=== PATIENT | male | born 1945 | race Caucasian/White ===

== ENCOUNTER → 2024-03-21 | Outpatient (CLI) | payer MEDICARE, MEDICAID, SELFPAY ==
[2024-03-21 12:08] LABS: Collection Type, Urine Clean Catch; Squamous Epithelial Cell,Urine 0 /hpf (0-5)
[2024-03-21 12:25] LABS: Basophils % (Auto) 0 % (0-2.5); Eosinophils % (Auto) 0 % (0-10); Hematocrit 34.8 % (41.0-53.0); Hemoglobin 11.5 g/dL (13.5-16.0); Immature Granulocytes % (Auto) 1 % (0-0); Lymphocytes # (Auto) 1.8 Thou/mm3 (1.0-4.8); Lymphocytes % (Auto) 19 % (10-50); Mean Corpuscular Volume 88 fL (80-100); Monocytes # (Auto) 0.6 Thou/mm3 (0.0-0.8); Monocytes % (Auto) 6 % (0-12); Neutrophils # (Auto) 6.9 Thou/mm3 (1.8-7.7); Neutrophils % (Auto) 73 % (37-80); Nucleated Red Blood Cell # 0.03 Thou/mm3 (0.00-0.00); Nucleated Red Blood Cell % 0 /100 WBC (0); Platelet Count 272 Thou/mm3 (140-440); RDW Standard Deviation 58.8 fL (35.1-43.9); Red Blood Count 3.97 Miln/mm3 (4.50-5.90); White Blood Count 9.5 Thou/mm3 (3.8-10.6)
[2024-03-21 12:29] LABS: Bilirubin,Urine Negative (Negative); Blood,Urine Negative (Negative); Clarity,Urine Clear (Clear/Hazy); Color,Urine Lt-Yellow (Lt Yel-Yel); Glucose, Urine Negative (Negative); Hyaline Casts,Urine < 1 /hpf (0-1); Ketones,Urine Negative (Negative); Leukocyte Esterase,Urine Negative (Negative); Nitrite,Urine Negative (Negative); Protein,Urine Trace (Neg - Trace); RBC,Urine 3 /hpf (0-3); Specific Gravity,Urine 1.012 (1.001-1.035); Urobilinogen,Urine Negative mg/dL (0.0-1.0); WBC,Urine < 1 /hpf (0-5)
[2024-03-21 12:40] LABS: Albumin, Serum 4.4 gm/dL (3.4-4.8); Anion Gap 8 (7-16); BUN/Creatinine Ratio 23 Ratio (12-20); Blood Urea Nitrogen 43 mg/dL (9-23); Calcium 10.3 mg/dL (8.3-10.6); Calcium (Corrected) 10.3 mg/dL (8.5-10.1); Chloride 104 mMol/L (98-107); Creatinine (Component) 1.9 mg/dL (0.6-1.3); Glucose 120 mg/dL (74-106); Osmolality,Calculated 287 (275-295); Phosphorous 3.1 mg/dL (2.4-5.1); Potassium 4.2 mMol/L (3.4-5.1); Sodium 138 mMol/L (136-145); eGFR 35 See Note
== END | disposition home or self-care (01) ==
LOC: COPL 11:07
PROVIDERS: PCP Family Medicine; Referring Provider Internal Medicine Nephrology; Visit Provider Internal Medicine Nephrology
DX: I12.9 Hypertensive chronic kidney disease with stage 1 through stage 4 chronic kidney disease, or unspecified chronic kidney disease (principal); N18.30 Chronic kidney disease, stage 3 unspecified
CPT/HCPCS: 36415; 80069; 81001; 85025

== ENCOUNTER → 2024-04-19 | Outpatient (CLI) | payer MEDICARE, MEDICAID, SELFPAY ==
[2024-04-19 12:19] LABS: Albumin, Serum 4.5 gm/dL (3.4-4.8); Anion Gap 9 (7-16); BUN/Creatinine Ratio 16 Ratio (12-20); Blood Urea Nitrogen 36 mg/dL (9-23); Calcium 10.1 mg/dL (8.3-10.6); Calcium (Corrected) 10.1 mg/dL (8.5-10.1); Chloride 101 mMol/L (98-107); Creatinine (Component) 2.2 mg/dL (0.6-1.3); Glucose 110 mg/dL (74-106); Osmolality,Calculated 283 (275-295); Phosphorous 3.1 mg/dL (2.4-5.1); Potassium 4.6 mMol/L (3.4-5.1); Sodium 137 mMol/L (136-145); eGFR 30 See Note
== END | disposition home or self-care (01) ==
LOC: COPL 10:48
PROVIDERS: PCP Family Medicine; Referring Provider Internal Medicine Cardiovascular Disease; Visit Provider Internal Medicine Cardiovascular Disease
DX: I25.118 Atherosclerotic heart disease of native coronary artery with other forms of angina pectoris (principal)
CPT/HCPCS: 36415; 80069

== ENCOUNTER 2024-05-29 14:43 | Inpatient (IN) | payer MEDICARE, MEDICAID, SELFPAY ==
--- NOTE | 2024-05-29 14:55 | EKG_ITS ---
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
--- NOTE | 2024-05-29 14:55 | PD.EDRME ---
Rapid Medical Screening Exam RME Arrival date/time: 05/29/24 14:43 78-year-old male presents emerged department complaints of dizziness Chief Complaint: Syncope / Near Syncope
[2024-05-29 15:10] VITALS: BP 122/65; PULSE 63; RESP 18; TEMP 36.9; O2SAT 96; BMI 29.9
[2024-05-29 15:20] LABS: Basophils # (Auto) 0.1 Thou/mm3 (0.0-0.2); Basophils % (Auto) 1 % (0-2.5); Eosinophils # (Auto) 0.2 Thou/mm3 (0.0-0.5); Eosinophils % (Auto) 3 % (0-10); Hematocrit 37.3 % (41.0-53.0); Immature Granulocytes % (Auto) 1 % (0-0); Immature Granulocytes Auto 0.08 Thou/mm3 (0.00-0.00); Lymphocytes # (Auto) 1.7 Thou/mm3 (1.0-4.8); Lymphocytes % (Auto) 19 % (10-50); Mean Corpuscular HGB Conc 32.2 g/dl (31.0-37.0); Mean Corpuscular Hemoglobin 27.9 pg (25.0-35.0); Mean Corpuscular Volume 87 fL (80-100); Monocytes # (Auto) 0.6 Thou/mm3 (0.0-0.8); Monocytes % (Auto) 7 % (0-12); Neutrophils # (Auto) 6.3 Thou/mm3 (1.8-7.7); Neutrophils % (Auto) 70 % (37-80); Nucleated Red Blood Cell % 0 /100 WBC (0); Platelet Count 264 Thou/mm3 (140-440); RDW Standard Deviation 57.9 fL (35.1-43.9); White Blood Count 9.1 Thou/mm3 (3.8-10.6)
[2024-05-29 15:39] LABS: INR 1.8 (0.9-1.3); Partial Thromboplastin Time 27.7 Seconds (22.0-36.0); Prothrombin Time 19.1 Seconds (9.0-12.2)
[2024-05-29 15:41] LABS: B-Type Natriuretic Peptide 194 pg/mL (0-100)
[2024-05-29 15:49] LABS: Alanine Aminotransferase 15 U/L (10-49); Albumin, Serum 4.7 gm/dL (3.4-4.8); Albumin/Globulin Ratio 1.6 (1.2-2.2); Alkaline Phosphatase 161 U/L (46-116); Anion Gap 11 (7-16); Aspartate Amino Transferase 19 U/L (0-34); BUN/Creatinine Ratio 13 Ratio (12-20); Bilirubin,Total 0.6 mg/dL (0.3-1.2); Blood Urea Nitrogen 31 mg/dL (9-23); Calcium 10.1 mg/dL (8.3-10.6); Calcium (Corrected) 10.1 mg/dL (8.5-10.1); Carbon Dioxide 26.4 mMol/L (20.0-31.0); Chloride 101 mMol/L (98-107); Creatinine (Component) 2.3 mg/dL (0.6-1.3); Estimated Creatinine Clearance 30.5 mL/min (>60); Globulin 2.9 gm/dL (2.3-3.5); Glucose 106 mg/dL (74-106); Magnesium 1.7 mg/dL (1.6-2.6); Osmolality,Calculated 282 (275-295); Potassium 4.2 mMol/L (3.4-5.1); Sodium 138 mMol/L (136-145); Total Protein 7.6 gm/dL (5.7-8.2); eGFR 28 See Note
[2024-05-29 15:51] LABS: Troponin I 0.117 ng/mL (0.0-0.045)
--- NOTE | 2024-05-29 16:48 | PC.NURSE ---
Patient drinking fluids with no difficulty at this time. POC updated.
--- NOTE | 2024-05-29 17:03 | EDNOTE_ITS ---
ED Weakness RME/HPI General Chief complaint: Syncope / Near Syncope Stated complaint: sent by clinic,dizzy, hypotensive, epigastric pain Time Seen by Provider: 05/29/24 16:38 Arrival date/time: 05/29/24 14:43 RME / HPI RME / HPI Narrative: 05/29/24 14:43 78-year-old male presents emerged department complaints of dizziness DR. ZIEGLER MAIN ED EVALUATION: 78 year old male with history of AFib, CAD s/p stent, pacemaker placement, hypertension, hyperarathyroid s/p left parathyroidectomy, CKD presents to the ED for evaluation of bilateral leg weakness, dizziness, and nausea beginning ~ 1 pm today. Accompanied by a pressure sensation to the center of his lower chest/epigastric area, rated as mild that lasted 2 hours. reports she took blood pressure during that time and was 70/40 with home machine. Patient reports he sat himself down on his walker and did not fall or lose consciousness. Although reports he felt very faint. states the patient was then taken to school curriculum developer Dr. Eileen Moran's office and was advised to come to the ED for further evaluation. Patient mentioned this morning he felt at his baseline and at around noon was working out at the wellness center; denied performing any strenuous exercise. Denies any recent illness. Denies cough, shortness of breath, abdominal pain, vomiting, or urinary symptoms. Related Data Home Medications ?Medication ?Instructions ?Recorded ?Confirmed allopurinol 300 mg tablet 300 mg PO QDAY ##0 10/16/13 01/04/22 gabapentin 800 mg tablet 900 mg PO TID #0 tabs 10/16/13 01/04/22 pravastatin 40 mg tablet 40 mg PO QAM #0 tabs 10/16/13 01/04/22 (Pravachol) amitriptyline 10 mg tablet 10 mg PO HS 10/04/18 01/04/22 amlodipine 5 mg-benazepril 40 mg 1 cap PO HS 10/04/18 01/04/22 capsule furosemide 20 mg tablet 20 mg PO QDAY 03/23/21 01/04/22 warfarin 5 mg tablet 5 mg PO QDAY 01/04/22 01/04/22 Previous Rx's ?Medication ?Instructions ?Recorded hydrocodone 7.5 mg-acetaminophen 1 tab PO QID PRN pain #12 tabs 10/04/18 325 mg tablet Allergies Allergy/AdvReac Type Severity Reaction Status Date / Time No Known Allergies Allergy Verified 05/29/24 14:45 Review of Systems Review of Systems Narrative Review of Systems: Constitutional: DENIES; Fevers Eyes: DENIES; Loss of vision Head/Ear/Nose: DENIES; Loss of hearing Throat: DENIES; Dysphagia Cardiovascular: SEE HP+ +chest pain, +dizziness. DENIES; dyspnea or syncope Respiratory: DENIES; Shortness of breath Gastrointestinal: SEE HPI +nausea. DENIES; Rectal bleeding or melena. Genitourinary: DENIES; Dysuria (painful or difficult urination) Musculoskeletal: DENIES; Arthralgia (pain in a joint),; Skin: DENIES; Rash Neurological: DENIES; Loss of function or movement Psychiatric: DENIES; recent major life stressor, emotional problem, illicit drug use or abuse Endocrinology: DENIES; Weight change Hematologic/Lymphatic: DENIES; Abnormal bruising Allergic/Immunologic: DENIES; Urticaria (hives) Past Medical History Past Medical History NEUROLOGIC: Positive Neurological Disorders, Peripheral Neuropathy and Head Trauma CARDIAC: Positive Cardiac Disorders, Myocardial Infarction, Cardiac Arrhythmia, Atrial Fibrillation, Angina, Hypercholesterolemia, Edema and Hypertension RESPIRATORY: Positive Sleep Apnea GASTROINTESTINAL: Positive Gastrointestinal Disorders, Gall Bladder Disease and Gastroesophageal Reflux Disease GENITOURINARY: Positive Benign Prostatic Hyperplasia MUSCULOSKELETAL: Positive Musculoskeletal Disorders, Gout and Degenerative Joint Disease ENT: Positive Cataracts and Head Trauma ENDOCRINE: Positive Parathyroid Disease HEMATOLOGIC: Positive Blood Disorders PSYCHO/SOCIAL: Positive Depression OTHER HISTORY: Positive Autoimmune Disease, Anesthesia Reactions, Chicken Pox and Measles Family History FAMILY HISTORY: Positive Family Gastrointestinal Problems Surgical History SURGICAL: Positive Cardiac Surgery, Coronary Stent, Pacemaker, Angiogram, Abdominal Surgery, Joint Replacement and Arthroscopy Social History SMOKING STATUS: Never smoker SUBSTANCE USE: does not use ED Exam Narrative Physical exam: Physical Exam: General: The vital signs were reviewed. The patient is non-toxic, in no apparent distress and appears healthy with a patent airway, no respiratory distress and has no apparent circulatory problems. Head & Scalp: Normocephalic, atraumatic. Face: Appears normal and is without lesions, deformity. Ears: Left external pinna appears normal. Right external pinna appears normal. Eyes: The sclera is anicteric. No obvious photophobia. The Left and Right Orbit/Lid/Conjunctiva appears normal without swelling, discoloration or injection. Nose: The nose is without deformity, discharge or tenderness; Throat: Appears normal. The mucous membranes are pink and moist without exudates, redness or mass seen. The tongue appears normal. Neck: The neck is supple and no apparent mass or adenopathy. Chest: The chest wall is normal in size and symmetry and has no chest wall tenderness or crepitus. The patient displays normal ventilator effort without retractions, accessory muscle use and has adequate air movement bilaterally with no wheezes and no rales. Cardiovascular: Regular rate and rhythm; No murmurs, rubs, or gallops; Gastrointestinal: The abdomen appears normal. No obvious hernias or mass. The abdomen is soft and benign, non-distended, with no pain, no guarding and no rebound tenderness. Bowel sounds are present and normal sounding. No CVA tenderness. Genitourinary: Back/Spine: Normal inspection nontender Extremities/Musculoskeletal/lymphatic: The bilateral upper and lower extremities are warm. There is no evidence of arterial insufficiency. There is no evidence of venous insufficiency/edema. The patient spontaneously moves bilateral upper and lower extremities with no pain and no limitation of movement. There is no apparent, injury or trauma. Skin: The skin is warm, dry and intact. No rashes. No petechia. No purpura. No abnormal bruising. The color is appropriate with no cyanosis. Mental status/Psychiatric: Mental status is appropriate for age. The patient has no apparent delusions, visual hallucinations, no apparent audible hallucinations. The patient has no apparent suicidal thoughts/ideation and no apparent homicidal thoughts/ideation. Neurological: The patient is awake, alert, interactive, cordial, cooperative and is oriented to name and situation. The patient follows commands and answers historical question with no impairment. There is no visual disturbance apparent. The pupils are equal and reactive bilaterally with normal eye movements and no diplopia The bilateral upper and lower extremities have normal strength, normal range of motion and normal functioning. The gait, station and balance not tested due to acuity Course Course Course Narrative: chest xray ordered to help determine etiology of weakness. Quality Measures none Orders Category Date Time Status EKG (ED ONLY) *Do not use* NOW Care 05/29/24 14:55 Completed EKG (ED Only) Stat Exams 05/29/24 14:55 Draft XR chest 1V portable Stat Exams 05/29/24 17:20 Ordered B-Type Natriuretic Peptide Stat Lab 05/29/24 15:01 Completed CBC Stat Lab 05/29/24 15:01 Completed Comprehensive Metabolic Panel Stat Lab 05/29/24 15:01 Completed Magnesium Stat Lab 05/29/24 15:01 Completed Partial Thromboplastin Time Stat Lab 05/29/24 15:01 Completed Prothrombin Time with INR Stat Lab 05/29/24 15:01 Completed Troponin I Stat Lab 05/29/24 15:01 Completed Troponin I Stat Lab 05/29/24 18:00 Ordered Urinalysis Stat Lab 05/29/24 14:55 Ordered Aspirin Med 05/29/24 17:20 Discontinued 325 mg PO X1 ONE Sodium Chloride 0.9% 1000 ml [Ns] 1,000 ml Med 05/29/24 17:20 Active IV 100 mls/hr Sodium Chloride 0.9% 500 ml [Ns] 500 ml Med 05/29/24 17:20 Active IV 999 mls/hr Vital Signs Vital signs: Vital Signs Temperature 98.5 F 05/29/24 15:10 Pulse Rate 63 05/29/24 15:10 Respiratory Rate 18 05/29/24 15:10 Blood Pressure 122/65 05/29/24 15:10 Pulse Oximetry (%) 96 05/29/24 15:10 Oxygen Delivery Method Room Air 05/29/24 15:10 Pulse ox is 96% on room air which is adequate. Weakness MDM Narrative MDM Narrative:: IMaribell am scribing for and in the presence of Dr. Ziegler. Patient is an 78-year-old with a pacemaker for sick sinus syndrome had an episode where he became acutely weak unable to walk had to sit on his walker his came out and did a blood pressure at home and it was low at 70/40 and she checked it twice. They also noted to have a very good home blood pressure machine. They then called her primary care doctor when saw Dr. Cunningham and he sent the patient here to the emergency department where his blood pressure is normalized his chest discomfort which started at the time of his weakness is improved greatly but still minimally present. He did not take any aspirin. Did not take any nitroglycerin. Patient says he was put in room 11 is feeling much more comfortable. EKG reveals a pacemaker rhythm and no further analysis can be made. CBC came back unremarkable. PT is 19.1 INR is 1.8 and the patient is on Eliquis. Sodium 138 potassium 4.2 CO2 is 26.4 BUN and creatinine are both elevated and chronically elevated today is 31 and 2.3 troponin is bumped at 0.117 and if you look at the old troponins it is almost always a little bit above the negative range but this is the highest its ever been. A repeat troponin is pending at 1800 hrs. A chest x-ray is pending at this time. I contacted the patient's school curriculum developer Dr. Moran and we discussed the case at great length and agrees with patient being admitted IV hydration since he has renal insufficiency and then hospitalist was contacted Dr. Benny Mckeon's and he will be admitting Patient data External records reviewed:: [facility] previous records (I reviewed ED visit on 08/15/2023) Clinical information provided by:: patient and spouse (- adds to hpi) Social determinants that could affect healthcare access:: none Patient has the following chronic illnesses:: AFib, CAD s/p stent, pacemaker placement, hypertension, hyperarathyroid s/p left parathyroidectomy, CKD How is presenting disease/condition affected by chronic disease/condition?: exacerbated by Evaluation data The following diagnostics were reviewed and interpreted by me:: lab results, radiology exam(s) and EKG tracing(s) (Paced rhythm, rate 60, no STEMI. ) Lab and/or radiology exams considered but not ordered:: None Interpretation Summary: As noted above Medications / Prescriptions Medications or Prescriptions considered but not ordered:: None Medication administrations:: Medication Administration History Sodium Chloride (Ns) 1,000 mls @ 100 mls/hr IV .Q10H ONE Stop: 05/30/24 03:19 Sodium Chloride (Ns) 500 mls @ 999 mls/hr IV .Q31M ONE Stop: 05/29/24 17:50 Discontinued Medications Aspirin (Aspirin 325 Mg Tablet) 325 mg PO X1 ONE Stop: 05/29/24 17:21 See above Consultations Consultation(s) initiated? (list below): Yes Consultation #1 (Physician, Specialty, Details): I spoke with patients school curriculum developer Dr. Moran. Discussed patients PMHx, HPI, ED course, exam findings, labs results. HE agree Time: 17:16 Diagnosis Weakness Differential Diagnosis: acute myocardial infarction, anemia, sepsis, dehydration and other (Angina) Most likely diagnosis given after review of the tests above:: Near syncope Elevated troponin Unstable angina Acute hypotension History of pacemaker Admission Indicated Admission indicated?: indicated Admission Request Was there a request for admission?: Yes Admission Attestation Admission request attestation: Discussed case with [] from Hospitalist service regarding admission. Discussed patients ED course, exam findings, labs, and radiology results. The Hospitalist [agrees,declines] to accept the patient for admission. Disposition Plan Disposition Plan: Admit Discharge Plan Plan Patient Disposition: Admit Acute Care w/in Hospital Disposition Comment: Hospitalist admit Dr. Moran to consult Prescriptions/Referrals Prescriptions/Med Rec: No Action pravastatin [Pravachol] 40 MG tablet 40 mg PO QAM Qty: 0 gabapentin 800 MG tablet 900 mg PO TID Qty: 0 Patient Comments: CONFIRMED THAT THE PATIENT TAKES BOTH 800 MG CAPSULE TID AND 100 MG CAPSULE TID, FOR TOTAL DOSE OF 900 MG TID. allopurinol 300 MG tablet 300 mg PO QDAY Qty: 0 amitriptyline 10 mg Tablet 10 mg PO HS amlodipine-benazepril 5-40 mg Capsule 1 cap PO HS hydrocodone-acetaminophen 7.5-325 mg tablet 1 tab PO QID MDD 4 tabs PRN (Reason: pain) Qty: 12 0RF furosemide 20 mg Tablet 20 mg PO QDAY warfarin 5 mg tablet 5 mg PO QDAY Problem List Clinical Impression: Near syncope, Elevated troponin, Unstable angina, Acute hypotension, History of pacemaker Patient/Caregiver Discharge Instructions Print Language: Welsh Stand Alone Forms: Irma Award Info., Patient Portal Info Letter
--- NOTE | 2024-05-29 17:20 | XR_ITS ---
Examination: AP chest single view Technique one AP portable upright chest single view Exam date and time: March 24, 2024 1525 hrs. Indications: Hypotension epigastric pain chest pain dizziness today. Findings: Mild to moderate enlargement left ventricle Ectatic thoracic aorta Transvenous dual-chamber bipolar cardiac leads satisfactory position No lobar pneumonia or pulmonary edema Impression: No lobar pneumonia or pulmonary edema
[2024-05-29 18:08] VITALS: PULSE 60; RESP 100; RESP 18
[2024-05-29 18:12] VITALS: BP 147/95; PULSE 61; RESP 15; TEMP 36.7; O2SAT 100
--- NOTE | 2024-05-29 18:17 | PD.RESHP ---
Documentation for date of: 05/29/24 [facility] 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 Patient denied nausea, vomiting, chest pain, change in bowel or bladder, change in weight. Dr. Moran is his customer solutions specialist and Dr. Davidson is his line leader. In the ED his initial blood pressure was 122/65, P?63, RR?18,temp-98.5, when I saw the patient his blood pressure was 147/95. Pertinent labs hemoglobin 12, PT?19.1, INR?1.8, BUN?31, creatinine?2.3 troponin?0.117. In the ED patient received aspirin 325 Mg x 1. EKG showed paced rhythm. PMH:atrial fibrillation currently on eliquis , coronary artery disease status post stent, sick sinus syndrome, HTN, GERD, hyperparathyroidism, chronic kidney disease PSH: Pacemaker s/p 2018, parathyroidectomy s/p 2019, left thyroidectomy s/p 2019, hip and knee replacement, renal cyst drainage and removal. 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 Review of Systems Review of Systems Systems Reviewed: All systems reviewed, normal except as documented Narrative Review of Systems: GENERAL: Comfortable adult seen resting comfortably in hospital bed, no acute distress VITALS: All vitals were reviewed and the pulse ox is 98% on room air HEENT: Normocephalic, atraumatic. Pupils are equal and reactive. Oral mucosa is moist. NECK: Supple, nontender, no JVD CHEST: Symmetrical, atraumatic and with equal expansion ,Nontender on palpation CARDIOVASCULAR: Heart regular rhythm & rate. S1/S2. no murmur or gallop rub or extra beats. LUNGS: Clear to auscultation bilaterally with symmetrical chest rise. No laboring tachypnea or wheezing. No intercostal subcostal retraction. No rales and no rhonchi. ABDOMEN: Soft, flat, nontender to palpation, no guarding or rebound tenderness. Active and normal bowel sounds. EXTREMITIES:Moves all 4 extremities,No B/L LE edema. SKIN: Warm and dry, no jaundice or rashes noted. NEURO: Patient is AO x 3, Cranial nerves II through XII grossly intact. There is no focal neurologic deficits noted. PSYCHIATRIC: Patient is in normal mood, cooperative, no SI or HI or hallucinations. Exam Vital Signs Temp Pulse Resp BP Pulse Ox O2 Del Method 98.1 F 61 15 147/95 H 100 Room Air 05/29/24 18:12 05/29/24 18:12 05/29/24 18:12 05/29/24 18:12 05/29/24 18:12 05/29/24 18:12 Results: Labs 05/30/24 02:48 05/30/24 02:48 Labs: Short CBC 05/29/24 Range/Units 15:01 WBC 9.1 (3.8-10.6) Thou/mm3 Hgb 12.0 L (13.5-16.0) g/dL Hct 37.3 L (41.0-53.0) % Plt Count 264 (140-440) Thou/mm3 BMP 05/29/24 15:01 Sodium 138 Potassium 4.2 Chloride 101 Carbon Dioxide 26.4 BUN 31 H Creatinine 2.3 H Glucose 106 Calcium 10.1 Cardiac Enzymes 05/29/24 Range/Units 15:01 Troponin I 0.117 H* (0.0-0.045) ng/mL Liver Function 05/29/24 Range/Units 15:01 Total Bilirubin 0.6 (0.3-1.2) mg/dL AST 19 (0-34) U/L ALT 15 (10-49) U/L Alkaline Phosphatase 161 H (46-116) U/L Albumin 4.7 (3.4-4.8) gm/dL Quality Measures Quality Measures none Advance care planning discussed with:: patient Medications Home Medications and Allergies Home Medications ?Medication ?Instructions ?Recorded ?Confirmed ?Type gabapentin 800 mg tablet 800 mg PO TID #0 tabs 10/16/13 05/29/24 History pravastatin 40 mg tablet 40 mg PO QAM #0 tabs 10/16/13 05/29/24 History (Pravachol) amitriptyline 10 mg tablet 10 mg PO HS 10/04/18 05/29/24 History apixaban 5 mg tablet (Eliquis) 2.5 mg BID 05/29/24 05/29/24 History benazepril 20 mg tablet 20 mg 1XD 05/29/24 05/29/24 History bumetanide 1 mg tablet 1 mg 1XD 05/29/24 05/29/24 History cinacalcet 30 mg tablet 30 mg PO 1XD 05/29/24 05/29/24 History gabapentin 100 mg capsule 100 mg BID 05/29/24 05/29/24 History omeprazole 20 mg capsule,delayed 20 mg 1XD 05/29/24 05/29/24 History release spironolactone 25 mg tablet 25 mg 1XD 05/29/24 05/29/24 History Allergies Allergy/AdvReac Type Severity Reaction Status Date / Time No Known Allergies Allergy Verified 05/29/24 14:45 Visit Medications Acetaminophen (Acetaminophen 325 Mg Tablet) 650 mg PO Q6H PRN PRN Reason: Fever >101.5 Stop: 06/28/24 18:07 Enoxaparin Sodium (Enoxaparin Sod Inj 100 Mg/Ml Syringe) 100 mg SC QDAY OLI Stop: 06/12/24 18:29 Sodium Chloride (Ns) 1,000 mls @ 100 mls/hr IV .Q10H ONE Stop: 05/30/24 03:19 Ondansetron HCl (Ondansetron Inj 2 Mg/Ml Inj 2 Ml) 4 mg IV Q6H PRN; Protocol PRN Reason: NAUSEA OR VOMITING Stop: 06/28/24 18:07 Pantoprazole Sodium (Pantoprazole 40 Mg Tablet) 40 mg PO QDAY OLI Stop: 06/28/24 18:14 Discontinued Medications Aspirin (Aspirin 325 Mg Tablet) 325 mg PO X1 ONE Stop: 05/29/24 17:21 Sodium Chloride (Ns) 500 mls @ 999 mls/hr IV .Q31M ONE Stop: 05/29/24 17:50 Assessment & Plan Plan Mr Yves Christensen is a 76-year-old male with PMH of atrial fibrillation previously on warfarin changed to Eliquis, CAD s/p stent, 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 Patient denied nausea, vomiting, chest pain, change in bowel or bladder, change in weight. Dr. Moran is his customer solutions specialist and Dr. Davidson is his line leader. In the ED his initial blood pressure was 122/65, P?63, RR?18,temp-98.5, when I saw the patient his blood pressure was 147/95. Pertinent labs hemoglobin 12, PT?19.1, INR?1.8, BUN?31, creatinine?2.3 troponin?0.117. In the ED patient received aspirin 325 Mg x 1. EKG showed paced rhythm. #ACS workup #Syncope #hypotension #elevated troponin type I vs Type II - patient felt weak and dizzy , his home blood pressure was 70/40 -JESSICA score 33 , intermediate/high risk index -Tiffanie score 138 points , 14% probability of -EKG neg for ST changes -Workup :telemetry , trend trop untill downtrending ,echo -Antiplatelet: patient received 325 mg aspirin, will continue 81 mg daily -Anticoagulation: therupatic Lovenox 100 mg SQ daily renally dosed, -Cardiac remodeling- holding metoprolol in setting of hypotension and TIMMY/ARBS in setting of ckd -Trop 0.117 , most likely type 2 in the setting of demand ischemia -Trend troponin, repeat EKG in AM -hypotension could be secondary to multiple anti hypertensive medication he takes -Cards consulted, appreciate reccs by Dr Moran -patient received aspirin 325 in ED -Orthostatic vitals -Started the patient on n.p.o. after midnight for possible cath if troponin increases. #Atrial fibrillation - Rate controlled -will hold home Eliquis for possible cath if trops increase, will give Lovenox 100q day , adjusted according to kidney function #HTN - hold home anti hypertensive in setting of hypotension , -Can start one HTN mediction if blood pressure increases #Normocytic anemia -Hb on admission is 12 -likely in setting of CKD -continue to monitor , transfuse if Hb <7 #H/o Hyperparathyroid #Hypercalcemia - S/p L parathyroidectomy - Ca at 10.1 - Cont to monitor #CKD stage IIIb -Stable, Cr at baseline 1.4 -Currently 2.3 -Will continue to monitor , his line leader is Dr Davidson #CAD s/p stent - Cont home pravastatin #Gout - Cont home allopurinol #Sick Sinus Syndrome - S/p AV pacemaker Disposition: admit to tele for ACS r/o, cards consulted Diet and fluids: cardiac DVT prophylaxis:lovenox GI prophylaxis: protonix CODE STATUS: FULL Discussed the patient with my attending Reema Garrett MD,PGY-3 Attending Provider Attestation/Addendum 78-year-old male patient with sick sinus syndrome status post pacemaker was admitted for near syncopal episode. Initial troponin is mildly elevated. Patient will be admitted for further workup. Will trend troponin levels. ER MD Dr. Toney french with his customer solutions specialist He will be admitted for possible ACS. Continuous cardiac monitoring. Physical therapy evaluation was stable. Check medication list. Discussed with housestaff.
[2024-05-29] MEDS: PANTOPRAZOLE 40 MG TABLET PO (18:42)
[2024-05-29] MEDS: ENOXAPARIN SOD INJ 100 MG/ML SYRINGE SC (18:42)
[2024-05-29] MEDS: Aspirin 325 MG TABLET PO (18:42)
[2024-05-29 18:45] VITALS: BP 118/75; BP 122/76; BP 124/64; PULSE 60; PULSE 62; PULSE 64
[2024-05-29 19:03] LABS: Troponin I 0.122 ng/mL (0.0-0.045)
--- NOTE | 2024-05-29 19:56 | ECHO_ITS ---
Transthoracic Echo Report Ht (in): 71 Wt (lb): 215 Exam Location: Portable Status: Inpatient Agent Licensing Clerk: Angelita Downs Indications: Procedure Performed: BP: 104 / 57 HR: 69 Technical Quality: Fair MEASUREMENTS (Male / Female) Normal Values 2D ECHO LV Diastolic Diameter PLAX 4.8 cm 4.2 - 5.9 / 3.9 - 5.3 cm LV Systolic Diameter PLAX 3.5 cm IVS Diastolic Thickness 1.2 cm 0.6 - 1.0 / 0.6 - 0.9 cm LVPW Diastolic Thickness 1.5 cm 0.6 - 1.0 / 0.6 - 0.9 cm LV Relative Wall Thickness 0.6 LVOT Diameter 2.1 cm LA Volume Index 46.2 cm?/m? 16 - 28 cm?/m? Ascending Aorta Diameter 3.5 cm M-MODE Aortic Root Diameter MM 3.3 cm LA Systolic Diameter MM 5.1 cm LA Ao Ratio MM 1.5 AV Cusp Separation MM 2.6 cm DOPPLER AV Peak Velocity 123.0 cm/s AV Peak Gradient 6.1 mmHg AV Mean Gradient 3.0 mmHg AV Velocity Time Integral 20.2 cm LVOT Peak Velocity 107.0 cm/s LVOT Peak Gradient 4.6 mmHg LVOT Velocity Time Integral 20.0 cm LVOT Cardiac Index 2139.8 cm?/min?m? AV Area Cont Eq vti 3.4 cm? AV Area Cont Eq pk 3.0 cm? MV Peak Velocity 122.0 cm/s MV Peak Gradient 6.0 mmHg MV Mean Velocity 50.4 cm/s MV Mean Gradient 1.0 mmHg MV Area PHT 2.8 cm? MR Peak Velocity 391.0 cm/s MR Peak Gradient 61.2 mmHg Mitral E Point Velocity 95.1 cm/s Mitral A Point Velocity 1.5 cm/s Mitral E to A Ratio 65.1 LV E' Lateral Velocity 3.4 cm/s Mitral E to LV E' Lateral Ratio 28.2 LV E' Septal Velocity 4.2 cm/s Mitral E to LV E' Septal Ratio 22.4 TR Peak Velocity 241.0 cm/s TR Peak Gradient 23.2 mmHg FINDINGS Left Ventricle Normal left ventricular size, systolic function with no obvious regional wall motion abnormalities. Moderate LVH. The ejection fraction is visually estimated at 65%. Right Ventricle The right ventricle is mildly dilated. Severe systolic dysfunction. The estimated right ventricular systolic pressure, 38 mmHg. RAP 15. Pacing wire present. Left Atrium The left atrium is severely dilated. Right Atrium The right atrium is severely dilated. Atrial Septum The interatrial septum appears normal with no evidence of a shunt. Aorta The ascending aorta is mildly dilated. Mitral Valve The mitral valve is moderate MAC. There is moderate mitral valve regurgitation. Aortic Valve The aortic valve is trileaflet and normal by two-dimensional, color flow and Doppler interrogation. There is no significant aortic valve regurgitation. Tricuspid Valve The tricuspid valve is normal. There is mild tricuspid valve regurgitation. Pulmonic Valve There is no significant pulmonic valve regurgitation. Vessels The pulmonary artery appears normal. The inferior vena cava pulmonary and hepatic veins milldy dilat ed. Pericardium The pericardium is normal by two-dimensional imaging. There is no significant pericardial effusion. CONCLUSIONS Normal LV size. Moderate LVH. Estimated EF 65% Mild RV dilatation. Severe RV dysfunction. Estimated RVSP 38mmHg. Pacing wire present Severe biatrial dilatation Moderate MAC wwith Moderate MR. Mild TR. Mild IVC dilatation. Ophelia Brown (Electronically Signed) Final Date: 30 May 2024 12:56
[2024-05-29] MEDS: SODIUM CHLORIDE 0.9% 500 ML 500 ML 999 ML IV (20:14)
[2024-05-29] MEDS: Magnesium Sulfate 2 GM Ivpb 2 GM/50 ML BAG IV (20:16)
[2024-05-29] MEDS: PRAVASTATIN SODIUM 10 MG TABLET 40 MG PO (21:10)
[2024-05-29] MEDS: AMITRIPTYLINE 10 MG PO (21:10)
[2024-05-29 21:19] VITALS: BP 129/78; PULSE 60; RESP 17; O2SAT 100
--- NOTE | 2024-05-29 21:57 | PC.NURSE ---
snacks provided to pt
[2024-05-29 23:20] LABS: Collection Type, Urine Clean Catch
[2024-05-29 23:49] LABS: Bilirubin,Urine Negative (Negative); Blood,Urine Negative (Negative); Clarity,Urine Clear (Clear/Hazy); Color,Urine Lt-Yellow (Lt Yel-Yel); Glucose, Urine Negative (Negative); Hyaline Casts,Urine < 1 /hpf (0-1); Ketones,Urine Negative (Negative); Leukocyte Esterase,Urine Positive (Negative); Nitrite,Urine Negative (Negative); PH,Urine 5.5 (5.0-7.0); Protein,Urine 1+ (Neg - Trace); RBC,Urine 3 /hpf (0-3); Specific Gravity,Urine 1.011 (1.001-1.035); Squamous Epithelial Cell,Urine < 1 /hpf (0-5); Urobilinogen,Urine Negative mg/dL (0.0-1.0); WBC,Urine 12 /hpf (0-5)
[2024-05-30] VITALS (12 sets, daily range): BP systolic 96–131; BP diastolic 53–76; PULSE 60–69; RESP 16–96; TEMP 36.1–36.8; O2SAT 94–99; BMI 30.1
--- NOTE | 2024-05-30 01:34 | ESCONSULT_ITS ---
RE: CHANCE YO : 1945 DATE OF CONSULTATION: 05/29/2024 CONSULTING PHYSICIANS: Emergency room physician and hospitalist. REASON FOR CONSULTATION: Near syncope. CHIEF COMPLAINT: Dizziness and nearly . HISTORY OF PRESENT ILLNESS: The patient is a 78-year-old male, very well known to me with long standing history of CAD status post stent placement more than 10 years ago, pacemaker implantation, has sick sinus syndrome, underlying atrial fibrillation, recently on Eliquis, hypertension, hypercholesterolemia, back problem, back surgery, hyperparathyroidism, status post parathyroidectomy, also chronic kidney disease stage III, baseline creatinine 2.2, and has chronic edema. He has been doing well and recently the patient's blood pressure was running low. I did reduce his combination of amlodipine and benazepril, stopped the Lotrel and gave only benazepril 20 mg daily. He also takes diuretics for edema. He came to the hospital because the patient apparently felt uneasy in the epigastric region, nausea, and suddenly felt very dizzy, nearly fainted. The took the blood pressure 70/40 and felt clammy and cold. Came to the hospital. The patient did have some epigastric discomfort. No chest pain. Admitted to the hospital because of known CAD and near syncopal episode for closed monitoring. His initial assessment showed hemoglobin stable at 12. PT was 19. BUN 31, creatinine 2.3. Troponin was slightly elevated at _.0111 The patient has 100% ventricular paced rhythm, underlying Afib, on Eliquis. He is feeling better now. No anginal symptoms. PAST MEDICAL HISTORY: Significant for history of pacemaker implantation, CAD, stent placement, and also history of parathyroidectomy status post in 2023, hypercalcemia, thyroidectomy in 2019, left hip and knee replacement surgery, and renal cyst drainage and removal. MEDICATIONS: He was on combination of amlodipine and benazepril, which was discontinued and now on benazepril only. He is also on Eliquis and Bumex and spironolactone. SOCIAL HISTORY: The patient is with a , is retired, does not smoke, no alcohol abuse. FAMILY HISTORY: Noncontributory. REVIEW OF SYSTEMS: Cardiovascular: No chest pain. No angina. Gastrointestinal: No history of nausea or vomiting. Genitourinary: No frequency or dysuria. PHYSICAL EXAMINATION: GENERAL: . VITAL SIGNS: Blood pressure 140/90, pulse rate 70__, respirations , temperature normal. HEENT: Head is atraumatic, normocephalic. Eyes normal. ENT normal. NECK: Supple. No JVD. Carotid pulses are felt but no bruits. CHEST: Symmetrical. LUNGS: Decreased breath sounds. No rales or rhonchi. HEART: S1 and S2 regular. ABDOMEN: Thin and soft. EXTREMITIES: No edema. GENITOURINARY AND RECTAL: Not performed. AIRCRAFT SALES REPRESENTATIVE: Normal. DIAGNOSTIC DATA: Electrocardiogram showed 100% ventricular paced rhythm, atrial fibrillation. IMPRESSION: 1. Near syncopal episode, possibly due to hypotension due to vagal syncope and orthostatic hypotension. 2. Hypertension. 3. Coronary artery disease status post stent placement. 4. Status post surgery, parathyroidectomy and thyroidectomy. 5. Underlying chronic atrial fibrillation, pacemaker rhythm. 6. Troponin elevation . RECOMMENDATION: I doubt very much the patient has acute myocardial infarction, though the patient's troponin is slightly elevated, clinical symptoms do not suggest myocardial infarction. His medications need to be adjusted, most likely discontinue benazepril and restart if necessary only at low dose 5 mg daily. Monitor blood pressure. Might even consider changing TIMMY inhibitor to some other agent at this time. Continue Eliquis, but change it to Lovenox temporarily. In case the patient's enzymes go significantly high, might do angiogram. Of note, second enzyme came 0.122. No significant spike in enzymes. Hence I do not see a need for any angiogram. Hence, we will do medical management. Blood pressure medication will be revised. Either stop the benazepril completely or continue low dose for now. Diuretics, also reduce the dosage since the patient's renal function is worse and might have had clinical dehydration. As for the coronary artery disease, the patient had stent placed many years ago. Recent cardiac workup was negative. I doubt very much the patient has significant obstructive CAD causing his symptoms at this time and no plan to do immediate angiogram or any cardiac workup. We will get a cardiac echo since he did not have one for the last year or so for assessment of the left ventricular function and wall motion. DT: 23:51:46 TT: 01:07:00 Ref: [id number] - TID: [id number] MTDD
--- NOTE | 2024-05-30 02:29 | EKG_ITS ---
[facility] Test Date: 2024-05-30 Pat Name: CHANCE YO [facility] Right Of Way Clearer: BREE : 1945 Requested By: Nikki Thomas Order Number: [id number] Reading MD: Nikki Thomas Measurements Intervals [place] Rate: 60 P: [place]: QRS: -80 QRSD: 196 T: 99 QT: 520 QTc: 520 Interpretive Statements ELECTRONIC VENTRICULAR PACEMAKER ABNORMAL RHYTHM ECG Compared to ECG 05/29/2024 17:15:43 No significant changes /[id number].pdf
--- NOTE | 2024-05-30 02:40 | PC.NURSE ---
Dr. Thomas notified of pt sudden mid sternal crushing chest pain 12/15 persisting for 10 minutes after he woke up worsening with deep inspiration. New orders for nitroglcerin 0.4mg x3 and stat ekg and troponin. @0311 Pain persisted after x3 doses Dr. Thomas at bedside assessing pt with new orders for morphine 2mg pain more tolerable at 6/10.
[2024-05-30] MEDS: NITROGLYCERIN 0.4 MG SUBL BTL #25 SL ×3 (02:42→02:54)
[2024-05-30] MEDS: MORPHINE SULF INJ 10 MG/ML VIAL 2 MG IVP (03:01)
[2024-05-30] MEDS: NITROGLYCERIN OINT 2% 1 INCH PACKET TOP (03:22)
[2024-05-30 03:45] LABS: Basophils # (Auto) 0.1 Thou/mm3 (0.0-0.2); Basophils % (Auto) 1 % (0-2.5); Eosinophils # (Auto) 0.4 Thou/mm3 (0.0-0.5); Eosinophils % (Auto) 5 % (0-10); Hematocrit 35.4 % (41.0-53.0); Hemoglobin 11.5 g/dL (13.5-16.0); Immature Granulocytes % (Auto) 1 % (0-0); Immature Granulocytes Auto 0.06 Thou/mm3 (0.00-0.00); Lymphocytes % (Auto) 27 % (10-50); Mean Corpuscular HGB Conc 32.5 g/dl (31.0-37.0); Mean Corpuscular Hemoglobin 29.2 pg (25.0-35.0); Mean Corpuscular Volume 90 fL (80-100); Monocytes # (Auto) 0.6 Thou/mm3 (0.0-0.8); Monocytes % (Auto) 8 % (0-12); Neutrophils # (Auto) 4.3 Thou/mm3 (1.8-7.7); Neutrophils % (Auto) 59 % (37-80); Nucleated Red Blood Cell % 0 /100 WBC (0); Platelet Count 239 Thou/mm3 (140-440); RDW Standard Deviation 59.4 fL (35.1-43.9); Red Blood Count 3.94 Miln/mm3 (4.50-5.90); White Blood Count 7.3 Thou/mm3 (3.8-10.6)
[2024-05-30 03:59] LABS: Alanine Aminotransferase 13 U/L (10-49); Albumin, Serum 4.3 gm/dL (3.4-4.8); Albumin/Globulin Ratio 1.6 (1.2-2.2); Alkaline Phosphatase 148 U/L (46-116); Anion Gap 10 (7-16); Aspartate Amino Transferase 15 U/L (0-34); BUN/Creatinine Ratio 15 Ratio (12-20); Bilirubin,Total 0.7 mg/dL (0.3-1.2); Blood Urea Nitrogen 32 mg/dL (9-23); Carbon Dioxide 28.1 mMol/L (20.0-31.0); Chloride 101 mMol/L (98-107); Cholesterol 120 mg/dL (132-200); Creatinine (Component) 2.2 mg/dL (0.6-1.3); Estimated Creatinine Clearance 31.9 mL/min (>60); Globulin 2.7 gm/dL (2.3-3.5); Glucose 146 mg/dL (74-106); HDL Cholesterol 30 mg/dL (40-60); LDL Cholesterol,Calculated 69 mg/dL (0-130); Magnesium 2.1 mg/dL (1.6-2.6); Osmolality,Calculated 287 (275-295); Phosphorous 3.5 mg/dL (2.4-5.1); Potassium 4.2 mMol/L (3.4-5.1); Sodium 139 mMol/L (136-145); Thyroid Stimulating Hormone 9.17 uIU/mL (0.55-4.78); Triglycerides 105 mg/dL (30-150); eGFR 30 See Note
[2024-05-30 04:02] LABS: Troponin I 0.136 ng/mL (0.0-0.045)
[2024-05-30 04:28] LABS: Glucose Estimated Average 123 mg/dL (80-131); Hemoglobin A1C 5.9 % Hgb (4.8-6.0)
--- NOTE | 2024-05-30 05:37 | EKG_ITS ---
[facility] Test Date: 2024-05-30 Pat Name: CHANCE YO [facility] Ammonia Distiller: LACEY : 1945 Requested By: Crow Maya Order Number: [id number] Reading MD: Crow Maya Measurements Intervals [place] Rate: 60 P: [place]: QRS: -84 QRSD: 221 T: 100 QT: 515 QTc: 515 Interpretive Statements ELECTRONIC VENTRICULAR PACEMAKER ABNORMAL RHYTHM ECG INTERPRETATION BASED ON A DEFAULT AGE OF 40 YEARS Compared to ECG 05/30/2024 02:39:46 No significant changes /[id number].pdf
--- NOTE | 2024-05-30 05:46 | XR_ITS ---
Indication: A chest single view Technique one AP portable upright chest single view Exam date and time: May 30, 2024 0556 hrs. Comparison May 29, 2024 Indications: Onset chest pain today. Findings: Mild enlargement to moderate enlargement left ventricle Mild vascular congestion Ectatic aorta Transvenous dual-chamber bipolar cardiac leads satisfactory position No lobar pneumonia or pulmonary edema Prominent osteopenia Impression: Mild vascular congestion
--- NOTE | 2024-05-30 06:22 | PD.RESEVENT ---
Documentation for date of: 05/30/24 Event Note Event Note: Rapid Response Room: 267 Time: 05:35 Reason for Call: Chest pain At 2:30 am, received call regarding chest pain and came to evaluate patient. At approximately 2 am patient states he awoke with central substernal pressure-like chest pain feeling like he has been punched in the chest. The pain was described as varying in severity from 6/10 to 9/10, worse with inspiration and cough. No change with palpation. Patient reports this is the first episode of this type of pain. Heart sounds normal S1, S2, regular rate and rhythm. Lung sounds clear bilaterally. Patient reported mild improvement of pleurisy upon sitting up. EKG was ordered and showed rate of 60 paced rhythm. Troponin is mildly elevated but has mostly been flat 0.130->0.136. He received nitroglycerin sublingual 0.4 x3 with minimal relief. He was given morphine 2 mg x1 which did not provide any relief. Finally 1 inch nitro paste was placed after which patient reported gradual improvement of pain. At 5:35 am, rapid response was called due to recurrence of chest pain, now with radiation to the right shoulder. Patient states he woke up around 5 am with the same central substernal pressure-like chest pain. EKG was repeated and again showed paced rhythm with rate of 60. Another stat troponin was ordered. CXR obtained shows similar findings to yesterday. Patient still has nitro paste on, due to continued pain a dose of Dilaudid 0.25 mg IV x1 was given, lidocaine patch was applied. Patient's home gabapentin resumed at lower dose. Messaged Dr. Moran with events. Patient was discussed with the attending, Dr. Merino, and team residents Crow Maya PGY-3, Davy Devine PGY-1, and Leoncio Gallardo PGY-1. Nikki Thomas, PGY-2
[2024-05-30] MEDS: LIDOCAINE 5% 1 PATCH TOP (06:24)
[2024-05-30] MEDS: HYDROmorphone INJ 2 MG/ML VIAL 0.25 MG IVP (06:24)
[2024-05-30] MEDS: GABAPENTIN 100 MG CAPSULE PO (06:36)
[2024-05-30 07:25] LABS: Troponin I 0.126 ng/mL (0.0-0.045)
[2024-05-30] MEDS: ENOXAPARIN SOD INJ 100 MG/ML SYRINGE SC (09:27)
[2024-05-30] MEDS: PANTOPRAZOLE 40 MG TABLET PO (09:27)
[2024-05-30] MEDS: ASPIRIN EC 81 MG TABEC PO (09:27)
[2024-05-30] MEDS: SODIUM CHLORIDE 0.9% 1000 ML 1,000 ML 100 ML IV (10:55)
--- NOTE | 2024-05-30 11:14 | PD.RESPRO ---
Documentation for date of: 05/30/24 Subjective Subjective Interval history: Patient was seen at bedside this morning. Overnight patient had 2 rapid response called due to chest pain in which he is EKGs were repeated and there was no acute ST changes as well as a chest x-ray was ordered which only showed mild vascular congestion. Patient during this time was given Dilaudid 0.25 mg IV x 1 and he was placed on nitroglycerin patch as well. Today patient still had chest pain substernal around 8 out of 10, but it was exacerbated with palpation and patient also had some questionable relief in pain or worsening with changes in position. Patient also states that it got worse when he breathed. Echocardiogram did show the patient had an ejection fraction of 65% with severe biatrial dilation. No other complaints at this time. Exam Vital Signs Temp Pulse Resp BP Pulse Ox O2 Del Method O2 Flow Rate 97.8 F 69 18 104/57 L 94 L Room Air 1 05/30/24 08:00 05/30/24 09:22 05/30/24 09:22 05/30/24 08:00 05/30/24 08:00 05/30/24 08:00 05/30/24 09:22 Narrative Exam General: A/O x3, no acute distress Eyes: PERRL, EOMI. Anicteric, vision grossly intact. Ears: No ear pain, no ear discharge, Hearing grossly intact. Nose: No nasal discharge. Mouth/Throat: Moist mucous membranes, no redness, no lesions. Neck: Neck supple, non-tender, no cervical lymphadenopathy. Lungs: Clear DAVY to auscultation and percussion, No accessory muscle use. Cardio: Normal S1/S2, regular rhythm, no murmurs, no JVD. Abdomen: Soft, non-tender, no palpable masses, peristalsis present, no guarding or rebound. Extremities: Symmetrical, no significant deformities, no peripheral edema , non-tender, peripheral pulses presents R UE diminished strength compared to L UE due to previous surgery. Skin: No rashes, no lesions, warm to touch. Neuro: No focal neurological deficits. motor and sensory intact. Psych: Cooperative, appropriate mood and effect. Objective Labs 05/30/24 02:48 05/30/24 02:48 Labs: Laboratory Results - last 24 hr 05/29/24 05/29/24 05/29/24 15:01 18:04 21:54 WBC 9.1 RBC 4.30 L Hgb 12.0 L Hct 37.3 L MCV 87 MCH 27.9 MCHC 32.2 RDW Std Deviation 57.9 H Plt Count 264 Neut % (Auto) 70 Lymph % (Auto) 19 [place] % (Auto) 7 Eos % (Auto) 3 Baso % (Auto) 1 Neut # (Auto) 6.3 Lymph # (Auto) 1.7 [place] # (Auto) 0.6 Eos # (Auto) 0.2 Baso # (Auto) 0.1 Immature Gran # (Auto) 0.08 H Absolute Nucleated RBC 0.00 Immature Gran % 1 H Nucleated RBC % 0 PT 19.1 H INR 1.8 H APTT 27.7 Sodium 138 Potassium 4.2 Chloride 101 Carbon Dioxide 26.4 Anion Gap 11 BUN 31 H Creatinine 2.3 H Estim Creat Clear Calc 30.5 L eGFR 28 L BUN/Creatinine Ratio [address] Glu mg/dL Hemoglobin A1c Calculated Osmolality 282 Calcium 10.1 Corrected Calcium 10.1 Phosphorus Magnesium 1.7 Total Bilirubin 0.6 AST 19 ALT 15 Alkaline Phosphatase 161 H Troponin I 0.117 H* 0.122 H* 0.130 H* B-Natriuretic Peptide 194 H Total Protein 7.6 Albumin 4.7 Globulin 2.9 Albumin/Globulin Ratio 1.6 Triglycerides Cholesterol LDL Cholesterol, Calc HDL Cholesterol Cholesterol/HDL Ratio TSH Ur Collection Type Urine Color Urine Clarity Urine pH Ur Specific [place] Urine Protein Urine Glucose (UA) Urine Ketones Urine Blood Urine Nitrite Urine Bilirubin Urine Urobilinogen (Auto) Ur Leukocyte Esterase Urine RBC Urine WBC Ur Squamous Epith Cells Urine Bacteria Hyaline Casts 05/29/24 05/30/24 05/30/24 22:59 02:48 05:44 WBC 7.3 RBC 3.94 L Hgb 11.5 L Hct 35.4 L MCV 90 MCH 29.2 MCHC 32.5 RDW Std Deviation 59.4 H Plt Count 239 Neut % (Auto) 59 Lymph % (Auto) 27 [place] % (Auto) 8 Eos % (Auto) 5 Baso % (Auto) 1 Neut # (Auto) 4.3 Lymph # (Auto) 2.0 [place] # (Auto) 0.6 Eos # (Auto) 0.4 Baso # (Auto) 0.1 Immature Gran # (Auto) 0.06 H Absolute Nucleated RBC 0.00 Immature Gran % 1 H Nucleated RBC % 0 PT INR APTT Sodium 139 Potassium 4.2 Chloride 101 Carbon Dioxide 28.1 Anion Gap 10 BUN 32 H Creatinine 2.2 H Estim Creat Clear Calc 31.9 L eGFR 30 L BUN/Creatinine Ratio 15 [address]ucose [address] Glu mg/dL 123 Hemoglobin A1c 5.9 Calculated Osmolality 287 Calcium 10.0 Corrected Calcium 10.0 Phosphorus 3.5 Magnesium 2.1 Total Bilirubin 0.7 AST 15 ALT 13 Alkaline Phosphatase 148 H Troponin I 0.136 H* 0.126 H* B-Natriuretic Peptide Total Protein 7.0 Albumin 4.3 Globulin 2.7 Albumin/Globulin Ratio 1.6 Triglycerides 105 Cholesterol 120 L LDL Cholesterol, Calc 69 HDL Cholesterol 30 L Cholesterol/HDL Ratio 4.0 TSH 9.17 H Ur Collection Type Clean Catch Urine Color Lt-Yellow Urine Clarity Clear Urine pH 5.5 Ur Specific [place] 1.011 Urine Protein 1+ A Urine Glucose (UA) Negative Urine Ketones Negative Urine Blood Negative Urine Nitrite Negative Urine Bilirubin Negative Urine Urobilinogen (Auto) Negative Ur Leukocyte Esterase Positive Urine RBC 3 Urine WBC 12 H Ur Squamous Epith Cells < 1 Urine Bacteria None Hyaline Casts < 1 Quality Measures Quality Measures none Advance care planning discussed with:: patient and spouse Assessment & Plan Assessment Current Active Medications: Generic Name Dose Route Start Last Admin Trade Name Freq PRN Reason Stop Dose Admin Acetaminophen 650 mg 05/29/24 18:08 Acetaminophen 325 Mg Tablet PO 06/28/24 18:07 Q6H PRN Fever >101.5 Aspirin 81 mg 05/30/24 09:00 05/30/24 09:27 Aspirin Ec 81 Mg Tabec PO 06/29/24 08:59 81 mg QDAY OLI Administration Amitriptyline 10 Mg 0 ea 05/30/24 06:57 PO 06/28/24 20:59 HS OLI Enoxaparin Sodium 100 mg 05/29/24 18:30 05/30/24 09:27 Enoxaparin Sod Inj 100 Mg/Ml Syringe SC 06/12/24 18:29 100 mg QDAY OLI Administration Gabapentin 100 mg 05/30/24 06:29 05/30/24 06:36 Gabapentin 100 Mg Capsule PO 06/29/24 06:28 100 mg QDAY OLI Administration Sodium Chloride 1,000 mls @ 100 mls/hr 05/30/24 10:52 Ns IV 01/23/25 20:51 Q10H OLI Ondansetron HCl 4 mg 05/29/24 18:08 Ondansetron Inj 2 Mg/Ml Inj 2 Ml IV 06/28/24 18:07 Q6H PRN NAUSEA OR VOMITING Protocol Pantoprazole Sodium 40 mg 05/29/24 18:15 05/30/24 09:27 Pantoprazole 40 Mg Tablet PO 06/28/24 18:14 40 mg QDAY OLI Administration Pravastatin Sodium 40 mg 05/29/24 21:00 05/29/24 21:10 Pravastatin Sodium 10 Mg Tablet PO 06/28/24 20:59 40 mg HS OLI Administration Plan 78-year-old male with past medical history of A-fib (on Eliquis), CAD s/p stents, sinus bradycardia and sick sinus syndrome s/p pacemaker, hypertension, GERD, hyperparathyroid s/p L parathyroidectomy, and CKD was admitted to hospital on 05/29/2024 due to NSTEMI and presyncope. #Elevated troponins type I versus type II #Presyncope #ACS workup #Hx of CAD s/p stents ? Patient came in with complaints of substernal chest pain ? Patient's troponins were elevated on admission and peaked at 0.136 before downtrending ? Tiffanie score of 143 points indicating 14% probability of from admission to 6 months. ? Echo showed ejection fraction 65%. Severe biatrial dilation ? EKGs did not show any acute ST changes. Plan: ? Continue aspirin 81 mg daily and pravastatin 40 mg at bedtime ? Will continue with Lovenox 100 mg daily as therapeutic dose and renew those. ?Cardiology consulted, patient recommendations ? Will continue to monitor #Normocytic normochromic anemia ? Patient came in with hemoglobin of 12 ? Hemoglobin today 11.5 Plan: ? Will transfuse hemoglobin less than 7 ? Will continue to monitor #JENNIFER on CKD stage IIIb ? Patient has a base creatinine of 1.9 ? Patient came in with creatinine of 2.3 and today is 2.2 Plan: ? Avoid nephrotoxic agents ? Renally dose medications ? Will continue to monitor #Hx of atrial fibrillation #Hx of sick sinus syndrome s/p pacemaker ? Patient appears to be rate controlled at this time -Not on any rate controlling medication at home. #Hx of hypertension ? Patient blood pressure has been well-controlled during hospital admission and even has been on the lower end ? Will hold off on antihypertensive medication for now #Hx of hyperparathyroid s/p left parathyroidectomy ?Corrected calcium 10 today ? TSH 9.17 ? Ordered free T4 Disposition: Patient admitted to telemetry. Diet: Cardiac GI prophylaxis: protonix DVT prophylaxis: Lovenox Code: DNR/DNI Case disclosed with Attending Dr. Lucia and My senior Dr. Reyes PGY2. Chuck Ratliff PGY1 Senior Resident Attestation: Overnight he had 2 episodes of chest pain and NURSING HOME ADMISSIONS DIRECTOR was called EKG was insignificant for any ST segment changes. Trops mildly uptrended initially, but later downtrended. This morning the patient reported his chest pain persisted and was worsened by deep inspiration, and laying flat supporting acute pericarditis, but wasn't revealed in EKG or ILANA. Dr. Moran on board, appreciate reccs. I discussed with and supervised the internal audit manager physician involved in the care of this patient. I personally saw and examined the patient and discussed the assessment and plan with the entire medicine team, including my attending. I agree with the assessment and plan as documented above. Godfrey Reyes MD PGY2 Internal Medicine Attending Provider Attestation/Addendum Patient complained of chest pain. Last troponin 0.126. Patient has sick sinus syndrome status post pacemaker. Patient is follow-up with his med peds. He is on Eliquis for atrial fibrillation. Chest x-ray showed mild vascular congestion. EKG showed pacemaker rhythm. Continue to monitor. Discussed with housestaff.
[2024-05-30] MEDS: MORPHINE SULF INJ 10 MG/ML VIAL IVP (13:45)
--- NOTE | 2024-05-30 14:37 | ESPR_ITS ---
<Statement entered by Shavonne Moran MD - 06/02/24 13:16> I examined the patient personally assessed and evaluated this patient who is well-known to me has atypical chest pain appears to be pleuropericardial type anti-inflammatory therapy cannot be given because of kidney disease but recommend colchicine for pericarditis. Troponin level slightly elevated no significant bump and chest pain is noncardiac because of CKD and pain that does not appear to be cardiac in nature or ischemic we will manage medically and treat pericarditis. I evaluated the patient with Dr. Lee PGY 2 agree with the treatment plan recommendation as documented by Dr. Lee. Documentation for date of: 05/30/24 Subjective Subjective Interval history: Patient seen and assessed at bedside. Patient had 2 episodes of chest pain overnight for which she was given nitroglycerin. Troponins still slightly elevated and peaked at 0.136. Patient still continues to have chest pain and states it feels like previous LA. Patient does have chest pain on deep inspiration as well on palpation of right chest area. Exam Vital Signs Temp Pulse Resp BP Pulse Ox O2 Del Method O2 Flow Rate 97.6 F 60 17 106/56 L 97 Room Air 1 05/30/24 12:00 05/30/24 12:00 05/30/24 12:00 05/30/24 12:05/30/24 12:05/30/24 12:05/30/24 09:22 Narrative Exam General: A/O x3, no acute distress. Appears ill. Lungs: Chest clear to auscultation bilaterally. No increased work of breathing. Chest pain on deep inspiration Cardio: Normal S1/S2, regular rhythm, no murmurs, no JVD. Chest pain on palpation right upper area. Abdomen: Soft, non-tender, no palpable masses, peristalsis present, no guarding or rebound. Extremities: Trace peripheral edema , non-tender. Psych: Cooperative, appropriate mood and effect. Objective Labs 05/30/24 02:48 05/30/24 02:48 Labs: Laboratory Results - last 24 hr 05/29/24 05/29/24 05/29/24 15:01 18:04 21:54 WBC 9.1 RBC 4.30 L Hgb 12.0 L Hct 37.3 L MCV 87 MCH 27.9 MCHC 32.2 RDW Std Deviation 57.9 H Plt Count 264 Neut % (Auto) 70 Lymph % (Auto) 19 [place] % (Auto) 7 Eos % (Auto) 3 Baso % (Auto) 1 Neut # (Auto) 6.3 Lymph # (Auto) 1.7 [place] # (Auto) 0.6 Eos # (Auto) 0.2 Baso # (Auto) 0.1 Immature Gran # (Auto) 0.08 H Absolute Nucleated RBC 0.00 Immature Gran % 1 H Nucleated RBC % 0 PT 19.1 H INR 1.8 H APTT 27.7 Sodium 138 Potassium 4.2 Chloride 101 Carbon Dioxide 26.4 Anion Gap 11 BUN 31 H Creatinine 2.3 H Estim Creat Clear Calc 30.5 L eGFR 28 L BUN/Creatinine Ratio [address] Glu mg/dL Hemoglobin A1c Calculated Osmolality 282 Calcium 10.1 Corrected Calcium 10.1 Phosphorus Magnesium 1.7 Total Bilirubin 0.6 AST 19 ALT 15 Alkaline Phosphatase 161 H Troponin I 0.117 H* 0.122 H* 0.130 H* B-Natriuretic Peptide 194 H Total Protein 7.6 Albumin 4.7 Globulin 2.9 Albumin/Globulin Ratio 1.6 Triglycerides Cholesterol LDL Cholesterol, Calc HDL Cholesterol Cholesterol/HDL Ratio TSH Ur Collection Type Urine Color Urine Clarity Urine pH Ur Specific [place] Urine Protein Urine Glucose (UA) Urine Ketones Urine Blood Urine Nitrite Urine Bilirubin Urine Urobilinogen (Auto) Ur Leukocyte Esterase Urine RBC Urine WBC Ur Squamous Epith Cells Urine Bacteria Hyaline Casts 05/29/24 05/30/24 05/30/24 22:59 02:48 05:44 WBC 7.3 RBC 3.94 L Hgb 11.5 L Hct 35.4 L MCV 90 MCH 29.2 MCHC 32.5 RDW Std Deviation 59.4 H Plt Count 239 Neut % (Auto) 59 Lymph % (Auto) 27 [place] % (Auto) 8 Eos % (Auto) 5 Baso % (Auto) 1 Neut # (Auto) 4.3 Lymph # (Auto) 2.0 [place] # (Auto) 0.6 Eos # (Auto) 0.4 Baso # (Auto) 0.1 Immature Gran # (Auto) 0.06 H Absolute Nucleated RBC 0.00 Immature Gran % 1 H Nucleated RBC % 0 PT INR APTT Sodium 139 Potassium 4.2 Chloride 101 Carbon Dioxide 28.1 Anion Gap 10 BUN 32 H Creatinine 2.2 H Estim Creat Clear Calc 31.9 L eGFR 30 L BUN/Creatinine Ratio 15 Glucose [address] Glu mg/dL 123 Hemoglobin A1c 5.9 Calculated Osmolality 287 Calcium 10.0 Corrected Calcium 10.0 Phosphorus 3.5 Magnesium 2.1 Total Bilirubin 0.7 AST 15 ALT 13 Alkaline Phosphatase 148 H Troponin I 0.136 H* 0.126 H* B-Natriuretic Peptide Total Protein 7.0 Albumin 4.3 Globulin 2.7 Albumin/Globulin Ratio 1.6 Triglycerides 105 Cholesterol 120 L LDL Cholesterol, Calc 69 HDL Cholesterol 30 L Cholesterol/HDL Ratio 4.0 TSH 9.17 H Ur Collection Type Clean Catch Urine Color Lt-Yellow Urine Clarity Clear Urine pH 5.5 Ur Specific [place] 1.011 Urine Protein 1+ A Urine Glucose (UA) Negative Urine Ketones Negative Urine Blood Negative Urine Nitrite Negative Urine Bilirubin Negative Urine Urobilinogen (Auto) Negative Ur Leukocyte Esterase Positive Urine RBC 3 Urine WBC 12 H Ur Squamous Epith Cells < 1 Urine Bacteria None Hyaline Casts < 1 Quality Measures Quality Measures none Advance care planning discussed with:: patient, spouse and child Assessment & Plan Assessment Current Active Medications: Generic Name Dose Route Start Last Admin Trade Name Freq PRN Reason Stop Dose Admin Acetaminophen 650 mg 05/29/24 18:08 Acetaminophen 325 Mg Tablet PO 06/28/24 18:07 Q6H PRN Fever >101.5 Aspirin 81 mg 05/30/24 09:00 05/30/24 09:27 Aspirin Ec 81 Mg Tabec PO 06/29/24 08:59 81 mg QDAY OLI Administration Amitriptyline 10 Mg 0 ea 05/30/24 06:57 PO 06/28/24 20:59 HS OLI Enoxaparin Sodium 100 mg 05/29/24 18:30 05/30/24 09:27 Enoxaparin Sod Inj 100 Mg/Ml Syringe SC 06/12/24 18:29 100 mg QDAY OLI Administration Gabapentin 100 mg 05/30/24 06:29 05/30/24 06:36 Gabapentin 100 Mg Capsule PO 06/29/24 06:28 100 mg QDAY OLI Administration Sodium Chloride 1,000 mls @ 100 mls/hr 05/30/24 10:52 05/30/24 10:55 Ns IV 05/30/24 20:51 100 mls/hr Q10H OLI Administration Ondansetron HCl 4 mg 05/29/24 18:08 Ondansetron Inj 2 Mg/Ml Inj 2 Ml IV 06/28/24 18:07 Q6H PRN NAUSEA OR VOMITING Protocol Pantoprazole Sodium 40 mg 05/29/24 18:15 05/30/24 09:27 Pantoprazole 40 Mg Tablet PO 06/28/24 18:14 40 mg QDAY OLI Administration Pravastatin Sodium 40 mg 05/29/24 21:00 05/29/24 21:10 Pravastatin Sodium 10 Mg Tablet PO 06/28/24 20:59 40 mg HS OLI Administration Plan Mr Yves Christensen is a 76-year-old male with PMH of atrial fibrillation previously on warfarin changed to Eliquis, CAD s/p stent, 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 Cardiology consulted due to past cardiac history. #ACS workup #Syncope # History of atrial fibrillation #History of sick sinus syndrome #elevated troponin type I vs Type II #Pericarditis -EKG neg for ST changes -Troponin peaked at 0.136 -Continue 81 mg daily -Holding Eliquis, patient on therapeutic Lovenox -Orthostatic vitals negative -Given patient's symptoms, likely pericarditis will start patient on colchicine 0.6 twice daily -Cardiac echo shows: Normal LV size. Moderate LVH. Estimated EF 65% Mild RV dilatation. Severe RV dysfunction. Estimated RVSP 38mmHg. Pacing wire present Severe biatrial dilatation Moderate MAC wwith Moderate MR. Mild TR. Mild IVC dilatation. #HTN #Normocytic anemia #H/o Hyperparathyroid #Hypercalcemia #CKD stage IIIb #CAD s/p stent #Gout Continue management per primary team Case discussed with soil surveyor Dr. Dean Lee MD PGY3.
--- NOTE | 2024-05-30 15:16 | PC.SS ---
Rounding Note: Plan is for ACS workup.
[2024-05-30 15:33] LABS: Free T4 (Free Thyroxine) 0.87 ng/dL (0.89-1.76)
[2024-05-30] MEDS: HYDROcodone/APAP 5/325 TABLET 1 TAB PO (16:26)
[2024-05-30] MEDS: PRAVASTATIN SODIUM 10 MG TABLET 40 MG PO (20:13)
[2024-05-30] MEDS: COLCHICINE 0.6 MG TABLET PO (20:14)
[2024-05-30] MEDS: AMITRIPTYLINE 10 MG PO (20:14)
[2024-05-31] VITALS (10 sets, daily range): BP systolic 91–122; BP diastolic 48–68; PULSE 60–69; RESP 13–98; TEMP 36.2–36.7; O2SAT 97–100; BMI 30.4
[2024-05-31] MEDS: SODIUM CHLORIDE 0.9% 1000 ML 1,000 ML 100 ML IV (00:44)
[2024-05-31 06:28] LABS: Basophils % (Auto) 1 % (0-2.5); Eosinophils # (Auto) 0.2 Thou/mm3 (0.0-0.5); Eosinophils % (Auto) 3 % (0-10); Hemoglobin 10.7 g/dL (13.5-16.0); Immature Granulocytes % (Auto) 0 % (0-0); Immature Granulocytes Auto 0.03 Thou/mm3 (0.00-0.00); Lymphocytes # (Auto) 2.1 Thou/mm3 (1.0-4.8); Lymphocytes % (Auto) 24 % (10-50); Mean Corpuscular HGB Conc 32.4 g/dl (31.0-37.0); Mean Corpuscular Hemoglobin 28.2 pg (25.0-35.0); Mean Corpuscular Volume 87 fL (80-100); Monocytes # (Auto) 0.9 Thou/mm3 (0.0-0.8); Monocytes % (Auto) 11 % (0-12); Neutrophils # (Auto) 5.5 Thou/mm3 (1.8-7.7); Neutrophils % (Auto) 62 % (37-80); Nucleated Red Blood Cell % 0 /100 WBC (0); Platelet Count 189 Thou/mm3 (140-440); RDW Standard Deviation 58.2 fL (35.1-43.9); White Blood Count 8.8 Thou/mm3 (3.8-10.6)
[2024-05-31 07:11] LABS: Alanine Aminotransferase 10 U/L (10-49); Albumin, Serum 4.1 gm/dL (3.4-4.8); Albumin/Globulin Ratio 1.6 (1.2-2.2); Alkaline Phosphatase 126 U/L (46-116); Anion Gap 7 (7-16); Aspartate Amino Transferase 12 U/L (0-34); BUN/Creatinine Ratio 16 Ratio (12-20); Bilirubin,Total 1.3 mg/dL (0.3-1.2); Blood Urea Nitrogen 41 mg/dL (9-23); Calcium 9.4 mg/dL (8.3-10.6); Calcium (Corrected) 9.4 mg/dL (8.5-10.1); Carbon Dioxide 24.6 mMol/L (20.0-31.0); Chloride 104 mMol/L (98-107); Creatinine (Component) 2.5 mg/dL (0.6-1.3); Estimated Creatinine Clearance 28.2 mL/min (>60); Globulin 2.5 gm/dL (2.3-3.5); Glucose 99 mg/dL (74-106); Osmolality,Calculated 282 (275-295); Potassium 4.6 mMol/L (3.4-5.1); Sodium 136 mMol/L (136-145); Total Protein 6.6 gm/dL (5.7-8.2); eGFR 25 See Note
[2024-05-31] MEDS: ASPIRIN EC 81 MG TABEC PO (09:08)
[2024-05-31] MEDS: COLCHICINE 0.6 MG TABLET PO (09:08)
[2024-05-31] MEDS: PANTOPRAZOLE 40 MG TABLET PO (09:08)
[2024-05-31] MEDS: GABAPENTIN 100 MG CAPSULE PO ×2 (09:09→20:26)
[2024-05-31] MEDS: ENOXAPARIN SOD INJ 100 MG/ML SYRINGE SC (09:09)
--- NOTE | 2024-05-31 14:39 | ESPR_ITS ---
<Statement entered by Shavonne Moran MD - 06/02/24 13:18> I evaluated the patient with PGY 2 Dr. Lee patient is doing a little better today pain is improved but kidney function has worsened slightly creatinine 2.4 team plans to hydrate the patient agree with the plan to hydrate the patient no evidence of heart failure will monitor the patient closely no further episode of chest pain I will see him for follow-up as an outpatient following discharge possibly tomorrow Documentation for date of: 05/31/24 Subjective Subjective Interval history: Patient seen and assessed at bedside. Patient states to be feeling much better today and no longer having chest pain when laying flat or on deep inspiration. Patient states he would like to go home, but creatinine went from 2.2-2.5 indicating JENNIFER. Primary team wants to hold for 1 more day. Exam Vital Signs Temp Pulse Resp BP Pulse Ox O2 Del Method O2 Flow Rate 97.3 F 61 24 H 104/64 99 Room Air 1 05/31/24 08:00 05/31/24 12:00 05/31/24 09:11 05/31/24 08:00 05/31/24 08:00 05/31/24 08:00 05/31/24 09:11 Narrative Exam General: A/O x3, no acute distress. Resting comfortably in bed. Lungs: Chest clear to auscultation bilaterally. No increased work of breathing. Decreased chest pain on inspiration. Cardio: Normal S1/S2, regular rhythm, no murmurs, no JVD. Abdomen: Soft, non-tender, no palpable masses, peristalsis present, no guarding or rebound. Extremities: Trace peripheral edema , non-tender. Psych: Cooperative, appropriate mood and effect. Objective Labs 05/31/24 05:30 05/31/24 05:30 Labs: Laboratory Results - last 24 hr 05/30/24 05/31/24 05:44 05:30 WBC 8.8 RBC 3.80 L Hgb 10.7 L Hct 33.0 L MCV 87 MCH 28.2 MCHC 32.4 RDW Std Deviation 58.2 H Plt Count 189 D Neut % (Auto) 62 Lymph % (Auto) 24 [place] % (Auto) 11 Eos % (Auto) 3 Baso % (Auto) 1 Neut # (Auto) 5.5 Lymph # (Auto) 2.1 [place] # (Auto) 0.9 H Eos # (Auto) 0.2 Baso # (Auto) 0.0 Immature Gran # (Auto) 0.03 H Absolute Nucleated RBC 0.00 Immature Gran % 0 Nucleated RBC % 0 Sodium 136 Potassium 4.6 Chloride 104 Carbon Dioxide 24.6 Anion Gap 7 BUN 41 H Creatinine 2.5 H Estim Creat Clear Calc 28.2 L eGFR 25 L BUN/Creatinine Ratio 16 Glucose 99 Calculated Osmolality 282 Calcium 9.4 Corrected Calcium 9.4 Total Bilirubin 1.3 H D AST 12 ALT 10 Alkaline Phosphatase 126 H D Total Protein 6.6 Albumin 4.1 Globulin 2.5 Albumin/Globulin Ratio 1.6 Free T4 0.87 L Quality Measures Quality Measures none Advance care planning discussed with:: patient, spouse and child Assessment & Plan Assessment Current Active Medications: Generic Name Dose Route Start Last Admin Trade Name Freq PRN Reason Stop Dose Admin Acetaminophen 650 mg 05/29/24 18:08 Acetaminophen 325 Mg Tablet PO 06/28/24 18:07 Q6H PRN Fever >101.5 Hydrocodone Bitart/Acetaminophen 1 tab 05/30/24 15:43 05/30/24 16:26 Hydrocodone/Apap 5/325 Tablet PO 06/04/24 15:42 1 tab Q4HR PRN Administration PAIN SCALE 4-10(Mod-Sev Aspirin 81 mg 05/30/24 09:00 05/31/24 09:08 Aspirin Ec 81 Mg Tabec PO 06/29/24 08:59 81 mg QDAY OLI Administration Colchicine 0.6 mg 06/01/24 09:00 Colchicine 0.6 Mg Tablet PO 07/01/24 08:59 DAILY OLI Amitriptyline 10 Mg 0 ea 05/30/24 06:57 05/30/24 20:14 PO 06/28/24 20:59 1 tablet HS OLI Administration Gabapentin 100 mg 05/31/24 21:00 Gabapentin 100 Mg Capsule PO 06/30/24 20:59 BID OLI Sodium Chloride 1,000 mls @ 60 mls/hr 05/31/24 14:23 Ns IV 06/30/24 14:22 .[id number] OLI Ondansetron HCl 4 mg 05/29/24 18:08 Ondansetron Inj 2 Mg/Ml Inj 2 Ml IV 06/28/24 18:07 Q6H PRN NAUSEA OR VOMITING Protocol Pantoprazole Sodium 40 mg 05/29/24 18:15 05/31/24 09:08 Pantoprazole 40 Mg Tablet PO 06/28/24 18:14 40 mg QDAY OLI Administration Pravastatin Sodium 40 mg 05/29/24 21:00 05/30/24 20:13 Pravastatin Sodium 10 Mg Tablet PO 06/28/24 20:59 40 mg HS OLI Administration Plan Mr Yves Christensen is a 76-year-old male with PMH of atrial fibrillation previously on warfarin changed to Eliquis, CAD s/p stent, 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 Cardiology consulted due to past cardiac history. # History of atrial fibrillation #History of sick sinus syndrome #elevated likely type II #Pericarditis -EKG neg for ST changes -Troponin peaked at 0.136 -Continue aspirin 81 mg daily -Holding Eliquis, patient on therapeutic Lovenox -Orthostatic vitals negative -Given patient's symptoms, likely pericarditis will start patient on colchicine 0.6 daily given GFR, max of 2 times per week given CKD. -Cardiac echo shows: Normal LV size. Moderate LVH. Estimated EF 65% Mild RV dilatation. Severe RV dysfunction. Estimated RVSP 38mmHg. Pacing wire present Severe biatrial dilatation Moderate MAC wwith Moderate MR. Mild TR. Mild IVC dilatation. #HTN #Normocytic anemia #H/o Hyperparathyroid #Hypercalcemia #CKD stage IIIb #CAD s/p stent #Gout Continue management per primary team Case discussed with gear straightener Dr. Dean Lee MD PGY3.
--- NOTE | 2024-05-31 14:56 | PC.SS ---
BUSINESS AFFAIRS MANAGER conducted bedside contact with the patient conduct initial assessment and to discuss discharge planning. Patient confirmed demographic information. Patient resides at home with spouse, Genevieve Christensen . Patient utilizes a walker to assist with ambulation. Patient does not utilize home oxygen. Patient describes ability to complete ADL?s independently. Patient identified spouse, Genevieve Christensen; as medical surrogate decision maker. Patient?s PCP is Dr. Mcallister. Dr. Manzano is patient?s photocopying equipment mechanic. Dr. Davidson is electronic gluing machine operator. Patient does not participate with dialysis. Patient utilizes [facility] for medication services. Plan is for the patient to return home at the time of discharge. Family will provide transportation on behalf of the patient. If home health recommended, no preferred agency identified. No discharge needs identified by the patient. No further intervention required at this time, secondary social studies teacher will be available to address any further concerns. Patient?s son Morteza Christensen, . Next of Kin: Genevieve Christensen D/C Plan: Home
--- NOTE | 2024-05-31 14:57 | ESPR_ITS ---
Documentation for date of: 05/31/24 Subjective Subjective Interval history: Patient was seen at bedside this morning. No overnight events. Cardiology stated the patient most likely has pericarditis and started patient on colchicine 0.6 mg daily. Gabapentin was also restarted. Patient is continue function did not worsen to creatinine of 2.5 therefore we will give 1 more liter of fluids at 60 cc/h. No other complaints at this time. Will continue to monitor. Exam Vital Signs Temp Pulse Resp BP Pulse Ox O2 Del Method O2 Flow Rate 97.3 F 61 24 H 104/64 99 Room Air 1 05/31/24 08:00 05/31/24 12:00 05/31/24 09:11 05/31/24 08:00 05/31/24 08:00 05/31/24 08:00 05/31/24 09:11 Narrative Exam General: A/O x3, no acute distress Eyes: PERRL, EOMI. Anicteric, vision grossly intact. Ears: No ear pain, no ear discharge, Hearing grossly intact. Nose: No nasal discharge. Mouth/Throat: Moist mucous membranes, no redness, no lesions. Neck: Neck supple, non-tender, no cervical lymphadenopathy. Lungs: Clear DAVY to auscultation and percussion, No accessory muscle use. Cardio: Normal S1/S2, regular rhythm, no murmurs, no JVD. Abdomen: Soft, non-tender, no palpable masses, peristalsis present, no guarding or rebound. Extremities: Symmetrical, no significant deformities, no peripheral edema , non-tender, peripheral pulses presents, R UE diminished strength compared to L UE due to previous surgery. Skin: No rashes, no lesions, warm to touch. Neuro: No focal neurological deficits. motor and sensory intact. Psych: Cooperative, appropriate mood and effect. Objective Labs 05/31/24 05:30 05/31/24 05:30 Labs: Laboratory Results - last 24 hr 05/30/24 05/31/24 05:44 05:30 WBC 8.8 RBC 3.80 L Hgb 10.7 L Hct 33.0 L MCV 87 MCH 28.2 MCHC 32.4 RDW Std Deviation 58.2 H Plt Count 189 D Neut % (Auto) 62 Lymph % (Auto) 24 [place] % (Auto) 11 Eos % (Auto) 3 Baso % (Auto) 1 Neut # (Auto) 5.5 Lymph # (Auto) 2.1 [place] # (Auto) 0.9 H Eos # (Auto) 0.2 Baso # (Auto) 0.0 Immature Gran # (Auto) 0.03 H Absolute Nucleated RBC 0.00 Immature Gran % 0 Nucleated RBC % 0 Sodium 136 Potassium 4.6 Chloride 104 Carbon Dioxide 24.6 Anion Gap 7 BUN 41 H Creatinine 2.5 H Estim Creat Clear Calc 28.2 L eGFR 25 L BUN/Creatinine Ratio 16 Glucose 99 Calculated Osmolality 282 Calcium 9.4 Corrected Calcium 9.4 Total Bilirubin 1.3 H D AST 12 ALT 10 Alkaline Phosphatase 126 H D Total Protein 6.6 Albumin 4.1 Globulin 2.5 Albumin/Globulin Ratio 1.6 Free T4 0.87 L Quality Measures Quality Measures none Advance care planning discussed with:: patient, spouse and child Assessment & Plan Assessment Current Active Medications: Generic Name Dose Route Start Last Admin Trade Name Freq PRN Reason Stop Dose Admin Acetaminophen 650 mg 05/29/24 18:08 Acetaminophen 325 Mg Tablet PO 06/28/24 18:07 Q6H PRN Fever >101.5 Hydrocodone Bitart/Acetaminophen 1 tab 05/30/24 15:43 05/30/24 16:26 Hydrocodone/Apap 5/325 Tablet PO 06/04/24 15:42 1 tab Q4HR PRN Administration PAIN SCALE 4-10(Mod-Sev Aspirin 81 mg 05/30/24 09:00 05/31/24 09:08 Aspirin Ec 81 Mg Tabec PO 06/29/24 08:59 81 mg QDAY OLI Administration Colchicine 0.6 mg 06/01/24 09:00 Colchicine 0.6 Mg Tablet PO 07/01/24 08:59 DAILY OLI Amitriptyline 10 Mg 0 ea 05/30/24 06:57 05/30/24 20:14 PO 06/28/24 20:59 1 tablet HS OLI Administration Gabapentin 100 mg 05/31/24 21:00 Gabapentin 100 Mg Capsule PO 06/30/24 20:59 BID OLI Sodium Chloride 1,000 mls @ 60 mls/hr 05/31/24 14:23 Ns IV 06/30/24 14:22 .[id number] OLI Ondansetron HCl 4 mg 05/29/24 18:08 Ondansetron Inj 2 Mg/Ml Inj 2 Ml IV 06/28/24 18:07 Q6H PRN NAUSEA OR VOMITING Protocol Pantoprazole Sodium 40 mg 05/29/24 18:15 05/31/24 09:08 Pantoprazole 40 Mg Tablet PO 06/28/24 18:14 40 mg QDAY OLI Administration Pravastatin Sodium 40 mg 05/29/24 21:00 05/30/24 20:13 Pravastatin Sodium 10 Mg Tablet PO 06/28/24 20:59 40 mg HS OLI Administration Plan 78-year-old male with past medical history of A-fib (on Eliquis), CAD s/p stents, sinus bradycardia and sick sinus syndrome s/p pacemaker, hypertension, GERD, hyperparathyroid s/p L parathyroidectomy, and CKD was admitted to hospital on 05/29/2024 due to NSTEMI and presyncope. #Pericarditis #Elevated troponins likely type II #Presyncope #Hx of CAD s/p stents ? Patient came in with complaints of substernal chest pain ? Patient's troponins were elevated on admission and peaked at 0.136 before downtrending ? Tiffanie score of 143 points indicating 14% probability of from admission to 6 months. ? Echo showed ejection fraction 65%. Severe biatrial dilation ? EKGs did not show any acute ST changes. ? DC'd Lovenox 100 mg daily ?Cardiology stated that patient most likely has pericarditis given his symptoms. Plan: ? Continue colchicine 0.6 mg daily ? Continue aspirin 81 mg daily and pravastatin 40 mg at bedtime ?Cardiology consulted, patient recommendations ? Will continue to monitor #Normocytic normochromic anemia ? Patient came in with hemoglobin of 12 ? Hemoglobin today 10.7 Plan: ? Will transfuse hemoglobin less than 7 ? Will continue to monitor #JENNIFER on CKD stage IIIb ? Patient has a base creatinine of 1.9 ? Patient came in with creatinine of 2.3 and today is 2.5 Plan: -1L IV fluids 60cc/hr ? Avoid nephrotoxic agents ? Renally dose medications ? Will continue to monitor #Hx of atrial fibrillation #Hx of sick sinus syndrome s/p pacemaker ? Patient appears to be rate controlled at this time -Not on any rate controlling medication at home. #Hx of hypertension ? Patient blood pressure has been well-controlled during hospital admission and even has been on the lower end ? Will hold off on antihypertensive medication for now #Hx of hyperparathyroid s/p left parathyroidectomy ?Corrected calcium 10 today ? TSH 9.17 ? free T4 0.87 -Follow up with PCP Disposition: Continue IV fluids and colchicine. Diet: Cardiac GI prophylaxis: protonix DVT prophylaxis: Lovenox Code: DNR/DNI Case disclosed with Attending Dr. Angie Ratliff PGY1 Attending Provider Attestation/Addendum Face to face evaluation was performed by me. I have personally seen and examined the patient. I discussed the assessment and plan with the entire medicine team. I reviewed available medical records, imaging studies, laboratory results. I agree with the above subjective data, objective findings, assessment and plan except as corrected by me or noted below #Acute pericarditis #Elevated troponins likely type II, likely type 2 nstemi due to above demand ischemia #Presyncope #Hx of CAD s/p stents Cardiology on board, no plans for [facility] colchicin- has renal failure- needs to be renally dosed no nsaids due to above, can consider steroids if symptoms not controlled monitor renal function, wait improvement- then dc maybe tmr?
[2024-05-31] MEDS: SODIUM CHLORIDE 0.9% 1000 ML 1,000 ML 60 ML IV (17:32)
[2024-05-31] MEDS: AMITRIPTYLINE 10 MG PO (20:26)
[2024-05-31] MEDS: PRAVASTATIN SODIUM 10 MG TABLET 40 MG PO (20:26)
[2024-06-01] VITALS: BP 120/72; PULSE 60; RESP 15; TEMP 36; O2SAT 93
[2024-06-01 04:00] VITALS: BP 125/70; PULSE 60; RESP 18; TEMP 36.3; O2SAT 93
[2024-06-01 06:00] VITALS: BMI 31.9
[2024-06-01 08:00] VITALS: BP 119/71; PULSE 60; RESP 17; TEMP 36; O2SAT 97
[2024-06-01] MEDS: ENOXAPARIN SOD INJ 30 MG/0.3 ML SYRINGE SC (08:09)
[2024-06-01] MEDS: PANTOPRAZOLE 40 MG TABLET PO (08:11)
[2024-06-01] MEDS: GABAPENTIN 100 MG CAPSULE PO (08:11)
[2024-06-01] MEDS: COLCHICINE 0.6 MG TABLET 0.3 MG PO (08:14)
[2024-06-01] MEDS: Aspirin 325 MG TABLET PO (08:16)
[2024-06-01 09:29] LABS: Basophils % (Auto) 1 % (0-2.5); Eosinophils # (Auto) 0.3 Thou/mm3 (0.0-0.5); Eosinophils % (Auto) 4 % (0-10); Hematocrit 33.8 % (41.0-53.0); Hemoglobin 10.9 g/dL (13.5-16.0); Immature Granulocytes % (Auto) 1 % (0-0); Immature Granulocytes Auto 0.05 Thou/mm3 (0.00-0.00); Lymphocytes # (Auto) 1.4 Thou/mm3 (1.0-4.8); Lymphocytes % (Auto) 18 % (10-50); Mean Corpuscular HGB Conc 32.2 g/dl (31.0-37.0); Mean Corpuscular Hemoglobin 28.5 pg (25.0-35.0); Mean Corpuscular Volume 89 fL (80-100); Monocytes # (Auto) 0.7 Thou/mm3 (0.0-0.8); Monocytes % (Auto) 9 % (0-12); Neutrophils # (Auto) 5.3 Thou/mm3 (1.8-7.7); Neutrophils % (Auto) 68 % (37-80); Nucleated Red Blood Cell % 0 /100 WBC (0); Platelet Count 198 Thou/mm3 (140-440); RDW Standard Deviation 58.4 fL (35.1-43.9); Red Blood Count 3.82 Miln/mm3 (4.50-5.90); White Blood Count 7.8 Thou/mm3 (3.8-10.6)
[2024-06-01 09:40] LABS: Alanine Aminotransferase 10 U/L (10-49); Albumin, Serum 4.3 gm/dL (3.4-4.8); Albumin/Globulin Ratio 1.7 (1.2-2.2); Alkaline Phosphatase 140 U/L (46-116); Anion Gap 9 (7-16); Aspartate Amino Transferase 11 U/L (0-34); BUN/Creatinine Ratio 18 Ratio (12-20); Bilirubin,Total 1.3 mg/dL (0.3-1.2); Blood Urea Nitrogen 40 mg/dL (9-23); Calcium 10.3 mg/dL (8.3-10.6); Calcium (Corrected) 10.3 mg/dL (8.5-10.1); Carbon Dioxide 24.6 mMol/L (20.0-31.0); Chloride 103 mMol/L (98-107); Creatinine (Component) 2.2 mg/dL (0.6-1.3); Estimated Creatinine Clearance 32.3 mL/min (>60); Globulin 2.6 gm/dL (2.3-3.5); Glucose 113 mg/dL (74-106); Osmolality,Calculated 284 (275-295); Potassium 4.8 mMol/L (3.4-5.1); Sodium 137 mMol/L (136-145); Total Protein 6.9 gm/dL (5.7-8.2); eGFR 30 See Note
--- NOTE | 2024-06-01 10:17 | PD.RESDS ---
Planned Discharge Date 06/01/24 DS: Providers Provider Date of admission: 05/29/24 18:07 Primary care physician: Tyrone Mcallister MD Admitting Provider: Tee Lucia MD Attending Provider on Admission: Tee Lucia MD Consults: 05/29/24 17:47 Consult to Cardiology Stat Comment: Consulting Provider: Shavonne Moran Attending Provider on DC: Yane Conway MD Discharging Provider: Yane Conway MD DS: Diagnosis Problem List Completed Was Problem List Reviewed/Reconciled?: Yes Hospital Course Hospital Course Hospital course: 78-year-old male with past medical history of A-fib (on Eliquis), CAD s/p stents, sinus bradycardia and sick sinus syndrome s/p pacemaker, hypertension, GERD, hyperparathyroid s/p L parathyroidectomy, and CKD was admitted to hospital on 05/29/2024 due to NSTEMI and presyncope and diagnosis pericarditis. Initially in the ED patient came in with complaints of bilateral lower extremity weakness, dizziness, nausea, and chest pain. Initially patient was afebrile and normotensive. Initial labs were relevant for low hemoglobin (12), JENNIFER on CKD (BUN 31, creatinine 2.3), elevated troponins (0.117 and peaked at 0.136 before downtrending), and mildly elevated BNP (194). Initial imaging included EKG which did not show any acute ST changes, chest x-ray which did not show any pneumonia or pulmonary edema, and echo that showed an EF of 65% with no pericardial effusion. Throughout the hospital stay patient had 2 rapid response called the C9 due to chest pain during this patient was given nitroglycerin paste as well as another EKG and chest x-ray were ordered. At this time EKG did not show any acute ST changes and chest x-ray although initial mild vascular congestion. Cardiology was consulted and did not advise heart catheterization at this time. Patient was started on therapeutic Lovenox stools for ACS. Throughout the hospital stay patient continued to have that chest pain, but upon further assessment he stated that chest pain was worsened when he took deep breaths as well as it was reproducible with palpation and it change with position. At this time cardiology stated that patient most likely had pericarditis and started the patient on colchicine, which provided patient significant relief the next day. Patient's chronic uptrend a little bit to 2.5, but was nonsignificant and patient got IV fluids for this with help improve the creatinine to 2.2 on the day of discharge. At the time of discharge patient was stable enough to be discharged home. Discharge plan: Please follow-up with primary care physician in 1 to week after discharge Follow up with PCP to consider starting levothyroxine. Please follow-up with acquisition marketing manager in 1 to 2 weeks after discharge Has been started on colchicine 0.3 mg daily for the next 6 months as it is a 2nd episode of pericarditis Please take aspirin 325mg daily for pain Please continue all other home medications as prescribed Please come back to the ER if symptoms persist or worsen Problems: #Pericarditis #Elevated troponins likely type II #Presyncope #Hx of CAD s/p stents #Normocytic normochromic anemia #JENNIFER on CKD stage IIIb #Hx of atrial fibrillation #Hx of sick sinus syndrome s/p pacemaker #Hx of hypertension #Hx of hyperparathyroid s/p left parathyroidectomy Case disclosed with Attending Dr. Conway and My senior Dr. Reyes PGY2. Chuck Ratliff PGY1 Senior Resident Attestation: I discussed with and supervised the internet developer physician involved in the care of this patient. I personally saw and examined the patient and discussed the assessment and plan with the entire medicine team, including my attending. I agree with the discharge plan as documented above. Godfrey Reyes MD PGY2 Internal Medicine Status at Discharge Overall status at discharge: patient is progressing back to baseline Time Spent with Patient Time attestation: Total time spent providing and/or coordinating discharge services:>35 min Exam Vital Signs Temp Pulse Resp BP Pulse Ox O2 Del Method O2 Flow Rate 96.8 F 60 17 119/71 97 Room Air 1 06/01/24 08:00 06/01/24 08:00 06/01/24 08:00 06/01/24 08:00 06/01/24 08:00 06/01/24 08:00 05/31/24 09:11 Narrative Exam General: A/O x3, no acute distress Eyes: PERRL, EOMI. Anicteric, vision grossly intact. Ears: No ear pain, no ear discharge, Hearing grossly intact. Nose: No nasal discharge. Mouth/Throat: Moist mucous membranes, no redness, no lesions. Neck: Neck supple, non-tender, no cervical lymphadenopathy. Lungs: Clear DAVY to auscultation and percussion, No accessory muscle use. Cardio: Normal S1/S2, regular rhythm, no murmurs, no JVD. Abdomen: Soft, non-tender, no palpable masses, peristalsis present, no guarding or rebound. Extremities: Symmetrical, no significant deformities, no peripheral edema , non-tender, peripheral pulses presents, R UE diminished strength compared to L UE due to previous surgery. Skin: No rashes, no lesions, warm to touch. Neuro: No focal neurological deficits. motor and sensory intact. Psych: Cooperative, appropriate mood and effect. Discharge Plan Plan Patient Disposition: HOME (Self Care) Disposition Comment: Hospitalist admit Dr. Moran to consult Care Plan Goals: Please follow-up with primary care physician in 1 to week after discharge Follow up with PCP to consider starting levothyroxine. Please follow-up with acquisition marketing manager in 1 to 2 weeks after discharge Has been started on colchicine 0.3 mg daily for the next 6 months as it is a 2nd episode of pericarditis Please take aspirin 325mg daily pain Please continue all other home medications as prescribed Please come back to the ER if symptoms persist or worsen Prescriptions/Referrals Prescriptions/Med Rec: New colchicine 0.6 mg tablet 0.3 mg PO QDAY Qty: 30 3RF aspirin 325 mg tablet,delayed release (DR/EC) 325 mg PO QDAY Qty: 14 0RF gabapentin 800 mg tablet 800 mg PO QDAY 30 Days Qty: 30 2RF gabapentin 800 mg tablet 800 mg PO HS Qty: 30 2RF Continued pravastatin [Pravachol] 40 MG tablet 40 mg PO QAM Qty: 0 amitriptyline 10 mg Tablet 10 mg PO HS hydrocodone-acetaminophen 7.5-325 mg tablet 1 tab PO QID MDD 4 tabs PRN (Reason: pain) Qty: 12 0RF omeprazole 20 mg capsule,delayed release(DR/EC) 20 mg 1XD Patient Comments: TAKE 1 CAPSULE BY MOUTH EVERY DAY 30 MINUTES BEFORE MORNING MEAL cinacalcet 30 mg tablet 30 mg PO 1XD Patient Comments: TAKE 1 TABLET BY MOUTH EVERY DAY WITH FOOD OR AFTER MEAL DAILY FOR 90 DAYS Eliquis 5 mg tablet 2.5 mg BID Patient Comments: TAKE 1 TABLET BY MOUTH TWICE A DAY FOR 90 DAYS Discontinued gabapentin 800 MG tablet 800 mg PO TID Qty: 0 Patient Comments: CONFIRMED THAT THE PATIENT TAKES BOTH 800 MG CAPSULE TID AND 100 MG CAPSULE TID, FOR TOTAL DOSE OF 900 MG TID. spironolactone 25 mg tablet 25 mg 1XD Patient Comments: TAKE 1 TABLET BY MOUTH EVERY DAY FOR 30 DAYS bumetanide 1 mg tablet 1 mg 1XD gabapentin 100 mg capsule 100 mg BID benazepril 20 mg tablet 20 mg 1XD Patient Comments: TAKE 1 TABLET BY MOUTH EVERY DAY FOR 30 DAYS Referrals: Tyrone Mcallister MD [Primary Care Provider] - Patient/Caregiver Discharge Instructions Discharge Activity: activity as tolerated Education Materials: Pericarditis Print Language: Macedonian Stand Alone Forms: [employer] Award Info., Patient Portal Info Letter Discharge Order Discharge Orders: Discharge (Routine); Ordered 06/01/24 Ordered By: Chuck Ratliff Quality Discharge Quality Measures VTE prophylaxis Attestestation MD Attestation I attest that I was physically present for the evaluation, physical examination, lab and imaging review of the patient with the residents. I discussed the case with the residents and agree with the findings and plans of care as documented above. Yane Conway MD
[2024-06-01 10:21] VITALS: PULSE 63; RESP 20; RESP 96
[2024-06-01 11:00] VITALS: BP 112/74; PULSE 61; RESP 19; TEMP 36; O2SAT 97
== END 2024-06-01 11:38 | disposition home or self-care (01) | DRG 316 ==
LOC: SERX 17:25 → SERHOLD 18:19 → S2NX 22:48
PROVIDERS: Nurse Practitioner Primary Care; Student in an Organized Health Care Education/Training Program; Admitting Provider Internal Medicine; Emergency Provider Emergency Medicine; PCP Family Medicine; Visit Provider Internal Medicine
DX: I30.9 Acute pericarditis, unspecified (principal); I95.9 Hypotension, unspecified; Z95.5 Presence of coronary angioplasty implant and graft; Z95.0 Presence of cardiac pacemaker; I12.9 Hypertensive chronic kidney disease with stage 1 through stage 4 chronic kidney disease, or unspecified chronic kidney disease; N18.32 Chronic kidney disease, stage 3b; Z79.01 Long term (current) use of anticoagulants; K21.9 Gastro-esophageal reflux disease without esophagitis; D63.1 Anemia in chronic kidney disease; E21.3 Hyperparathyroidism, unspecified; M10.9 Gout, unspecified; R79.89 Other specified abnormal findings of blood chemistry; I25.10 Atherosclerotic heart disease of native coronary artery without angina pectoris; I48.91 Unspecified atrial fibrillation; Z66 Do not resuscitate; I25.2 Old myocardial infarction
CPT/HCPCS: 36415; 71045; 80053; 80061; 81001; 83036; 83735; 83880; 84100; 84439; 84443; 84484; 85025; 85610; 85730; 93005; 93306; J1650; J2270; J3475; J3490; J7030; J7040; A9270

== ENCOUNTER → 2024-06-18 | Outpatient (CLI) | payer MEDICARE, MEDICAID, SELFPAY ==
[2024-06-18 14:47] LABS: Parathyroid Hormone Intact 116.4 pg/ml (18.5-88.0)
[2024-06-18 14:50] LABS: Anion Gap 7 (7-16); BUN/Creatinine Ratio 17 Ratio (12-20); Blood Urea Nitrogen 33 mg/dL (9-23); Calcium 10.3 mg/dL (8.3-10.6); Calcium (Corrected) 10.3 mg/dL (8.5-10.1); Carbon Dioxide 25.6 mMol/L (20.0-31.0); Chloride 107 mMol/L (98-107); Glucose 105 mg/dL (74-106); Osmolality,Calculated 286 (275-295); Phosphorous 3.7 mg/dL (2.4-5.1); Potassium 4.9 mMol/L (3.4-5.1); Sodium 140 mMol/L (136-145); eGFR 33 See Note
[2024-06-25 07:01] LABS: Vitamin D,1,25 (OH)2,Total 27 pg/mL (18-72); Vitamin D2, 1,25 (OH)2 <8 pg/mL; Vitamin D3, 1,25 (OH)2 27 pg/mL
== END | disposition home or self-care (01) ==
LOC: COPL 13:51
PROVIDERS: PCP Family Medicine; Referring Provider Surgery; Visit Provider Surgery
DX: E21.3 Hyperparathyroidism, unspecified (principal)
CPT/HCPCS: 36415; 80069; 82652; 83970

== ENCOUNTER → 2024-07-15 | Outpatient (CLI) | payer MEDICARE, MEDICAID, SELFPAY ==
--- NOTE | 2024-07-15 16:37 | XR_ITS ---
Examination: Right scapula 2 views Technique: Right scapula AP Y view 2 views Exam date and time: July 15, 2024 at 1726 hrs. Indications: Shoulder pain 2 days no trauma Findings: Prominent osteopenia Moderate narrowing glenohumeral joint Severe osteopenia No fracture Impression: Moderate narrowing glenohumeral joint
--- NOTE | 2024-07-15 16:37 | XR_ITS ---
Examination: Ribs, right, with PA chest, 5 views Technique: Chest PA, RIBS AP, RPO, LPO, AP coned lower ribs 5 views Exam date and time: July 15, 2024 1725 hrs. Indications: Right-sided chest pain beginning 2 days ago, no trauma Findings: Mild heart failure Moderate enlargement cardiac contour with prominent vascular congestion and early perihilar edema No pneumothorax Cardiac leads satisfactory position No acute rib fractures Impression: Mild heart failure
[2024-07-15 17:49] LABS: Basophils # (Auto) 0.1 Thou/mm3 (0.0-0.2); Basophils % (Auto) 1 % (0-2.5); Eosinophils # (Auto) 0.3 Thou/mm3 (0.0-0.5); Eosinophils % (Auto) 3 % (0-10); Hematocrit 39.1 % (41.0-53.0); Hemoglobin 11.7 g/dL (13.5-16.0); Immature Granulocytes % (Auto) 1 % (0-0); Immature Granulocytes Auto 0.13 Thou/mm3 (0.00-0.00); Lymphocytes # (Auto) 1.7 Thou/mm3 (1.0-4.8); Lymphocytes % (Auto) 18 % (10-50); Mean Corpuscular HGB Conc 29.9 g/dl (31.0-37.0); Mean Corpuscular Hemoglobin 26.5 pg (25.0-35.0); Mean Corpuscular Volume 89 fL (80-100); Monocytes % (Auto) 10 % (0-12); Neutrophils # (Auto) 6.3 Thou/mm3 (1.8-7.7); Neutrophils % (Auto) 67 % (37-80); Nucleated Red Blood Cell # 0.02 Thou/mm3 (0.00-0.00); Nucleated Red Blood Cell % 0 /100 WBC (0); Platelet Count 346 Thou/mm3 (140-440); RDW Standard Deviation 63.9 fL (35.1-43.9); Red Blood Count 4.42 Miln/mm3 (4.50-5.90); White Blood Count 9.4 Thou/mm3 (3.8-10.6)
[2024-07-15 18:04] LABS: Albumin, Serum 3.7 gm/dL (3.4-4.8); Anion Gap 13 (7-16); BUN/Creatinine Ratio 19 Ratio (12-20); Blood Urea Nitrogen 34 mg/dL (9-23); Calcium 9.5 mg/dL (8.3-10.6); Calcium (Corrected) 9.7 mg/dL (8.5-10.1); Carbon Dioxide 18.6 mMol/L (20.0-31.0); Chloride 108 mMol/L (98-107); Creatinine (Component) 1.8 mg/dL (0.6-1.3); Glucose 88 mg/dL (74-106); Osmolality,Calculated 286 (275-295); Phosphorous 3.2 mg/dL (2.4-5.1); Potassium 5.3 mMol/L (3.4-5.1); Sodium 140 mMol/L (136-145); eGFR 38 See Note
== END | disposition home or self-care (01) ==
LOC: CDIM 16:25 → COPL 16:38
PROVIDERS: PCP Family Medicine; Referring Provider Family Medicine; Visit Provider Family Medicine
DX: I50.9 Heart failure, unspecified (principal); M25.811 Other specified joint disorders, right shoulder; N18.30 Chronic kidney disease, stage 3 unspecified
CPT/HCPCS: 36415; 71101; 73010; 80069; 85025

== ENCOUNTER → 2024-07-30 | Outpatient (CLI) | payer MEDICARE, MEDICAID, SELFPAY ==
--- NOTE | 2024-07-30 14:30 | XR_ITS ---
Examination: MRI lumbar spine without contrast Date and time of exam: July 30, 2024 1510 hours INDICATIONS: Lower back pain 5 months Technique: Multiple MRI axial and sagittal sections lumbar spine. Sagittal T2-weighted images, TR 3500, TE 118 T1 weighted transverse sections, TR 688 T8.5, T2-weighted sagittal sections T1 weighted sagittal sections TR 621, TE 30 T2 axial sections, TR 4, 190, TE 84. Findings: Adequate alignment lumbar vertebral bodies on the lateral view No lumbar fracture Adequate marrow signal lumbar vertebral bodies Moderate to advanced diffuse lumbar degenerative disc disease, most prominent at the lower 3 lumbar levels Diffuse lumbar disc desiccation L5-S1 6 mm central lumbar disc bulge extending to the foraminal regions with mild bilateral L5 ganglionic compression L4-L5 no disc protrusion L3-L4 3 mm bilateral foraminal disc bulges with no ganglionic compression L2-L3 no disc protrusion L1-L2 no disc protrusion IMPRESSION: Diffuse moderate to advanced lumbar degenerative disc disease L5-S1 6 mm central lumbar disc bulge extending to the foraminal regions with mild bilateral L5 ganglionic compression Incidental note numerous bilateral renal cystic masses, consider renal sonography follow-up
== END | disposition home or self-care (01) ==
PROVIDERS: PCP Family Medicine; Referring Provider Nurse Practitioner; Visit Provider Nurse Practitioner
DX: M51.369 Other intervertebral disc degeneration, lumbar region without mention of lumbar back pain or lower extremity pain (principal); G95.20 Unspecified cord compression; M51.379 Other intervertebral disc degeneration, lumbosacral region without mention of lumbar back pain or lower extremity pain; N28.1 Cyst of kidney, acquired
CPT/HCPCS: 72148

== ENCOUNTER → 2024-09-02 | Outpatient (CLI) | payer MEDICARE, MEDICAID, SELFPAY ==
[2024-09-02 14:42] LABS: Albumin, Serum 4.2 gm/dL (3.4-4.8); Anion Gap 11 (7-16); BUN/Creatinine Ratio 16 Ratio (12-20); Blood Urea Nitrogen 28 mg/dL (9-23); Carbon Dioxide 25.9 mMol/L (20.0-31.0); Chloride 102 mMol/L (98-107); Creatinine (Component) 1.8 mg/dL (0.6-1.3); Glucose 118 mg/dL (74-106); Osmolality,Calculated 284 (275-295); Phosphorous 3.2 mg/dL (2.4-5.1); Potassium 4.4 mMol/L (3.4-5.1); Sodium 139 mMol/L (136-145); eGFR 37 See Note
--- NOTE | 2024-09-02 17:00 | XR_ITS ---
Examination: CT thoracic spine, without contrast. 2-D sagittal reconstructions. 2-D coronal reconstructions. 3-D reconstructions. Date and time of exam:August 25, 2024 1519 hours INDICATIONS: Upper back pain 3 months CTDI: vol (mGy):31.5 DLP: (mGycm):1167 Technique: Multiple 1.25 mm axial sections of the thoracic spine without intravenous contrast have been obtained. 2-D sagittal and coronal reconstructions have been obtained. 3-D reconstructions have been obtained. Low dose protocols were performed. One or more of the following dose reduction techniques were used; automated exposure control, adjustment of the mA and/or KV according to patient size, use of iterative reconstruction technique. Findings: Prominent osteopenia Thoracic dextroscoliosis 10 degrees Prominent thoracic spondylosis Mild to moderate diffuse thoracic degenerative disc disease Extensive pleural disease and probable edema in the lung miller noted on the lung density settings Soft tissue settings do not demonstrate focal thoracic disc protrusion IMPRESSION: Prominent osteopenia Thoracic dextroscoliosis 10 degrees Mild to moderate diffuse thoracic degenerative disc disease Recommend PA lateral chest to assess extensive pleural disease and apparent pulmonary edema in the lung miller
== END | disposition home or self-care (01) ==
LOC: CCTX 13:33
PROVIDERS: PCP Internal Medicine Cardiovascular Disease; Referring Provider Orthopaedic Surgery Orthopaedic Surgery of the Spine; Visit Provider Orthopaedic Surgery Orthopaedic Surgery of the Spine
DX: M85.88 Other specified disorders of bone density and structure, other site (principal); M41.84 Other forms of scoliosis, thoracic region; M51.34 Other intervertebral disc degeneration, thoracic region; I48.21 Permanent atrial fibrillation
CPT/HCPCS: 36415; 72128; 80069

== ENCOUNTER 2024-09-10 20:02 | Inpatient (IN) | payer MEDICARE, MEDICAID, SELFPAY ==
[2024-09-10 20:12] VITALS: BP 112/62; PULSE 77; RESP 18; TEMP 36.9; O2SAT 95
--- NOTE | 2024-09-10 20:14 | XR_ITS ---
Examination: CT brain head without contrast. 2-D sagittal coronal reconstructions Date and time of exam:September 10, 2024 at 2138 hours INDICATIONS: Ground-level fall today with injury to the head, patient is anticoagulated CTDI: vol (mGy):50.2 DLP: (mGycm):983 Technique: Multiple CT axial sections of the brain have been obtained, 5 mm slice thickness. Contrast has not been administered. 2-D sagittal, coronal reconstructions have been obtained Low dose protocols were performed. One or more of the following dose reduction techniques were used; automated exposure control, adjustment of the mA and/or KV according to patient size, use of iterative reconstruction technique. Findings: No significant ventricular enlargement. Intra-axial or extra-axial hemorrhage density is not seen. No mass effect or midline shift Basal cisterns are not remarkable. Fourth ventricle is midline. Cranial vault intact. Impression: Negative for acute hemorrhage, mass effect or midline shift
--- NOTE | 2024-09-10 20:14 | EKG_ITS ---
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
--- NOTE | 2024-09-10 20:14 | XR_ITS ---
Examination: CT pelvis without intravenous contrast. 2-D sagittal and coronal reconstructions. Date and time of exam:September 10, 2024 2141 hours INDICATIONS: Patient tripped and fell today with injury to the right hip, right hip pain CTDI: vol (mGy) :9.87 DLP: (mGycm) : 361 Technique: Multiple 3 mm axial sections of the pelvis have been obtained with the 64 slice high resolution scanner. 2-D sagittal and coronal reconstructions. Low dose protocols were performed. One or more of the following dose reduction techniques were used; automated exposure control, adjustment of the mA and/or KV according to patient size, use of iterative reconstruction technique. Findings: Partial visualization calcified right renal cyst Aorta visualized appears intact No free fluid in the abdomen Urinary bladder intact No pelvic hematoma Right hip bipolar hemiarthroplasty Satisfactory alignment Visualized hip appears intact Advanced narrowing left hip joint Axial image 149 consistent with acute nondisplaced fracture right inferior pubic ramus IMPRESSION: Hips appear intact Nondisplaced acute fracture right inferior pubic ramus Recommend follow-up AP pelvis in 1-2 days
--- NOTE | 2024-09-10 20:14 | XR_ITS ---
Examination: CT cervical spine without contrast 2-D sagittal reconstructions 2-D coronal reconstructions 3-D reconstructions. Exam date and time:September 10, 2024 at 2138 hours INDICATIONS: Ground-level fall today with injury to the neck, neck pain CTDI:vol (mGy) 8.06 DLP: (mGycm) 175 Technique: Multiple 2 mm axial sections of the cervical spine have been obtained. The coronal and sagittal reconstructions have been obtained. 3-D reconstructions have been obtained. Low dose protocols were performed. One or more of the following dose reduction techniques were used; automated exposure control, adjustment of the mA and/or KV according to patient size, use of iterative reconstruction technique. Findings: Axial sections demonstrate intact base of the skull. C1 exhibit satisfactory relationship to the odontoid. No acute cervical vertebral body fracture seen. Alignment posterior spinous processes satisfactory. Impression: No acute cervical fracture.
--- NOTE | 2024-09-10 20:14 | XR_ITS ---
Examination: AP chest single view TECHNIQUE: AP portable semiupright chest single view Exam date and time: September 10, 2024, 2118 hours INDICATION: Patient fell today with injury to the chest, chest pain FINDINGS: Minimal prominence left ventricle Cardiac leads satisfactorily positioned No pneumothorax Clavicles ribs appear intact IMPRESSION: No pneumothorax pulmonary contusion or hemothorax
--- NOTE | 2024-09-10 20:15 | PD.EDADULT ---
ED General RME/HPI General Chief complaint: Hip Injury/Pain Stated complaint: FALL Time Seen by Provider: 09/10/24 20:12 Arrival date/time: 09/10/24 20:02 CC: Left hip pain HPI onset status post fall while leaning on a hand cart, patient is on Eliquis denies LOC denies striking his head. Patient denies any abdominal pain. EMS reports stable vital signs in room. Related Data Home Medications ?Medication ?Instructions ?Recorded ?Confirmed pravastatin 40 mg tablet 40 mg PO QAM #0 tabs 10/16/13 09/11/24 (Pravachol) amitriptyline 10 mg tablet 10 mg PO HS 10/04/18 09/11/24 apixaban 5 mg tablet (Eliquis) 2.5 mg BID 05/29/24 05/29/24 cinacalcet 30 mg tablet 30 mg PO 1XD 05/29/24 09/11/24 omeprazole 20 mg capsule,delayed 20 mg PO 1XD 05/29/24 09/11/24 release benazepril 20 mg tablet 10 mg PO HS 09/11/24 09/11/24 bumetanide 0.5 mg tablet 0.5 mg PO HS 09/11/24 09/11/24 spironolactone 25 mg tablet 25 mg PO QDAY 09/11/24 09/11/24 Previous Rx's ?Medication ?Instructions ?Recorded hydrocodone 7.5 mg-acetaminophen 1 tab PO QID PRN pain #12 tabs 10/04/18 325 mg tablet colchicine 0.6 mg tablet 0.3 mg (1/2 x 0.6 mg) PO QDAY #30 06/01/24 tabs gabapentin 800 mg tablet 800 mg PO HS #30 tabs 06/01/24 metolazone 2.5 mg tablet 2.5 mg PO QDAY #30 tabs 09/14/24 Allergies Allergy/AdvReac Type Severity Reaction Status Date / Time No Known Allergies Allergy Verified 05/29/24 14:45 Review of Systems Review of Systems Narrative Review of Systems: GEN: No fever, no chills, no weight loss EYES: No discharge, no visual changes, no pain HEENT: No ear pain, no congestion, no sore throat PULM: No shortness of breath, no cough, no congestion CV: No chest pain, no dyspnea on exertion, no palpitations GI: No nausea, no vomiting, no diarrhea, no pain, no constipation : No frequency, no urgency, no dysuria MUSC/SKEL: + joint pain, no back pain SKIN: No rash PSYCH: No hallucinations, no depression HEME/LYMPH: No easy bleeding or bruising tendencies NEURO: No weakness, no headache Past Medical History Past Medical History NEUROLOGIC: Positive Neurological Disorders, Peripheral Neuropathy and Head Trauma; Negative Seizures CARDIAC: Positive Cardiac Disorders, Myocardial Infarction, Cardiac Arrhythmia, Atrial Fibrillation, Angina, Hypercholesterolemia, Edema and Hypertension; Negative Congestive Heart Failure RESPIRATORY: Positive Sleep Apnea; Negative Chronic Obstructive Pulmonary Disease (COPD) or Asthma GASTROINTESTINAL: Positive Gastrointestinal Disorders, Gall Bladder Disease and Gastroesophageal Reflux Disease; Negative Hepatitis GENITOURINARY: Positive Benign Prostatic Hyperplasia; Negative Renal Disease MUSCULOSKELETAL: Positive Musculoskeletal Disorders and Degenerative Joint Disease; Negative Gout ENT: Positive Cataracts and Head Trauma ENDOCRINE: Positive Parathyroid Disease; Negative Endocrine Disorders, Diabetes Mellitus Type 1 or Diabetes Mellitus Type 2 HEMATOLOGIC: Positive Blood Disorders; Negative Sickle Cell Disease PSYCHO/SOCIAL: Positive Depression OTHER HISTORY: Positive Autoimmune Disease, Anesthesia Reactions, Chicken Pox and Measles; Negative Hospitalization, Shingles, Falls, Blood Transfusions, Blood Transfusion Reaction, MRSA or Cancer Family History FAMILY HISTORY: Positive Family Gastrointestinal Problems Surgical History SURGICAL: Positive Cardiac Surgery, Coronary Stent, Pacemaker, Angiogram, Abdominal Surgery, Joint Replacement and Arthroscopy; Negative Neurologic Surgery Social History SMOKING STATUS: Never smoker SUBSTANCE USE: does not use ED Exam Narrative Physical exam: [General: Obese in moderate discomfort but not in any acute distress Head normocephalic HEENT: Within acceptable limits Neck is supple nontender Chest equal chest rise nontender to palpation Respiratory: Clear to auscultation no wheezes crackles or rubs CV: Rate rhythm is regular no murmurs rubs or clicks Abdomen is distended secondary to body habitus soft nontender no masses positive bowel sounds all 4 quadrants Back: No CVA tenderness no spinous process tenderness from cervical spine thoracic and lumbar spine Skin: Intact no petechiae rash induration ulceration or crepitus Extremities: Tenderness to the right hip with palpation 0 tolerance of pelvic squeeze. Right lower extremity foot malrotated. Decreased range of motion secondary to pain. Moving left lower and upper extremities against resistance cap refill less than 2 seconds neurosensory intact Neuro: Awake alert oriented x3 Glascow coma 15 no focal deficits] Course Quality Measures none Orders Category Date Time Status EKG (ED ONLY) *Do not use* NOW Care 09/10/24 20:14 Completed Miscellaneous Nursing Order NOW Care 09/10/24 23:[address] cervical spine wo con Stat Exams 09/10/24 20:[address] head/brain wo con Stat Exams 09/10/24 20:[address] pelvis wo con Stat Exams 09/10/24 20:14 Completed EKG (ED Only) Stat Exams 09/10/24 20:14 Draft XR chest 1V Stat Exams 09/10/24 20:14 Completed XR hip RT w pelvis 2-3V Stat Exams 09/10/24 20:17 Completed B-Type Natriuretic Peptide Stat Lab 09/10/24 20:58 Completed CBC Stat Lab 09/10/24 20:58 Completed Comprehensive Metabolic Panel Stat Lab 09/10/24 20:58 Completed Drug Screen,Urine Stat Lab 09/11/24 00:55 Completed LDH (Lactate Dehydrogenase) Stat Lab 09/10/24 20:58 Completed Magnesium Stat Lab 09/10/24 20:58 Completed Partial Thromboplastin Time Stat Lab 09/10/24 20:58 Completed Prothrombin Time with INR Stat Lab 09/10/24 20:58 Completed Troponin I Stat Lab 09/10/24 20:58 Completed Urinalysis Stat Lab 09/11/24 00:55 Completed Ondansetron Inj [Zofran Inj] Med 09/10/24 20:42 Discontinued 4 mg IV X1 ONE Sodium Chloride 0.9% 1000 ml [Ns] 1,000 ml Med 09/10/24 20:54 Discontinued IV 999 mls/hr fentaNYL INJ [Sublimaze Inj] Med 09/10/24 20:42 Discontinued 50 mcg IVP X1 ONE Vital Signs Vital signs: Vital Signs Temperature 98.5 F 09/10/24 20:12 Pulse Rate 77 09/10/24 20:12 Respiratory Rate 18 09/10/24 20:12 Blood Pressure 112/62 09/10/24 20:12 Pulse Oximetry (%) 95 09/10/24 20:12 Oxygen Delivery Method Room Air 09/10/24 20:12 Discharge Plan Plan Patient Disposition: Admit Acute Care w/in Hospital Problem List Clinical Impression: Fracture of right inferior pubic ramus [facility] Clinical Information Provided by: patient and EMS Medical Records reviewed [facility] and EMS Meds/Rx considered, not ordered None Labs/Rad/Tests considered, not ordered None EKG Interpretation EKG #1: EKG Interpretation: EKG performed at 2103 shows a ventricular rate of 5 9 QRS of 220 QTc of 514 electronically paced rhythm. Labs Lab(s) Interpretation(s): CBC shows no acute leukocytosis and mild anemia of 12.1 and 38.3 respectively. Platelets at 308. PT of 21.9 INR of 2.1 PTT of 27.3 CMP shows a sodium 134 potassium of 4.1 chloride of 94. BUN of 35 creatinine 2.0 glucose of 131 no transaminitis or T. bili elevation Troponin at 0.165 note patient is a chronic troponin leak BNP at 221 Medication Administration(s) Medication Administration History Discontinued Medications Acetaminophen (Acetaminophen 325 Mg Tablet) 650 mg PO Q6H PRN PRN Reason: Fever >100.3 or pain 1-3 Stop: 10/11/24 00:52 Last Admin: 09/13/24 09:23 Dose: 650 mg Documented By: Amitriptyline HCl (Amitriptyline Hcl 25 Mg Tablet) 10 mg PO DAILY OLI Stop: 10/11/24 08:59 Last Admin: 09/11/24 10:14 Dose: Not Given Documented By: ZULY Non-Admin Reason: Discontinued Amitriptyline HCl (Amitriptyline Hcl 25 Mg Tablet) 12.5 mg PO DAILY [facility] Stop: 10/11/24 09:44 Last Admin: 09/14/24 08:27 Dose: 12.5 mg Documented By: Admin: 09/13/24 08:18 Dose: 12.5 mg Documented By: Admin: 09/12/24 09:11 Dose: 12.5 mg Documented By: Admin: 09/11/24 09:38 Dose: 12.5 mg Documented By: ZULY Apixaban (Apixaban 2.5 Mg Tablet) 5 mg PO BID [facility] Stop: 10/12/24 09:14 Apixaban (Apixaban 2.5 Mg Tablet) 2.5 mg PO BID OLI Stop: 10/12/24 09:14 Last Admin: 09/14/24 08:27 Dose: 2.5 mg Documented By: Admin: 09/13/24 21:12 Dose: 2.5 mg Documented By: Admin: 09/13/24 08:17 Dose: 2.5 mg Documented By: Admin: 09/12/24 20:46 Dose: 2.5 mg Documented By: Admin: 09/12/24 09:28 Dose: 2.5 mg Documented By: ABDI Atorvastatin Calcium (Atorvastatin Calcium 20 Mg Tablet) 40 mg PO HS OLI Stop: 10/11/24 20:59 Last Admin: 09/13/24 21:12 Dose: 40 mg Documented By: Admin: 09/12/24 20:46 Dose: 40 mg Documented By: Admin: 09/11/24 20:52 Dose: 40 mg Documented By: TIFF Bumetanide (Bumetanide Inj 0.25 Mg/Ml Vial 4 Ml) 2 mg IVP DAILY OLI Stop: 10/11/24 08:59 Last Admin: 09/12/24 09:12 Dose: 2 mg Documented By: Admin: 09/11/24 09:37 Dose: 2 mg Documented By: ZULY Cinacalcet (Cinacalcet Hcl 30 Mg Tablet (Non-Form)) 30 mg PO QDAY OLI Stop: 10/11/24 08:59 Last Admin: 09/14/24 08:28 Dose: 30 mg Documented By: Admin: 09/13/24 08:14 Dose: 30 mg Documented By: Admin: 09/12/24 09:09 Dose: 30 mg Documented By: Admin: 09/11/24 09:40 Dose: 30 mg Documented By: ZULY Colchicine (Colchicine 0.6 Mg Tablet) 0.3 mg PO QDAY OLI Stop: 10/11/24 08:59 Last Admin: 09/13/24 08:18 Dose: 0.3 mg Documented By: Admin: 09/12/24 09:11 Dose: 0.3 mg Documented By: Admin: 09/11/24 09:38 Dose: 0.3 mg Documented By: ZULY Fentanyl Citrate (Fentanyl Cit Inj 50 Mcg/Ml Amp 2ml) 50 mcg IVP X1 ONE Stop: 09/10/24 20:43 Last Admin: 09/10/24 21:08 Dose: 50 mcg Documented By: LISSA Furosemide (Furosemide Inj 10 Mg/Ml 4ml Vial) 40 mg IVP DAILY OLI Stop: 10/11/24 08:59 Gabapentin (Gabapentin 100 Mg Capsule) 100 mg PO DAILY OLI Stop: 10/11/24 08:59 Last Admin: 09/14/24 08:27 Dose: 100 mg Documented By: Admin: 09/13/24 08:14 Dose: 100 mg Documented By: Admin: 09/12/24 09:11 Dose: 100 mg Documented By: Admin: 09/11/24 09:39 Dose: 100 mg Documented By: ZULY Sodium Chloride (Ns) 1,000 mls @ 999 mls/hr IV .Q1H1M ONE Stop: 09/10/24 21:54 Last Admin: 09/10/24 22:58 Dose: Not Given Documented By: LISSA Non-Admin Reason: Other, see note Comments: PT has 3+edema to lower ext. Pts PCP is working on that with diuretics. Magnesium Sulfate (Magnesium Sulfate Ivpb) 2 gm in 50 mls @ 25 mls/hr IV X1 ONE Stop: 09/11/24 04:03 Last Admin: 09/11/24 02:39 Dose: 25 mls/hr Documented By: LISSA Sodium Chloride (Ns) 250 mls @ 999 mls/hr IV .Q16M ONE Stop: 09/13/24 08:33 Last Admin: 09/13/24 09:23 Dose: 999 mls/hr Documented By: Sodium Chloride (Ns) 500 mls @ 999 mls/hr IV .Q31M ONE Stop: 09/13/24 09:56 Last Admin: 09/13/24 10:30 Dose: Not Given Documented By: Non-Admin Reason: duplicate per MD salamanca give the 250 bolus or Sodium Chloride (Ns) 250 mls @ 999 mls/hr IV .Q16M ONE Stop: 09/13/24 14:30 Last Admin: 09/13/24 15:35 Dose: 999 mls/hr Documented By: Lactulose (Lactulose Syrup 20 Gm/30 Ml Udc) 20 gm PO TID OLI; Protocol Stop: 10/13/24 13:59 Last Admin: 09/14/24 05:08 Dose: 20 gm Documented By: Admin: 09/13/24 21:12 Dose: 20 gm Documented By: Admin: 09/13/24 15:40 Dose: Not Given Documented By: Non-Admin Reason: Patient Refused Lisinopril (Lisinopril 2.5 Mg Tablet) 10 mg PO DAILY OLI Stop: 10/11/24 08:59 Last Admin: 09/14/24 08:27 Dose: Not Given Documented By: SOHAIL Non-Admin Reason: Vital Signs Admin: 09/13/24 08:25 Dose: Not Given Documented By: Non-Admin Reason: held per d/t bp Admin: 09/12/24 09:10 Dose: 10 mg Documented By: Admin: 09/11/24 09:39 Dose: 10 mg Documented By: ZULY Metolazone (Metolazone 2.5 Mg Tablet) 5 mg PO DAILY OLI Stop: 10/11/24 08:59 Last Admin: 09/13/24 08:25 Dose: Not Given Documented By: Non-Admin Reason: held per Admin: 09/12/24 09:09 Dose: 5 mg Documented By: Admin: 09/11/24 09:41 Dose: 5 mg Documented By: ZULY Midodrine (Midodrine 5 Mg Tablet) 10 mg PO X1 ONE Stop: 09/13/24 01:16 Last Admin: 09/13/24 01:24 Dose: 10 mg Documented By: LOW Morphine Sulfate (Morphine Sulf Inj 10 Mg/Ml Vial) 4 mg IVP Q4HR PRN PRN Reason: pain 4-10 Stop: 09/16/24 00:52 Last Admin: 09/12/24 11:12 Dose: 4 mg Documented By: Admin: 09/12/24 01:02 Dose: 4 mg Documented By: Admin: 09/11/24 09:36 Dose: 4 mg Documented By: Admin: 09/11/24 02:45 Dose: 4 mg Documented By: LISSA Comments: pushed over 3 min Ondansetron HCl (Ondansetron Inj 2 Mg/Ml Inj 2 Ml) 4 mg IV X1 ONE; Protocol Stop: 09/10/24 20:43 Last Admin: 09/10/24 21:07 Dose: 4 mg Documented By: LISSA Ondansetron HCl (Ondansetron Inj 2 Mg/Ml Inj 2 Ml) 4 mg IV Q6H PRN; Protocol PRN Reason: NAUSEA OR VOMITING Stop: 10/11/24 00:52 Last Admin: 09/11/24 02:45 Dose: 4 mg Documented By: LISSA Pantoprazole Sodium (Pantoprazole 40 Mg Tablet) 40 mg PO QDAY OLI Stop: 10/11/24 08:59 Last Admin: 09/14/24 08:28 Dose: 40 mg Documented By: Admin: 09/13/24 08:14 Dose: 40 mg Documented By: Admin: 09/12/24 09:12 Dose: 40 mg Documented By: Admin: 09/11/24 09:39 Dose: 40 mg Documented By: ZULY Sennosides (Senna Tablet) 1 tab PO QDAY PRN; Protocol PRN Reason: constipation Stop: 10/11/24 00:52 Spironolactone (Spironolactone 25 Mg Tablet) 25 mg PO DAILY [facility] Stop: 10/11/24 08:59 Last Admin: 09/13/24 08:25 Dose: Not Given Documented By: Non-Admin Reason: held per md salamanca d/t low bp this am Admin: 09/12/24 09:11 Dose: 25 mg Documented By: Admin: 09/11/24 09:39 Dose: 25 mg Documented By: ZULY
--- NOTE | 2024-09-10 20:17 | XR_ITS ---
Examination:Right hip AP, lateral, AP pelvis 3 views Technique: Hip AP lateral, AP pelvis, 3 views Exam date and time:September 10, 2024, 2115 hours INDICATIONS: Patient fell today with injury to the right hip, right hip pain FINDINGS: Severe osteopenia. Right hip bipolar hemiarthroplasty Satisfactory alignment No acute fracture No hip dislocation Advanced left hip joint No left hip or pelvic fracture Partial visualization curvilinear calcification in the right abdomen which may represent a calcified renal cyst IMPRESSION: Right hip bipolar hemiarthroplasty with satisfactory alignment No acute hip or pelvic fracture
[2024-09-10 20:54] VITALS: BP 100/57; PULSE 62; RESP 16; O2SAT 87
[2024-09-10] MEDS: ONDANSETRON INJ 2 MG/ML INJ 2 ML 4 MG IV (21:07)
[2024-09-10] MEDS: fentaNYL CIT INJ 50 mCg/ML AMP 2ML IVP (21:08)
[2024-09-10 21:24] LABS: Basophils % (Auto) 0 % (0-2.5); Eosinophils % (Auto) 1 % (0-10); Hematocrit 38.3 % (41.0-53.0); Hemoglobin 12.1 g/dL (13.5-16.0); Immature Granulocytes % (Auto) 1 % (0-0); Immature Granulocytes Auto 0.06 Thou/mm3 (0.00-0.00); Lymphocytes # (Auto) 1.1 Thou/mm3 (1.0-4.8); Lymphocytes % (Auto) 14 % (10-50); Mean Corpuscular HGB Conc 31.6 g/dl (31.0-37.0); Mean Corpuscular Hemoglobin 26.3 pg (25.0-35.0); Mean Corpuscular Volume 83 fL (80-100); Monocytes # (Auto) 0.7 Thou/mm3 (0.0-0.8); Monocytes % (Auto) 8 % (0-12); Neutrophils # (Auto) 6.3 Thou/mm3 (1.8-7.7); Neutrophils % (Auto) 76 % (37-80); Nucleated Red Blood Cell % 0 /100 WBC (0); Platelet Count 308 Thou/mm3 (140-440); RDW Standard Deviation 55.3 fL (35.1-43.9); White Blood Count 8.2 Thou/mm3 (3.8-10.6)
[2024-09-10 21:39] LABS: INR 2.1 (0.9-1.3); Partial Thromboplastin Time 27.3 Seconds (22.0-36.0); Prothrombin Time 21.9 Seconds (9.0-12.2)
[2024-09-10 21:49] LABS: B-Type Natriuretic Peptide 221 pg/mL (0-100)
[2024-09-10 22:33] VITALS: PULSE 60; RESP 21; O2SAT 96
[2024-09-10 22:41] LABS: Carbon Dioxide 30.4 mMol/L (20.0-31.0); Chloride 94 mMol/L (98-107); Potassium 4.1 mMol/L (3.4-5.1); Sodium 134 mMol/L (136-145)
[2024-09-10 22:42] LABS: Alanine Aminotransferase 13 U/L (10-49); Albumin, Serum 4.3 gm/dL (3.4-4.8); Albumin/Globulin Ratio 1.4 (1.2-2.2); Alkaline Phosphatase 127 U/L (46-116); Anion Gap 10 (7-16); Aspartate Amino Transferase 24 U/L (0-34); BUN/Creatinine Ratio 18 Ratio (12-20); Bilirubin,Total 1.1 mg/dL (0.3-1.2); Blood Urea Nitrogen 35 mg/dL (9-23); Calcium 10.1 mg/dL (8.3-10.6); Calcium (Corrected) 10.1 mg/dL (8.5-10.1); Globulin 3.1 gm/dL (2.3-3.5); Glucose 131 mg/dL (74-106); LDH (Lactate Dehydrogenase) 256 U/L (120-246); Magnesium 1.6 mg/dL (1.6-2.6); Osmolality,Calculated 278 (275-295); Total Protein 7.4 gm/dL (5.7-8.2); eGFR 33 See Note
[2024-09-10 22:44] LABS: Troponin I 0.165 ng/mL (0.0-0.045)
[2024-09-10 23:00] VITALS: BP 117/66; PULSE 60; RESP 17; O2SAT 90
--- NOTE | 2024-09-10 23:06 | EDNOTE_ITS ---
Emergency Room Addendum <Deepthi Escudero - Last Filed: 09/11/24 00:21> Addendum Narrative: 2300: Care assumed from Navin Navarro NP (emergency mid-level provider). Past medical, surgical, social and family history reviewed. Vitals and home medications reviewed. Results and treatment plan discussed. They will assume the care of the patient at this time and will follow the patient, pending CT. RADIOLOGY Pelvis CT: Patient: [facility]. Record#: [id number] Birthdate: 1945 Age/Sex: 79 / M Location: [facility] Attending Dr: Ordering Physician: Navin Navarro NP Date of Service: 09/10/24 Procedure(s): CT pelvis wo [facility] Accession Number(s): [id number] cc: Navin Navarro NP; Govind Vick MD~ Examination: CT pelvis without intravenous contrast. 2-D sagittal and coronal reconstructions. Date and time of exam:September 10, 2024 2141 hours INDICATIONS: Patient tripped and fell today with injury to the right hip, right hip pain CTDI: vol (mGy) :9.87 DLP: (mGycm) : 361 Technique: Multiple 3 mm axial sections of the pelvis have been obtained with the 64 slice high resolution scanner. 2-D sagittal and coronal reconstructions. Low dose protocols were performed. One or more of the following dose reduction techniques were used; automated exposure control, adjustment of the mA and/or KV according to patient size, use of iterative reconstruction technique. Findings: Partial visualization calcified right renal cyst Aorta visualized appears intact No free fluid in the abdomen Urinary bladder intact No pelvic hematoma Right hip bipolar hemiarthroplasty Satisfactory alignment Visualized hip appears intact Advanced narrowing left hip joint Axial image 149 consistent with acute nondisplaced fracture right inferior pubic ramus IMPRESSION: Hips appear intact Nondisplaced acute fracture right inferior pubic ramus Recommend follow-up AP pelvis in 1-2 days Dictated By: Govind Vick MD Signed By: <Electronically signed by Govind Vick MD in OV> 09/10/24 2254 2344 : Discharge pending successful road test. 0000: Patient was unable t ambulate due to pain. Patient will be admitted and will need to be discharged to SNF. 0010: Dr. Montez, the hospitalist, made aware of the patient?s HPI, PMHx, lab and/or radiology results. Treatment plan was discussed. Will admit for further evaluation and management. Accepts patient for admission. <Malia Whelan - Last Filed: 09/11/24 19:47> Addendum Narrative: 2300: Care assumed from Navin Navarro NP (emergency mid-level provider). Past medical, surgical, social and family history reviewed. Vitals and home medications reviewed. Results and treatment plan discussed. They will assume the care of the patient at this time and will follow the patient, pending CT. RADIOLOGY Pelvis CT: Patient: [facility]. Record#: [id number] Birthdate: 1945 Age/Sex: 79 / M Location: [facility] Attending Dr: Ordering Physician: Navin Navarro NP Date of Service: 09/10/24 Procedure(s): CT pelvis wo con Accession Number(s): [id number] cc: Navin Navarro NP; Govind Vick MD~ Examination: CT pelvis without intravenous contrast. 2-D sagittal and coronal reconstructions. Date and time of exam:September 10, 2024 2141 hours INDICATIONS: Patient tripped and fell today with injury to the right hip, right hip pain CTDI: vol (mGy) :9.87 DLP: (mGycm) : 361 Technique: Multiple 3 mm axial sections of the pelvis have been obtained with the 64 slice high resolution scanner. 2-D sagittal and coronal reconstructions. Low dose protocols were performed. One or more of the following dose reduction techniques were used; automated exposure control, adjustment of the mA and/or KV according to patient size, use of iterative reconstruction technique. Findings: Partial visualization calcified right renal cyst Aorta visualized appears intact No free fluid in the abdomen Urinary bladder intact No pelvic hematoma Right hip bipolar hemiarthroplasty Satisfactory alignment Visualized hip appears intact Advanced narrowing left hip joint Axial image 149 consistent with acute nondisplaced fracture right inferior pubic ramus IMPRESSION: Hips appear intact Nondisplaced acute fracture right inferior pubic ramus Recommend follow-up AP pelvis in 1-2 days Dictated By: Govind Vick MD Signed By: <Electronically signed by Govind Vick MD in OV> 09/10/24 2254 2344 : Discussed results with the patient at bedside. Patient is stable to be discharged pending successful road test. 0000: Patient was unable to ambulate due to having severe pain. Patient will be admitted for pain control and will need to be placed in a SNF. 0010: Dr. Montez, the hospitalist, made aware of the patient?s HPI, PMHx, lab and/or radiology results. Treatment plan was discussed. Will admit for further evaluation and management. Accepts patient for admission. Diagnoses: fracture of the right inferior pubic ramus
[2024-09-10 23:07] VITALS: BMI 28.8
[2024-09-11] VITALS (20 sets, daily range): BP systolic 97–145; BP diastolic 54–76; PULSE 60–74; RESP 12–33; TEMP 36.4–37.2; O2SAT 85–98; BMI 27.9
--- NOTE | 2024-09-11 00:31 | EVENTNT_ITS ---
Documentation for date of: 09/11/24 Event Note Event Note: An 79-year-old male presented to the ER with the chief complaint of right hip pain. The patient described acute right hip pain following a fall earlier today. He was exiting his house using a walker when he lost balance and pitched forward, falling onto his right side. He did not hit his head and did not lose consciousness. He was unable to ambulate due to pain, prompting transport to the ER for further evaluation and management. The patient has a history of AFib (with pacemaker), HTN, CKD, and prior spinal procedures. Surgical history includes spinal cyst removal, cholecystectomy, appendectomy, left meniscus repair, and nerve root block. Current medications include Bumetanide, Amitriptyline, Benazepril, Cinacalcet, Eliquis, Colchicine, Gabapentin, Hydrocodone/APAP, Magnesium, Multivitamin, Pravastatin, Omeprazole, Zinc, Spironolactone. He lives with his . Family reports baseline independence with ambulation. Family had planned to bring him to [place] due to his 's declining ability to care for him. In the ER, vital signs recorded as temp 98.5?F, HR 77 bpm, RR 18, BP 112/62 mmHg. Lab revealed Hb 12.1, WBC 8.2, Plt 308, Na 134, K 4.1, Cl 94, BUN 35, Creatinine 2.0. CT pelvis showed a nondisplaced acute fracture of the right inferior pubic ramus. Head CT was negative. Patient failed road test. Admit for further evaluation and treatment.
[2024-09-11 01:04] LABS: Collection Type, Urine Clean Catch; Squamous Epithelial Cell,Urine 0 /hpf (0-5)
[2024-09-11 01:07] LABS: Bilirubin,Urine Negative (Negative); Blood,Urine Trace (Negative); Clarity,Urine Clear (Clear/Hazy); Color,Urine Yellow (Lt Yel-Yel); Glucose, Urine Negative (Negative); Hyaline Casts,Urine 1 /hpf (0-1); Ketones,Urine Negative (Negative); Leukocyte Esterase,Urine Negative (Negative); Nitrite,Urine Negative (Negative); Protein,Urine 1+ (Neg - Trace); RBC,Urine 3 /hpf (0-3); Specific Gravity,Urine 1.014 (1.001-1.035); WBC,Urine 2 /hpf (0-5)
--- NOTE | 2024-09-11 01:16 | PD.RESHP ---
Documentation for date of: 09/11/24 [facility] History of Present Illness Chief complaint: fall History of present illness: Yves Christensen is 79 yr male with PMH of A-fib (on Eliquis), CAD s/p stents, sinus bradycardia and sick sinus syndrome s/p pacemaker, hypertension, GERD, hyperparathyroid s/p L parathyroidectomy, and CKD who presented to ED after a fall. Patient's son was at bedside who provided information. Son stated that yesterday evening between 5 and 6 PM patient was walking outside down the driveway using walker. Walker started rolling faster, patient lost balance resulting in the fall. He landed on the concrete on his back. Family came to assist but were not able to lift the patient due to pain. He has no history of frequent falls and mobility is dependent on walker use. Son stated that typically patient is able to conduct ADLs with minor assistance to the bathroom and shower. Patient sees photo specialist Dr. Moran for management of diastolic heart failure, A-fib, atherosclerotic heart disease, hypertension. Echo was done outpatient yesterday. He was to follow up with Dr. Moran on September 12 for results. Patient denies any headache, loss of consciousness, chest pain, shortness of breath, dysuria, diarrhea. Has noticed increased lower extremity swelling and endorses occasional orthopnea at night. In ED, vital stable. CBC unremarkable, CMP showed mild hyponatremia sodium 134, creatinine 2.0, glucose 131, mag 1.6, elevated troponin 0.165, BNP 221. CT head, chest x-ray, CT cervical spine negative for acute changes or underlying pathology. CT pelvis consistent with nondisplaced acute fracture of the right inferior pubic ramus, hips are intact. EKG showed rate 55, QTc 513, no acute ischemic changes. Patient was given 50 mcg fentanyl in the ED. Orthopedics Dr. Gill was consulted along with physical therapy team. Patient to be admitted for management of pubic ramus fracture. PMH: as noted above PSH: Pacemaker s/p 2018, parathyroidectomy s/p 2019, left thyroidectomy s/p 2019, hip and knee replacement, renal cyst drainage and removal. Medications: Gabapentin 100 mg, amitriptyline 10 mg, aspirin, colchicine 0.6 mg, multivitamin, hydrocodone acetaminophen 7.5 as needed, pravastatin, Cinacalcet, spironolactone 25 mg, Eliquis 2.5 g, omeprazole 20 mg, benazepril 10 mg, metolazone 5 mg, bumetanide 2 mg p.o. 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 HEENT: NCAT, No JVD noted. Mucosa dry. Pupils are equal and reactive to light bilaterally. Cardiovascular: Normal S1 and S2. Regular rate and rhythm. Respiratory: Lungs are clear to auscultation bilaterally. No wheezing or crackles heard. Abdomen: Soft, nontender, not distended, normal bowel sounds. Skin: Warm to touch, dry, no rashes noted. Musculoskeletal: No gross injuries. Difficulty in moving the lower extremities. +2 pitting edema. Neuro: Alert and oriented x3. No focal neuro deficits. Psych: Normal affect and mood. Results: Labs 09/10/24 20:58 09/10/24 20:58 Labs: Short CBC 09/10/24 Range/Units 20:58 WBC 8.2 (3.8-10.6) Thou/mm3 Hgb 12.1 L (13.5-16.0) g/dL Hct 38.3 L (41.0-53.0) % Plt Count 308 (140-440) Thou/mm3 BMP 09/10/24 20:58 Sodium 134 L Potassium 4.1 Chloride 94 L Carbon Dioxide 30.4 BUN 35 H Creatinine 2.0 H Glucose 131 H Calcium 10.1 Cardiac Enzymes 09/10/24 Range/Units 20:58 Troponin I 0.165 H* (0.0-0.045) ng/mL Liver Function 09/10/24 Range/Units 20:58 Total Bilirubin 1.1 (0.3-1.2) mg/dL AST 24 (0-34) U/L ALT 13 (10-49) U/L Alkaline Phosphatase 127 H (46-116) U/L Albumin 4.3 (3.4-4.8) gm/dL Urine 09/11/24 Range/Units 00:55 Urine Color Yellow (Lt Yel-Yel) Urine Clarity Clear (Clear/Hazy) Urine pH 6.0 (5.0-7.0) Ur Specific [place] 1.014 (1.001-1.035) Urine Protein 1+ A (Neg - Trace) Urine Glucose (UA) Negative (Negative) Quality Measures Quality Measures none Advance care planning discussed with:: child Medications Home Medications and Allergies Home Medications ?Medication ?Instructions ?Recorded ?Confirmed ?Type pravastatin 40 mg tablet 40 mg PO QAM #0 tabs 10/16/13 05/29/24 History (Pravachol) amitriptyline 10 mg tablet 10 mg PO HS 10/04/18 05/29/24 History apixaban 5 mg tablet (Eliquis) 2.5 mg BID 05/29/24 05/29/24 History cinacalcet 30 mg tablet 30 mg PO 1XD 05/29/24 05/29/24 History omeprazole 20 mg capsule,delayed 20 mg 1XD 05/29/24 05/29/24 History release Allergies Allergy/AdvReac Type Severity Reaction Status Date / Time No Known Allergies Allergy Verified 05/29/24 14:45 Visit Medications Acetaminophen (Acetaminophen 325 Mg Tablet) 650 mg PO Q6H PRN PRN Reason: Fever >100.3 or pain 1-3 Stop: 10/11/24 00:52 Amitriptyline HCl (Amitriptyline Hcl 25 Mg Tablet) 10 mg PO DAILY OLI Stop: 10/11/24 08:59 Atorvastatin Calcium (Atorvastatin Calcium 20 Mg Tablet) 40 mg PO HS OLI Stop: 10/11/24 20:59 Bumetanide (Bumetanide Inj 0.25 Mg/Ml Vial 4 Ml) 2 mg IVP DAILY OLI Stop: 10/11/24 08:59 Colchicine (Colchicine 0.6 Mg Tablet) 0.3 mg PO QDAY OLI Stop: 10/11/24 08:59 Gabapentin (Gabapentin 100 Mg Capsule) 100 mg PO DAILY OLI Stop: 10/11/24 08:59 Lisinopril (Lisinopril 2.5 Mg Tablet) 10 mg PO DAILY [facility] Stop: 10/11/24 08:59 Metolazone (Metolazone 2.5 Mg Tablet) 5 mg PO DAILY OLI Stop: 10/11/24 08:59 Morphine Sulfate (Morphine Sulf Inj 10 Mg/Ml Vial) 4 mg IVP Q4HR PRN PRN Reason: pain 4-10 Stop: 09/16/24 00:52 Non-Formulary Medication (Cinacalcet) 30 mg PO 1XD OLI Stop: 10/11/24 01:14 Non-Formulary Medication (Omeprazole) 20 mg PO 1XD OLI Stop: 10/11/24 01:14 Ondansetron HCl (Ondansetron Inj 2 Mg/Ml Inj 2 Ml) 4 mg IV Q6H PRN; Protocol PRN Reason: NAUSEA OR VOMITING Stop: 10/11/24 00:52 Sennosides (Senna Tablet) 1 tab PO QDAY PRN; Protocol PRN Reason: constipation Stop: 10/11/24 00:52 Spironolactone (Spironolactone 25 Mg Tablet) 25 mg PO DAILY OLI Stop: 10/11/24 08:59 Discontinued Medications Fentanyl Citrate (Fentanyl Cit Inj 50 Mcg/Ml Amp 2ml) 50 mcg IVP X1 ONE Stop: 09/10/24 20:43 Last Admin: 09/10/24 21:08 Dose: 50 mcg Furosemide (Furosemide Inj 10 Mg/Ml 4ml Vial) 40 mg IVP DAILY [facility] Stop: 10/11/24 08:59 Sodium Chloride (Ns) 1,000 mls @ 999 mls/hr IV .Q1H1M ONE Stop: 09/10/24 21:54 Last Admin: 09/10/24 22:58 Dose: Not Given Ondansetron HCl (Ondansetron Inj 2 Mg/Ml Inj 2 Ml) 4 mg IV X1 ONE; Protocol Stop: 09/10/24 20:43 Last Admin: 09/10/24 21:07 Dose: 4 mg Assessment & Plan Plan Yves Christensen is 79 yr male with PMH of A-fib (on Eliquis), CAD s/p stents, sinus bradycardia and sick sinus syndrome s/p pacemaker, hypertension, GERD, hyperparathyroid s/p L parathyroidectomy, and CKD who presented to ED after a fall on back. Patient to be admitted for management of pubic ramus fracture. #Fall #Closed fracture of right pubis No history of frequent falls, patient uses walker for assistance at home. This fall resulted from patient walking outside and losing support from the walker. Patient landed on his back on the concrete ground. CT head, chest x-ray, CT cervical spine negative for acute changes or underlying pathology. CT pelvis consistent with nondisplaced acute fracture of the right inferior pubic ramus, hips are intact. - NPO - Orthopedics Dr. Gill consulted, recs appreciated - PT pending - IV morphine 2 mg q4hr PRN for pain #Elevated troponins Patient denies any chest pain, troponins elevated on admission 0.165. EKG negative for any ST changes, rate 59, QTc 513. Most likely demand ischemia, NSTEMI II. - Trend troponins #Hx CAD s/p stents #Hx Afib on eliquis #Hx diastolic HF - Holding aspirin and eliquis 2.5mg BID in setting of fall - Echo from outpatient with Dr. Moran was done yesterday - Resumed home spironolactone - Colchicine 0.3 mg daily - Patient normally takes benazepril 10 mg daily, started on lisinopril 10 mg daily during hospitalization - Resumed metolazone 5 mg daily - Resumed IV bumetanide 2 mg daily #Hx HLD Patient takes pravastatin 40 mg daily. ? Started pravastatin 40 mg daily while in hospital #CKD stage IIIa Cr 2.0 and BUN 35 on admission. Baseline Cr appears to be around 2.0. - Continue to monitor - Daily renal panel Health maintenance: Dispo: med surg, pubic fracture FEN: NPO DVT prophylaxis:not indicated CODE STATUS: DNR The patient's management plan was discussed with my attending physician Dr. Montez. Carmle Gonzalez, PGY-1 Attending Provider Attestation/Addendum Pt was evaluated and plan formulated together with the housestaff team. I have reviewed the residents note above and agree with most of its content. Please refer to the residents note for additional details.
[2024-09-11 01:29] LABS: Amphetamine/Methamp Scrn,U Negative (Negative); Barbiturate Screen,Urine Negative (Negative); Benzodiazepines Screen,Urine Negative (Negative); Benzoylecgonine Screen, Ur Negative (Negative); Fentanyl Screen,Urine Positive (Negative); Opiate Screen,Urine Positive (Negative); THC Screen,Urine Negative (Negative)
[2024-09-11 02:08] LABS: Troponin I 0.155 ng/mL (0.0-0.045)
[2024-09-11] MEDS: Magnesium Sulfate 2 GM Ivpb 2 GM/50 ML BAG IV (02:39)
[2024-09-11] MEDS: ONDANSETRON INJ 2 MG/ML INJ 2 ML 4 MG IV (02:45)
[2024-09-11] MEDS: MORPHINE SULF INJ 10 MG/ML VIAL 4 MG IVP ×2 (02:45→09:36)
--- NOTE | 2024-09-11 03:31 | PC.NURSE ---
Sleeping restlessly. Woke up co pain. Pt given morphine for pain and is now sleeping less restlessly. Pts son at bedside.
--- NOTE | 2024-09-11 04:23 | PC.NURSE ---
Report called to Wanda CHAMPION. pt up to rm 370 on broom man by myself.
[2024-09-11 07:37] LABS: Basophils # (Auto) 0.1 Thou/mm3 (0.0-0.2); Basophils % (Auto) 1 % (0-2.5); Eosinophils % (Auto) 0 % (0-10); Hematocrit 39.1 % (41.0-53.0); Hemoglobin 11.9 g/dL (13.5-16.0); Immature Granulocytes % (Auto) 0 % (0-0); Immature Granulocytes Auto 0.04 Thou/mm3 (0.00-0.00); Lymphocytes # (Auto) 1.6 Thou/mm3 (1.0-4.8); Lymphocytes % (Auto) 18 % (10-50); Mean Corpuscular HGB Conc 30.4 g/dl (31.0-37.0); Mean Corpuscular Hemoglobin 26.4 pg (25.0-35.0); Mean Corpuscular Volume 87 fL (80-100); Monocytes % (Auto) 12 % (0-12); Neutrophils # (Auto) 6.3 Thou/mm3 (1.8-7.7); Neutrophils % (Auto) 69 % (37-80); Nucleated Red Blood Cell % 0 /100 WBC (0); Platelet Count 269 Thou/mm3 (140-440); RDW Standard Deviation 57.6 fL (35.1-43.9)
[2024-09-11 07:56] LABS: Alanine Aminotransferase 13 U/L (10-49); Albumin, Serum 4.3 gm/dL (3.4-4.8); Albumin/Globulin Ratio 1.6 (1.2-2.2); Alkaline Phosphatase 124 U/L (46-116); Anion Gap 8 (7-16); Aspartate Amino Transferase 23 U/L (0-34); BUN/Creatinine Ratio 17 Ratio (12-20); Bilirubin,Total 1.4 mg/dL (0.3-1.2); Blood Urea Nitrogen 38 mg/dL (9-23); Calcium 9.5 mg/dL (8.3-10.6); Calcium (Corrected) 9.5 mg/dL (8.5-10.1); Carbon Dioxide 32.6 mMol/L (20.0-31.0); Chloride 96 mMol/L (98-107); Creatinine (Component) 2.3 mg/dL (0.6-1.3); Estimated Creatinine Clearance 29.9 mL/min (>60); Globulin 2.7 gm/dL (2.3-3.5); Glucose 110 mg/dL (74-106); Osmolality,Calculated 283 (275-295); Phosphorous 3.6 mg/dL (2.4-5.1); Potassium 4.6 mMol/L (3.4-5.1); Sodium 137 mMol/L (136-145); eGFR 28 See Note
[2024-09-11 08:01] LABS: Troponin I 0.165 ng/mL (0.0-0.045)
[2024-09-11] MEDS: BUMETANIDE INJ 0.25 MG/ML VIAL 4 ML 2 MG IVP (09:37)
[2024-09-11] MEDS: AMITRIPTYLINE HCL 25 MG TABLET 12.5 MG PO (09:38)
[2024-09-11] MEDS: COLCHICINE 0.6 MG TABLET 0.3 MG PO (09:38)
[2024-09-11] MEDS: SPIRONOLACTONE 25 MG TABLET PO (09:39)
[2024-09-11] MEDS: GABAPENTIN 100 MG CAPSULE PO (09:39)
[2024-09-11] MEDS: Lisinopril 2.5 MG TABLET 10 MG PO (09:39)
[2024-09-11] MEDS: PANTOPRAZOLE 40 MG TABLET PO (09:39)
[2024-09-11] MEDS: CINACALCET HCL 30 MG TABLET (NON-FORM) PO (09:40)
[2024-09-11] MEDS: metOLazone 2.5 MG TABLET 5 MG PO (09:41)
--- NOTE | 2024-09-11 13:48 | PC.SS ---
Initial assessment: this is 79 year old male admitted for a fall. Patient's son at bedside, Morteza to assist in providing information. Patient resides at home with spouse, Genevieve. Patient regularly uses a cane and walker at home. PCP is Luis Miguel Fontaine. Family and patient are requesting SNF placement with [facility] in [place]. Emergency contact to be patient's son is Morteza. D/c plan: SNF Next of kin: sonMorteza
--- NOTE | 2024-09-11 13:52 | ESPR_ITS ---
<Statement entered by Estee Walter MD - 09/11/24 23:45> Patient is an 79-year-old male with past medical history significant for A-fib on Eliquis, CAD status post stents, sinus bradycardia, sick sinus syndrome status post pacemaker, pericarditis, hypertension, CKD who presented to the ED today with a nondisplaced pubic ramus fracture secondary to ground-level fall. Patient is admitted for further management. Orthopedics was consulted, and at this time recommends no surgery and to be on weightbearing measures. Patient will be followed with physical therapy and most likely require care home facility versus home with home health to regain his strength. Will get a repeat pelvic x-ray tomorrow. Patient also has an JENNIFER but will continue his diuretics for now and continue to monitor and renally dose any other medications. I discussed with and supervised the application internship physician who took care of this patient. I personally saw and examined the patient and discussed the assessment and plan with the entire medicine team, including my attending Dr. Merino, I agree with most of the assessment and plan as documented below Estee Walter M.D. PGY-2 Disclaimer: Despite multiple revisions, due to the dictation software being used, the document bellow may not be free of grammatical errors including phonetic/typographic errors. However, this does not deter from our commitment to providing health care in the patient's best interest in mind. Documentation for date of: 09/11/24 Subjective Subjective Interval history: Patient was seen and examined at bedside this morning. No acute overnight events. Spoke with orthopedic surgeon today who stated that patient did not require surgery at this time and that we could start diet. At this time orthopedic surgeon stated that patient could be weightbearing and will need physical therapy. Will wait for further orthopedic surgery recommendations. Patient's troponins did downtrend therefore will not continue to trend. Patient does have an JENNIFER which is slightly above his baseline creatinine. Will continue with diuresis at this time as patient seems to be fluid overloaded. No other complaints at this time. Exam Vital Signs Temp Pulse Resp BP Pulse Ox O2 Del Method O2 Flow Rate 98.1 F 72 18 104/57 L 93 L Nasal Cannula 1 09/11/24 12:00 09/11/24 12:00 09/11/24 12:00 09/11/24 12:00 09/11/24 12:00 09/11/24 12:00 09/11/24 12:00 FiO2 28 09/11/24 02:17 Narrative Exam General: A/O x3, no acute distress Eyes: PERRL, EOMI. Anicteric, vision grossly intact. Ears: No ear pain, no ear discharge, Hearing grossly intact. Nose: No nasal discharge. Mouth/Throat: Moist mucous membranes, no redness, no lesions. Neck: Neck supple, non-tender, no cervical lymphadenopathy. Lungs: Clear DAVY to auscultation and percussion, No accessory muscle use. Cardio: Normal S1/S2, regular rhythm, no murmurs, no JVD. Abdomen: Soft, non-tender, no palpable masses, peristalsis present, no guarding or rebound. Extremities: Symmetrical, no significant deformities, 3+ peripheral edema , non-tender, peripheral pulses presents Skin: No rashes, no lesions, warm to touch. Neuro: No focal neurological deficits. motor and sensory intact. Psych: Cooperative, appropriate mood and effect. Objective Labs 09/11/24 06:55 09/11/24 06:55 Labs: Laboratory Results - last 24 hr 09/10/24 09/11/24 09/11/24 20:58 00:55 01:20 WBC 8.2 RBC 4.60 Hgb 12.1 L Hct 38.3 L MCV 83 MCH 26.3 MCHC 31.6 RDW Std Deviation 55.3 H Plt Count 308 Neut % (Auto) 76 Lymph % (Auto) 14 [place] % (Auto) 8 Eos % (Auto) 1 Baso % (Auto) 0 Neut # (Auto) 6.3 Lymph # (Auto) 1.1 [place] # (Auto) 0.7 Eos # (Auto) 0.0 Baso # (Auto) 0.0 Immature Gran # (Auto) 0.06 H Absolute Nucleated RBC 0.00 Immature Gran % 1 H Nucleated RBC % 0 PT 21.9 H INR 2.1 H APTT 27.3 Sodium 134 L Potassium 4.1 Chloride 94 L Carbon Dioxide 30.4 Anion Gap 10 BUN 35 H Creatinine 2.0 H Estim Creat Clear Calc Not Performed. eGFR 33 L BUN/Creatinine Ratio 18 Glucose 131 H Calculated Osmolality 278 Calcium 10.1 Corrected Calcium 10.1 Phosphorus Magnesium 1.6 Total Bilirubin 1.1 AST 24 ALT 13 Alkaline Phosphatase 127 H Lactate Dehydrogenase 256 H Troponin I 0.165 H* 0.155 H* B-Natriuretic Peptide 221 H Total Protein 7.4 Albumin 4.3 Globulin 3.1 Albumin/Globulin Ratio 1.4 Ur Collection Type Clean Catch Urine Color Yellow Urine Clarity Clear Urine pH 6.0 Ur Specific Counce 1.014 Urine Protein 1+ A Urine Glucose (UA) Negative Urine Ketones Negative Urine Blood Trace Urine Nitrite Negative Urine Bilirubin Negative Urine Urobilinogen (Auto) 2.0 Ur Leukocyte Esterase Negative Urine RBC 3 Urine WBC 2 Ur Squamous Epith Cells 0 Urine Bacteria None Hyaline Casts 1 Urine Opiates Screen Positive A Urine Fentanyl Screen Positive A Ur Barbiturates Screen Negative U Amphetamin/Meth Scrn Negative U Benzodiazepines Scrn Negative U Cocaine Metab Screen Negative U Marijuana (THC) Screen Negative 09/11/24 06:55 WBC 9.0 RBC 4.50 Hgb 11.9 L Hct 39.1 L MCV 87 MCH 26.4 MCHC 30.4 L RDW Std Deviation 57.6 H Plt Count 269 D Neut % (Auto) 69 Lymph % (Auto) 18 [place] % (Auto) 12 Eos % (Auto) 0 Baso % (Auto) 1 Neut # (Auto) 6.3 Lymph # (Auto) 1.6 [place] # (Auto) 1.0 H Eos # (Auto) 0.0 Baso # (Auto) 0.1 Immature Gran # (Auto) 0.04 H Absolute Nucleated RBC 0.00 Immature Gran % 0 Nucleated RBC % 0 PT INR APTT Sodium 137 Potassium 4.6 D Chloride 96 L Carbon Dioxide 32.6 H Anion Gap 8 BUN 38 H Creatinine 2.3 H Estim Creat Clear Calc 29.9 L eGFR 28 L BUN/Creatinine Ratio 17 Glucose 110 H Calculated Osmolality 283 Calcium 9.5 Corrected Calcium 9.5 Phosphorus 3.6 Magnesium 2.0 Total Bilirubin 1.4 H AST 23 ALT 13 Alkaline Phosphatase 124 H Lactate Dehydrogenase Troponin I 0.165 H* B-Natriuretic Peptide Total Protein 7.0 Albumin 4.3 Globulin 2.7 Albumin/Globulin Ratio 1.6 Ur Collection Type Urine Color Urine Clarity Urine pH Ur Specific Counce Urine Protein Urine Glucose (UA) Urine Ketones Urine Blood Urine Nitrite Urine Bilirubin Urine Urobilinogen (Auto) Ur Leukocyte Esterase Urine RBC Urine WBC Ur Squamous Epith Cells Urine Bacteria Hyaline Casts Urine Opiates Screen Urine Fentanyl Screen Ur Barbiturates Screen U Amphetamin/Meth Scrn U Benzodiazepines Scrn U Cocaine Metab Screen U Marijuana (THC) Screen Quality Measures Quality Measures none Advance care planning discussed with:: patient and child Assessment & Plan Assessment Current Active Medications: Generic Name Dose Route Start Last Admin Trade Name Freq PRN Reason Stop Dose Admin Acetaminophen 650 mg 09/11/24 00:53 Acetaminophen 325 Mg Tablet PO 10/11/24 00:52 Q6H PRN Fever >100.3 or pain 1-3 Amitriptyline HCl 12.5 mg 09/11/24 09:45 09/11/24 09:38 Amitriptyline Hcl 25 Mg Tablet PO 10/11/24 09:44 12.5 mg DAILY OLI Administration Atorvastatin Calcium 40 mg 09/11/24 21:00 Atorvastatin Calcium 20 Mg Tablet PO 10/11/24 20:59 HS OLI Bumetanide 2 mg 09/11/24 09:00 09/11/24 09:37 Bumetanide Inj 0.25 Mg/Ml Vial 4 Ml IVP 10/11/24 08:59 2 mg DAILY OLI Administration Cinacalcet 30 mg 09/11/24 09:00 09/11/24 09:40 Cinacalcet Hcl 30 Mg Tablet (Non-Form) PO 10/11/24 08:59 30 mg QDAY OLI Administration Colchicine 0.3 mg 09/11/24 09:00 09/11/24 09:38 Colchicine 0.6 Mg Tablet PO 10/11/24 08:59 0.3 mg QDAY OLI Administration Gabapentin 100 mg 09/11/24 09:00 09/11/24 09:39 Gabapentin 100 Mg Capsule PO 10/11/24 08:59 100 mg DAILY OLI Administration Lisinopril 10 mg 09/11/24 09:00 09/11/24 09:39 Lisinopril 2.5 Mg Tablet PO 10/11/24 08:59 10 mg DAILY OLI Administration Metolazone 5 mg 09/11/24 09:00 09/11/24 09:41 Metolazone 2.5 Mg Tablet PO 10/11/24 08:59 5 mg DAILY OLI Administration Morphine Sulfate 4 mg 09/11/24 00:53 09/11/24 09:36 Morphine Sulf Inj 10 Mg/Ml Vial IVP 09/16/24 00:52 4 mg Q4HR PRN Administration pain 4-10 Ondansetron HCl 4 mg 09/11/24 00:53 09/11/24 02:45 Ondansetron Inj 2 Mg/Ml Inj 2 Ml IV 10/11/24 00:52 4 mg Q6H PRN Administration NAUSEA OR VOMITING Protocol Pantoprazole Sodium 40 mg 09/11/24 09:00 09/11/24 09:39 Pantoprazole 40 Mg Tablet PO 10/11/24 08:59 40 mg QDAY OLI Administration Sennosides 1 tab 09/11/24 00:53 Senna Tablet PO 10/11/24 00:52 QDAY PRN constipation Protocol Spironolactone 25 mg 09/11/24 09:00 09/11/24 09:39 Spironolactone 25 Mg Tablet PO 10/11/24 08:59 25 mg DAILY OLI Administration Plan 79-year-old female with past medical history of A-fib (on Eliquis), CAD s/p stents, sinus bradycardia and sick sinus syndrome s/p pacemaker, pericarditis, hypertension, GERD, hyperparathyroid s/p L parathyroidectomy, and CKD admitted to hospital on 09/11/2024 due to nondisplaced pubic ramus fracture secondary to ground-level fall. #Nondisplaced right inferior pubic ramus fracture #Mechanical fall Patient came in after having a mechanical fall where he lost control of his walker and landed on the concrete. Patient CT head was unremarkable, CT cervical spine was also unremarkable. Patient CT pelvis that showed acute nondisplaced fracture of right inferior pubic ramus, but no hip fractures. Plan: Patient is to be weightbearing as per orthopedic surgery Pain regimen with Tylenol and morphine 4 mg IV every 4 hours as needed Physical therapy on board Orthopedic surgery on board, pressure recommendations #JENNIFER on CKD Patient came in with creatinine of 2 and up trended to 2.3 today Patient's baseline creatinine is around 1.8. This could be due to fluid overload status Plan: Will continue with diuretics for now Avoid nephrotoxic agents Renally dose medication Will continue monitoring #NSTEMI Patient came in with troponins 0.165 before downtrending This is most likely demand ischemia Plan: Will continue to monitor #Hx of CAD s/p stents #Hx of A-fib #Hx of pericarditis #Hx of hypertension #Hx of CHF? Patient was recently seen by his manager lsw as outpatient. Patient had an echo done as an outpatient, but we do not have the reports in our system. Patient does have significant lower extremity edema [id number] score of 5 indicating 7.2% risk of stroke per year HAS-BLED score of 5 indicating high risk of major bleed Plan: Holding aspirin and eliquis in the setting of fall and fracture. Continue Bumex 2 mg IV daily Continue metolazone 5 mg daily Continue spironolactone 25 mg daily Continue colchicine 0.3 mg daily Continue senna pro 10 mg daily Strict BELTRAN's Daily weights Fluid restrictions Cardiology consulted, appreciate reccomendations Will continue to monitor #Hx of hyperlipidemia Will continue atorvastatin 40 mg at bedtime #Hx of GERD Continue pantoprazole 40 mg daily #Hx of hyperparathyroid s/p left parotidectomy Disposition: Patient admitted to med surg for acute pubic ramus fracture, pending JENNIFER resolution. Diet: cardiac GI prophylaxis: protonix DVT prophylaxis: on eliquis Code: Full Case disclosed with Attending Dr. Merino and my senior Dr. Walter PGY2 Chuck Ratliff PGY1 Attending Provider Attestation/Addendum I have discussed and was present for the essential components of the history, physical examination, diagnosis, and treatment plan with the resident. I agree with the patient's care as documented by the resident and amended herein by me. Db Merino DO. Patient seen and evaluated this AM. No acute events overnight, significant labs included an uptrend in the patient's creatinine to 2.3 today, BUN 38, bicarb 32. Will repeat pelvic x-ray tomorrow, no surgical intervention per orthopedic surgery. Patient can be discharged to home with home health versus SNF once the patient's JENNIFER resolves. Will continue to monitor closely while he is here. Although this document has been carefully reviewed, there may still be some phonetic and other typographical errors. These errors are purely grammatical due to imperfections in the software program and should not be construed in any way to compromise the substance of the patient's medical care during this visit.
--- NOTE | 2024-09-11 13:57 | PC.SS ---
Addendum entered by KATY Bailey 09/11/24 14:39: SS follow up: spoke with [facility] staff they are able to accept the patient tomorrow if ready for d/c. Patient's son is aware. Patient is pending kidney function improvement. Original Note: SNF referral sent to [facility] via [employer].
--- NOTE | 2024-09-11 18:23 | ESCONSULT_ITS ---
<Statement entered by Shavonne Moran MD - 09/12/24 08:39> I personally examined the patient evaluated the patient with resident physician PGY 2 Dr. Rivas and the patient is well-known to me has a known history of chronic A-fib mild LV dysfunction EF 48% previous stent placement A-fib chronic admitted to hospital with fracture of the pelvis after a fall accidental fall recently has been shortness of breath swelling of the feet echo in my office showed ejection fraction 48% mostly right heart failure symptoms. Recommend continue diuretic therapy also restarted on Eliquis and low-dose aspirin. Evaluate the patient with resident physician agree with the treatment plan recommendation as documented all essential components reviewed by me personally HPI Data of Consult Requesting Physician: Ted Merino DO Admitting Provider: Blane Montez MD Attending Provider: Ted Merino DO Primary Care Provider: Luis Miguel Fontaine Consult Narrative Reason for consult: edema History of present illness: Patient is a 79 years old male with PMH of A-fib (on Eliquis), CAD s/p stents, HFrEF last EF 48%, sinus bradycardia and sick sinus syndrome s/p pacemaker, hypertension, GERD, hyperparathyroid s/p L parathyroidectomy, and CKD who presented to ED after a ground level fall. He lost his balance while walking with walker and fell on his back. Patient was seen in cardiology office last week due to severe swelling over BLE and his treatment was readjusted. Echo was done outpatient showing EF of 48% and he was to follow up on September 12 for results. No LOC or head trauma reported. In ED, vital stable. CBC unremarkable, CMP showed mild hyponatremia sodium 134, creatinine 2.0, glucose 131, mag 1.6, elevated troponin 0.165, BNP 221. CT head, chest x-ray, CT cervical spine negative for acute changes or underlying pathology. CT pelvis consistent with nondisplaced acute fracture of the right inferior pubic ramus, hips are intact. EKG showed rate 55, no ST changes. Patient was given 50 mcg fentanyl in the ED. Aspirin and Eliquis were held in anticipation of possible surgery. Orthopedic surgeon Dr. Gill was consulted and recommended conservative management. Cardiology was consulted due to significant BLE edema and extensive cardiac history. Patient was seen and examined at the bedside. He is agitated due to pain and cannot clearly verbalize anything. Legs are swollen but improved significantly compared to last week in the office. Recommended to resume Aspirin and Eliquis as no surgery is planned. Continue home Bumex, metolazone and spironolactone. Strict BELTRAN, fluid restriction. cc:: cc: Ted Merino, DO Review of Systems Review of Systems ROS Unobtainable: unobtainable due to mental status Exam Vital Signs Temp Pulse Resp BP Pulse Ox O2 Del Method O2 Flow Rate 97.7 F 74 18 102/58 L 95 Nasal Cannula 2 09/11/24 16:00 09/11/24 16:00 09/11/24 16:00 09/11/24 16:00 09/11/24 16:00 09/11/24 16:09/11/24 16:00 FiO2 28 09/11/24 02:17 Narrative Exam Gen: Well-developed and well-nourished elderly male. HEENT: NCAT, PERRLA, EOMI, MMM, anicteric conjunctivae, no JVD. CVS: normal S1 and S2. RRR. No M/R/G. Pacemaker in place. Resp: CTA B/L. No rhonchi, rales, crackles or wheezing. Abd: soft, non-tender, non-distended. BS+ in all 4 quadrants. MSK: Good ROM in BUE & BLE. 3+ edema BLE. Neuro: limited exam due to mental status. Results Labs 09/11/24 06:55 09/11/24 06:55 Labs: Short CBC 09/10/24 09/11/24 Range/Units 20:58 06:55 WBC 8.2 9.0 (3.8-10.6) Thou/mm3 Hgb 12.1 L 11.9 L (13.5-16.0) g/dL Hct 38.3 L 39.1 L (41.0-53.0) % Plt Count 308 269 D (140-440) Thou/mm3 BMP 09/10/24 09/11/24 20:58 06:55 Sodium 134 L 137 Potassium 4.1 4.6 D Chloride 94 L 96 L Carbon Dioxide 30.4 32.6 H BUN 35 H 38 H Creatinine 2.0 H 2.3 H Glucose 131 H 110 H Calcium 10.1 9.5 Cardiac Enzymes 09/10/24 09/11/24 09/11/24 Range/Units 20:58 01:20 06:55 Troponin I 0.165 H* 0.155 H* 0.165 H* (0.0-0.045) ng/mL Liver Function 09/10/24 09/11/24 Range/Units 20:58 06:55 Total Bilirubin 1.1 1.4 H (0.3-1.2) mg/dL AST 24 23 (0-34) U/L ALT 13 13 (10-49) U/L Alkaline Phosphatase 127 H 124 H (46-116) U/L Albumin 4.3 4.3 (3.4-4.8) gm/dL Urine 09/11/24 Range/Units 00:55 Urine Color Yellow (Lt Yel-Yel) Urine Clarity Clear (Clear/Hazy) Urine pH 6.0 (5.0-7.0) Ur Specific [place] 1.014 (1.001-1.035) Urine Protein 1+ A (Neg - Trace) Urine Glucose (UA) Negative (Negative) Quality Measures Quality Measures none Advance care planning discussed with:: patient Medications Home Medications and Allergies Home Medications ?Medication ?Instructions ?Recorded ?Confirmed ?Type pravastatin 40 mg tablet 40 mg PO QAM #0 tabs 4 09/11/24 History (Pravachol) amitriptyline 10 mg tablet 10 mg PO HS 10/04/18 History apixaban 5 mg tablet (Eliquis) 2.5 mg BID 05/29/24 History cinacalcet 30 mg tablet 30 mg PO 1XD 05/29/24 History omeprazole 20 mg capsule,delayed 20 mg PO 1XD 05/29/24 09/11/24 History release benazepril 20 mg tablet 10 mg PO HS 09/11/24 5 History bumetanide 0.5 mg tablet 0.5 mg PO HS 09/11/24 History gabapentin 800 mg tablet 1,000 mg PO TID 09/11/2411/29 History spironolactone 25 mg tablet 25 mg PO QDAY 09/11/2411/29 History Allergies Allergy/AdvReac Type Severity Reaction Status Date / Time No Known Allergies Allergy Verified 05/29/24 14:45 Visit Medications Acetaminophen (Acetaminophen 325 Mg Tablet) 650 mg PO Q6H PRN PRN Reason: Fever >100.3 or pain 1-3 Stop: 10/11/24 00:52 Amitriptyline HCl (Amitriptyline Hcl 25 Mg Tablet) 12.5 mg PO DAILY [facility] Stop: 10/11/24 09:44 Last Admin: 09/11/24 09:38 Dose: 12.5 mg Atorvastatin Calcium (Atorvastatin Calcium 20 Mg Tablet) 40 mg PO HS [facility] Stop: 10/11/24 20:59 Bumetanide (Bumetanide Inj 0.25 Mg/Ml Vial 4 Ml) 2 mg IVP DAILY [facility] Stop: 10/11/24 08:59 Last Admin: 09/11/24 09:37 Dose: 2 mg Cinacalcet (Cinacalcet Hcl 30 Mg Tablet (Non-Form)) 30 mg PO QDAY [facility] Stop: 10/11/24 08:59 Last Admin: 09/11/24 09:40 Dose: 30 mg Colchicine (Colchicine 0.6 Mg Tablet) 0.3 mg PO QDAY [facility] Stop: 10/11/24 08:59 Last Admin: 09/11/24 09:38 Dose: 0.3 mg Gabapentin (Gabapentin 100 Mg Capsule) 100 mg PO DAILY [facility] Stop: 10/11/24 08:59 Last Admin: 09/11/24 09:39 Dose: 100 mg Lisinopril (Lisinopril 2.5 Mg Tablet) 10 mg PO DAILY [facility] Stop: 10/11/24 08:59 Last Admin: 09/11/24 09:39 Dose: 10 mg Metolazone (Metolazone 2.5 Mg Tablet) 5 mg PO DAILY [facility] Stop: 10/11/24 08:59 Last Admin: 09/11/24 09:41 Dose: 5 mg Morphine Sulfate (Morphine Sulf Inj 10 Mg/Ml Vial) 4 mg IVP Q4HR PRN PRN Reason: pain 4-10 Stop: 09/16/24 00:52 Last Admin: 09/11/24 09:36 Dose: 4 mg Ondansetron HCl (Ondansetron Inj 2 Mg/Ml Inj 2 Ml) 4 mg IV Q6H PRN; Protocol PRN Reason: NAUSEA OR VOMITING Stop: 10/11/24 00:52 Last Admin: 09/11/24 02:45 Dose: 4 mg Pantoprazole Sodium (Pantoprazole 40 Mg Tablet) 40 mg PO QDAY [facility] Stop: 10/11/24 08:59 Last Admin: 09/11/24 09:39 Dose: 40 mg Sennosides (Senna Tablet) 1 tab PO QDAY PRN; Protocol PRN Reason: constipation Stop: 10/11/24 00:52 Spironolactone (Spironolactone 25 Mg Tablet) 25 mg PO DAILY [facility] Stop: 10/11/24 08:59 Last Admin: 09/11/24 09:39 Dose: 25 mg Discontinued Medications Amitriptyline HCl (Amitriptyline Hcl 25 Mg Tablet) 10 mg PO DAILY [facility] Stop: 10/11/24 08:59 Last Admin: 09/11/24 10:14 Dose: Not Given Fentanyl Citrate (Fentanyl Cit Inj 50 Mcg/Ml Amp 2ml) 50 mcg IVP X1 ONE Stop: 09/10/24 20:43 Last Admin: 09/10/24 21:08 Dose: 50 mcg Furosemide (Furosemide Inj 10 Mg/Ml 4ml Vial) 40 mg IVP DAILY [facility] Stop: 10/11/24 08:59 Sodium Chloride (Ns) 1,000 mls @ 999 mls/hr IV .Q1H1M ONE Stop: 09/10/24 21:54 Last Admin: 09/10/24 22:58 Dose: Not Given Magnesium Sulfate (Magnesium Sulfate Ivpb) 2 gm in 50 mls @ 25 mls/hr IV X1 ONE Stop: 09/11/24 04:03 Last Admin: 09/11/24 02:39 Dose: 25 mls/hr Ondansetron HCl (Ondansetron Inj 2 Mg/Ml Inj 2 Ml) 4 mg IV X1 ONE; Protocol Stop: 09/10/24 20:43 Last Admin: 09/10/24 21:07 Dose: 4 mg Assessment & Plan Plan Patient is a 79 years old male with PMH of A-fib (on Eliquis), CAD s/p stents, HFrEF last EF 48%, sinus bradycardia and sick sinus syndrome s/p pacemaker, hypertension, GERD, hyperparathyroid s/p L parathyroidectomy, and CKD who presented to ED after a ground level fall, CT pelvis consistent with nondisplaced acute fracture of the right inferior pubic ramus, orthopedic surgeon Dr. Gill was consulted and recommended conservative management. Cardiology was consulted due to significant BLE edema and extensive cardiac history. #HFrEF last EF 48%. #Sinus bradycardia and sick sinus syndrome s/p pacemaker. - Patient was seen in cardiology office 1 week ago due to severe bilateral lower extremities edema and was started on Lasix, metolazone and spironolactone. His ejection fraction on echo was 48%. - His lower extremities edema looks improved however still swollen significantly. No crackles on auscultation. Plan: - Fluid restriction 1800 cc. - Strict BELTRAN's urinary catheter. - Resume home Bumex 2 mg twice daily, metolazone 5 mg, spironolactone 25 mg. #Hx of atrial fibrillation. - EKG showed paced rhythm HR 59. - Head CT was negative for hemorrhage. Plan: - resume home Eliquis. #CAD s/p PCI. #Troponinemia. - Troponin I on admission 0.165. Likely demand ischemia. - EKG showed no ST changes. No chest pain or pressure reported. Plan: - resume home atorvastatin and aspirin. - continue trending troponin I. Management of other problems as per primary team. Plan of care discussed with attending Dr. Moran. Rob Smith MD, PGY 2. Disclaimer: This note was dictated by speech recognition. 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
[2024-09-11] MEDS: ATORVASTATIN CALCIUM 20 MG TABLET 40 MG PO (20:52)
[2024-09-12] VITALS (14 sets, daily range): BP systolic 87–120; BP diastolic 48–56; PULSE 60–86; RESP 18–85; TEMP 36.1–37.2; O2SAT 93–100; BMI 27.9; BMI 12.0
[2024-09-12] MEDS: MORPHINE SULF INJ 10 MG/ML VIAL 4 MG IVP ×2 (01:02→11:12)
[2024-09-12 06:16] LABS: Basophils # (Auto) 0.1 Thou/mm3 (0.0-0.2); Basophils % (Auto) 1 % (0-2.5); Eosinophils # (Auto) 0.2 Thou/mm3 (0.0-0.5); Eosinophils % (Auto) 2 % (0-10); Hematocrit 35.7 % (41.0-53.0); Hemoglobin 11.1 g/dL (13.5-16.0); Immature Granulocytes % (Auto) 1 % (0-0); Immature Granulocytes Auto 0.05 Thou/mm3 (0.00-0.00); Lymphocytes # (Auto) 1.5 Thou/mm3 (1.0-4.8); Lymphocytes % (Auto) 18 % (10-50); Mean Corpuscular HGB Conc 31.1 g/dl (31.0-37.0); Mean Corpuscular Hemoglobin 27.1 pg (25.0-35.0); Mean Corpuscular Volume 87 fL (80-100); Monocytes # (Auto) 0.9 Thou/mm3 (0.0-0.8); Monocytes % (Auto) 11 % (0-12); Neutrophils # (Auto) 5.9 Thou/mm3 (1.8-7.7); Neutrophils % (Auto) 68 % (37-80); Nucleated Red Blood Cell % 0 /100 WBC (0); Platelet Count 259 Thou/mm3 (140-440); Red Blood Count 4.09 Miln/mm3 (4.50-5.90); White Blood Count 8.6 Thou/mm3 (3.8-10.6)
[2024-09-12 06:40] LABS: Partial Thromboplastin Time 30.1 Seconds (22.0-36.0); Prothrombin Time 20.5 Seconds (9.0-12.2)
[2024-09-12 06:50] LABS: Alanine Aminotransferase 11 U/L (10-49); Albumin/Globulin Ratio 1.4 (1.2-2.2); Alkaline Phosphatase 118 U/L (46-116); Anion Gap 7 (7-16); Aspartate Amino Transferase 22 U/L (0-34); BUN/Creatinine Ratio 16 Ratio (12-20); Bilirubin,Total 1.8 mg/dL (0.3-1.2); Blood Urea Nitrogen 40 mg/dL (9-23); Calcium 9.7 mg/dL (8.3-10.6); Calcium (Corrected) 9.7 mg/dL (8.5-10.1); Carbon Dioxide 31.5 mMol/L (20.0-31.0); Chloride 96 mMol/L (98-107); Creatinine (Component) 2.5 mg/dL (0.6-1.3); Estimated Creatinine Clearance 27.5 mL/min (>60); Globulin 2.9 gm/dL (2.3-3.5); Glucose 98 mg/dL (74-106); Osmolality,Calculated 277 (275-295); Potassium 4.8 mMol/L (3.4-5.1); Sodium 134 mMol/L (136-145); Total Protein 6.9 gm/dL (5.7-8.2); eGFR 25 See Note
--- NOTE | 2024-09-12 07:00 | XR_ITS ---
Examination: AP pelvis single view Projecting within the pelvis single view Examination time: September 12, [address] pelvis September 10, 2024 FINDINGS: Nondisplaced fracture right inferior pubic ramus Right hip bipolar hemiarthroplasty with satisfactory alignment Advanced narrowing left hip joint No left hip fracture Severe osteopenia. IMPRESSION: Stable nondisplaced fracture right inferior pubic ramus Acetabular fracture is not depicted on this study
[2024-09-12] MEDS: CINACALCET HCL 30 MG TABLET (NON-FORM) PO (09:09)
[2024-09-12] MEDS: metOLazone 2.5 MG TABLET 5 MG PO (09:09)
[2024-09-12] MEDS: Lisinopril 2.5 MG TABLET 10 MG PO (09:10)
[2024-09-12] MEDS: SPIRONOLACTONE 25 MG TABLET PO (09:11)
[2024-09-12] MEDS: GABAPENTIN 100 MG CAPSULE PO (09:11)
[2024-09-12] MEDS: COLCHICINE 0.6 MG TABLET 0.3 MG PO (09:11)
[2024-09-12] MEDS: AMITRIPTYLINE HCL 25 MG TABLET 12.5 MG PO (09:11)
[2024-09-12] MEDS: BUMETANIDE INJ 0.25 MG/ML VIAL 4 ML 2 MG IVP (09:12)
[2024-09-12] MEDS: PANTOPRAZOLE 40 MG TABLET PO (09:12)
[2024-09-12] MEDS: APIXABAN 2.5 MG TABLET PO ×2 (09:28→20:46)
--- NOTE | 2024-09-12 10:05 | PC.SS ---
SS follow up note; Patient will discharge tomorrow to [facility].
--- NOTE | 2024-09-12 13:28 | ESPR_ITS ---
Documentation for date of: 09/12/24 Subjective Subjective Interval history: Patient was seen and examined at bedside this morning. No acute overnight events. Patient does seem to be responding well to the diuresis as his lower extremity edema has significantly improved, but his kidney function continues to deteriorate. Creatinine today went up to 2.5. Otherwise patient feeling okay and pelvic x-ray showed no stable nondisplaced fracture of the right pubic ramus. Patient had no other complaints at this time. Continue patient's Eliquis at 2.5 mg twice daily given his creatinine and age. Exam Vital Signs Temp Pulse Resp BP Pulse Ox O2 Del Method O2 Flow Rate 97.6 F 70 18 120/56 L 95 Room Air 2 09/12/24 11:46 09/12/24 11:46 09/12/24 11:46 09/12/24 11:46 09/12/24 11:46 09/12/24 11:46 09/12/24 10:21 FiO2 28 09/11/24 22:02 Narrative Exam General: A/O x3, no acute distress Eyes: PERRL, EOMI. Anicteric, vision grossly intact. Ears: No ear pain, no ear discharge, Hearing grossly intact. Nose: No nasal discharge. Mouth/Throat: Moist mucous membranes, no redness, no lesions. Neck: Neck supple, non-tender, no cervical lymphadenopathy. Lungs: Clear DAVY to auscultation and percussion, No accessory muscle use. Cardio: Normal S1/S2, regular rhythm, no murmurs, no JVD. Abdomen: Soft, non-tender, no palpable masses, peristalsis present, no guarding or rebound. Extremities: Symmetrical, no significant deformities, 1+ peripheral edema , non-tender, peripheral pulses presents Skin: No rashes, no lesions, warm to touch. Neuro: No focal neurological deficits. motor and sensory intact. Psych: Cooperative, appropriate mood and effect. Objective Labs 09/12/24 05:22 09/12/24 05:22 Labs: Laboratory Results - last 24 hr 09/12/24 05:22 WBC 8.6 RBC 4.09 L Hgb 11.1 L Hct 35.7 L MCV 87 MCH 27.1 MCHC 31.1 RDW Std Deviation 58.0 H Plt Count 259 Neut % (Auto) 68 Lymph % (Auto) 18 [place] % (Auto) 11 Eos % (Auto) 2 Baso % (Auto) 1 Neut # (Auto) 5.9 Lymph # (Auto) 1.5 [place] # (Auto) 0.9 H Eos # (Auto) 0.2 Baso # (Auto) 0.1 Immature Gran # (Auto) 0.05 H Absolute Nucleated RBC 0.00 Immature Gran % 1 H Nucleated RBC % 0 PT 20.5 H INR 2.0 H APTT 30.1 Sodium 134 L Potassium 4.8 Chloride 96 L Carbon Dioxide 31.5 H Anion Gap 7 BUN 40 H Creatinine 2.5 H Estim Creat Clear Calc 27.5 L eGFR 25 L BUN/Creatinine Ratio 16 Glucose 98 Calculated Osmolality 277 Calcium 9.7 Corrected Calcium 9.7 Total Bilirubin 1.8 H AST 22 ALT 11 Alkaline Phosphatase 118 H Total Protein 6.9 Albumin 4.0 Globulin 2.9 Albumin/Globulin Ratio 1.4 Quality Measures Quality Measures none Advance care planning discussed with:: patient and child Assessment & Plan Assessment Current Active Medications: Generic Name Dose Route Start Last Admin Trade Name Freq PRN Reason Stop Dose Admin Acetaminophen 650 mg 09/11/24 00:53 Acetaminophen 325 Mg Tablet PO 10/11/24 00:52 Q6H PRN Fever >100.3 or pain 1-3 Amitriptyline HCl 12.5 mg 09/11/24 09:45 09/12/24 09:11 Amitriptyline Hcl 25 Mg Tablet PO 10/11/24 09:44 12.5 mg DAILY [facility] Administration Apixaban 2.5 mg 09/12/24 09:15 09/12/24 09:28 Apixaban 2.5 Mg Tablet PO 10/12/24 09:14 2.5 mg BID [facility] Administration Atorvastatin Calcium 40 mg 09/11/24 21:00 09/11/24 20:52 Atorvastatin Calcium 20 Mg Tablet PO 10/11/24 20:59 40 mg HS [facility] Administration Bumetanide 2 mg 09/11/24 09:00 09/12/24 09:12 Bumetanide Inj 0.25 Mg/Ml Vial 4 Ml IVP 10/11/24 08:59 2 mg DAILY [facility] Administration Cinacalcet 30 mg 09/11/24 09:00 09/12/24 09:09 Cinacalcet Hcl 30 Mg Tablet (Non-Form) PO 10/11/24 08:59 30 mg QDAY [facility] Administration Colchicine 0.3 mg 09/11/24 09:00 09/12/24 09:11 Colchicine 0.6 Mg Tablet PO 10/11/24 08:59 0.3 mg QDAY [facility] Administration Gabapentin 100 mg 09/11/24 09:00 09/12/24 09:11 Gabapentin 100 Mg Capsule PO 10/11/24 08:59 100 mg DAILY [facility] Administration Lisinopril 10 mg 09/11/24 09:00 09/12/24 09:10 Lisinopril 2.5 Mg Tablet PO 10/11/24 08:59 10 mg DAILY [facility] Administration Metolazone 5 mg 09/11/24 09:00 09/12/24 09:09 Metolazone 2.5 Mg Tablet PO 10/11/24 08:59 5 mg DAILY [facility] Administration Ondansetron HCl 4 mg 09/11/24 00:53 09/11/24 02:45 Ondansetron Inj 2 Mg/Ml Inj 2 Ml IV 10/11/24 00:52 4 mg Q6H PRN Administration NAUSEA OR VOMITING Protocol Pantoprazole Sodium 40 mg 09/11/24 09:00 09/12/24 09:12 Pantoprazole 40 Mg Tablet PO 10/11/24 08:59 40 mg QDAY [facility] Administration Sennosides 1 tab 09/11/24 00:53 Senna Tablet PO 10/11/24 00:52 QDAY PRN constipation Protocol Spironolactone 25 mg 09/11/24 09:00 09/12/24 09:11 Spironolactone 25 Mg Tablet PO 10/11/24 08:59 25 mg DAILY [facility] Administration Plan 79-year-old female with past medical history of A-fib (on Eliquis), CAD s/p stents, sinus bradycardia and sick sinus syndrome s/p pacemaker, pericarditis, hypertension, GERD, hyperparathyroid s/p L parathyroidectomy, and CKD admitted to hospital on 09/11/2024 due to nondisplaced pubic ramus fracture secondary to ground-level fall. #Nondisplaced right inferior pubic ramus fracture #Mechanical fall Patient came in after having a mechanical fall where he lost control of his walker and landed on the concrete. Patient CT head was unremarkable, CT cervical spine was also unremarkable. Patient CT pelvis that showed acute nondisplaced fracture of right inferior pubic ramus, but no hip fractures. Plan: Patient is to be weightbearing as per orthopedic surgery Pain regimen with Tylenol and morphine 4 mg IV every 4 hours as needed Physical therapy on board Orthopedic surgery on board, pressure recommendations #JENNIFER on CKD Patient came in with creatinine of 2 and up trended to 2.5 today Patient's baseline creatinine is around 1.8. This could be due to fluid overload status May consider holding diuretics and nephro consult if does not improve Plan: Will continue with diuretics for now Avoid nephrotoxic agents Renally dose medication Will continue monitoring #NSTEMI Patient came in with troponins 0.165 before downtrending This is most likely demand ischemia Plan: Will continue to monitor #Hx of CAD s/p stents #Hx of A-fib #Hx of pericarditis #Hx of hypertension #Hx of CHF? Patient was recently seen by his auto service representative as outpatient. Patient had an echo done as an outpatient, but we do not have the reports in our system. Patient does have significant lower extremity edema [id number] score of 5 indicating 7.2% risk of stroke per year HAS-BLED score of 5 indicating high risk of major bleed Plan: Continue Eliquis 2.5mg BID, age and cr adjusted Continue Bumex 2 mg IV daily Continue metolazone 5 mg daily Continue spironolactone 25 mg daily Continue colchicine 0.3 mg daily Continue senna pro 10 mg daily Strict BELTRAN's Daily weights Fluid restrictions Cardiology consulted, appreciate reccomendations Will continue to monitor #Hx of hyperlipidemia Will continue atorvastatin 40 mg at bedtime #Hx of GERD Continue pantoprazole 40 mg daily #Hx of hyperparathyroid s/p left parotidectomy Disposition: Patient admitted to med surg for acute pubic ramus fracture, pending JENNIFER resolution. Diet: cardiac GI prophylaxis: protonix DVT prophylaxis: on eliquis Code: Full Case disclosed with Attending Dr. Wilber Ratliff PGY1 Attending Provider Attestation/Addendum I have discussed and was present for the essential components of the history, physical examination, diagnosis, and treatment plan with the resident. I agree with the patient's care as documented by the resident and amended herein by me. Db Merino DO. Patient seen and evaluated this AM. No acute events overnight, vital signs stable, patient afebrile. No subjective complaints with the patient this morning. Slight uptrend again and creatinine 2.5 today. Cardiology was consulted yesterday, did start Bumex and usual strict I's and O's, daily weights and fluid restriction. May hold diuresis tomorrow if kidney function continues to worsen. Will continue to monitor closely, will discharge to SNF once renal function improves. Although this document has been carefully reviewed, there may still be some phonetic and other typographical errors. These errors are purely grammatical due to imperfections in the software program and should not be construed in any way to compromise the substance of the patient's medical care during this visit.
--- NOTE | 2024-09-12 14:40 | ESPR_ITS ---
<Statement entered by Shavonne Moran MD - 09/16/24 08:38> I personally reviewed the patient was very well-known to me for several years alongside history of CAD present to the hospital after he fell and suffered a fracture of the pelvis continues to do fairly well his renal function has worsened has had severe edema of the feet mostly right heart failure symptoms diuretics were given patient's creatinine went up diuretics are being held for now clinically stable from cardiac point of view has had a pacemaker implantation functioning well reviewed the findings as documented by Dr. Rivas PGY 2 will continue to monitor the patient agree with the treatment plan recommendation as documented Documentation for date of: 09/12/24 Subjective Subjective Interval history: Patient was seen and examined at the bedside. No overnight events. Patient continues metolazone and spironolactone, his edema is improving however creatinine is uptrending, today at 2.5, therefore primary team held Bumex. His BP was also low in the morning at 90/50. His aspirin was resumed and Eliquis was resumed at 2.5 mg BID. Continue current management. Exam Vital Signs Temp Pulse Resp BP Pulse Ox O2 Del Method O2 Flow Rate 97.6 F 70 18 120/56 L 95 Room Air 2 09/12/24 11:46 09/12/24 11:46 09/12/24 11:46 09/12/24 11:46 09/12/24 11:46 09/12/24 11:46 09/12/24 10:21 FiO2 28 09/11/24 22:02 Narrative Exam Gen: Well-developed and well-nourished elderly male. HEENT: NCAT, PERRLA, EOMI, MMM, anicteric conjunctivae, no JVD. CVS: normal S1 and S2. RRR. No M/R/G. Pacemaker in place. Resp: CTA B/L. No rhonchi, rales, crackles or wheezing. Abd: soft, non-tender, non-distended. BS+ in all 4 quadrants. MSK: Good ROM in BUE & BLE. 1+ edema BLE. Neuro: limited exam due to mental status. Objective Labs 09/12/24 05:22 09/12/24 05:22 Labs: Laboratory Results - last 24 hr 09/12/24 05:22 WBC 8.6 RBC 4.09 L Hgb 11.1 L Hct 35.7 L MCV 87 MCH 27.1 MCHC 31.1 RDW Std Deviation 58.0 H Plt Count 259 Neut % (Auto) 68 Lymph % (Auto) 18 [place] % (Auto) 11 Eos % (Auto) 2 Baso % (Auto) 1 Neut # (Auto) 5.9 Lymph # (Auto) 1.5 [place] # (Auto) 0.9 H Eos # (Auto) 0.2 Baso # (Auto) 0.1 Immature Gran # (Auto) 0.05 H Absolute Nucleated RBC 0.00 Immature Gran % 1 H Nucleated RBC % 0 PT 20.5 H INR 2.0 H APTT 30.1 Sodium 134 L Potassium 4.8 Chloride 96 L Carbon Dioxide 31.5 H Anion Gap 7 BUN 40 H Creatinine 2.5 H Estim Creat Clear Calc 27.5 L eGFR 25 L BUN/Creatinine Ratio 16 Glucose 98 Calculated Osmolality 277 Calcium 9.7 Corrected Calcium 9.7 Total Bilirubin 1.8 H AST 22 ALT 11 Alkaline Phosphatase 118 H Total Protein 6.9 Albumin 4.0 Globulin 2.9 Albumin/Globulin Ratio 1.4 Quality Measures Quality Measures none Advance care planning discussed with:: patient Assessment & Plan Assessment Current Active Medications: Generic Name Dose Route Start Last Admin Trade Name Freq PRN Reason Stop Dose Admin Acetaminophen 650 mg 09/11/24 00:53 Acetaminophen 325 Mg Tablet PO 10/11/24 00:52 Q6H PRN Fever >100.3 or pain 1-3 Amitriptyline HCl 12.5 mg 09/11/24 09:45 09/12/24 09:11 Amitriptyline Hcl 25 Mg Tablet PO 10/11/24 09:44 12.5 mg DAILY OLI Administration Apixaban 2.5 mg 09/12/24 09:15 09/12/24 09:28 Apixaban 2.5 Mg Tablet PO 10/12/24 09:14 2.5 mg BID OLI Administration Atorvastatin Calcium 40 mg 09/11/24 21:00 09/11/24 20:52 Atorvastatin Calcium 20 Mg Tablet PO 10/11/24 20:59 40 mg HS OLI Administration Bumetanide 2 mg 09/11/24 09:00 09/12/24 09:12 Bumetanide Inj 0.25 Mg/Ml Vial 4 Ml IVP 10/11/24 08:59 2 mg DAILY OLI Administration Cinacalcet 30 mg 09/11/24 09:00 09/12/24 09:09 Cinacalcet Hcl 30 Mg Tablet (Non-Form) PO 10/11/24 08:59 30 mg QDAY OLI Administration Colchicine 0.3 mg 09/11/24 09:00 09/12/24 09:11 Colchicine 0.6 Mg Tablet PO 10/11/24 08:59 0.3 mg QDAY OLI Administration Gabapentin 100 mg 09/11/24 09:00 09/12/24 09:11 Gabapentin 100 Mg Capsule PO 10/11/24 08:59 100 mg DAILY OLI Administration Lisinopril 10 mg 09/11/24 09:00 09/12/24 09:10 Lisinopril 2.5 Mg Tablet PO 10/11/24 08:59 10 mg DAILY OLI Administration Metolazone 5 mg 09/11/24 09:00 09/12/24 09:09 Metolazone 2.5 Mg Tablet PO 10/11/24 08:59 5 mg DAILY OLI Administration Ondansetron HCl 4 mg 09/11/24 00:53 09/11/24 02:45 Ondansetron Inj 2 Mg/Ml Inj 2 Ml IV 10/11/24 00:52 4 mg Q6H PRN Administration NAUSEA OR VOMITING Protocol Pantoprazole Sodium 40 mg 09/11/24 09:00 09/12/24 09:12 Pantoprazole 40 Mg Tablet PO 10/11/24 08:59 40 mg QDAY OLI Administration Sennosides 1 tab 09/11/24 00:53 Senna Tablet PO 10/11/24 00:52 QDAY PRN constipation Protocol Spironolactone 25 mg 09/11/24 09:00 09/12/24 09:11 Spironolactone 25 Mg Tablet PO 10/11/24 08:59 25 mg DAILY OLI Administration Plan Patient is a 79 years old male with PMH of A-fib (on Eliquis), CAD s/p stents, HFrEF last EF 48%, sinus bradycardia and sick sinus syndrome s/p pacemaker, hypertension, GERD, hyperparathyroid s/p L parathyroidectomy, and CKD who presented to ED after a ground level fall, CT pelvis consistent with nondisplaced acute fracture of the right inferior pubic ramus, orthopedic surgeon Dr. Gill was consulted and recommended conservative management. Cardiology was consulted due to significant BLE edema and extensive cardiac history. #HFrEF last EF 48%. #Sinus bradycardia and sick sinus syndrome s/p pacemaker. - Patient was seen in cardiology office 1 week ago due to severe bilateral lower extremities edema and was started on Lasix, metolazone and spironolactone. His ejection fraction on echo was 48%. - His lower extremities edema looks improved however still swollen significantly. No crackles on auscultation. Plan: - Fluid restriction 1800 cc. - Strict BELTRAN's urinary catheter. - Continue home metolazone 5 mg, spironolactone 25 mg. - holding Bumex 2 mg twice daily due to worsening JENNIFER, Cr 2.3 -> 2.5. #Hx of atrial fibrillation. - EKG showed paced rhythm HR 59. - Head CT was negative for hemorrhage. Plan: - resume home Eliquis. #CAD s/p PCI. #Troponinemia. - Troponin I on admission 0.165. Likely demand ischemia. - EKG showed no ST changes. No chest pain or pressure reported. Plan: - resume home atorvastatin and aspirin. - continue trending troponin I. Management of other problems as per primary team. Plan of care discussed with attending Dr. Moran. Rob Smith MD, PGY 2. Disclaimer: This note was dictated by speech recognition. Minor errors in guest relation officer may be present due to voice recognition software.
[2024-09-12] MEDS: ATORVASTATIN CALCIUM 20 MG TABLET 40 MG PO (20:46)
[2024-09-13] VITALS (10 sets, daily range): BP systolic 87–112; BP diastolic 48–70; PULSE 60–95; RESP 18–26; TEMP 36.1–36.7; O2SAT 95–100; BMI 27.9; BMI 27.8
[2024-09-13] MEDS: MIDODRINE 5 MG TABLET 10 MG PO (01:24)
[2024-09-13 06:16] LABS: Basophils % (Auto) 1 % (0-2.5); Eosinophils # (Auto) 0.5 Thou/mm3 (0.0-0.5); Eosinophils % (Auto) 6 % (0-10); Hematocrit 33.2 % (41.0-53.0); Hemoglobin 10.8 g/dL (13.5-16.0); Immature Granulocytes % (Auto) 1 % (0-0); Immature Granulocytes Auto 0.05 Thou/mm3 (0.00-0.00); Lymphocytes # (Auto) 1.5 Thou/mm3 (1.0-4.8); Lymphocytes % (Auto) 17 % (10-50); Mean Corpuscular HGB Conc 32.5 g/dl (31.0-37.0); Mean Corpuscular Hemoglobin 27.4 pg (25.0-35.0); Mean Corpuscular Volume 84 fL (80-100); Monocytes # (Auto) 0.8 Thou/mm3 (0.0-0.8); Monocytes % (Auto) 10 % (0-12); Neutrophils # (Auto) 5.8 Thou/mm3 (1.8-7.7); Neutrophils % (Auto) 67 % (37-80); Nucleated Red Blood Cell % 0 /100 WBC (0); Platelet Count 238 Thou/mm3 (140-440); RDW Standard Deviation 55.1 fL (35.1-43.9); Red Blood Count 3.94 Miln/mm3 (4.50-5.90); White Blood Count 8.7 Thou/mm3 (3.8-10.6)
[2024-09-13 06:54] LABS: Alanine Aminotransferase 9 U/L (10-49); Albumin, Serum 3.7 gm/dL (3.4-4.8); Albumin/Globulin Ratio 1.4 (1.2-2.2); Alkaline Phosphatase 103 U/L (46-116); Anion Gap 9 (7-16); Aspartate Amino Transferase 20 U/L (0-34); BUN/Creatinine Ratio 20 Ratio (12-20); Bilirubin,Total 1.2 mg/dL (0.3-1.2); Blood Urea Nitrogen 55 mg/dL (9-23); Calcium 9.2 mg/dL (8.3-10.6); Calcium (Corrected) 9.4 mg/dL (8.5-10.1); Carbon Dioxide 30.1 mMol/L (20.0-31.0); Chloride 93 mMol/L (98-107); Creatinine (Component) 2.7 mg/dL (0.6-1.3); Estimated Creatinine Clearance 25.5 mL/min (>60); Globulin 2.6 gm/dL (2.3-3.5); Glucose 92 mg/dL (74-106); Osmolality,Calculated 279 (275-295); Potassium 4.4 mMol/L (3.4-5.1); Sodium 132 mMol/L (136-145); Total Protein 6.3 gm/dL (5.7-8.2); eGFR 23 See Note
--- NOTE | 2024-09-13 08:13 | PC.NURSE ---
Alfreda salamanca of pts current bp of 92/48- 62 HR. Per MD salamanca hold BP and diuretics this am.
[2024-09-13] MEDS: GABAPENTIN 100 MG CAPSULE PO (08:14)
[2024-09-13] MEDS: CINACALCET HCL 30 MG TABLET (NON-FORM) PO (08:14)
[2024-09-13] MEDS: PANTOPRAZOLE 40 MG TABLET PO (08:14)
[2024-09-13] MEDS: APIXABAN 2.5 MG TABLET PO ×2 (08:17→21:12)
[2024-09-13] MEDS: AMITRIPTYLINE HCL 25 MG TABLET 12.5 MG PO (08:18)
[2024-09-13] MEDS: COLCHICINE 0.6 MG TABLET 0.3 MG PO (08:18)
[2024-09-13] MEDS: SODIUM CHLORIDE 0.9% 250 ML 250 ML 999 ML IV ×2 (09:23→15:35)
[2024-09-13] MEDS: ACETAMINOPHEN 325 MG TABLET 650 MG PO (09:23)
--- NOTE | 2024-09-13 13:33 | PC.SS ---
SS follow up note; Dung's functions being monitored, patient will discharge to [facility] once medically cleared.
--- NOTE | 2024-09-13 14:55 | PD.HHPROG ---
Documentation for date of: 09/13/24 Subjective - Hospitalist Subjective Interval history: No acute events overnight, vital signs stable, patient afebrile, no subjective complaints with the patient. Labs largely unremarkable with the exception of the patient's creatinine which again is up trended to 2.7 today. Hemoglobin stable 10.8. Exam Vital Signs Temp Pulse Resp BP Pulse Ox O2 Del Method O2 Flow Rate 97.8 F 61 22 H 99/53 L 96 Room Air 2 09/13/24 11:52 09/13/24 11:52 09/13/24 11:52 09/13/24 11:52 09/13/24 11:52 09/13/24 11:52 09/13/24 09:48 FiO2 28 09/11/24 22:02 Narrative GENERAL APPEARANCE: NAD HEENT: Normocephalic, atraumatic, extraocular movements intact. NECK: Supple CARDIOVASULAR: NSR, S1, S2 heard LUNGS/CHEST: CTA bilaterally ABDOMEN: Soft, nontender, with normal bowel sounds. g. NEURO: Alert, awake and oriented x3. PSYCHIATRIC: Mood and affect normal Objective - Hospitalist Labs Diagram: 09/13/24 04:54 09/13/24 04:54 Labs: Laboratory Results - last 24 hr 09/13/24 04:54 WBC 8.7 RBC 3.94 L Hgb 10.8 L Hct 33.2 L MCV 84 MCH 27.4 MCHC 32.5 RDW Std Deviation 55.1 H Plt Count 238 Neut % (Auto) 67 Lymph % (Auto) 17 [place] % (Auto) 10 Eos % (Auto) 6 Baso % (Auto) 1 Neut # (Auto) 5.8 Lymph # (Auto) 1.5 [place] # (Auto) 0.8 Eos # (Auto) 0.5 Baso # (Auto) 0.0 Immature Gran # (Auto) 0.05 H Absolute Nucleated RBC 0.00 Immature Gran % 1 H Nucleated RBC % 0 Sodium 132 L Potassium 4.4 Chloride 93 L Carbon Dioxide 30.1 Anion Gap 9 BUN 55 H Creatinine 2.7 H Estim Creat Clear Calc 25.5 L eGFR 23 L BUN/Creatinine Ratio 20 Glucose 92 Calculated Osmolality 279 Calcium 9.2 Corrected Calcium 9.4 Total Bilirubin 1.2 D AST 20 ALT 9 L Alkaline Phosphatase 103 Total Protein 6.3 Albumin 3.7 Globulin 2.6 Albumin/Globulin Ratio 1.4 Assessment & Plan Plan: 79-year-old female with past medical history of A-fib (on Eliquis), CAD s/p stents, sinus bradycardia and sick sinus syndrome s/p pacemaker, pericarditis, hypertension, GERD, hyperparathyroid s/p L parathyroidectomy, and CKD admitted to hospital on 09/11/2024 due to nondisplaced pubic ramus fracture secondary to ground-level fall. #JENNIFER on CKD Patient came in with creatinine of 2 and up trended to 2.5 today Patient's baseline creatinine is around 1.8. This could be due to fluid overload status May consider holding diuretics and nephro consult if does not improve Plan: Hold diuretics Small fluid bolus given today Renally dose medication Will continue monitoring #Nondisplaced right inferior pubic ramus fracture #Mechanical fall Patient came in after having a mechanical fall where he lost control of his walker and landed on the concrete. Patient CT head was unremarkable, CT cervical spine was also unremarkable. Patient CT pelvis that showed acute nondisplaced fracture of right inferior pubic ramus, but no hip fractures. Plan: No surgical intervention Patient is to be weightbearing as per orthopedic surgery Pain regimen with Tylenol and morphine 4 mg IV every 4 hours as needed Physical therapy on board #NSTEMI Patient came in with troponins 0.165 before downtrending This is most likely demand ischemia Plan: Will continue to monitor #Hx of CAD s/p stents #Hx of A-fib #Hx of pericarditis #Hx of hypertension #Hx of CHF? Plan: Continue Eliquis 2.5mg BID, age and cr adjusted Bumex 2 mg IV daily -hold metolazone 5 mg daily -hold spironolactone 25 mg daily -hold Continue colchicine 0.3 mg daily Continue senna pro 10 mg daily Strict BELTRAN's Daily weights Fluid restrictions Cardiology consulted, appreciate recommendations Will continue to monitor #Hx of hyperlipidemia Will continue atorvastatin 40 mg at bedtime #Hx of GERD Continue pantoprazole 40 mg daily #Hx of hyperparathyroid s/p left parotidectomy Disposition: Pending improvement in renal function Diet: cardiac GI prophylaxis: protonix DVT prophylaxis: on eliquis 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
--- NOTE | 2024-09-13 15:24 | PD.IMPROG ---
Documentation for date of: 09/13/24 Subjective Subjective Interval history: Patient seen and examined at the bedside. No new cardiac complaints at the present point of time. Reviewed labs and telemetry and labs which appear to be stable at baseline except for the kidney function Patient has mild JENNIFER now secondary to the diuresis and creatinine is up to 2.6. Baseline baseline creatinine is around 1.8-2.0. Hold diuretics for now and agree with IV fluids for now. Continue to monitor renal function closely. Patient did have a fall with nondisplaced right inferior pubic with fracture and Ortho was very has been consulted and continue with conservative treatment for now and no surgery. Exam Vital Signs Temp Pulse Resp BP Pulse Ox O2 Del Method O2 Flow Rate 97.8 F 61 22 H 99/53 L 96 Room Air 2 09/13/24 11:52 09/13/24 11:52 09/13/24 11:52 09/13/24 11:52 09/13/24 11:52 09/13/24 11:52 09/13/24 09:48 FiO2 28 09/11/24 22:02 Narrative Exam Gen: Well-developed and well-nourished elderly male. HEENT: NCAT, PERRLA, EOMI, MMM, anicteric conjunctivae, no JVD. CVS: normal S1 and S2. RRR. No M/R/G. Pacemaker in place. Resp: CTA B/L. No rhonchi, rales, crackles or wheezing. Abd: soft, non-tender, non-distended. BS+ in all 4 quadrants. MSK: Good ROM in BUE & BLE. 1-2+ edema BLE with discoloration. Neuro: limited exam due to mental status. Objective Labs 09/13/24 04:54 09/13/24 04:54 Labs: Laboratory Results - last 24 hr 09/13/24 04:54 WBC 8.7 RBC 3.94 L Hgb 10.8 L Hct 33.2 L MCV 84 MCH 27.4 MCHC 32.5 RDW Std Deviation 55.1 H Plt Count 238 Neut % (Auto) 67 Lymph % (Auto) 17 [place] % (Auto) 10 Eos % (Auto) 6 Baso % (Auto) 1 Neut # (Auto) 5.8 Lymph # (Auto) 1.5 [place] # (Auto) 0.8 Eos # (Auto) 0.5 Baso # (Auto) 0.0 Immature Gran # (Auto) 0.05 H Absolute Nucleated RBC 0.00 Immature Gran % 1 H Nucleated RBC % 0 Sodium 132 L Potassium 4.4 Chloride 93 L Carbon Dioxide 30.1 Anion Gap 9 BUN 55 H Creatinine 2.7 H Estim Creat Clear Calc 25.5 L eGFR 23 L BUN/Creatinine Ratio 20 Glucose 92 Calculated Osmolality 279 Calcium 9.2 Corrected Calcium 9.4 Total Bilirubin 1.2 D AST 20 ALT 9 L Alkaline Phosphatase 103 Total Protein 6.3 Albumin 3.7 Globulin 2.6 Albumin/Globulin Ratio 1.4 Assessment & Plan A&P Narrative Patient is a 79 years old male with PMH of A-fib (on Eliquis), CAD s/p stents, HFrEF last EF 48%, sinus bradycardia and sick sinus syndrome s/p pacemaker, hypertension, GERD, hyperparathyroid s/p L parathyroidectomy, and CKD who presented to ED after a ground level fall, CT pelvis consistent with nondisplaced acute fracture of the right inferior pubic ramus, orthopedic surgeon Dr. Gill was consulted and recommended conservative management. Cardiology was consulted due to significant BLE edema and extensive cardiac history. #HFrEF last EF 48%. #Sinus bradycardia and sick sinus syndrome s/p pacemaker. - Patient was seen in cardiology office 1 week ago due to severe bilateral lower extremities edema and was started on Lasix, metolazone and spironolactone. His ejection fraction on echo was 48%. - His lower extremities edema looks improved however still swollen significantly. No crackles on auscultation. Plan: - Fluid restriction 1800 cc. - Strict BELTRAN's urinary catheter. - Resume home Bumex 2 mg twice daily, metolazone 5 mg, spironolactone 25 mg. 09/13/2024: Reviewed labs and telemetry and labs which appear to be stable at baseline except for the kidney function Patient has mild JENNIFER now secondary to the diuresis and creatinine is up to 2.6. Baseline baseline creatinine is around 1.8-2.0. Hold diuretics for now and agree with IV fluids for now. Continue to monitor renal function closely. Patient did have a fall with nondisplaced right inferior pubic with fracture and Ortho was very has been consulted and continue with conservative treatment for now and no surgery. #Hx of atrial fibrillation. - EKG showed paced rhythm HR 59. - Head CT was negative for hemorrhage. Plan: - resume home Eliquis. #CAD s/p PCI. #Troponinemia. - Troponin I on admission 0.165. Likely demand ischemia. - EKG showed no ST changes. No chest pain or pressure reported. Plan: - resume home atorvastatin and aspirin. - continue trending troponin I. Management of rest of the medical conditions as per primary team and other consultants. Thank you for the consult and allowing me to participate in the care of the patient. Cardiology will continue to follow. Leon Isabel M.D. Interventional Cardiology Time Spent With Patient Time: Total time spent is greater than 50% in coordination of care (as documented) at patient's floor/unit and/or counseling patient:
--- NOTE | 2024-09-13 16:48 | ESCONSULT_ITS ---
RE: CHANCE YO : 1945 DATE OF CONSULTATION: 09/13/2024 Thank you, Dr. Gonzalez, for asking me to consult on the patient, whom I saw on 09/12/2024. HISTORY OF PRESENT COMPLAINT: As per history available, patient fell down at home on 09/11/2024. Subsequent to that, patient started having pain in the right groin area. The patient was brought to emergency room. X-ray was obtained, which revealed a fracture of the superior and inferior pubic rami on the right side. PAST MEDICAL HISTORY: Includes sinus bradycardia, status post pacemaker, high blood pressure, and hyperparathyroidism. No history of diabetes mellitus, asthma or seizures. PAST SURGICAL HISTORY: Includes stent placement and parathyroidectomy. DRUG HISTORY: The patient is on amitriptyline, Eliquis, omeprazole, benazepril, and spironolactone. ALLERGIES: NIL KNOWN. FAMILY HISTORY AND SOCIAL HISTORY: Noncontributory in this case. PHYSICAL EXAMINATION: GENERAL: Normal built person. VITAL SIGNS: Pulse 88 per minute and blood pressure 120/76. NECK: Soft and supple. No mass felt. Tracheostomy is centrally placed. CARDIOVASCULAR SYSTEM: First and second heart sound normal. No murmur heard. RESPIRATORY SYSTEM: Bilateral vesicular breath sounds. Chest clear. ABDOMEN: Soft. No mass felt. Bowel sounds present. Pelvic examination revealed tenderness in the right groin area. Straight leg raising is not available. X-ray confirmed superior and inferior pubic rami fracture, which is undisplaced. Beside that, there is incidental finding of the bipolar hemiarthroplasty along with the plate and screw fixation of the fracture of the femur as well. The fracture is old one and it has healed up. IMPRESSION: Undisplaced fracture of the inferior and superior pubic rami fracture. RECOMMENDATIONS: The patient is advised to be up and about and be walking and to be full weight bear. Once the patient is discharged from my care, I will be happy to follow him. Presently, I am signing off. DT: 13:53:37 TT: 16:47:00 Ref: [id number] - TID: [id number]
[2024-09-13] MEDS: LACTULOSE SYRUP 20 GM/30 ML UDC PO (21:12)
[2024-09-13] MEDS: ATORVASTATIN CALCIUM 20 MG TABLET 40 MG PO (21:12)
[2024-09-14] VITALS (7 sets, daily range): BP systolic 106–116; BP diastolic 62–71; PULSE 60–68; RESP 16–20; TEMP 36.4–36.6; O2SAT 93–100
[2024-09-14] MEDS: LACTULOSE SYRUP 20 GM/30 ML UDC PO (05:08)
[2024-09-14 05:49] LABS: Basophils % (Auto) 0 % (0-2.5); Eosinophils # (Auto) 0.3 Thou/mm3 (0.0-0.5); Eosinophils % (Auto) 3 % (0-10); Hematocrit 37.9 % (41.0-53.0); Hemoglobin 11.9 g/dL (13.5-16.0); Immature Granulocytes % (Auto) 1 % (0-0); Immature Granulocytes Auto 0.04 Thou/mm3 (0.00-0.00); Lymphocytes % (Auto) 11 % (10-50); Mean Corpuscular HGB Conc 31.4 g/dl (31.0-37.0); Mean Corpuscular Hemoglobin 26.6 pg (25.0-35.0); Mean Corpuscular Volume 85 fL (80-100); Monocytes # (Auto) 0.6 Thou/mm3 (0.0-0.8); Monocytes % (Auto) 7 % (0-12); Neutrophils # (Auto) 6.9 Thou/mm3 (1.8-7.7); Neutrophils % (Auto) 79 % (37-80); Nucleated Red Blood Cell % 0 /100 WBC (0); Platelet Count 256 Thou/mm3 (140-440); Red Blood Count 4.47 Miln/mm3 (4.50-5.90); White Blood Count 8.8 Thou/mm3 (3.8-10.6)
[2024-09-14 06:18] LABS: Alanine Aminotransferase 12 U/L (10-49); Albumin, Serum 3.8 gm/dL (3.4-4.8); Albumin/Globulin Ratio 1.4 (1.2-2.2); Alkaline Phosphatase 121 U/L (46-116); Anion Gap 7 (7-16); Aspartate Amino Transferase 21 U/L (0-34); BUN/Creatinine Ratio 22 Ratio (12-20); Blood Urea Nitrogen 51 mg/dL (9-23); Calcium 9.5 mg/dL (8.3-10.6); Calcium (Corrected) 9.7 mg/dL (8.5-10.1); Carbon Dioxide 29.9 mMol/L (20.0-31.0); Chloride 96 mMol/L (98-107); Creatinine (Component) 2.3 mg/dL (0.6-1.3); Estimated Creatinine Clearance 29.9 mL/min (>60); Globulin 2.8 gm/dL (2.3-3.5); Glucose 98 mg/dL (74-106); Osmolality,Calculated 280 (275-295); Potassium 4.4 mMol/L (3.4-5.1); Sodium 133 mMol/L (136-145); Total Protein 6.6 gm/dL (5.7-8.2); eGFR 28 See Note
[2024-09-14] MEDS: AMITRIPTYLINE HCL 25 MG TABLET 12.5 MG PO (08:27)
[2024-09-14] MEDS: GABAPENTIN 100 MG CAPSULE PO (08:27)
[2024-09-14] MEDS: APIXABAN 2.5 MG TABLET PO (08:27)
[2024-09-14] MEDS: PANTOPRAZOLE 40 MG TABLET PO (08:28)
[2024-09-14] MEDS: CINACALCET HCL 30 MG TABLET (NON-FORM) PO (08:28)
--- NOTE | 2024-09-14 08:32 | PD.RESPRO ---
Documentation for date of: 09/14/24 Subjective Subjective Interval history: Due to elevation in creatinine, diuretics and spironolactone were held and fluids were given yesterday. Ortho recommended to continue walking and become full weightbearing. PT recommends acute rehab placement at this time to help recover faster. And patient agrees. Patient today complains of Vital signs have been stable. Labs show patient's hemoglobin is stable and creatinine has come down from 2.7-2.3. Will continue to give gentle IV fluids for now prior to discharging patient on diuretics. Exam Vital Signs Temp Pulse Resp BP Pulse Ox O2 Del Method O2 Flow Rate 97.9 F 65 20 116/71 98 Room Air 2 09/14/24 04:00 09/14/24 05:29 09/14/24 05:29 09/14/24 04:00 09/14/24 05:29 09/14/24 04:00 09/13/24 09:48 FiO2 28 09/11/24 22:02 Objective Labs 09/14/24 04:40 09/14/24 04:40 Labs: Laboratory Results - last 24 hr 09/14/24 04:40 WBC 8.8 RBC 4.47 L Hgb 11.9 L Hct 37.9 L MCV 85 MCH 26.6 MCHC 31.4 RDW Std Deviation 54.0 H Plt Count 256 Neut % (Auto) 79 Lymph % (Auto) 11 [place] % (Auto) 7 Eos % (Auto) 3 Baso % (Auto) 0 Neut # (Auto) 6.9 Lymph # (Auto) 1.0 [place] # (Auto) 0.6 Eos # (Auto) 0.3 Baso # (Auto) 0.0 Immature Gran # (Auto) 0.04 H Absolute Nucleated RBC 0.00 Immature Gran % 1 H Nucleated RBC % 0 Sodium 133 L Potassium 4.4 Chloride 96 L Carbon Dioxide 29.9 Anion Gap 7 BUN 51 H Creatinine 2.3 H Estim Creat Clear Calc 29.9 L eGFR 28 L BUN/Creatinine Ratio 22 H Glucose 98 Calculated Osmolality 280 Calcium 9.5 Corrected Calcium 9.7 Total Bilirubin 1.0 AST 21 ALT 12 Alkaline Phosphatase 121 H Total Protein 6.6 Albumin 3.8 Globulin 2.8 Albumin/Globulin Ratio 1.4 Quality Measures Quality Measures none Assessment & Plan Assessment Current Active Medications: Generic Name Dose Route Start Last Admin Trade Name Freq PRN Reason Stop Dose Admin Acetaminophen 650 mg 05/07/25 00:53 09/13/24 09:23 Acetaminophen 325 Mg Tablet PO 10/11/24 00:52 650 mg Q6H PRN Administration Fever >100.3 or pain 1-3 Amitriptyline HCl 12.5 mg 09/11/24 09:45 09/14/24 08:27 Amitriptyline Hcl 25 Mg Tablet PO 10/11/24 09:44 12.5 mg DAILY OLI Administration Apixaban 2.5 mg 09/12/24 09:15 09/14/24 08:27 Apixaban 2.5 Mg Tablet PO 10/12/24 09:14 2.5 mg BID OLI Administration Atorvastatin Calcium 40 mg 09/11/24 21:00 09/13/24 21:12 Atorvastatin Calcium 20 Mg Tablet PO 10/11/24 20:59 40 mg HS OLI Administration Bumetanide 2 mg 09/11/24 09:00 09/12/24 09:12 Bumetanide Inj 0.25 Mg/Ml Vial 4 Ml IVP 10/11/24 08:59 2 mg DAILY OLI Administration Cinacalcet 30 mg 09/11/24 09:00 09/14/24 08:28 Cinacalcet Hcl 30 Mg Tablet (Non-Form) PO 10/11/24 08:59 30 mg QDAY OLI Administration Colchicine 0.3 mg 09/11/24 09:00 09/13/24 08:18 Colchicine 0.6 Mg Tablet PO 10/11/24 08:59 0.3 mg QDAY OLI Administration Gabapentin 100 mg 09/11/24 09:00 09/14/24 08:27 Gabapentin 100 Mg Capsule PO 10/11/24 08:59 100 mg DAILY OLI Administration Lactulose 20 gm 09/13/24 14:00 09/14/24 05:08 Lactulose Syrup 20 Gm/30 Ml Udc PO 10/13/24 13:59 20 gm TID OLI Administration Protocol Lisinopril 10 mg 09/11/24 09:00 09/14/24 08:27 Lisinopril 2.5 Mg Tablet PO 10/11/24 08:59 Not Given DAILY OLI Metolazone 5 mg 09/11/24 09:00 09/13/24 08:25 Metolazone 2.5 Mg Tablet PO 10/11/24 08:59 Not Given DAILY OLI Ondansetron HCl 4 mg 09/11/24 00:53 09/11/24 02:45 Ondansetron Inj 2 Mg/Ml Inj 2 Ml IV 10/11/24 00:52 4 mg Q6H PRN Administration NAUSEA OR VOMITING Protocol Pantoprazole Sodium 40 mg 09/11/24 09:00 09/14/24 08:28 Pantoprazole 40 Mg Tablet PO 10/11/24 08:59 40 mg QDAY OLI Administration Sennosides 1 tab 09/11/24 00:53 Senna Tablet PO 10/11/24 00:52 QDAY PRN constipation Protocol Spironolactone 25 mg 09/11/24 09:00 09/13/24 08:25 Spironolactone 25 Mg Tablet PO 10/11/24 08:59 Not Given DAILY OLI
--- NOTE | 2024-09-14 11:33 | PD.RESPRO ---
Documentation for date of: 09/14/24 Subjective Subjective Interval history: Patient seen and examined at the bedside. No new cardiac complaints at the present point of time. Reviewed labs and telemetry and labs which appear to be stable at baseline except for the kidney function Patient has mild JENNIFER now secondary to the diuresis and creatinine is up to 2.6. Diuresis was held, and continued on fluids Baseline baseline creatinine is around 1.8-2.0, now CR 2.3 today Recommended resuming home dose BUMEX and SPIRONOLACTONE, decrease METOLAZONE to 2.5 mg. Continue to monitor renal function closely. Patient did have a fall with nondisplaced right inferior pubic with fracture and Ortho was very has been consulted and continue with conservative treatment for now and no surgery. Exam Vital Signs Temp Pulse Resp BP Pulse Ox O2 Del Method O2 Flow Rate 97.5 F 60 20 106/69 97 Nasal Cannula 2 09/14/24 08:00 09/14/24 11:03 09/14/24 11:03 09/14/24 08:00 09/14/24 11:03 09/14/24 08:00 09/14/24 11:03 FiO2 28 09/11/24 22:02 Narrative Exam Gen: Well-developed and well-nourished elderly male. HEENT: NCAT, PERRLA, EOMI, MMM, anicteric conjunctivae, no JVD. CVS: normal S1 and S2. RRR. No M/R/G. Pacemaker in place. Resp: CTA B/L. No rhonchi, rales, crackles or wheezing. Abd: soft, non-tender, non-distended. BS+ in all 4 quadrants. MSK: Good ROM in BUE & BLE. 1-2+ edema BLE with discoloration. Neuro: limited exam due to mental status. Objective Labs 09/14/24 04:40 09/14/24 04:40 Labs: Laboratory Results - last 24 hr 09/14/24 04:40 WBC 8.8 RBC 4.47 L Hgb 11.9 L Hct 37.9 L MCV 85 MCH 26.6 MCHC 31.4 RDW Std Deviation 54.0 H Plt Count 256 Neut % (Auto) 79 Lymph % (Auto) 11 [place] % (Auto) 7 Eos % (Auto) 3 Baso % (Auto) 0 Neut # (Auto) 6.9 Lymph # (Auto) 1.0 [place] # (Auto) 0.6 Eos # (Auto) 0.3 Baso # (Auto) 0.0 Immature Gran # (Auto) 0.04 H Absolute Nucleated RBC 0.00 Immature Gran % 1 H Nucleated RBC % 0 Sodium 133 L Potassium 4.4 Chloride 96 L Carbon Dioxide 29.9 Anion Gap 7 BUN 51 H Creatinine 2.3 H Estim Creat Clear Calc 29.9 L eGFR 28 L BUN/Creatinine Ratio 22 H Glucose 98 Calculated Osmolality 280 Calcium 9.5 Corrected Calcium 9.7 Total Bilirubin 1.0 AST 21 ALT 12 Alkaline Phosphatase 121 H Total Protein 6.6 Albumin 3.8 Globulin 2.8 Albumin/Globulin Ratio 1.4 Quality Measures Quality Measures none Advance care planning discussed with:: patient Assessment & Plan Assessment Current Active Medications: Generic Name Dose Route Start Last Admin Trade Name Freq PRN Reason Stop Dose Admin Acetaminophen 650 mg 09/11/24 00:53 09/13/24 09:23 Acetaminophen 325 Mg Tablet PO 10/11/24 00:52 650 mg Q6H PRN Administration Fever >100.3 or pain 1-3 Amitriptyline HCl 12.5 mg 09/11/24 09:45 09/14/24 08:27 Amitriptyline Hcl 25 Mg Tablet PO 10/11/24 09:44 12.5 mg DAILY OLI Administration Apixaban 2.5 mg 09/12/24 09:15 09/14/24 08:27 Apixaban 2.5 Mg Tablet PO 10/12/24 09:14 2.5 mg BID OLI Administration Atorvastatin Calcium 40 mg 09/11/24 21:00 09/13/24 21:12 Atorvastatin Calcium 20 Mg Tablet PO 10/11/24 20:59 40 mg HS OLI Administration Bumetanide 2 mg 09/11/24 09:00 09/12/24 09:12 Bumetanide Inj 0.25 Mg/Ml Vial 4 Ml IVP 10/11/24 08:59 2 mg DAILY OLI Administration Cinacalcet 30 mg 09/11/24 09:00 09/14/24 08:28 Cinacalcet Hcl 30 Mg Tablet (Non-Form) PO 10/11/24 08:59 30 mg QDAY OLI Administration Colchicine 0.3 mg 09/11/24 09:00 09/13/24 08:18 Colchicine 0.6 Mg Tablet PO 10/11/24 08:59 0.3 mg QDAY OLI Administration Gabapentin 100 mg 09/11/24 09:00 09/14/24 08:27 Gabapentin 100 Mg Capsule PO 10/11/24 08:59 100 mg DAILY OLI Administration Lactulose 20 gm 09/13/24 14:00 09/14/24 05:08 Lactulose Syrup 20 Gm/30 Ml Udc PO 10/13/24 13:59 20 gm TID OLI Administration Protocol Lisinopril 10 mg 09/11/24 09:00 09/14/24 08:27 Lisinopril 2.5 Mg Tablet PO 10/11/24 08:59 Not Given DAILY OLI Metolazone 5 mg 09/11/24 09:00 09/13/24 08:25 Metolazone 2.5 Mg Tablet PO 10/11/24 08:59 Not Given DAILY OLI Ondansetron HCl 4 mg 09/11/24 00:53 09/11/24 02:45 Ondansetron Inj 2 Mg/Ml Inj 2 Ml IV 10/11/24 00:52 4 mg Q6H PRN Administration NAUSEA OR VOMITING Protocol Pantoprazole Sodium 40 mg 09/11/24 09:00 09/14/24 08:28 Pantoprazole 40 Mg Tablet PO 10/11/24 08:59 40 mg QDAY OLI Administration Sennosides 1 tab 09/11/24 00:53 Senna Tablet PO 10/11/24 00:52 QDAY PRN constipation Protocol Spironolactone 25 mg 09/11/24 09:00 09/13/24 08:25 Spironolactone 25 Mg Tablet PO 10/11/24 08:59 Not Given DAILY OLI Plan Patient is a 79 years old male with PMH of A-fib (on Eliquis), CAD s/p stents, HFrEF last EF 48%, sinus bradycardia and sick sinus syndrome s/p pacemaker, hypertension, GERD, hyperparathyroid s/p L parathyroidectomy, and CKD who presented to ED after a ground level fall, CT pelvis consistent with nondisplaced acute fracture of the right inferior pubic ramus, orthopedic surgeon Dr. Gill was consulted and recommended conservative management. Cardiology was consulted due to significant BLE edema and extensive cardiac history. #HFrEF last EF 48%. #Sinus bradycardia and sick sinus syndrome s/p pacemaker. - Patient was seen in cardiology office 1 week ago due to severe bilateral lower extremities edema and was started on Lasix, metolazone and spironolactone. His ejection fraction on echo was 48%. - His lower extremities edema looks improved however still swollen significantly. No crackles on 09/13/2024: Reviewed labs and telemetry and labs which appear to be stable at baseline except for the kidney function Patient has mild JENNIFER now secondary to the diuresis and creatinine is up to 2.6. Baseline baseline creatinine is around 1.8-2.0. Hold diuretics for now and agree with IV fluids for now. Continue to monitor renal function closely. Patient did have a fall with nondisplaced right inferior pubic with fracture and Ortho was very has been consulted and continue with conservative treatment for now and no surgery. 09/14/2024 Vitals normal. CBC at baseline, no leukocytosis. Sodium 133, remaining elytes WNL. Renal function improved, CR 2.3 near baseline, JUDY 51, 24 urine output 1L. ? Recommended home dose BUMEX 2 mg daily and SPIRONOLACTONE 25 mg daily ? Recommended decrease METOLAZONE to 2.5 mg daiy #Hx of atrial fibrillation. - EKG showed paced rhythm HR 59. - Head CT was negative for hemorrhage. Plan: - resume home Eliquis. #CAD s/p PCI. #Troponinemia. - Troponin I on admission 0.165. Likely demand ischemia. - EKG showed no ST changes. No chest pain or pressure reported. Plan: - resume home atorvastatin and aspirin. - continue trending troponin I. Management of rest of the medical conditions as per primary team and other consultants. Thank you for the consult and allowing me to participate in the care of the patient. Cardiology will continue to follow. Thank you for the opportunity to participate in the patient's care. Case was discussed with attending, Dr. Isabel. Kash William DO PGYI Attending Provider Attestation/Addendum I have personally seen and examined the patient separately on the above date of service and discussed the plan of care with the resident. I reviewed the resident Dr. Kash William consultation progress note and agree with the resident findings and plan in the note above and have also edited the documentation to reflect my findings and plan. Leon Isabel M.D. Interventional Cardiology
--- NOTE | 2024-09-14 11:50 | ESDS_ITS ---
Planned Discharge Date 09/14/24 DS: Providers Provider Date of admission: 09/11/24 00:27 Primary care physician: Luis Miguel Fontaine Admitting Provider: Blane Montez MD Attending Provider on Admission: Ted Merino DO Consults: 09/11/24 00:28 Referral Physical Therapy Routine Comment: Physician Instructions: 09/11/24 00:58 Consult to Orthopedic Routine Comment: pubic ramus fracture Consulting Provider: Francisco Butt Instructions: nondisplaced acute fracture right inferior pubic ramus 09/11/24 14:49 Consult to Cardiology Routine Comment: Consulting Provider: Shavonne Moran Attending Provider on DC: Estee Walter MD Discharging Provider: Estee Walter MD DS: Diagnosis Problem List Completed Was Problem List Reviewed/Reconciled?: Yes Hospital Course Hospital Course Hospital course: Patient is a 79-year-old female with past medical history of A-fib (on Eliquis), CAD s/p stents, sinus bradycardia and sick sinus syndrome s/p pacemaker, pericarditis, hypertension, GERD, hyperparathyroid s/p L parathyroidectomy, and CKD admitted to hospital on 09/11/2024 due to nondisplaced pubic ramus fracture secondary to ground-level fall. CT pelvis showed acute nondisplaced fracture of right inferior pubic ramus, but no hip fractures. Orthopedics consulted and recommended no surgical intervention at this point and needs to be a w eightbearing. Patient's hospital course was also complicated by acute kidney injury on his chronic kidney disease. After diuretics were held and IV fluids were given, and creatinine improved. Patient's troponins were also elevated initially, however peaked, and most likely due to demand ischemia. Patient will continue to recover in an acute rehab facility to recover his strength. Pt seen and examined at bedside. Pt denies any complaints. Pt is medically cleared to be discharged today with the following instructions: Start taking these new medications: Metolazone 2.5mg once daily and take Bumex 0.5mg daily Continue other home medications as prescribed. Follow up with PCP within 1-2 weeks. Follow up with Dr. Moran, cardiology, and Dr. Butt, Orthopedics in 1-2 weeks. You have been started on the following medications: -Bumex 0.5 mg once a day -Metalazone 2.5mg once daily -Spironolactone 25 mg once a day Return to the ED if you develop new or worsening symptoms. Hospital discharge diagnoses treated during hospital stay: #JENNIFER on CKD #Nondisplaced right inferior pubic ramus fracture #Mechanical fall #NSTEMI #Hx of CAD s/p stents #Hx of A-fib #Hx of pericarditis #Hx of hypertension #Hx of CHF? #Hx of hyperlipidemia #Hx of GERD #Hx of hyperparathyroid s/p left parotidectomy Patient's plan and care discussed with my attending, Dr. Wilber Walter MD PGY-2 Status at Discharge Cognitive/behavioral status at discharge: stable Time Spent with Patient Time attestation: Total time spent providing and/or coordinating discharge services: 35 Time spent: Greater than 30 minutes Exam Vital Signs Temp Pulse Resp BP Pulse Ox O2 Del Method O2 Flow Rate 97.5 F 60 20 106/69 97 Nasal Cannula 2 09/14/24 08:00 09/14/24 11:03 09/14/24 11:03 09/14/24 08:00 09/14/24 11:03 09/14/24 08:00 09/14/24 11:03 FiO2 28 09/11/24 22:02 Narrative Exam General Appearance: Pt in NAD laying comfortably in bed. HEENT: NC/AT, no scleral icterus, no conjunctival pallor, MMM Lungs: CTAB, no wheezes or crackles appreciated CVS: RRR, S1/S2 heard, no murmurs or rubs appreciated ABD: Soft, non-tender, non-distended, BS + in all 4 quadrants EXT: no deformity/edema/lesions/cyanosis/clubbing, radial pulses 2+ BL, DP pulses 2 + BL SKIN: Skin exam normal without any rashes. Neuro: A&O x 3. No gross neurological deficits. Motor and sensory grossly intact in B/L UL and LL. Psych: Appropriate mood and affect Discharge Plan Plan Patient Disposition: Xfer Skilled Nsg Fac (SNF) Care Plan Goals: Start taking these new medications: Metolazone 2.5mg once daily and take Bumex 0.5mg daily Continue other home medications as prescribed. Follow up with PCP within 1-2 weeks. Follow up with Dr. Moran, cardiology, and Dr. Butt, Orthopedics in 1-2 weeks. You have been started on the following medications: -Bumex 0.5 mg once a day -Metalazone 2.5mg once daily -Spironolactone 25 mg once a day Return to the ED if you develop new or worsening symptoms. Prescriptions/Referrals Prescriptions/Med Rec: New metolazone 2.5 mg tablet 2.5 mg PO QDAY Qty: 30 0RF Continued pravastatin [Pravachol] 40 MG tablet 40 mg PO QAM Qty: 0 amitriptyline 10 mg Tablet 10 mg PO HS hydrocodone-acetaminophen 7.5-325 mg tablet 1 tab PO QID MDD 4 tabs PRN (Reason: pain) Qty: 12 0RF omeprazole 20 mg capsule,delayed release(DR/EC) 20 mg PO 1XD Patient Comments: TAKE 1 CAPSULE BY MOUTH EVERY DAY 30 MINUTES BEFORE MORNING MEAL cinacalcet 30 mg tablet 30 mg PO 1XD Patient Comments: TAKE 1 TABLET BY MOUTH EVERY DAY WITH FOOD OR AFTER MEAL DAILY FOR 90 DAYS Eliquis 5 mg tablet 2.5 mg BID Patient Comments: TAKE 1 TABLET BY MOUTH TWICE A DAY FOR 90 DAYS colchicine 0.6 mg tablet 0.3 mg PO QDAY Qty: 30 3RF gabapentin 800 mg tablet 800 mg PO HS Qty: 30 2RF spironolactone 25 mg tablet 25 mg PO QDAY Patient Comments: TAKE 1 TABLET BY MOUTH EVERY DAY FOR 90 DAYS benazepril 20 mg tablet 10 mg PO HS Patient Comments: TAKE 1 TABLET BY MOUTH EVERY DAY FOR 90 DAYS bumetanide 0.5 mg tablet 0.5 mg PO HS Patient Comments: TAKE 1 TABLET BY MOUTH EVERY DAY FOR 30 DAYS Discontinued aspirin 325 mg tablet,delayed release (DR/EC) 325 mg PO QDAY Qty: 14 0RF gabapentin 800 mg tablet 1,000 mg PO TID Referrals: Luis Miguel Fontaine [Primary Care Provider] - Shavonne Moran MD [Physician] - Francisco Butt MD [Physician] - Patient/Caregiver Discharge Instructions Print Language: Bahamian Stand Alone Forms: [employer] Award Info., Patient Portal Info Letter Discharge Order Discharge Orders: Discharge (Routine); Ordered 09/14/24 Ordered By: Estee Walter Quality Discharge Quality Measures VTE prophylaxis Attestestation Attestation I have discussed and was present for the essential components of the discharge history, physical examination, diagnosis, and discharge treatment plan with the resident. I agree with the patient's discharge care as documented by the resident and amended herein by me. Db Merino DO. The patient understood all discharge instructions, all questions were answered satisfactorily. The patient was instructed to return to the Emergency Department is symptoms worsened or persisted. Renal function significantly improved, creatinine down trended. See medication reconciliation above per cardiology recommendations. Patient was stable, afebrile and tolerating p.o. intake at time of discharge to SNF. Although this document has been carefully reviewed, there may still be some phonetic and other typographical errors. These errors are purely grammatical due to imperfections in the software program and should not be construed in any way to compromise the substance of the patient's medical care during this visit.
--- NOTE | 2024-09-14 12:11 | PC.SS ---
Addendum entered by Megha Ventura 09/14/24 12:58: Updated clinicals submitted via [facility] to [facility] as requested. Addendum entered by Megha Ventura 09/14/24 12:42: SS contacted by Marie. Gary stated patient will be transported at 1400. AKIRA Bassett informed. SS informed patient's spouse Genevieve [phone] of transportation ETA 1400 via [employer]. [facility] to provide transportation Original Note: SS recieved call from [facility], they will transport patient if ready for discharge. Discharge orders are in. Gary is requesting updated clinicals be sent via [employer]. Gary provided [employer] #[phone] and nurse to nurse report #[phone]. ETA for transportation 1430.
--- NOTE | 2024-09-14 16:39 | PC.NURSE ---
Patient ambulated 5ft today to use bedside commode. Patient min/mod assist. Patient had BM today and voided 3 times unmeasured. PIV removed prior to discharge and report given to Billy Fuchs at [facility]. and son also updated on plan to d/c and transport patient.
== END 2024-09-14 14:07 | disposition skilled nursing facility (03) | DRG 536 ==
LOC: SERX 23:45 → SERHOLD 09-11 00:46 → S3SX 09-11 04:43
PROVIDERS: Registered Nurse General Practice; Admitting Provider Internal Medicine; Emergency Provider Emergency Medicine; PCP Internal Medicine; Visit Provider Student in an Organized Health Care Education/Training Program
DX: S32.591A Other specified fracture of right pubis, initial encounter for closed fracture (principal); I50.32 Chronic diastolic (congestive) heart failure; I13.0 Hypertensive heart and chronic kidney disease with heart failure and stage 1 through stage 4 chronic kidney disease, or unspecified chronic kidney disease; E87.1 Hypo-osmolality and hyponatremia; I50.42 Chronic combined systolic (congestive) and diastolic (congestive) heart failure; N17.9 Acute kidney failure, unspecified; N18.31 Chronic kidney disease, stage 3a; I25.10 Atherosclerotic heart disease of native coronary artery without angina pectoris; I48.91 Unspecified atrial fibrillation; N18.9 Chronic kidney disease, unspecified; E21.3 Hyperparathyroidism, unspecified; K21.9 Gastro-esophageal reflux disease without esophagitis; I49.5 Sick sinus syndrome; E78.5 Hyperlipidemia, unspecified; E89.0 Postprocedural hypothyroidism; T50.2X5A Adverse effect of carbonic-anhydrase inhibitors, benzothiadiazides and other diuretics, initial encounter; Z95.5 Presence of coronary angioplasty implant and graft; Y92.008 Other place in unspecified non-institutional (private) residence as the place of occurrence of the external cause; Z95.0 Presence of cardiac pacemaker; W01.0XXA Fall on same level from slipping, tripping and stumbling without subsequent striking against object, initial encounter; Z66 Do not resuscitate; Z79.01 Long term (current) use of anticoagulants; Z90.49 Acquired absence of other specified parts of digestive tract; Y93.01 Activity, walking, marching and hiking; Z96.659 Presence of unspecified artificial knee joint; Z79.899 Other long term (current) drug therapy
CPT/HCPCS: 36415; 70450; 71045; 72125; 72170; 72192; 73502; 80053; 80307; 81001; 83615; 83735; 83880; 84100; 84484; 85025; 85610; 85730; 87081; 93005; 93225; 94660; 96374; 96375; 97162; 99285; J0604; J2270; J2405; J3010; J3475; J3490; J7030; J7050; A9270

== ENCOUNTER → 2024-09-27 | Outpatient (CLI) | payer MEDICARE, MEDICAID, SELFPAY ==
[2024-09-27 13:44] LABS: Basophils # (Auto) 0.1 Thou/mm3 (0.0-0.2); Basophils % (Auto) 1 % (0-2.5); Eosinophils # (Auto) 0.2 Thou/mm3 (0.0-0.5); Eosinophils % (Auto) 3 % (0-10); Hematocrit 39.3 % (41.0-53.0); Hemoglobin 12.1 g/dL (13.5-16.0); Immature Granulocytes % (Auto) 1 % (0-0); Immature Granulocytes Auto 0.09 Thou/mm3 (0.00-0.00); Lymphocytes # (Auto) 1.4 Thou/mm3 (1.0-4.8); Lymphocytes % (Auto) 17 % (10-50); Mean Corpuscular HGB Conc 30.8 g/dl (31.0-37.0); Mean Corpuscular Hemoglobin 26.9 pg (25.0-35.0); Mean Corpuscular Volume 87 fL (80-100); Monocytes # (Auto) 0.7 Thou/mm3 (0.0-0.8); Monocytes % (Auto) 8 % (0-12); Neutrophils # (Auto) 5.8 Thou/mm3 (1.8-7.7); Neutrophils % (Auto) 71 % (37-80); Nucleated Red Blood Cell % 0 /100 WBC (0); Platelet Count 359 Thou/mm3 (140-440); RDW Standard Deviation 60.6 fL (35.1-43.9); White Blood Count 8.3 Thou/mm3 (3.8-10.6)
[2024-09-27 13:55] LABS: Alanine Aminotransferase 34 U/L (10-49); Albumin, Serum 4.3 gm/dL (3.4-4.8); Albumin/Globulin Ratio 1.3 (1.2-2.2); Alkaline Phosphatase 157 U/L (46-116); Anion Gap 10 (7-16); Aspartate Amino Transferase 30 U/L (0-34); BUN/Creatinine Ratio 27 Ratio (12-20); Bilirubin,Total 0.8 mg/dL (0.3-1.2); Blood Urea Nitrogen 64 mg/dL (9-23); Calcium 10.2 mg/dL (8.3-10.6); Calcium (Corrected) 10.2 mg/dL (8.5-10.1); Carbon Dioxide 27.6 mMol/L (20.0-31.0); Chloride 100 mMol/L (98-107); Creatinine (Component) 2.4 mg/dL (0.6-1.3); Globulin 3.3 gm/dL (2.3-3.5); Glucose 141 mg/dL (74-106); Osmolality,Calculated 295 (275-295); Phosphorous 3.7 mg/dL (2.4-5.1); Potassium 5.1 mMol/L (3.4-5.1); Sodium 138 mMol/L (136-145); Total Protein 7.6 gm/dL (5.7-8.2); eGFR 26 See Note
== END | disposition home or self-care (01) ==
LOC: COPL 11:46
PROVIDERS: PCP Family Medicine; Referring Provider Student in an Organized Health Care Education/Training Program; Visit Provider Internal Medicine Cardiovascular Disease
DX: I11.0 Hypertensive heart disease with heart failure (principal); I50.33 Acute on chronic diastolic (congestive) heart failure; E87.5 Hyperkalemia
CPT/HCPCS: 36415; 80053; 84100; 85025

== ENCOUNTER → 2024-10-31 | Outpatient (CLI) | payer MEDICARE, MEDICAID, SELFPAY ==
[2024-10-31 13:09] LABS: Basophils % (Auto) 1 % (0-2.5); Eosinophils # (Auto) 0.1 Thou/mm3 (0.0-0.5); Eosinophils % (Auto) 1 % (0-10); Hematocrit 33.6 % (41.0-53.0); Hemoglobin 11.4 g/dL (13.5-16.0); Immature Granulocytes % (Auto) 2 % (0-0); Immature Granulocytes Auto 0.12 Thou/mm3 (0.00-0.00); Lymphocytes # (Auto) 1.3 Thou/mm3 (1.0-4.8); Lymphocytes % (Auto) 16 % (10-50); Mean Corpuscular HGB Conc 33.9 g/dl (31.0-37.0); Mean Corpuscular Hemoglobin 29.6 pg (25.0-35.0); Mean Corpuscular Volume 87 fL (80-100); Monocytes # (Auto) 0.8 Thou/mm3 (0.0-0.8); Monocytes % (Auto) 9 % (0-12); Neutrophils # (Auto) 5.9 Thou/mm3 (1.8-7.7); Neutrophils % (Auto) 72 % (37-80); Nucleated Red Blood Cell # 0.02 Thou/mm3 (0.00-0.00); Nucleated Red Blood Cell % 0 /100 WBC (0); Platelet Count 283 Thou/mm3 (140-440); RDW Standard Deviation 56.5 fL (35.1-43.9); Red Blood Count 3.85 Miln/mm3 (4.50-5.90); White Blood Count 8.2 Thou/mm3 (3.8-10.6)
[2024-10-31 13:21] LABS: Parathyroid Hormone Intact 97.1 pg/ml (18.5-88.0)
[2024-10-31 13:23] LABS: Vitamin D 25 Hydroxy Total 32.8 ng/mL (7.3-40.2)
[2024-10-31 13:27] LABS: Anion Gap 12 (7-16); BUN/Creatinine Ratio 18 Ratio (12-20); Blood Urea Nitrogen 35 mg/dL (9-23); Calcium 9.7 mg/dL (8.3-10.6); Calcium (Corrected) 9.7 mg/dL (8.5-10.1); Carbon Dioxide 22.3 mMol/L (20.0-31.0); Chloride 105 mMol/L (98-107); Glucose 124 mg/dL (74-106); Osmolality,Calculated 286 (275-295); Phosphorous 3.4 mg/dL (2.4-5.1); Potassium 4.9 mMol/L (3.4-5.1); Sodium 139 mMol/L (136-145); Thyroid Stimulating Hormone 4.86 uIU/mL (0.55-4.78); eGFR 33 See Note
[2024-10-31 13:28] LABS: T4 (Thyroxine) 3.9 mcg/dL (4.5-10.9)
[2024-10-31 15:14] LABS: Collection Type, Urine Clean Catch; Squamous Epithelial Cell,Urine 0 /hpf (0-5)
[2024-10-31 15:35] LABS: Bilirubin,Urine Negative (Negative); Blood,Urine Negative (Negative); Clarity,Urine Clear (Clear/Hazy); Color,Urine Lt-Yellow (Lt Yel-Yel); Glucose, Urine Negative (Negative); Ketones,Urine Negative (Negative); Leukocyte Esterase,Urine Negative (Negative); Nitrite,Urine Negative (Negative); Protein,Urine 1+ (Neg - Trace); RBC,Urine 2 /hpf (0-3); Specific Gravity,Urine 1.013 (1.001-1.035); Urobilinogen,Urine Negative mg/dL (0.0-1.0); WBC,Urine 1 /hpf (0-5)
== END | disposition home or self-care (01) ==
LOC: COPL 11:55
PROVIDERS: PCP Student in an Organized Health Care Education/Training Program; Referring Provider Internal Medicine Nephrology; Visit Provider Internal Medicine Nephrology
DX: E55.9 Vitamin D deficiency, unspecified (principal); E03.9 Hypothyroidism, unspecified
CPT/HCPCS: 36415; 80069; 81001; 82306; 83970; 84436; 84443; 85025

== ENCOUNTER 2024-11-03 16:42 | Emergency (ER) | payer MEDICARE, MEDICAID, SELFPAY ==
[2024-11-03 16:44] VITALS: BP 128/82; PULSE 91; RESP 18; TEMP 37; O2SAT 94
[2024-11-03 16:49] VITALS: PULSE 119; RESP 16; O2SAT 99; BMI 31.8
--- NOTE | 2024-11-03 16:59 | PC.NURSE ---
PATIENT BIBA FOR WEAKNESS. PATIENT HAD FALL ON MONDAY FROM FEELING WEAK. PATIENT HAS HISTORY OF CHF, HTN, A FIB, HYPERLIPIDEMIA,A ND === NEUROPATHY. INFORMED DR. HARTMAN TO CHECK IF HE CAN EVALUATE PATIENT TO RULE OUT STROKE ALERT. PER MD PATIENT IS NOT STROKE ALERT. VITALS ARE STABLE.
--- NOTE | 2024-11-03 17:02 | XR_ITS ---
Examination: AP chest single view TECHNIQUE: AP upright portable chest single view Date and time: November 03, 2024 at 1752 hours Comparison September 10, 2024 INDICATIONS: Generalized weakness today. FINDINGS: Mild prominence cardiac contour Cardiac leads satisfactory position No pneumonia or pulmonary edema Mild vascular congestion IMPRESSION: No pneumonia or pulmonary edema Mild vascular congestion
--- NOTE | 2024-11-03 17:02 | EKG_ITS ---
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
--- NOTE | 2024-11-03 17:02 | XR_ITS ---
Examination: CT lumbar spine, without contrast. 2-D sagittal reconstructions. 2-D coronal reconstructions. 3-D reconstructions. Date and time of exam: November 03, 2024, 1814 hours INDICATIONS: Patient fell 2 days ago with injury to lower back, lower back pain CTDI: vol (mGy):43.6 DLP: (mGycm):1528 Technique: Multiple 1.25 mm axial sections of the lumbar spine without intravenous contrast have been obtained. 2-D sagittal and coronal reconstructions have been obtained. 3-D reconstructions have been obtained. Low dose protocols were performed. One or more of the following dose reduction techniques were used; automated exposure control, adjustment of the mA and/or KV according to patient size, use of iterative reconstruction technique. Findings: Prominent osteopenia. No lumbar fracture. Mild to moderate diffuse lumbar disc. Prominent lumbar spondylosis Extensive laminectomies No spondylolisthesis Lumbar pedicles, laminae, transverse and posterior spinous processes intact Axial images demonstrate no focal disc protrusion Partial visualization possible end-stage right renal hydronephrotic sac IMPRESSION: No acute lumbar fracture No focal lumbar disc protrusion Partial visualization possible end-stage right hydronephrotic sac, recommend renal sonography follow-up
--- NOTE | 2024-11-03 17:02 | XR_ITS ---
Examination: CT brain head without contrast. 2-D sagittal coronal reconstructions Date and time of exam:November 03, 2024, 1809 hours Comparison September 10, 2024 INDICATIONS: Patient fell 2 days ago with injury to the head, the patient is anticoagulated CTDI: vol (mGy):50.4 DLP: (mGycm):1007 Technique: Multiple CT axial sections of the brain have been obtained, 5 mm slice thickness. Contrast has not been administered. 2-D sagittal, coronal reconstructions have been obtained Low dose protocols were performed. One or more of the following dose reduction techniques were used; automated exposure control, adjustment of the mA and/or KV according to patient size, use of iterative reconstruction technique. Findings: No significant ventricular enlargement. Intra-axial or extra-axial hemorrhage density is not seen. No mass effect or midline shift Basal cisterns are not remarkable. Fourth ventricle is midline. Cranial vault intact. Impression: Negative for acute hemorrhage, mass effect or midline shift
--- NOTE | 2024-11-03 17:20 | PD.EDWEAK ---
ED Weakness RME/HPI General Chief complaint: Weakness Stated complaint: GENERAL WEAKNESS Time Seen by Provider: 11/03/24 17:02 Arrival date/time: 11/03/24 16:42 Limitations: no limitations RME / HPI RME / HPI Narrative: 79 year old male with history of atrial fibrillation on Eliquis, CAD s/p PCI, sick sinus syndrome s/p pacemaker, hypertension, hyperparathyroid s/p L parathyroidectomy, CKD presents to the ED BIBA from home for evaluation of global weakness today. Per medics, family on scene reported patient had a ground level fall 2 days ago. Since the fall have noted patient is globally weak, has back pain, and feels unbalanced. This morning at approximately 11:00 AM, the patient had an episode of slurred speech and right leg weakness prompting calling 911. No other associated symptoms reported. Denies headache, fevers, chills, chest pain, cough, shortness of breath, n/v/d, or urinary symptoms. Related Data Home Medications ?Medication ?Instructions ?Recorded ?Confirmed pravastatin 40 mg tablet 40 mg PO QAM #0 tabs 10/16/13 09/11/24 (Pravachol) amitriptyline 10 mg tablet 10 mg PO HS 10/04/18 09/11/24 apixaban 5 mg tablet (Eliquis) 2.5 mg BID 05/29/24 05/29/24 cinacalcet 30 mg tablet 30 mg PO 1XD 05/29/24 09/11/24 omeprazole 20 mg capsule,delayed 20 mg PO 1XD 05/29/24 09/11/24 release benazepril 20 mg tablet 10 mg PO HS 09/11/24 09/11/24 bumetanide 0.5 mg tablet 0.5 mg PO HS 09/11/24 09/11/24 spironolactone 25 mg tablet 25 mg PO QDAY 09/11/24 09/11/24 Previous Rx's ?Medication ?Instructions ?Recorded hydrocodone 7.5 mg-acetaminophen 1 tab PO QID PRN pain #12 tabs 10/04/18 325 mg tablet colchicine 0.6 mg tablet 0.3 mg (1/2 x 0.6 mg) PO QDAY #30 06/01/24 tabs gabapentin 800 mg tablet 800 mg PO HS #30 tabs 06/01/24 metolazone 2.5 mg tablet 2.5 mg PO QDAY #30 tabs 09/14/24 Allergies Allergy/AdvReac Type Severity Reaction Status Date / Time No Known Allergies Allergy Verified 05/29/24 14:45 Review of Systems Review of Systems Systems Reviewed: All systems reviewed, normal except as documented Past Medical History Past Medical History NEUROLOGIC: Positive Neurological Disorders, Peripheral Neuropathy and Head Trauma CARDIAC: Positive Cardiac Disorders, Myocardial Infarction, Cardiac Arrhythmia, Atrial Fibrillation, Angina, Hypercholesterolemia, Edema and Hypertension RESPIRATORY: Positive Sleep Apnea GASTROINTESTINAL: Positive Gastrointestinal Disorders, Gall Bladder Disease and Gastroesophageal Reflux Disease GENITOURINARY: Positive Benign Prostatic Hyperplasia MUSCULOSKELETAL: Positive Musculoskeletal Disorders and Degenerative Joint Disease ENT: Positive Cataracts and Head Trauma ENDOCRINE: Positive Parathyroid Disease HEMATOLOGIC: Positive Blood Disorders PSYCHO/SOCIAL: Positive Depression OTHER HISTORY: Positive Autoimmune Disease, Anesthesia Reactions, Chicken Pox and Measles Family History FAMILY HISTORY: Positive Family Gastrointestinal Problems Surgical History SURGICAL: Positive Cardiac Surgery, Coronary Stent, Pacemaker, Angiogram, Abdominal Surgery, Joint Replacement and Arthroscopy; Negative Neurologic Surgery Social History SMOKING STATUS: Never smoker SUBSTANCE USE: does not use ED Exam General Limitations: Present no limitations General appearance: Present alert and in no apparent distress Head Head exam: Present atraumatic, normocephalic and normal inspection Eye Eye exam: Present normal appearance, PERRL and EOMI ENT ENT exam: Present normal exam, normal oropharynx and mucous membranes moist Neck Neck exam: Present normal inspection, full ROM and trachea midline Chest Chest inspection: Present normal inspection and symmetric chest wall rise Respiratory Respiratory exam: Present normal lung sounds bilaterally Cardiovascular Cardiovascular exam: Present regular rate, normal rhythm and normal heart sounds Abdominal Exam Abdominal exam: Present soft and normal bowel sounds Extremities Exam Extremities exam: Present full ROM and other (right foot weakness, no right leg weakness ) Back Exam Back exam: Present normal inspection and full ROM Neurological Exam Neurological exam: Present alert, oriented X3 and CN II-XII intact Psychiatric Psychiatric exam: Present normal affect and normal mood Skin Skin exam: Present warm, dry, intact and normal color Course Course Course Narrative: EKG showed paced beats, this was underlying rhythm A-fib with ventricular pacing, wide QRS complexes, no ST elevation, rate of 63, with prolonged QT interval Quality Measures none Orders Category Date Time Status EKG (ED ONLY) *Do not use* NOW Care 11/03/24 17:[address] cervical spine wo con Stat Exams 11/03/24 18:[address] head/brain wo con Stat Exams 11/03/24 17:[address] lumbar spine wo con Stat Exams 11/03/24 17:[address] thoracic spine wo con Stat Exams 11/03/24 18:06 Taken CXRP [XR chest 1V portable] Stat Exams 11/03/24 17:02 Completed EKG (ED Only) Stat Exams 11/03/24 17:02 Draft BNP [B-Type Natriuretic Peptide] Stat Lab 11/03/24 17:40 Completed CBC [CBC] Stat Lab 11/03/24 17:40 Completed CK [Creatine Kinase] Stat Lab 11/03/24 17:40 Completed CMP [Comprehensive Metabolic Panel] Stat Lab 11/03/24 17:40 Completed Troponin I Stat Lab 11/03/24 17:40 Completed UA, C/S IF [Urinalysis, C/S if Indicated] Stat Lab 11/03/24 17:02 Ordered Vital Signs Vital signs: Vital Signs Temperature 98.6 F 11/03/24 16:44 Pulse Rate 91 11/03/24 16:44 Respiratory Rate 18 11/03/24 16:44 Blood Pressure 128/82 11/03/24 16:44 Pulse Oximetry (%) 94 L 11/03/24 16:44 Oxygen Delivery Method Room Air 11/03/24 16:44 Pulse ox is 94% on room air which is adequate. Weakness MDM Narrative MDM Narrative:: Maribell Pollack am scribing for and in the presence of Dr. Thompson. Assessment: Isolated lower extremity weakness following a fall, associated with back pain. Differential includes: Peripheral nerve injury, vertebral compression fracture, spinal nerve root injury Presentation is not consistent with acute CVA; weakness appears to be secondary to mechanical or neurologic injury related to the fall. Presentation is outside of the window for acute intervention. Plan: CT lumbar spine, CT head, pain management. Consider MRI spine depending on CT findings and neurology/neurosurgery recommendations. 1800: Patient signed out to Dr. Clarke pending labs, imaging, and final disposition. Patient data External records reviewed:: [facility] previous records and EMS form Clinical information provided by:: patient and EMS Social determinants that could affect healthcare access:: none Patient has the following chronic illnesses:: atrial fibrillation on Eliquis, CAD s/p PCI, sick sinus syndrome s/p pacemaker, hypertension, hyperparathyroid s/p L parathyroidectomy, CKD How is presenting disease/condition affected by chronic disease/condition?: exacerbated by Evaluation data The following diagnostics were reviewed and interpreted by me:: lab results, radiology exam(s) and EKG tracing(s) (EKG showed paced beats, this was underlying rhythm A-fib with ventricular pacing, wide QRS complexes, no ST elevation, rate of 63, with prolonged QT interval) Lab and/or radiology exams considered but not ordered:: None Interpretation Summary: Ordering Physician: Tulio Mccabe MD Date of Service: 11/03/24 Procedure(s): XR chest 1V portable Accession Number(s): [id number] cc: Tulio Mccabe MD; Govind Vick MD; NO PRIMARY/FAMILY,PHYSICIAN~ Examination: AP chest single view TECHNIQUE: AP upright portable chest single view Date and time: November 03, 2024 at 1752 hours Comparison September 10, 2024 INDICATIONS: Generalized weakness today. FINDINGS: Mild prominence cardiac contour Cardiac leads satisfactory position No pneumonia or pulmonary edema Mild vascular congestion IMPRESSION: No pneumonia or pulmonary edema Mild vascular congestion Dictated By: Govind Vick MD Signed By: <Electronically signed by Govind Vick MD in OV> 11/03/24 1757 Medications / Prescriptions Medications or Prescriptions considered but not ordered:: None Medication administrations:: See above Consultations Consultation(s) initiated? (list below): No Diagnosis Weakness Differential Diagnosis: acute myocardial infarction, anemia, hypoglycemia, hypothyroidism, rhabdomyolysis, sepsis and dehydration Most likely diagnosis given after review of the tests above:: Weakness Back pain Admission Indicated Admission indicated?: not indicated Explain why admission is indicated or not indicated:: Signed out pending final disposition Admission Request Was there a request for admission?: No Disposition Plan Disposition Plan: other (specify) (Signed out to Dr. Clarke ) Discharge Plan Prescriptions/Referrals Prescriptions/Med Rec: No Action pravastatin [Pravachol] 40 MG tablet 40 mg PO QAM Qty: 0 amitriptyline 10 mg Tablet 10 mg PO HS hydrocodone-acetaminophen 7.5-325 mg tablet 1 tab PO QID MDD 4 tabs PRN (Reason: pain) Qty: 12 0RF omeprazole 20 mg capsule,delayed release(DR/EC) 20 mg PO 1XD Patient Comments: TAKE 1 CAPSULE BY MOUTH EVERY DAY 30 MINUTES BEFORE MORNING MEAL cinacalcet 30 mg tablet 30 mg PO 1XD Patient Comments: TAKE 1 TABLET BY MOUTH EVERY DAY WITH FOOD OR AFTER MEAL DAILY FOR 90 DAYS Eliquis 5 mg tablet 2.5 mg BID Patient Comments: TAKE 1 TABLET BY MOUTH TWICE A DAY FOR 90 DAYS colchicine 0.6 mg tablet 0.3 mg PO QDAY Qty: 30 3RF gabapentin 800 mg tablet 800 mg PO HS Qty: 30 2RF spironolactone 25 mg tablet 25 mg PO QDAY Patient Comments: TAKE 1 TABLET BY MOUTH EVERY DAY FOR 90 DAYS benazepril 20 mg tablet 10 mg PO HS Patient Comments: TAKE 1 TABLET BY MOUTH EVERY DAY FOR 90 DAYS bumetanide 0.5 mg tablet 0.5 mg PO HS Patient Comments: TAKE 1 TABLET BY MOUTH EVERY DAY FOR 30 DAYS metolazone 2.5 mg tablet 2.5 mg PO QDAY Qty: 30 0RF Referrals: No Primary/Family,Physician [Primary Care Provider] - In 1 week Patient/Caregiver Discharge Instructions Print Language: Nigerien
[2024-11-03 17:40] VITALS: PULSE 60; RESP 19; O2SAT 95
[2024-11-03 18:01] LABS: Basophils # (Auto) 0.1 Thou/mm3 (0.0-0.2); Basophils % (Auto) 1 % (0-2.5); Eosinophils # (Auto) 0.1 Thou/mm3 (0.0-0.5); Eosinophils % (Auto) 1 % (0-10); Hematocrit 36.2 % (41.0-53.0); Hemoglobin 11.3 g/dL (13.5-16.0); Immature Granulocytes % (Auto) 1 % (0-0); Immature Granulocytes Auto 0.07 Thou/mm3 (0.00-0.00); Lymphocytes # (Auto) 1.6 Thou/mm3 (1.0-4.8); Lymphocytes % (Auto) 18 % (10-50); Mean Corpuscular HGB Conc 31.2 g/dl (31.0-37.0); Mean Corpuscular Hemoglobin 25.9 pg (25.0-35.0); Mean Corpuscular Volume 83 fL (80-100); Monocytes # (Auto) 0.9 Thou/mm3 (0.0-0.8); Monocytes % (Auto) 10 % (0-12); Neutrophils # (Auto) 6.2 Thou/mm3 (1.8-7.7); Neutrophils % (Auto) 70 % (37-80); Nucleated Red Blood Cell # 0.03 Thou/mm3 (0.00-0.00); Nucleated Red Blood Cell % 0 /100 WBC (0); Platelet Count 305 Thou/mm3 (140-440); RDW Standard Deviation 55.4 fL (35.1-43.9); Red Blood Count 4.36 Miln/mm3 (4.50-5.90); White Blood Count 8.9 Thou/mm3 (3.8-10.6)
--- NOTE | 2024-11-03 18:06 | XR_ITS ---
Examination: CT thoracic spine, without contrast. 2-D sagittal reconstructions. 2-D coronal reconstructions. 3-D reconstructions. Date and time of exam:November 03, 2024 1814 hours INDICATIONS: Patient fell 2 days ago with injury to the back, mid back pain CTDI: vol (mGy):26.1 DLP: (mGycm):908 Technique: Multiple 1.25 mm axial sections of the thoracic spine without intravenous contrast. 2-D sagittal and coronal reconstructions have been obtained. 3-D reconstructions have been obtained. Low dose protocols were performed. One or more of the following dose reduction techniques were used; automated exposure control, adjustment of the mA and/or KV according to patient size, use of iterative reconstruction technique. Findings: Adequate alignment thoracic vertebral bodies on the lateral view Moderate diffuse thoracic disc narrowing No thoracic fracture Thoracic pedicles and laminae appear intact on the axial images Small right minimal left pleural fluid Numerous precarinal lymph nodes axial image 62 IMPRESSION: No acute thoracic fracture Numerous precarinal lymph nodes, consider elective CT chest post intravenous contrast follow-up
--- NOTE | 2024-11-03 18:06 | XR_ITS ---
Examination: CT cervical spine without contrast 2-D sagittal reconstructions 2-D coronal reconstructions 3-D reconstructions. Exam date and time:November 03, 2024, 1809 hours Comparison September 10, 2024 INDICATIONS: Patient fell 2 days ago with injury of the neck, neck pain CTDI:vol (mGy) 8.8 DLP: (mGycm) 194 Technique: Multiple 2 mm axial sections of the cervical spine have been obtained. The coronal and sagittal reconstructions have been obtained. 3-D reconstructions have been obtained. Low dose protocols were performed. One or more of the following dose reduction techniques were used; automated exposure control, adjustment of the mA and/or KV according to patient size, use of iterative reconstruction technique. Findings: Axial sections demonstrate intact base of the skull. C1 exhibit satisfactory relationship to the odontoid. No acute cervical vertebral body fracture seen. Alignment posterior spinous processes satisfactory. Cervical fusion C3-C5 with anatomic alignment Moderate to advanced degenerative disc disease C5-C6, C6-C7, C7-T1 Impression: No acute cervical fracture.
[2024-11-03 18:14] LABS: B-Type Natriuretic Peptide 658 pg/mL (0-100)
[2024-11-03 18:15] LABS: Alanine Aminotransferase 22 U/L (10-49); Albumin, Serum 4.1 gm/dL (3.4-4.8); Albumin/Globulin Ratio 1.8 (1.2-2.2); Alkaline Phosphatase 117 U/L (46-116); Anion Gap 11 (7-16); Aspartate Amino Transferase 17 U/L (0-34); BUN/Creatinine Ratio 19 Ratio (12-20); Bilirubin,Total 0.7 mg/dL (0.3-1.2); Blood Urea Nitrogen 37 mg/dL (9-23); Calcium 9.9 mg/dL (8.3-10.6); Calcium (Corrected) 9.9 mg/dL (8.5-10.1); Carbon Dioxide 22.8 mMol/L (20.0-31.0); Chloride 106 mMol/L (98-107); Creatine Kinase 51 U/L (34-171); Creatinine (Component) 1.9 mg/dL (0.6-1.3); Estimated Creatinine Clearance 37.3 mL/min (>60); Globulin 2.3 gm/dL (2.3-3.5); Glucose 138 mg/dL (74-106); Osmolality,Calculated 290 (275-295); Potassium 4.8 mMol/L (3.4-5.1); Sodium 140 mMol/L (136-145); Total Protein 6.4 gm/dL (5.7-8.2); eGFR 35 See Note
[2024-11-03 18:20] LABS: Troponin I 0.339 ng/mL (0.0-0.045)
--- NOTE | 2024-11-03 18:20 | PD.EDADDENDU ---
Emergency Room Addendum <Malia Whelan - Last Filed: 11/04/24 04:14> Addendum Narrative: 1800: Care assumed from Dr. Thompson, the previous shift emergency physician. Past medical, surgical, social and family history reviewed. Vitals and home medications reviewed. Results and treatment plan discussed. I will assume the care of the patient at this time and will follow the patient, pending CT head and CT lumbar spine. Please refer to the emergency department record for history and examination from initial visit. 79yo male with a history of back surgeries, CAD s/p stent, [employer] pacemaker presents to the ED for complaints of dizziness, left mid-back pain, and right leg weakness since his trip and fall 2 days ago. Patient endorses having a history of chronic back pain, but states the right leg weakness is new. Patient denies any LOC. CBC normal, Creatinine 1.9 (which is chronic), Glucose 138, Troponin 0.339, BNP 658, UA negative for UTI. CT scans are unremarkable for any acute findings. Given the patient's right leg weakness is new, the patient will need a MRI of his spine tomorrow morning. RADIOLOGY RESULTS: [facility] Signed Patient: CHANCE YO [facility]. Record#: [id number] Birthdate: 1945 Age/Sex: 79 / M Location: [facility] Attending Dr: Ordering Physician: Tulio Mccabe MD Date of Service: 11/03/24 Procedure(s): CT head/brain wo con Accession Number(s): [id number] cc: Tulio Mccabe MD; Govind Vick MD; NO PRIMARY/FAMILY,PHYSICIAN~ Examination: CT brain head without contrast. 2-D sagittal coronal reconstructions Date and time of exam:November 03, 2024, 1809 hours Comparison September 10, 2024 INDICATIONS: Patient fell 2 days ago with injury to the head, the patient is anticoagulated CTDI: vol (mGy):50.4 DLP: (mGycm):1007 Technique: Multiple CT axial sections of the brain have been obtained, 5 mm slice thickness. Contrast has not been administered. 2-D sagittal, coronal reconstructions have been obtained Low dose protocols were performed. One or more of the following dose reduction techniques were used; automated exposure control, adjustment of the mA and/or KV according to patient size, use of iterative reconstruction technique. Findings: No significant ventricular enlargement. Intra-axial or extra-axial hemorrhage density is not seen. No mass effect or midline shift Basal cisterns are not remarkable. Fourth ventricle is midline. Cranial vault intact. Impression: Negative for acute hemorrhage, mass effect or midline shift Dictated By: Govind Vick MD Signed By: <Electronically signed by Govind Vick MD in OV> 11/03/241902 [facility] Signed Patient: CHANCE YO. Record#: [id number] Birthdate: 1945 Age/Sex: 79 / M Location: [facility] Attending Dr: Ordering Physician: Aletha Clarke MD Date of Service: 11/03/24 Procedure(s): CT cervical spine wo con Accession Number(s): [id number] cc: Govind Vick MD; NO PRIMARY/FAMILY,PHYSICIAN; Aletha Clarke MD~ Examination: CT cervical spine without contrast 2-D sagittal reconstructions 2-D coronal reconstructions 3-D reconstructions. Exam date and time:November 03, 2024, 1809 hours Comparison September 10, 2024 INDICATIONS: Patient fell 2 days ago with injury of the neck, neck pain CTDI:vol (mGy) 8.8 DLP: (mGycm) 194 Technique: Multiple 2 mm axial sections of the cervical spine have been obtained. The coronal and sagittal reconstructions have been obtained. 3-D reconstructions have been obtained. Low dose protocols were performed. One or more of the following dose reduction techniques were used; automated exposure control, adjustment of the mA and/or KV according to patient size, use of iterative reconstruction technique. Findings: Axial sections demonstrate intact base of the skull. C1 exhibit satisfactory relationship to the odontoid. No acute cervical vertebral body fracture seen. Alignment posterior spinous processes satisfactory. Cervical fusion C3-C5 with anatomic alignment Moderate to advanced degenerative disc disease C5-C6, C6-C7, C7-T1 Impression: No acute cervical fracture. Dictated By: Govind Vick MD Signed By: <Electronically signed by Govind Vick MD in OV> 11/03/241903 [facility] Signed Patient: CHANCE YO [facility]. Record#: [id number] Birthdate: 1945 Age/Sex: 79 / M Location: [facility] Attending Dr: Ordering Physician: Aletha Clarke MD Date of Service: 11/03/24 Procedure(s): CT thoracic spine wo con Accession Number(s): [id number] cc: Govind Vick MD; NO PRIMARY/FAMILY,PHYSICIAN; Aletha Clarke MD~ Examination: CT thoracic spine, without contrast. 2-D sagittal reconstructions. 2-D coronal reconstructions. 3-D reconstructions. Date and time of exam:November 03, 2024 1814 hours INDICATIONS: Patient fell 2 days ago with injury to the back, mid back pain CTDI: vol (mGy):26.1 DLP: (mGycm):908 Technique: Multiple 1.25 mm axial sections of the thoracic spine without intravenous contrast. 2-D sagittal and coronal reconstructions have been obtained. 3-D reconstructions have been obtained. Low dose protocols were performed. One or more of the following dose reduction techniques were used; automated exposure control, adjustment of the mA and/or KV according to patient size, use of iterative reconstruction technique. Findings: Adequate alignment thoracic vertebral bodies on the lateral view Moderate diffuse thoracic disc narrowing No thoracic fracture Thoracic pedicles and laminae appear intact on the axial images Small right minimal left pleural fluid Numerous precarinal lymph nodes axial image 62 IMPRESSION: No acute thoracic fracture Numerous precarinal lymph nodes, consider elective CT chest post intravenous contrast follow-up Dictated By: Govind Vick MD Signed By: <Electronically signed by Govind Vick MD in OV> 11/03/24 1910 [facility] Signed Patient: CHANCE YO [facility]. Record#: [id number] Birthdate: 1945 Age/Sex: 79 / M Location: [facility] Attending Dr: Ordering Physician: Tulio Mccabe MD Date of Service: 11/03/24 Procedure(s): CT lumbar spine wo con Accession Number(s): [id number] cc: Tulio Mccabe MD; Govind Vick MD; NO PRIMARY/FAMILY,PHYSICIAN~ Examination: CT lumbar spine, without contrast. 2-D sagittal reconstructions. 2-D coronal reconstructions. 3-D reconstructions. Date and time of exam: November 03, 2024, 1814 hours INDICATIONS: Patient fell 2 days ago with injury to lower back, lower back pain CTDI: vol (mGy):43.6 DLP: (mGycm):1528 Technique: Multiple 1.25 mm axial sections of the lumbar spine without intravenous contrast have been obtained. 2-D sagittal and coronal reconstructions have been obtained. 3-D reconstructions have been obtained. Low dose protocols were performed. One or more of the following dose reduction techniques were used; automated exposure control, adjustment of the mA and/or KV according to patient size, use of iterative reconstruction technique. Findings: Prominent osteopenia. No lumbar fracture. Mild to moderate diffuse lumbar disc. Prominent lumbar spondylosis Extensive laminectomies No spondylolisthesis Lumbar pedicles, laminae, transverse and posterior spinous processes intact Axial images demonstrate no focal disc protrusion Partial visualization possible end-stage right renal hydronephrotic sac IMPRESSION: No acute lumbar fracture No focal lumbar disc protrusion Partial visualization possible end-stage right hydronephrotic sac, recommend renal sonography follow-up Dictated By: Govind Vick MD Signed By: <Electronically signed by Govind Vick MD in OV> 11/03/24 1907 <Aletha Clarke MD - Last Filed: 11/04/24 04:18> Addendum Narrative: 1800: Care assumed from Dr. Thompson, the previous shift emergency physician. Past medical, surgical, social and family history reviewed. Vitals and home medications reviewed. Results and treatment plan discussed. I will assume the care of the patient at this time and will follow the patient, pending CT head and CT lumbar spine. Please refer to the emergency department record for history and examination from initial visit. 79yo male with a history of back surgeries, CAD s/p stent, [employer] pacemaker presents to the ED for complaints of dizziness, left mid-back pain, and right leg weakness since his trip and fall 2 days ago. Patient endorses having a history of chronic back pain, but states the right leg weakness is new. Patient denies any LOC. CBC normal, Creatinine 1.9 (which is chronic), Glucose 138, Troponin 0.339, BNP 658, UA negative for UTI. CT scans are unremarkable for any acute findings. Given the patient's right leg weakness is new, the patient will need a MRI of his spine tomorrow morning. Patient will be signed out to oncoming provider. RADIOLOGY RESULTS: [facility] Signed Patient: CHANCE YO [facility]. Record#: [id number] Birthdate: 1945 Age/Sex: 79 / M Location: [facility] Attending Dr: Ordering Physician: Tulio Mccabe MD Date of Service: 11/03/24 Procedure(s): CT head/brain wo con Accession Number(s): [id number] cc: Tulio Mccabe MD; Govind Vick MD; NO PRIMARY/FAMILY,PHYSICIAN~ Examination: CT brain head without contrast. 2-D sagittal coronal reconstructions Date and time of exam:November 03, 2024, 1809 hours Comparison September 10, 2024 INDICATIONS: Patient fell 2 days ago with injury to the head, the patient is anticoagulated CTDI: vol (mGy):50.4 DLP: (mGycm):1007 Technique: Multiple CT axial sections of the brain have been obtained, 5 mm slice thickness. Contrast has not been administered. 2-D sagittal, coronal reconstructions have been obtained Low dose protocols were performed. One or more of the following dose reduction techniques were used; automated exposure control, adjustment of the mA and/or KV according to patient size, use of iterative reconstruction technique. Findings: No significant ventricular enlargement. Intra-axial or extra-axial hemorrhage density is not seen. No mass effect or midline shift Basal cisterns are not remarkable. Fourth ventricle is midline. Cranial vault intact. Impression: Negative for acute hemorrhage, mass effect or midline shift Dictated By: Govind Vick MD Signed By: <Electronically signed by Govind Vick MD in OV> 11/03/241902 [facility] Signed Patient: CHANCE YO [facility]. Record#: [id number] Birthdate: 1945 Age/Sex: 79 / M Location: [facility] Attending Dr: Ordering Physician: Aletha Clarke MD Date of Service: 11/03/24 Procedure(s): CT cervical spine wo con Accession Number(s): [id number] cc: Govind Vick MD; NO PRIMARY/FAMILY,PHYSICIAN; Aletha Clarke MD~ Examination: CT cervical spine without contrast 2-D sagittal reconstructions 2-D coronal reconstructions 3-D reconstructions. Exam date and time:November 03, 2024, 1809 hours Comparison September 10, 2024 INDICATIONS: Patient fell 2 days ago with injury of the neck, neck pain CTDI:vol (mGy) 8.8 DLP: (mGycm) 194 Technique: Multiple 2 mm axial sections of the cervical spine have been obtained. The coronal and sagittal reconstructions have been obtained. 3-D reconstructions have been obtained. Low dose protocols were performed. One or more of the following dose reduction techniques were used; automated exposure control, adjustment of the mA and/or KV according to patient size, use of iterative reconstruction technique. Findings: Axial sections demonstrate intact base of the skull. C1 exhibit satisfactory relationship to the odontoid. No acute cervical vertebral body fracture seen. Alignment posterior spinous processes satisfactory. Cervical fusion C3-C5 with anatomic alignment Moderate to advanced degenerative disc disease C5-C6, C6-C7, C7-T1 Impression: No acute cervical fracture. Dictated By: Govind Vick MD Signed By: <Electronically signed by Govind Vick MD in OV> 11/03/24 1904 [facility] Signed Patient: CHANCE YO. Record#: [id number] Birthdate: 1945 Age/Sex: 79 / M Location: [facility] Attending Dr: Ordering Physician: Aletha Clarke MD Date of Service: 11/03/24 Procedure(s): CT thoracic spine wo con Accession Number(s): [id number] cc: Govind Vick MD; NO PRIMARY/FAMILY,PHYSICIAN; Aletha Clarke MD~ Examination: CT thoracic spine, without contrast. 2-D sagittal reconstructions. 2-D coronal reconstructions. 3-D reconstructions. Date and time of exam:November 03, 2024 1814 hours INDICATIONS: Patient fell 2 days ago with injury to the back, mid back pain CTDI: vol (mGy):26.1 DLP: (mGycm):908 Technique: Multiple 1.25 mm axial sections of the thoracic spine without intravenous contrast. 2-D sagittal and coronal reconstructions have been obtained. 3-D reconstructions have been obtained. Low dose protocols were performed. One or more of the following dose reduction techniques were used; automated exposure control, adjustment of the mA and/or KV according to patient size, use of iterative reconstruction technique. Findings: Adequate alignment thoracic vertebral bodies on the lateral view Moderate diffuse thoracic disc narrowing No thoracic fracture Thoracic pedicles and laminae appear intact on the axial images Small right minimal left pleural fluid Numerous precarinal lymph nodes axial image 62 IMPRESSION: No acute thoracic fracture Numerous precarinal lymph nodes, consider elective CT chest post intravenous contrast follow-up Dictated By: Govind Vick MD Signed By: <Electronically signed by Govind Vick MD in OV> 11/03/240 [facility] Signed Patient: CHANCE YO. Record#: [id number] Birthdate: 1945 Age/Sex: 79 / M Location: [facility] Attending Dr: Ordering Physician: Tulio Mccabe MD Date of Service: 11/03/24 Procedure(s): CT lumbar spine wo con Accession Number(s): [id number] cc: Tulio Mccabe MD; Govind Vick MD; NO PRIMARY/FAMILY,PHYSICIAN~ Examination: CT lumbar spine, without contrast. 2-D sagittal reconstructions. 2-D coronal reconstructions. 3-D reconstructions. Date and time of exam: November 03, 2024, 1814 hours INDICATIONS: Patient fell 2 days ago with injury to lower back, lower back pain CTDI: vol (mGy):43.6 DLP: (mGycm):1528 Technique: Multiple 1.25 mm axial sections of the lumbar spine without intravenous contrast have been obtained. 2-D sagittal and coronal reconstructions have been obtained. 3-D reconstructions have been obtained. Low dose protocols were performed. One or more of the following dose reduction techniques were used; automated exposure control, adjustment of the mA and/or KV according to patient size, use of iterative reconstruction technique. Findings: Prominent osteopenia. No lumbar fracture. Mild to moderate diffuse lumbar disc. Prominent lumbar spondylosis Extensive laminectomies No spondylolisthesis Lumbar pedicles, laminae, transverse and posterior spinous processes intact Axial images demonstrate no focal disc protrusion Partial visualization possible end-stage right renal hydronephrotic sac IMPRESSION: No acute lumbar fracture No focal lumbar disc protrusion Partial visualization possible end-stage right hydronephrotic sac, recommend renal sonography follow-up Dictated By: Govind Vick MD Signed By: <Electronically signed by Govind Vick MD in OV> 11/03/24 8610
[2024-11-03 20:27] VITALS: BP 152/85; PULSE 60; RESP 18; TEMP 37; O2SAT 94
[2024-11-03 20:50] LABS: Collection Type, Urine Clean Catch
[2024-11-03 20:55] LABS: Bilirubin,Urine Negative (Negative); Blood,Urine 1+ (Negative); Clarity,Urine Clear (Clear/Hazy); Color,Urine Yellow (Lt Yel-Yel); Culture Indicated,Urine Not Indicated; Glucose, Urine Negative (Negative); Ketones,Urine Negative (Negative); Leukocyte Esterase,Urine Negative (Negative); Nitrite,Urine Negative (Negative); Protein,Urine 1+ (Neg - Trace); RBC,Urine 5 /hpf (0-3); Renal Epithelial Cells,Urine 1 /hpf (0-5); Specific Gravity,Urine 1.018 (1.001-1.035); Squamous Epithelial Cell,Urine < 1 /hpf (0-5); Transitional Epi Cells,Urine < 1 /hpf (0-5); Urobilinogen,Urine Negative mg/dL (0.0-1.0); WBC,Urine 10 /hpf (0-5)
[2024-11-03] MEDS: oxyCODONE/APAP 5/325 TABLET 1 TAB PO (21:59)
[2024-11-03 22:24] LABS: Troponin I 0.393 ng/mL (0.0-0.045)
[2024-11-03 22:27] VITALS: BP 135/89; PULSE 61; RESP 22; TEMP 36.9; O2SAT 92
[2024-11-04] VITALS (71 sets, daily range): BP systolic 123–163; BP diastolic 73–95; PULSE 56–84; RESP 9–88; TEMP 36.4–36.9; O2SAT 82–99
--- NOTE | 2024-11-04 | XR_ITS ---
Examination: MRI thoracic spine without contrast. Date and time of exam: November 04, 2024 1455 hours INDICATIONS: Ground-level fall 3 days ago with injury to mid back, mid back pain Technique: Multiple sagittal and axial images of the thoracic spine have been obtained. T1 weighted localizer, sagittal T2 weighted images, TR 30-50, TE 148, T1 weighted sagittal images, TR 650, TE 14, T2-weighted transverse images, TR 6770, TE 142 Findings: Adequate alignment thoracic vertebral bodies No thoracic vertebral body compression fracture Diffuse thoracic disc desiccation Xsif-ay-hbqbyxnr diffuse thoracic disc narrowing No localized enlargement thoracic cord T9-T10 2 mm central lumbar disc bulge No impingement upon the thoracic cord Impression: No thoracic fracture Doxi-gu-yhytglkz diffuse thoracic degenerative disc disease No significant acquired spinal stenosis impinging upon the thoracic cord
--- NOTE | 2024-11-04 | XR_ITS ---
Examination: MRI lumbar spine without contrast Date and time of exam: November 04, 2024 1455 hours Comparison July 30, 2024 INDICATIONS: Low back pain months Technique: Multiple MRI axial and sagittal sections lumbar spine. Sagittal T2-weighted images, TR 3500, TE 118 T1 weighted transverse sections, TR 688 T8.5, T2-weighted sagittal sections T1 weighted sagittal sections TR 621, TE 30 T2 axial sections, TR 4, 190, TE 84. Findings: Adequate alignment lumbar vertebral bodies No lumbar fracture Moderate diffuse lumbar degenerative disc disease No spondylolisthesis L5-S1 7 mm left foraminal disc bulge producing mild left L5 ganglionic compression L4-L5 no disc protrusion L3-L4 small foraminal disc bulges in the 3 mm range with no ganglionic compression L2-L3 no disc protrusion L1-L2 no disc protrusion Incidental note partial visualization left renal cyst IMPRESSION: Moderate diffuse lumbar degenerative disease L5-S1 7 mm left foraminal disc bulge producing mild left L5 ganglionic compression
[2024-11-04] MEDS: oxyCODONE/APAP 5/325 TABLET 1 TAB PO ×2 (03:33→10:18)
--- NOTE | 2024-11-04 08:44 | PC.NURSE ---
[facility] FROM [facility] CONTACTED, STATES THEY ARE STILL WAITING FOR PACEMAKER CLEARANCE AT THIS TIME.
--- NOTE | 2024-11-04 12:46 | EDNOTE_ITS ---
Emergency Room Addendum Addendum Narrative: 0915: Care assumed from Dr. Clarke, the previous shift emergency physician. Past medical, surgical, social and family history reviewed. Vitals and home medications reviewed. I will assume the care of the patient at this time, pending MRI and final disposition. Please refer to the emergency department record for history and examination from initial visit.?The following addendum documentation note is intended to reflect any pending information, findings, or radiology results not included in the patient?s initial chart. On reassessment, the patient was noted to have severe muscular atrophy in the lower extremities, which he reports began following hip surgery in June. I advised rehab placement for physician therapy; however, the patient declined, stating he would rather perform PT at home. Will DC home. RADIOLOGY --------- Ordering Physician: Aletha Clarke MD Date of Service: 11/04/24 Procedure(s): MR thoracic spine wo con Accession Number(s): [id number] cc: Govind Vick MD; NO PRIMARY/FAMILY,PHYSICIAN; Aletha Clarke MD~ Examination: MRI thoracic spine without contrast. Date and time of exam: November 04, 2024 1455 hours INDICATIONS: Ground-level fall 3 days ago with injury to mid back, mid back pain Technique: Multiple sagittal and axial images of the thoracic spine have been obtained. T1 weighted localizer, sagittal T2 weighted images, TR 30-50, TE 148, T1 weighted sagittal images, TR 650, TE 14, T2-weighted transverse images, TR 6770, TE 142 Findings: Adequate alignment thoracic vertebral bodies No thoracic vertebral body compression fracture Diffuse thoracic disc desiccation Liva-nu-dqidbsxo diffuse thoracic disc narrowing No localized enlargement thoracic cord T9-T10 2 mm central lumbar disc bulge No impingement upon the thoracic cord Impression: No thoracic fracture Xtil-hg-wrclpjdb diffuse thoracic degenerative disc disease No significant acquired spinal stenosis impinging upon the thoracic cord Dictated By: Govind Vick MD Signed By: <Electronically signed by Govind Vick MD in OV> 11/04/24 164 Ordering Physician: Aletha Clarke MD Date of Service: 11/04/24 Procedure(s): MR lumbar spine wo con Accession Number(s): [id number] cc: Govind Vick MD; NO PRIMARY/FAMILY,PHYSICIAN; Aletha Clarke MD~ Examination: MRI lumbar spine without contrast Date and time of exam: November 04, 2024 1455 hours Comparison July 30, 2024 INDICATIONS: Low back pain months Technique: Multiple MRI axial and sagittal sections lumbar spine. Sagittal T2-weighted images, TR 3500, TE 118 T1 weighted transverse sections, TR 688 T8.5, T2-weighted sagittal sections T1 weighted sagittal sections TR 621, TE 30 T2 axial sections, TR 4, 190, TE 84. Findings: Adequate alignment lumbar vertebral bodies No lumbar fracture Moderate diffuse lumbar degenerative disc disease No spondylolisthesis L5-S1 7 mm left foraminal disc bulge producing mild left L5 ganglionic compression L4-L5 no disc protrusion L3-L4 small foraminal disc bulges in the 3 mm range with no ganglionic compression L2-L3 no disc protrusion L1-L2 no disc protrusion Incidental note partial visualization left renal cyst IMPRESSION: Moderate diffuse lumbar degenerative disease L5-S1 7 mm left foraminal disc bulge producing mild left L5 ganglionic compression Dictated By: Govind Vick MD Signed By: <Electronically signed by Govind Vick MD in OV>11/04/241644 Ordering Physician: Tulio Mccabe MD Date of Service: 11/04/24 Procedure(s): CT abdomen pelvis wo con Accession Number(s): [id number] cc: Tulio Mccabe MD; Govind Vick MD; NO PRIMARY/FAMILY,PHYSICIAN~ Examination: CT abdomen and pelvis without contrast. Coronal 3-D reconstructions. Sagittal 2-D reconstructions. Date and time of exam:November 04, 2024 at 1638 hours Comparison September 10, 2024 INDICATIONS: Right flank pain today CTDI: vol (mGy): 10.2 DLP: (mGycm): 744 Technique: Axial images of the abdomen have been obtained, 3 mm slice thickness Intravenous contrast material has not been administered. Low dose protocols were performed. One or more of the following dose reduction techniques were used; automated exposure control, adjustment of the mA and/or KV according to patient size, use of iterative reconstruction technique. Findings: Cirrhosis, liver nodular in contour Mild ascites Spleen is not enlarged No pancreatic mass Bilateral renal cysts, the largest septated in the upper pole right kidney measuring 8.8 x 11 cm the largest in the left kidney measuring 34 mm Significant right renal cortical thinning No ureteral calculi Aortic calcification no aneurysmal dilatation No bladder mass Transverse posterior dimension 3.9 cm IMPRESSION: Cirrhosis Bilateral renal cysts including a large septated cyst right kidney 8.8 x 11 cm Significant right renal cortical thinning, consider nuclear medicine renogram follow-up to assess function of the right kidney Dictated By: Govind Vick MD Signed By: <Electronically signed by Govind Vick MD in OV> 11/04/24 1727 Ordering Physician: Isabela Partida MD Date of Service: 11/04/24 Procedure(s): US venous doppler LE BI Accession Number(s): [id number] cc: Govind Vick MD; NO PRIMARY/FAMILY,PHYSICIAN; Isabela Partida MD~ Examination: Venous duplex lower extremity sonogram, bilateral. Date and time of exam: November 04, 2024 7002 hours INDICATIONS: Pain in both feet this month Technique: Multiple sonographic images of the deep venous system have been obtained. B-mode/2-D grayscale imaging of vascular structures and Doppler spectral analysis (waveforms) and color performed Both legs are examined. Findings: Deep venous systems do not demonstrate abnormal echogenicity. All visualized deep veins exhibit compressibility. All visualized deep veins exhibit augmentation. Impression: Negative for deep vein thrombosis Dictated By: Govind Vick MD Signed By: <Electronically signed by Govind Vick MD in OV> 11/04/24 1746
--- NOTE | 2024-11-04 12:50 | PC.NURSE ---
PACEMAKER INTERROGATED USING [employer] DEVICE. 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
--- NOTE | 2024-11-04 13:23 | XR_ITS ---
Examination: CT abdomen and pelvis without contrast. Coronal 3-D reconstructions. Sagittal 2-D reconstructions. Date and time of exam:November 04, 2024 at 1638 hours Comparison September 10, 2024 INDICATIONS: Right flank pain today CTDI: vol (mGy): 10.2 DLP: (mGycm): 744 Technique: Axial images of the abdomen have been obtained, 3 mm slice thickness Intravenous contrast material has not been administered. Low dose protocols were performed. One or more of the following dose reduction techniques were used; automated exposure control, adjustment of the mA and/or KV according to patient size, use of iterative reconstruction technique. Findings: Cirrhosis, liver nodular in contour Mild ascites Spleen is not enlarged No pancreatic mass Bilateral renal cysts, the largest septated in the upper pole right kidney measuring 8.8 x 11 cm the largest in the left kidney measuring 34 mm Significant right renal cortical thinning No ureteral calculi Aortic calcification no aneurysmal dilatation No bladder mass Transverse posterior dimension 3.9 cm IMPRESSION: Cirrhosis Bilateral renal cysts including a large septated cyst right kidney 8.8 x 11 cm Significant right renal cortical thinning, consider nuclear medicine renogram follow-up to assess function of the right kidney
--- NOTE | 2024-11-04 16:21 | PC.NURSE ---
patient had MRI thoracic spine/lumbar spine, tolerated procedure well. Patient was being Monitored throughout procedure due to having a pacemaker
--- NOTE | 2024-11-04 16:39 | XR_ITS ---
Examination: Venous duplex lower extremity sonogram, bilateral. Date and time of exam: November 04, 2024 7002 hours INDICATIONS: Pain in both feet this month Technique: Multiple sonographic images of the deep venous system have been obtained. B-mode/2-D grayscale imaging of vascular structures and Doppler spectral analysis (waveforms) and color performed Both legs are examined. Findings: Deep venous systems do not demonstrate abnormal echogenicity. All visualized deep veins exhibit compressibility. All visualized deep veins exhibit augmentation. Impression: Negative for deep vein thrombosis
--- NOTE | 2024-11-04 16:42 | PD.RESCONSUL ---
HPI Data of Consult Primary Care Provider: Physician No Primary/Family Consult Narrative History of present illness: CC: ground level fall Patient is an 79-year-old male with a past medical history of atrial fibrillation (on Eliquis), CAD status post PCI over 10 years ago, sick sinus rhythm status post atrial fibrillation, history of hypertension, hyperlipidemia, history of back problems secondary to bulging disks, history of hyperparathyroidism now partial parathyroidectomy, and CKD 3B. Patient presented to the emergency room on 11/03/2024 via EMS with a chief complaint of generalized weakness and ground-level mechanical fall. Patient had a mechanical ground level fall when his foot became caught on his walker. Patient landed supine and hit his occipital region. Patient was concern about internal bleeding given history Atrial Fibrillation on Eliquis. at side was also concern as they noticed slurred speech shorly after the fall, did resolved same same, Monday. Patient denied chest pain, denied palpitaitons, and denied diaphoresis. Denied siezure like activity. Patient denied urinary incontinence. Denied post-ictal state. Patient never lost consciousness. Denied any chief complains. Cardiology Consulted from ER Pacemaker device check prior to MRI scan. 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 NO Hoarseness, NO sore throat, NO swollen neck. Cardiac: NO Palpitations, NO dyspnea on exertion, NO orthopnea, NO paroxysmal nocturnal dyspnea, NO edema Respiratory: NO Shortness of Breath, NO Wheezing, NO Cough, NO Sputum, NO hemoptysis GI:NO appetite, NO nausea, NO vomiting, NO dysphagia, NO changes in bowel frequency, NO stool color, NO diarrhea, NO constipation, NO hemetemesis, NO hemorrhoids, NO melena, NO hematechezia, NO abdominal pain, NO jaundice Renal: NO frequency, NO hesitancy, NO urgency, NO hematuria, NO nocturia, NO incontinence MSK: NO muscle weakness, NO gout, NO arthritis, NO muscle stiffness Neuro: NO headaches, NO tremors, NO weakness, NO paralysis, NO seizures, NO loss of consciousness, NO numbness. Hem: NO anemia, NO easy bruising/bleeding, NO petechiae, NO purpura Endo: NO heat/cold intolerance, NO excessive sweating, NO polyuria, NO polydipsia, NO polyphagia, NO thyroid problems, NO diabetes Pysch: NO mood, NO anxiety, NO depression Exam Vital Signs Temp Pulse Resp BP Pulse Ox O2 Del Method O2 Flow Rate 97.7 F 84 20 142/87 H 93 L Room Air 2 11/04/24 14:43 11/04/24 16:20 11/04/24 16:20 11/04/24 16:20 11/04/24 16:20 11/04/24 16:20 11/04/24 01:04 Narrative Exam General Appearance: Alert & Oriented X3, well-nourished male who is lying in bed in no acute distress HEENT: Skull symmetrical and atraumatic. Conjunctivae pink and moist. Pupils equal, round, reactive to light and accommodation (PERRL). External ear without lesion or discharge. Cardio: Normal Rate and Rhythm with S1 and S2 heart sounds. Systolic murmur noted on left sternal region. No bruits on carotid auscultation. Increased peripheral edema on left lower extremity. Venous statis noted bilaterally. Lungs: Symmetric with good expansion. Chest and back non-tender. Breath sounds vesicular without crackles, wheezing or rhonchi Abdomen: Non-tender, Non-distended, Normal Reactive Bowel Sounds Neuro: Alert, cooperative, oriented to person, place, and time. Speech clear. CN grossly intact. Upper motor strength 5/5 and Lower motor strength 5/5. Sensation intact. Results Labs 11/03/24 17:40 11/03/24 17:40 Labs: Short CBC 11/03/24 Range/Units 17:40 WBC 8.9 (3.8-10.6) Thou/mm3 Hgb 11.3 L (13.5-16.0) g/dL Hct 36.2 L (41.0-53.0) % Plt Count 305 (140-440) Thou/mm3 BMP 11/03/24 17:40 Sodium 140 Potassium 4.8 Chloride 106 Carbon Dioxide 22.8 BUN 37 H Creatinine 1.9 H Glucose 138 H Calcium 9.9 Cardiac Enzymes 11/03/24 11/03/24 Range/Units 17:40 21:43 Total Creatine Kinase 51 (34-171) U/L Troponin I 0.339 H* 0.393 H* (0.0-0.045) ng/mL Liver Function 11/03/24 Range/Units 17:40 Total Bilirubin 0.7 (0.3-1.2) mg/dL AST 17 (0-34) U/L ALT 22 (10-49) U/L Alkaline Phosphatase 117 H (46-116) U/L Albumin 4.1 (3.4-4.8) gm/dL Urine 11/03/24 Range/Units 20:46 Urine Color Yellow (Lt Yel-Yel) Urine Clarity Clear (Clear/Hazy) Urine pH 6.0 (5.0-7.0) Ur Specific [place] 1.018 (1.001-1.035) Urine Protein 1+ A (Neg - Trace) Urine Glucose (UA) Negative (Negative) Quality Measures Quality Measures none Advance care planning discussed with:: patient and spouse Medications Home Medications and Allergies Home Medications ?Medication ?Instructions ?Recorded ?Confirmed ?Type pravastatin 40 mg tablet 40 mg PO QAM #0 tabs 10/16/13 09/11/24 History (Pravachol) amitriptyline 10 mg tablet 10 mg PO HS 10/04/18 09/11/24 History apixaban 5 mg tablet (Eliquis) 2.5 mg BID 05/29/24 05/29/24 History cinacalcet 30 mg tablet 30 mg PO 1XD 05/29/24 09/11/24 History omeprazole 20 mg capsule,delayed 20 mg PO 1XD 05/29/24 09/11/24 History release benazepril 20 mg tablet 10 mg PO HS 09/11/24 09/11/24 History bumetanide 0.5 mg tablet 0.5 mg PO HS 09/11/24 09/11/24 History spironolactone 25 mg tablet 25 mg PO QDAY 09/11/24 09/11/24 History Allergies Allergy/AdvReac Type Severity Reaction Status Date / Time No Known Allergies Allergy Verified 05/29/24 14:45 Visit Medications Oxycodone/Acetaminophen (Oxycodone/Apap 5/325 Tablet) 1 tab PO Q4HR PRN PRN Reason: PAIN Stop: 11/09/24 10:02 Last Admin: 11/04/24 10:18 Dose: 1 tab Discontinued Medications Oxycodone/Acetaminophen (Oxycodone/Apap 5/325 Tab (Asd)) 1 tab PO X1 ONE Stop: 11/03/24 21:40 Last Admin: 11/03/24 21:47 Dose: Not Given Oxycodone/Acetaminophen (Oxycodone/Apap 5/325 Tablet) 1 tab PO X1 ONE Stop: 11/03/24 21:47 Last Admin: 11/03/24 21:59 Dose: 1 tab Oxycodone/Acetaminophen (Oxycodone/Apap 5/325 Tablet) 1 tab PO X1 ONE Stop: 11/04/24 03:26 Last Admin: 11/04/24 03:33 Dose: 1 tab Assessment & Plan Plan Patient is an 79-year-old male with a past medical history of atrial fibrillation (on Eliquis), CAD status post PCI over 10 years ago, sick sinus rhythm status post atrial fibrillation, history of hypertension, hyperlipidemia, history of back problems secondary to bulging disks, history of hyperparathyroidism now partial parathyroidectomy, and CKD 3B. Cardiology consulted for device check of pacemaker for MRI Lumar and Thoracic Spine. #Sick sinus status post pacemaker #MRI compatibility Patient requires MRI of thoracic and lumbar area given recent fall. Completed pacemaker form for the MRI and will have the MRI later today #Mechanical fall #Ground-level fall #Rule out intro cranial bleeding Patient experienced a mechanical fall after tripping on his walker inside his home. Patient denied any loss of consciousness's alert and oriented during entire mechanical fall. Single episode of slurred speech that resolved same day on Monday. Given history of Eliquis use CT head obtained. CT head negative for intracranial bleeding. Diagnostics 11/03/2024 cervical, thoracic, and lumbar spine negative for acute fractures and degenerative disc disease noted. Plan - Discharge within the same day - Follow-up with lumbar and thoracic spine MRI given complaint of back pain. #Atrial fibrillation, rate controlled Patient has a past medical history of atrial fibrillation currently rate controlled on Eliquis. No rate controlling medication on board. 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 #Peripheral edema Echo - May 2024 Normal LV size. Moderate LVH. Estimated EF 65%. Mild RV dilatation. Severe RV dysfunction. Estimated RVSP 38mmHg. Pacing wire present. Severe biatrial dilatation. Moderate MAC wwith Moderate MR. Mild TR. Mild IVC dilatation. Past medical history of CHF, pateint new baseline EF 65% based on chart reveiw. Denied orthopnea or PND. Right lower peripheral edema. BNp 658, likely secondary to mechanical fall and some underlying CHFpEF. Venous Duplex negative. BNP 658 Plan -Continue home medication of Bumex and asked him to take additional dose today if he gets discharged and follow-up with Dr. Moran as outpatient given the mild leg swelling and mildly elevated BNP. -work towards quideline directed medicine. -Please follow up with primary vp security for any dose adjustments for BP medicatrion. #CAD status post PCI #Hyperlipidemia Please follow-up with primary care provider for repeat lipid panel continue pravastatin No acute changes. #Hypertension Continue home medication as prescribed please confirm you are not doubling up on an TIMMY. #CKD, stage 3a #Lower peripheral edema Continue to follow up with [facility] provider. -BUN 37, Cr 1.9, and GFR 35, which is near patient's baseline. Plan -Continue to monitor -Continue Bumex #Partial parathyroidectomy Managed by PCP, likely require follow-up. Continue home medication of cinacalcet. Patient will be discharged from the emergency room within the next hours. - The patient's plan was discussed with attending Dr. Chalo Partida MD PGY1 Internal Medicine Attending Provider Attestation/Addendum I have personally seen and examined the patient separately on the above date of service and discussed the plan of care with the resident. I reviewed the resident Dr. Isabela Partida consultation progress note and agree with the resident findings and plan in the note above and have also edited the documentation to reflect my findings and plan. Pacemaker check performed. Patient has a [employer] pacemaker and has a battery life more than 7 years. Although sensitivity, thresholds as well as impedance are in the normal range. Reviewed the pacemaker details and is MRI safe along with pacemaker leads which are also MRI safe.. MRI EEG device check form completed for the MRI with the patient needs. Patient is scheduled for the MRI later today. Continue home medication of Bumex and asked him to take additional dose today if he gets discharged and follow-up with Dr. Moran as outpatient given the minimal leg swelling and mildly elevated BNP. if the patient is admitted to the hospital then we will continue to follow patient and will plan for IV Bumex. Leon Isabel M.D. Interventional Cardiology
== END 2024-11-04 17:35 | disposition home or self-care (01) ==
PROVIDERS: Emergency Medicine; Emergency Provider Emergency Medicine
DX: I48.91 Unspecified atrial fibrillation (principal); I25.10 Atherosclerotic heart disease of native coronary artery without angina pectoris; Z95.5 Presence of coronary angioplasty implant and graft; Z95.0 Presence of cardiac pacemaker; I12.9 Hypertensive chronic kidney disease with stage 1 through stage 4 chronic kidney disease, or unspecified chronic kidney disease; N18.9 Chronic kidney disease, unspecified; R09.89 Other specified symptoms and signs involving the circulatory and respiratory systems; M51.34 Other intervertebral disc degeneration, thoracic region; M51.369 Other intervertebral disc degeneration, lumbar region without mention of lumbar back pain or lower extremity pain; K74.60 Unspecified cirrhosis of liver; N28.1 Cyst of kidney, acquired
CPT/HCPCS: 51701; 36415; 70450; 71045; 72125; 72128; 72131; 72146; 72148; 74176; 80053; 81001; 82550; 83880; 84484; 85025; 93005; 93970; 99284; A9270

== ENCOUNTER 2024-12-10 10:48 | Emergency (ER) | payer MEDICARE, MEDICAID, SELFPAY ==
[2024-12-10] VITALS (8 sets, daily range): BP systolic 126–161; BP diastolic 65–94; PULSE 57–104; RESP 15–32; TEMP 36.3–36.4; O2SAT 97–99; BMI 34.8
--- NOTE | 2024-12-10 11:21 | XR_ITS ---
Examination: Abdomen sonogram, complete Date and time of exam: December 10, 2024 1135 hours INDICATIONS: Diagnosis cirrhosis, mild ascites on CT examination November 04, 2024. Technique: Multiple real-time grayscale transabdominal sonographic images of the abdomen have been obtained. Findings: Absent gallbladder Common bile duct 0.4 cm Pancreatic head 2.5 cm Aorta not enlarged. Liver 17.3 cm irregular contour fatty infiltration no focal liver lesions Mild ascites Right kidney 16.1 cm cortex 1.4 cm Multiple cysts, the largest in the upper pole 12.1 cm Left kidney 11.6 cm cortex 1.7 cm Multiple cysts, the largest medial 4.1 cm Spleen 10.2 cm IMPRESSION: Normal common bile duct Cirrhosis, hepatomegaly, fatty infiltration Mild ascites Multiple benign renal cysts
--- NOTE | 2024-12-10 11:21 | XR_ITS ---
Examination: AP chest single view Technique one AP portable upright chest single view Date and time: December 10, 2024 1238 hours Comparison November 03, 2024 INDICATIONS: Shortness of breath today. FINDINGS: Mild heart failure Mild enlargement cardiac contour. Prominent vascular congestion with early septal edema at the lung bases Cardiac leads stable position IMPRESSION: Early heart failure
--- NOTE | 2024-12-10 11:23 | EDNOTE_ITS ---
<Statement entered by Oriana Sorensen MD - 12/11/24 08:18> I, Oriana Sorensen MD, have reviewed the history, exam, and assessment of the patient. I have evaluated the patient independently and agree with the plan of care documented by [ ]. All diagnostic studies were reviewed and discussed. I confirm the diagnosis as documented by the Resident. I was present during the Medical Decision Making for this patient. The patient's plan of care was created between myself and the Resident and consistent with our discussion of the patient's case. ED General RME/HPI General Chief complaint: Shortness of Breath/Dyspnea Stated complaint: SOB Time Seen by Provider: 12/10/24 11:10 Arrival date/time: 12/10/24 10:48 RME / HPI RME / HPI narrative: 79-year-old female with past medical history of A-fib (on Eliquis), CAD s/p stents, sinus bradycardia and sick sinus syndrome s/p pacemaker, pericarditis, hypertension, GERD, hyperparathyroid s/p L parathyroidectomy, and CKD was seen in the ED due to complaints of shortness of breath. Patient stated that he has been having increased shortness of breath for around 2 weeks, but that today got worst. Patient states he had a lot of lower extremity edema yesterday and has improved from yesterday to today, but still having 3+ bilateral lower extremity edema. Patient denies any chest pain, nausea, vomiting, pain during urination, or changes in bowel movement. Patient does mention he has some abdominal pain and he was supposed to get worked up for his abdominal pain with an ultrasound. Otherwise patient has no other complaints at this time. Related Data Home Medications ?Medication ?Instructions ?Recorded ?Confirmed pravastatin 40 mg tablet 40 mg PO QAM #0 tabs 4 09/11/24 (Pravachol) amitriptyline 10 mg tablet 10 mg PO HS 10/04/18 apixaban 5 mg tablet (Eliquis) 2.5 mg BID 05/29/24 cinacalcet 30 mg tablet 30 mg PO 1XD 05/29/24 omeprazole 20 mg capsule,delayed 20 mg PO 1XD 05/29/24 09/11/24 release benazepril 20 mg tablet 10 mg PO HS 09/11/24 5 bumetanide 0.5 mg tablet 0.5 mg PO HS 09/11/24 spironolactone 25 mg tablet 25 mg PO QDAY 09/11/2411/29 Previous Rx's ?Medication ?Instructions ?Recorded hydrocodone 7.5 mg-acetaminophen 1 tab PO QID PRN pain #12 tabs 10/04/18 325 mg tablet colchicine 0.6 mg tablet 0.3 mg (1/2 x 0.6 mg) PO QDA Y #30 06/01/24 tabs gabapentin 800 mg tablet 800 mg PO HS #30 tabs metolazone 2.5 mg tablet 2.5 mg PO QDAY #30 tabs 09/05 bumetanide 1 mg tablet 1 mg PO BID #30 tabs 5 Allergies Allergy/AdvReac Type Severity Reaction Status Date / Time No Known Allergies Allergy Verified 12/10/24 11:04 Review of Systems Review of Systems Systems Reviewed: All systems reviewed, normal except as documented Past Medical History Past Medical History NEUROLOGIC: Positive Neurological Disorders, Peripheral Neuropathy and Head Trauma CARDIAC: Positive Cardiac Disorders, Myocardial Infarction, Cardiac Arrhythmia, Atrial Fibrillation, Angina, Hypercholesterolemia, Edema and Hypertension RESPIRATORY: Positive Sleep Apnea GASTROINTESTINAL: Positive Gastrointestinal Disorders, Gall Bladder Disease and Gastroesophageal Reflux Disease GENITOURINARY: Positive Benign Prostatic Hyperplasia MUSCULOSKELETAL: Positive Musculoskeletal Disorders and Degenerative Joint Disease ENT: Positive Cataracts and Head Trauma ENDOCRINE: Positive Parathyroid Disease HEMATOLOGIC: Positive Blood Disorders PSYCHO/SOCIAL: Positive Depression OTHER HISTORY: Positive Autoimmune Disease, Anesthesia Reactions, Chicken Pox and Measles Family History FAMILY HISTORY: Positive Family Gastrointestinal Problems Surgical History SURGICAL: Positive Cardiac Surgery, Coronary Stent, Pacemaker, Angiogram, Abdominal Surgery, Joint Replacement and Arthroscopy; Negative Neurologic Surgery Social History SMOKING STATUS: Never smoker SUBSTANCE USE: does not use ED Exam Narrative Physical exam: Gen: A&O X 3, NAD HEENT: NCAT, EOMI, Pupils reactive DAVY, not icteric. External ears normal. No rhinorrhea. Dry mucous membranes. Neck: Supple, full range of motion, no observable masses, No meningeal sign. Lungs: No Respiratory distress, mild crackles DAVY . CV: irregular rate, no murmurs. Abdomen: Soft, nondistended, No rebound tenderness. MSK: No joint swelling, no redness, peripheral pulses presents, 3+ DAVY peripheral edema Skin: No rashes, petechiae, lesions.. Neuro: No focal neurological deficits appreciated, sensory and motor intact. Psych: Cooperative, appropriate mood and effect. Course Quality Measures none Orders Category Date Time Status Camargo [Urinary Catheter] QS Care 12/10/24 11:21 Active Nurse Swallow Screen X1 Care 12/10/24 13:05 Active Diet Cardiac Diet 12/10/24 Lunch Active CXRP [XR chest 1V portable] Stat Exams 12/10/24 11:21 Completed US abdomen Stat Exams 12/10/24 11:21 Completed BNP [B-Type Natriuretic Peptide] Stat Lab 12/10/24 12:21 Completed CBC Stat Lab 12/10/24 12:21 Completed CMP [Comprehensive Metabolic Panel] Stat Lab 12/10/24 12:21 Completed Drug Screen,Urine Stat Lab 12/10/24 13:00 Completed Lactic Acid [Lactate (Lactic Acid)] Stat Lab 12/10/24 12:21 Completed Magnesium Stat Lab 12/10/24 12:21 Completed Troponin I Stat Lab 12/10/24 12:21 Completed Troponin I Stat Lab 12/10/24 15:26 Completed UA [Urinalysis] Stat Lab 12/10/24 13:00 Completed Bumetanide Inj [Bumex Inj] Med 12/10/24 12:26 Discontinued 1 mg IVP X1 ONE Late Tray Request Routine Oth 12/10/24 13:04 Active Vital Signs Vital signs: Vital Signs Pulse Rate 60 12/10/24 11:19 Respiratory Rate 32 H 12/10/24 11:19 Pulse Oximetry (%) 98 12/10/24 11:19 Discharge Plan Plan Patient Disposition: HOME (Self Care) Prescriptions/Referrals Prescriptions/Med Rec: New bumetanide 1 mg tablet 1 mg PO BID Qty: 30 0RF No Action pravastatin [Pravachol] 40 MG tablet 40 mg PO QAM Qty: 0 amitriptyline 10 mg Tablet 10 mg PO HS hydrocodone-acetaminophen 7.5-325 mg tablet 1 tab PO QID MDD 4 tabs PRN (Reason: pain) Qty: 12 0RF omeprazole 20 mg capsule,delayed release(DR/EC) 20 mg PO 1XD Patient Comments: TAKE 1 CAPSULE BY MOUTH EVERY DAY 30 MINUTES BEFORE MORNING MEAL cinacalcet 30 mg tablet 30 mg PO 1XD Patient Comments: TAKE 1 TABLET BY MOUTH EVERY DAY WITH FOOD OR AFTER MEAL DAILY FOR 90 DAYS Eliquis 5 mg tablet 2.5 mg BID Patient Comments: TAKE 1 TABLET BY MOUTH TWICE A DAY FOR 90 DAYS colchicine 0.6 mg tablet 0.3 mg PO QDAY Qty: 30 3RF gabapentin 800 mg tablet 800 mg PO HS Qty: 30 2RF spironolactone 25 mg tablet 25 mg PO QDAY Patient Comments: TAKE 1 TABLET BY MOUTH EVERY DAY FOR 90 DAYS benazepril 20 mg tablet 10 mg PO HS Patient Comments: TAKE 1 TABLET BY MOUTH EVERY DAY FOR 90 DAYS bumetanide 0.5 mg tablet 0.5 mg PO HS Patient Comments: TAKE 1 TABLET BY MOUTH EVERY DAY FOR 30 DAYS metolazone 2.5 mg tablet 2.5 mg PO QDAY Qty: 30 0RF Referrals: Tyrone Mcallister MD [Primary Care Provider] - In 1 week Problem List Clinical Impression: CHF (congestive heart failure), Lower extremity edema, Shortness of breath Patient/Caregiver Discharge Instructions Other Activity Instructions:: Follow-up primary care physician within 5 days Follow-up with your director loss prevention Dr. Moran at your scheduled appointment tomorrow. You have been prescribed Bumetanide 1 mg twice a day for 15 days or otherwise instructed by your director loss prevention. Would recommend to use portable commode to decrease risk of fall due to frequent urination. Would also recommend to use urinal provided to decrease walking to the restroom. Would recommend low sodium diet and fluid intake maximum 2L. Come back to the ER if symptoms persist or worsen such as increased shortness of breath, you develop fevers, or worsening pain. Education Materials: Coping with Heart Failure, ED Leg Swelling in Both Legs Print Language: Hungarian Stand Alone Forms: Irma Award Info., Patient Portal Info Letter MDM Narrative [facility] hospital course: 11:15: Patient was greeted and assessed by myself. Appreciated 3+ bilateral lower extremity edema and crackles on auscultation. Also some abdominal pain on palpation on the right side. Ordered diagnostic imaging and labs. 12: 26: Ordered 1 mg Bumex. 3:00: Patient has been having good urine output with 1.2 L since he received his dose of Bumex around 3 hours ago. 3:30: Patient was reassessed and at this time patient was on 2 L of O2 which is basically his home O2 requirements and he did not look dyspneic. Spoke with patient's director loss prevention Dr. Moran to discuss patient's lower extremity swelling and need for IV Bumex for diuresis. Cardiology stated that patient was okay to be discharged home with double his home dose of Bumex at this time. Patient has a follow-up appointment tomorrow with director loss prevention. 4:12 Repeat troponin downtrending. At this time will discharge patient as is not dyspneic and stable for DC. Will provide a urinal. Case disclosed with Attending Dr. Edu Ratliff PGY2 Disclaimer: Even though this this note was dictated by speech recognition and even though it was carefully revised there may still be minor errors in auto driver due to voice recognition software. Medication Administration(s) Medication Administration History Discontinued Medications Bumetanide (Bumetanide Inj 0.25 Mg/Ml Vial 4 Ml) 1 mg IVP X1 ONE Stop: 12/10/24 12:27 Last Admin: 12/10/24 13:09 Dose: 1 mg Documented By: TIFF
[2024-12-10 12:41] LABS: Lactate (Lactic Acid) 1.9 mMol/L (0.4-2.0)
[2024-12-10 12:43] LABS: Basophils # (Auto) 0.1 Thou/mm3 (0.0-0.2); Basophils % (Auto) 1 % (0-2.5); Eosinophils # (Auto) 0.1 Thou/mm3 (0.0-0.5); Eosinophils % (Auto) 2 % (0-10); Hematocrit 40.4 % (41.0-53.0); Hemoglobin 12.4 g/dL (13.5-16.0); Immature Granulocytes Auto 0.03 Thou/mm3 (0.00-0.00); Lymphocytes # (Auto) 1.3 Thou/mm3 (1.0-4.8); Lymphocytes % (Auto) 20 % (10-50); Mean Corpuscular HGB Conc 30.7 g/dl (31.0-37.0); Mean Corpuscular Hemoglobin 25.7 pg (25.0-35.0); Mean Corpuscular Volume 84 fL (80-100); Monocytes # (Auto) 0.6 Thou/mm3 (0.0-0.8); Monocytes % (Auto) 9 % (0-12); Neutrophils # (Auto) 4.4 Thou/mm3 (1.8-7.7); Neutrophils % (Auto) 67 % (37-80); Nucleated Red Blood Cell # 0.07 Thou/mm3 (0.00-0.00); Nucleated Red Blood Cell % 1 /100 WBC (0); Platelet Count 342 Thou/mm3 (140-440); RDW Standard Deviation 57.6 fL (35.1-43.9); Red Blood Count 4.83 Miln/mm3 (4.50-5.90); White Blood Count 6.5 Thou/mm3 (3.8-10.6)
[2024-12-10 13:05] LABS: Alanine Aminotransferase 11 U/L (10-49); Albumin, Serum 4.0 gm/dL (3.4-4.8); Albumin/Globulin Ratio 1.5 (1.2-2.2); Alkaline Phosphatase 114 U/L (46-116); Anion Gap 11 (7-16); Aspartate Amino Transferase 20 U/L (0-34); B-Type Natriuretic Peptide 874 pg/mL (0-100); BUN/Creatinine Ratio 16 Ratio (12-20); Bilirubin,Total 1.1 mg/dL (0.3-1.2); Blood Urea Nitrogen 32 mg/dL (9-23); Calcium 9.7 mg/dL (8.3-10.6); Calcium (Corrected) 9.7 mg/dL (8.5-10.1); Carbon Dioxide 22.0 mMol/L (20.0-31.0); Chloride 103 mMol/L (98-107); Creatinine (Component) 2.0 mg/dL (0.6-1.3); Estimated Creatinine Clearance 37.1 mL/min (>60); Globulin 2.6 gm/dL (2.3-3.5); Glucose 144 mg/dL (74-106); Magnesium 1.7 mg/dL (1.6-2.6); Osmolality,Calculated 281 (275-295); Potassium 5.1 mMol/L (3.4-5.1); Sodium 136 mMol/L (136-145); Total Protein 6.6 gm/dL (5.7-8.2); eGFR 33 See Note
[2024-12-10 13:08] LABS: Troponin I 0.208 ng/mL (0.0-0.045)
[2024-12-10 13:08] LABS: Collection Type, Urine Catheter; Squamous Epithelial Cell,Urine 0 /hpf (0-5)
[2024-12-10] MEDS: BUMETANIDE INJ 0.25 MG/ML VIAL 4 ML 1 MG IVP (13:09)
[2024-12-10 13:15] LABS: Bilirubin,Urine Negative (Negative); Blood,Urine 2+ (Negative); Clarity,Urine Clear (Clear/Hazy); Color,Urine Yellow (Lt Yel-Yel); Glucose, Urine Negative (Negative); Hyaline Casts,Urine < 1 /hpf (0-1); Ketones,Urine Negative (Negative); Leukocyte Esterase,Urine Negative (Negative); Nitrite,Urine Negative (Negative); PH,Urine 6.0 (5.0-7.0); Protein,Urine 3+ (Neg - Trace); RBC,Urine 4 /hpf (0-3); Specific Gravity,Urine 1.036 (1.001-1.035); Urobilinogen,Urine Negative mg/dL (0.0-1.0); WBC,Urine 1 /hpf (0-5)
[2024-12-10 13:22] LABS: Amphetamine/Methamp Scrn,U Negative (Negative); Barbiturate Screen,Urine Negative (Negative); Benzodiazepines Screen,Urine Negative (Negative); Benzoylecgonine Screen, Ur Negative (Negative); Fentanyl Screen,Urine Negative (Negative); Opiate Screen,Urine Negative (Negative); THC Screen,Urine Negative (Negative)
[2024-12-10 15:48] LABS: Troponin I 0.199 ng/mL (0.0-0.045)
== END 2024-12-10 16:40 | disposition home or self-care (01) ==
PROVIDERS: PCP Family Medicine
DX: I13.0 Hypertensive heart and chronic kidney disease with heart failure and stage 1 through stage 4 chronic kidney disease, or unspecified chronic kidney disease (principal); I50.9 Heart failure, unspecified; N18.9 Chronic kidney disease, unspecified; I48.91 Unspecified atrial fibrillation; E78.00 Pure hypercholesterolemia, unspecified; Z79.01 Long term (current) use of anticoagulants; Z95.0 Presence of cardiac pacemaker
CPT/HCPCS: 36415; 71045; 76700; 80053; 80307; 81001; 83605; 83735; 83880; 84484; 85025; 96374; 99283; J3490

== ENCOUNTER 2024-12-21 17:50 | Inpatient (IN) | payer MEDICARE, MEDICAID, SELFPAY ==
[2024-12-21] VITALS (12 sets, daily range): BP systolic 98–128; BP diastolic 59–72; PULSE 60–109; RESP 16–28; TEMP 37.3–37.4; O2SAT 90–95; BMI 29.8
--- NOTE | 2024-12-21 18:26 | PD.EDBACK ---
ED Back Injury Pain RME/HPI General Chief Complaint: Back Pain/Injury Stated Complaint: BACK PAIN Time Seen by Provider: 12/21/24 18:35 Arrival date/time: 12/21/24 17:50 RME / HPI RME / HPI Narrative: Refer to MDM. Related Data Home Medications ?Medication ?Instructions ?Recorded ?Confirmed pravastatin 40 mg tablet 40 mg PO QAM #0 tabs 10/16/13 09/11/24 (Pravachol) amitriptyline 10 mg tablet 10 mg PO HS 10/04/18 09/11/24 apixaban 5 mg tablet (Eliquis) 2.5 mg BID 05/29/24 05/29/24 cinacalcet 30 mg tablet 30 mg PO 1XD 05/29/24 09/11/24 omeprazole 20 mg capsule,delayed 20 mg PO 1XD 05/29/24 09/11/24 release benazepril 20 mg tablet 10 mg PO HS 09/11/24 09/11/24 bumetanide 0.5 mg tablet 0.5 mg PO HS 09/11/24 09/11/24 spironolactone 25 mg tablet 25 mg PO QDAY 09/11/24 09/11/24 Previous Rx's ?Medication ?Instructions ?Recorded hydrocodone 7.5 mg-acetaminophen 1 tab PO QID PRN pain #12 tabs 10/04/18 325 mg tablet colchicine 0.6 mg tablet 0.3 mg (1/2 x 0.6 mg) PO QDAY #30 06/01/24 tabs gabapentin 800 mg tablet 800 mg PO HS #30 tabs 06/01/24 metolazone 2.5 mg tablet 2.5 mg PO QDAY #30 tabs 09/14/24 bumetanide 1 mg tablet 1 mg PO BID #30 tabs 12/10/24 Allergies Allergy/AdvReac Type Severity Reaction Status Date / Time No Known Allergies Allergy Verified 12/10/24 11:04 Review of Systems Review of Systems Systems Reviewed: All systems reviewed, normal except as documented Past Medical History Past Medical History NEUROLOGIC: Positive Neurological Disorders, Peripheral Neuropathy and Head Trauma CARDIAC: Positive Cardiac Disorders, Myocardial Infarction, Cardiac Arrhythmia, Atrial Fibrillation, Angina, Hypercholesterolemia, Congestive Heart Failure, Edema and Hypertension RESPIRATORY: Positive Chronic Obstructive Pulmonary Disease (COPD) and Sleep Apnea GASTROINTESTINAL: Positive Gastrointestinal Disorders, Gall Bladder Disease and Gastroesophageal Reflux Disease GENITOURINARY: Positive Renal Disease and Benign Prostatic Hyperplasia MUSCULOSKELETAL: Positive Musculoskeletal Disorders and Degenerative Joint Disease ENT: Positive Cataracts and Head Trauma ENDOCRINE: Positive Parathyroid Disease HEMATOLOGIC: Positive Blood Disorders PSYCHO/SOCIAL: Positive Depression OTHER HISTORY: Positive Autoimmune Disease, Falls, Anesthesia Reactions, Chicken Pox and Measles Family History FAMILY HISTORY: Positive Family Gastrointestinal Problems Surgical History SURGICAL: Positive Cardiac Surgery, Coronary Stent, Pacemaker, Angiogram, Abdominal Surgery, Joint Replacement and Arthroscopy ED Exam Narrative Physical exam: Refer to MDM. Course Course Course Narrative: CXR is ordered for determining the etiology of shortness of breath. Quality Measures none Orders Category Date Time Status Bedside COVID-19 Antigen Test NOW Care 12/21/24 18:36 Active Bedside Influenza A&B Antigen Test NOW Care 12/21/24 18:36 Completed COVID-19 Screening Questionnaire NOW Care 12/21/24 21:[address] Screening NOW Care 12/21/24 18:38 Active Decision to Admit X1 Care 12/21/24 21:27 Completed EKG (ED ONLY) *Do not use* NOW Care 12/21/24 18:37 Completed Saline [Insert IV] NOW Care 12/21/24 18:36 Active Straight [In and Out Catheter] X1 Care 12/21/24 18:36 Completed Consult to Cardiology Stat Cons 12/21/24 20:[address] angio chest Stat Exams 12/21/24 18:[address] cervical spine wo con Stat Exams 12/21/24 18:[address] thoracic spine wo con Stat Exams 12/21/24 18:38 Completed EKG (ED Only) Stat Exams 12/21/24 18:37 Draft US venous doppler LE BI Stat Exams 12/21/24 18:39 Taken XR chest 1V portable Stat Exams 12/21/24 18:37 Completed ABG [Arterial Blood Gas] Stat Lab 12/21/24 20:10 Completed BNP [B-Type Natriuretic Peptide] Stat Lab 12/21/24 19:04 Completed Bilirubin,Direct Stat Lab 12/21/24 19:04 Completed Blood Culture (Lab) Stat Lab 12/21/24 19:04 Received CBC Stat Lab 12/21/24 19:04 Completed CMP [Comprehensive Metabolic Panel] Stat Lab 12/21/24 19:04 Completed CRP [C-Reactive Protein] Stat Lab 12/21/24 19:04 Completed D-Dimer Stat Lab 12/21/24 19:04 Completed ESR [Sed Rate (ESR)] Stat Lab 12/21/24 19:04 Completed Free T4 (Free Thyroxine) Stat Lab 12/21/24 19:04 Completed Lactate (Lactic Acid) Stat Lab 12/21/24 19:04 Results Magnesium Stat Lab 12/21/24 19:04 Completed PT [Prothrombin Time with INR] Stat Lab 12/21/24 19:04 Completed PTT [Partial Thromboplastin Time] Stat Lab 12/21/24 19:04 Completed Procalcitonin Stat Lab 12/21/24 19:04 Completed TSH [Thyroid Stimulating Hormone] Stat Lab 12/21/24 19:04 Completed Troponin I Stat Lab 12/21/24 19:04 Completed UA, C/S IF [Urinalysis, C/S if Indicated] Stat Lab 12/21/24 19:46 Completed Aspirin Chew Med 12/21/24 19:59 Discontinued 324 mg PO X1 ONE Azithromycin Inj [Zithromax Inj] 500 mg Med 12/21/24 21:16 Active Sodium Chloride 0.9% 250 ml [Ns] 250 ml IV X1 Magnesium Sulfate 2 GM Ivpb [Magnesium Sulfate Ivpb] Med 12/21/24 20:00 Discontinued 2 gm in 50 ml IV X1 Morphine Inj Med 12/21/24 18:36 Discontinued 4 mg IVP X1 ONE Ondansetron Inj [Zofran Inj] Med 12/21/24 18:36 Discontinued 4 mg IVP X1 ONE cefTRIAXone/D5w 1gm IV premix [Rocephin/D5w 1gm IV Med 12/21/24 21:16 Discontinued premix] 1 gm in 50 ml IV X1 Vital Signs Vital signs: Vital Signs Temperature 99.4 F 12/21/24 17:53 Respiratory Rate 18 12/21/24 17:53 Blood Pressure 128/72 12/21/24 17:53 Pulse Oximetry (%) 95 12/21/24 17:53 Oxygen Delivery Method Nasal Cannula 12/21/24 17:53 Oxygen Flow Rate 2 12/21/24 17:53 Back Pain / Injury MDM Narrative MDM Narrative:: Scribe Attestation: I, Deepthi Escudero, am scribing for and in the presence of Dr. Olivia. Provider Notation: Although this document has been carefully reviewed, there may still be some phonetic and other typographical errors.? These errors are purely grammatical due to imperfections in the software program and should not be construed in any way to?compromise the substance of the patient's medical care during this visit. This section includes all my notes and documentations, including HPI, PE, and ED course. Anirudh Olivia MD HPI: 79 y/o male with Hx of CHF, ESRD, and COPD with supplementary oxygen BIBA from home presents with progressively worsening stabbing pain to the BL upper back that radiates to the rib cage and increased swelling to the BLE x approximately 24 hours. Also reports increased shortness of breath with cough. Pain is a 9 out of 10 with movement. He does not undergo dialysis treatment and takes several medications PRN for pain. Denies paralysis, urinary and bowel incontinence. No other complaints. ROS: All negative except as documented in HPI. Physical Exam: General: Alert and oriented. In obvious pain. Hypoxia noted. Eyes: Conjunctivae and lids clear. ENT: No nasal congestion. Neck: Supple. No JVD. Heart: RRR. Lungs: No respiratory distress. Decreased air movement with rales. Chest: No tenderness. Abdomen: Soft and nontender. Normal bowel sounds. No distension. No rebound or guarding. Back: Equivocal thoracic spinal tenderness. Legs: Severe lower leg edema bilaterally. Skin: Warm and dry. Neuro: Alert and oriented X 3. I reviewed EMS notes. I reviewed all diagnostic test results: My interpretation of the EKG: Paced rhythm (59 bpm). My interpretation of the chest x-ray is infiltrates. My review of the Chest CTA report is: Significant edema and/or pneumonia at the lung bases with moderate right and mild left pleural fluid. Cirrhosis. My review of the C-Spine CT report is: No acute fracture. My review of the T-Spine CT report is: No acute fracture. My review of the Venous Doppler LE BI report is no DVT. Blood tests and urine tests remarkable for D-dimer 2640, Cr 2.0, lactic acid 4.5, Mg 1.2, troponin 0.199, BNP 452. Covid/Influenza: Negative. At this point, diagnoses include: Acute respiratory failure with hypoxia, CKD, Upper back pain, CHF, Pneumonia, Hypomagnesemia, Elevated lactic acid level, Cirrhosis, Ascites, Leg edema, Chronic troponin elevation Treatment here included: Zofran 4 mg, Morphine 4 mg IVP, Zithromax 500 mg, Rocephin 1 G, Magnesium Sulfate 2 G, Aspirin 324 mg. Patient remained stable. 2044: I discussed the case with Dr. Moran. About the presentation and exam and diagnostics and treatments here. Recommended admission for further care. 2120: I discussed the case with our hospitalist. About the presentation and exam and diagnostics and treatments here. And need of further care in the hospital. Will accept the patient. Anirudh Olivia MD Patient data External records reviewed:: [facility] previous records (Reviewed prior ED records from 11/03/24. Patient was seen for Atrophy of quadriceps femoris muscle.) and EMS form Clinical information provided by:: patient, EMS and family (Son) Social determinants that could affect healthcare access:: none Patient has the following chronic illnesses:: Peripheral Neuropathy, Cardiac Arrhythmia, Atrial Fibrillation, Angina, Hypercholesterolemia, Congestive Heart Failure, Edema, Hypertension, Chronic Obstructive Pulmonary Disease (COPD), Sleep Apnea, Gall Bladder Disease, Gastroesophageal Reflux Disease, Renal Disease, Benign Prostatic Hyperplasia, Degenerative Joint Disease, Cataracts and Head Trauma, Parathyroid Disease, Blood Disorders, Depression How is presenting disease/condition affected by chronic disease/condition?: exacerbated by Evaluation data The following diagnostics were reviewed and interpreted by me:: lab results, radiology exam(s) and EKG tracing(s) (My interpretation of the EKG: Paced rhythm (59 bpm). Anirudh Olivia MD) Lab and/or radiology exams considered but not ordered:: None Interpretation Summary: I reviewed all diagnostic test results: My interpretation of the EKG: Paced rhythm (59 bpm). My interpretation of the chest x-ray is infiltrates. My review of the Chest CTA report is: Significant edema and/or pneumonia at the lung bases with moderate right and mild left pleural fluid. Cirrhosis. My review of the C-Spine CT report is: No acute fracture. My review of the T-Spine CT report is: No acute fracture. My review of the Venous Doppler LE BI report is no DVT. Blood tests and urine tests remarkable for D-dimer 2640, Cr 2.0, lactic acid 4.5, Mg 1.2, troponin 0.199, BNP 452. Covid/Influenza: Negative. Medications / Prescriptions Medications or Prescriptions considered but not ordered:: None Medication administrations:: Medication Administration History Azithromycin 500 mg/ Sodium (Chloride) 250 mls @ 250 mls/hr IV X1 ONE Stop: 12/21/24 22:15 Discontinued Medications Aspirin (Aspirin 81 Mg Chew) 324 mg PO X1 ONE Stop: 12/21/24 20:00 Last Admin: 12/21/24 20:16 Dose: 324 mg Documented By: BD Magnesium Sulfate (Magnesium Sulfate Ivpb) 2 gm in 50 mls @ 25 mls/hr IV X1 ONE Stop: 12/21/24 21:59 Last Admin: 12/21/24 20:17 Dose: 25 mls/hr Documented By: BD Ceftriaxone Sodium/Dextrose (Rocephin/D5w 1gm Iv Premix) 1 gm in 50 mls @ 100 mls/hr IV X1 ONE Stop: 12/21/24 21:45 Last Admin: 12/21/24 21:48 Dose: 100 mls/hr Documented By: SM Morphine Sulfate (Morphine Sulf Inj 10 Mg/Ml Vial) 4 mg IVP X1 ONE Stop: 12/21/24 18:37 Last Admin: 12/21/24 18:54 Dose: 4 mg Documented By: FC Ondansetron HCl (Ondansetron Inj 2 Mg/Ml Inj 2 Ml) 4 mg IVP X1 ONE; Protocol Stop: 12/21/24 18:37 Last Admin: 12/21/24 18:54 Dose: 4 mg Documented By: FC Zofran 4 mg, Morphine 4 mg IVP, Zithromax 500 mg, Rocephin 1 G, Magnesium Sulfate 2 G, Aspirin 324 mg. Consultations Consultation(s) initiated? (list below): Yes Consultation #1 (Physician, Specialty, Details): I discussed the case with Dr. Moran. Time: 20:45 Consultation #2 (Physician, Specialty, Details): 2120: I discussed the case with our hospitalist. About the presentation and exam and diagnostics and treatments here. And need of further care in the hospital. Will accept the patient. Diagnosis Differential diagnosis back pain/injury: thoracic back pain, discitis and other (CHF Exacerbation, Pulmonary Edema, DVT, COPD Exacerbation) Most likely diagnosis given after review of the tests above:: Acute respiratory failure with hypoxia, CKD, Upper back pain, CHF, Pneumonia, Hypomagnesemia, Elevated lactic acid level, Cirrhosis, Ascites, Leg edema Admission Indicated Admission indicated?: indicated Explain why admission is indicated or not indicated:: Acute respiratory failure with hypoxia, CKD, Upper back pain, CHF, Pneumonia, Hypomagnesemia, Elevated lactic acid level, Cirrhosis, Ascites, Leg edema Admission Request Was there a request for admission?: Yes Admission Attestation Admission request attestation: Discussed case with Hospitalist service regarding admission. Discussed patients ED course, exam findings, labs, and radiology results. The Hospitalist [agrees] to accept the patient for admission. Disposition Plan Disposition Plan: Admit Discharge Plan Plan Patient Disposition: Admit Acute Care w/in Hospital Prescriptions/Referrals Prescriptions/Med Rec: No Action pravastatin [Pravachol] 40 MG tablet 40 mg PO QAM Qty: 0 amitriptyline 10 mg Tablet 10 mg PO HS hydrocodone-acetaminophen 7.5-325 mg tablet 1 tab PO QID MDD 4 tabs PRN (Reason: pain) Qty: 12 0RF omeprazole 20 mg capsule,delayed release(DR/EC) 20 mg PO 1XD Patient Comments: TAKE 1 CAPSULE BY MOUTH EVERY DAY 30 MINUTES BEFORE MORNING MEAL cinacalcet 30 mg tablet 30 mg PO 1XD Patient Comments: TAKE 1 TABLET BY MOUTH EVERY DAY WITH FOOD OR AFTER MEAL DAILY FOR 90 DAYS Eliquis 5 mg tablet 2.5 mg BID Patient Comments: TAKE 1 TABLET BY MOUTH TWICE A DAY FOR 90 DAYS colchicine 0.6 mg tablet 0.3 mg PO QDAY Qty: 30 3RF gabapentin 800 mg tablet 800 mg PO HS Qty: 30 2RF spironolactone 25 mg tablet 25 mg PO QDAY Patient Comments: TAKE 1 TABLET BY MOUTH EVERY DAY FOR 90 DAYS benazepril 20 mg tablet 10 mg PO HS Patient Comments: TAKE 1 TABLET BY MOUTH EVERY DAY FOR 90 DAYS bumetanide 0.5 mg tablet 0.5 mg PO HS Patient Comments: TAKE 1 TABLET BY MOUTH EVERY DAY FOR 30 DAYS metolazone 2.5 mg tablet 2.5 mg PO QDAY Qty: 30 0RF bumetanide 1 mg tablet 1 mg PO BID Qty: 30 0RF Referrals: No Primary/Family,Physician [Primary Care Provider] - In 1 week Problem List Clinical Impression: Acute respiratory failure with hypoxia, CKD (chronic kidney disease), Upper back pain, CHF (congestive heart failure), Pneumonia, Hypomagnesemia, Elevated lactic acid level, Cirrhosis, Ascites, Leg edema Patient/Caregiver Discharge Instructions Print Language: Polish Stand Alone Forms: Irma Award Info., Patient Portal Info Letter
--- NOTE | 2024-12-21 18:37 | EKG_ITS ---
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
--- NOTE | 2024-12-21 18:37 | XR_ITS ---
Examination: AP chest single view Technique one AP portable upright chest single view Date and time December 21, 2024, 1946 hours, comparison December 10, 2024 INDICATIONS: Shortness of breath chest pain beginning 2 days ago. FINDINGS: Moderate CHF Moderate to large retrocardiac contour with prominent vascular congestion. Perihilar edema Consider superimposed pneumonia at the lung bases Cardiac leads stable position. IMPRESSION: Moderate heart failure. Consider superimposed pneumonia at the lung bases.
--- NOTE | 2024-12-21 18:38 | XR_ITS ---
Examination: CT thoracic spine, without contrast. 2-D sagittal reconstructions. 2-D coronal reconstructions. 3-D reconstructions. Date and time of exam:December 21, 20242033 hours INDICATIONS: Onset back pain beginning 2 days ago CTDI: vol (mGy):53.3 DLP: (mGycm):2286 Technique: Multiple 1.25 mm axial sections of the thoracic spine without intravenous contrast have been obtained. 2-D sagittal and coronal reconstructions have been obtained. 3-D reconstructions have been obtained. Low dose protocols were performed. One or more of the following dose reduction techniques were used; automated exposure control, adjustment of the mA and/or KV according to patient size, use of iterative reconstruction technique. Findings: Severe osteopenia. No acute thoracic fracture. Moderate thoracic spondylosis. [id number] diffuse thoracic degenerative disc disease Axial images demonstrate no focal thoracic disc protrusion Prominent vascular congestion with at least a moderate right pleural effusion and significant vascular congestion, heart failure pattern Pneumonia left base IMPRESSION: [id number] diffuse thoracic degenerative disc disease Pneumonia left base
--- NOTE | 2024-12-21 18:38 | XR_ITS ---
Examination: CT cervical spine without contrast 2-D sagittal reconstructions 2-D coronal reconstructions 3-D reconstructions. Exam date and time:December 21, 20242027 hours INDICATIONS: Onset neck pain today CTDI:vol (mGy) 14.16 DLP: (mGycm) 365 Technique: Multiple 2 mm axial sections of the cervical spine have been obtained. The coronal and sagittal reconstructions have been obtained. 3-D reconstructions have been obtained. Low dose protocols were performed. One or more of the following dose reduction techniques were used; automated exposure control, adjustment of the mA and/or KV according to patient size, use of iterative reconstruction technique. Findings: Axial sections demonstrate intact base of the skull. C1 exhibit satisfactory relationship to the odontoid. No acute cervical vertebral body fracture seen. Alignment posterior spinous processes satisfactory. Cervical fusion C3-C5 Advanced degenerative disc disease C5-C6, C6-C7 Impression: No acute cervical fracture. Partial visualization significant right pleural fluid and more minor left pleural fluid
--- NOTE | 2024-12-21 18:38 | XR_ITS ---
Examination: CTA chest with intravenous contrast 2-D reconstructions 3-D reconstructions, vascular Date and time of exam: December 21, 2024 2037 hours INDICATIONS: Hypoxia and shortness of breath today CTDI: vol (mGy) 34.68 DLP: (mGycm) 663 Technique: Multiple axial sections of the thorax have been obtained. 3 mm slice thickness, from below the hemidiaphragms to above the apices of the lungs. Mediastinal and lung density settings have been obtained. 2-D sagittal and coronal reconstructions. 3-D angiographic renderings, 3-D volume renderings, 3D post processing, vascular maximum intensity projections obtained. Contrast administered is 60 cc Isovue 300. Intravenous Low dose protocols were performed. One or more of the following dose reduction techniques were used; automated exposure control, adjustment of the mA and/or KV according to patient size, use of iterative reconstruction technique. Findings: Aneurysmal dilatation ascending thoracic aorta transverse dimension 4.6 cm No pulmonary artery filling defects High periaortic tracheobronchial pretracheal lymphadenopathy Moderate enlargement cardiac contour with prominent vascular congestion, edema and/or pneumonia at the lung bases with moderate right and mild left pleural fluid Cirrhosis, liver is irregular in contour, mild ascites Absent gallbladder No pancreatic mass End-stage right hydronephrotic sac. Old bilateral rib fractures IMPRESSION: Aneurysmal dilatation ascending thoracic aorta Negative for pulmonary artery emboli Mediastinal lymphadenopathy as above Mild heart failure. Significant edema and/or pneumonia at the lung bases with moderate right and mild left pleural fluid Cirrhosis Mild ascites Endstage right hydronephrosis, recommend renal sonography follow-up
--- NOTE | 2024-12-21 18:39 | XR_ITS ---
Examination: Venous duplex lower extremity sonogram, bilateral. Date and time of exam: December 21, 2024 2127 hours INDICATIONS: Elevated d-dimer today Technique: Multiple sonographic images of the deep venous system have been obtained. B-mode/2-D grayscale imaging of vascular structures and Doppler spectral analysis (waveforms) and color performed Both legs are examined. Findings: Deep venous systems do not demonstrate abnormal echogenicity. All visualized deep veins exhibit compressibility. All visualized deep veins exhibit augmentation. Impression: Negative for deep vein thrombosis
[2024-12-21] MEDS: ONDANSETRON INJ 2 MG/ML INJ 2 ML 4 MG IVP (18:54)
[2024-12-21] MEDS: MORPHINE SULF INJ 10 MG/ML VIAL 4 MG IVP (18:54)
[2024-12-21 19:25] LABS: Lactate (Lactic Acid) 4.5 mMol/L (0.4-2.0)
[2024-12-21 19:27] LABS: Sed Rate (ESR) 39 mm/hr (0-20)
[2024-12-21 19:29] LABS: Basophils # (Auto) 0.1 Thou/mm3 (0.0-0.2); Basophils % (Auto) 1 % (0-2.5); Eosinophils # (Auto) 0.0 Thou/mm3 (0.0-0.5); Eosinophils % (Auto) 0 % (0-10); Hematocrit 40.2 % (41.0-53.0); Hemoglobin 12.0 g/dL (13.5-16.0); Immature Granulocytes Auto 0.04 Thou/mm3 (0.00-0.00); Lymphocytes # (Auto) 0.5 Thou/mm3 (1.0-4.8); Lymphocytes % (Auto) 5 % (10-50); Mean Corpuscular HGB Conc 29.9 g/dl (31.0-37.0); Mean Corpuscular Hemoglobin 25.5 pg (25.0-35.0); Mean Corpuscular Volume 85 fL (80-100); Monocytes # (Auto) 0.5 Thou/mm3 (0.0-0.8); Monocytes % (Auto) 5 % (0-12); Neutrophils # (Auto) 9.4 Thou/mm3 (1.8-7.7); Neutrophils % (Auto) 89 % (37-80); Nucleated Red Blood Cell # 0.00 Thou/mm3 (0.00-0.00); Nucleated Red Blood Cell % 0 /100 WBC (0); Platelet Count 297 Thou/mm3 (140-440); RDW Standard Deviation 60.6 fL (35.1-43.9); Red Blood Count 4.71 Miln/mm3 (4.50-5.90); White Blood Count 10.5 Thou/mm3 (3.8-10.6)
[2024-12-21 19:44] LABS: INR 2.4 (0.9-1.3); Partial Thromboplastin Time 25.1 Seconds (22.0-36.0); Prothrombin Time 24.5 Seconds (9.0-12.2)
[2024-12-21 19:45] LABS: D-Dimer 2640 ng/mL (<600)
[2024-12-21 19:50] LABS: Alanine Aminotransferase 15 U/L (10-49); Albumin, Serum 4.0 gm/dL (3.4-4.8); Albumin/Globulin Ratio 1.5 (1.2-2.2); Alkaline Phosphatase 127 U/L (46-116); Anion Gap 13 (7-16); Aspartate Amino Transferase 29 U/L (0-34); BUN/Creatinine Ratio 19 Ratio (12-20); Bilirubin,Direct 0.8 mg/dL (0.0-0.3); Bilirubin,Total 1.3 mg/dL (0.3-1.2); Blood Urea Nitrogen 38 mg/dL (9-23); C-Reactive Protein 0.9 mg/dL (0.0-0.9); Calcium 10.3 mg/dL (8.3-10.6); Calcium (Corrected) 10.3 mg/dL (8.5-10.1); Carbon Dioxide 26.0 mMol/L (20.0-31.0); Chloride 102 mMol/L (98-107); Creatinine (Component) 2.0 mg/dL (0.6-1.3); Estimated Creatinine Clearance 35.4 mL/min (>60); Free T4 (Free Thyroxine) 0.80 ng/dL (0.89-1.76); Globulin 2.6 gm/dL (2.3-3.5); Glucose 139 mg/dL (74-106); Magnesium 1.2 mg/dL (1.6-2.6); Osmolality,Calculated 292 (275-295); Potassium 4.1 mMol/L (3.4-5.1); Sodium 141 mMol/L (136-145); Thyroid Stimulating Hormone 3.54 uIU/mL (0.55-4.78); Total Protein 6.6 gm/dL (5.7-8.2); eGFR 33 See Note
[2024-12-21 19:51] LABS: Troponin I 0.199 ng/mL (0.0-0.045)
[2024-12-21 19:57] LABS: B-Type Natriuretic Peptide 452 pg/mL (0-100); Procalcitonin 0.21 ng/ml (0.0-0.49)
[2024-12-21] MEDS: ASPIRIN 81 MG CHEW 324 MG PO (20:16)
[2024-12-21] MEDS: Magnesium Sulfate 2 GM Ivpb 2 GM/50 ML BAG IV (20:17)
[2024-12-21 20:21] LABS: Base Excess 2 (-3-3); HCO3 26 mEq/L (20-26); Inspired Oxygen, FIO2 21 %; O2 Saturation 98 % (91-98); PCO2 40 mmHg (32.0-48.0); PO2 83 mmHg (83-108); pH, Arterial 7.43 (7.35-7.45)
[2024-12-21 20:24] LABS: Allen Test Performed/OK; Puncture Site Right Radial
[2024-12-21 20:30] LABS: Collection Type, Urine Clean Catch; Squamous Epithelial Cell,Urine 0 /hpf (0-5)
[2024-12-21 20:37] LABS: Bilirubin,Urine Negative (Negative); Blood,Urine Negative (Negative); Clarity,Urine Clear (Clear/Hazy); Color,Urine Yellow (Lt Yel-Yel); Culture Indicated,Urine Not Indicated; Glucose, Urine Negative (Negative); Ketones,Urine Negative (Negative); Leukocyte Esterase,Urine Negative (Negative); Nitrite,Urine Negative (Negative); PH,Urine 6.0 (5.0-7.0); Protein,Urine 2+ (Neg - Trace); RBC,Urine 1 /hpf (0-3); Specific Gravity,Urine 1.026 (1.001-1.035); Urobilinogen,Urine 3.0 mg/dL (0.0-1.0); WBC,Urine 1 /hpf (0-5)
[2024-12-21] MEDS: cefTRIAXone/D5w 1gm IV premix 1 GM/50 ML BAG IV (21:48)
[2024-12-21 22:19] LABS: Reflex Lactate? Y
[2024-12-21] MEDS: AZITHROMYCIN INJ 500 MG in SODIUM CHLORIDE 0.9% 250 ML 250 ML 250 MG IV (22:22)
[2024-12-21 22:49] LABS: Lactic Acid, 3 HR 2.3 mMol/L (0.4-2.0)
--- NOTE | 2024-12-21 23:10 | ESHP_ITS ---
<Statement entered by Abner Mariscal MD - 12/23/24 09:50> I have discussed and was present for the essential components of the history, physical examination, diagnosis, and treatment plan with the resident. I agree with the patient's care as documented by the resident and amended herein by me. Abner Mariscal MD FACP. Documentation for date of: 12/21/24 HPI History of Present Illness Chief complaint: Back pain, shortness of breath History of present illness: 79-year-old male with significant cardiac, pulmonary, renal, and hepatic comorbidities who presented from home via EMS with acute worsening back pain, shortness of breath, and edema. He developed sudden severe stabbing pain across the upper back around 3 PM, radiating variably across the back and once into the legs, prompting EMS activation. Pain was 9/10, worse with movement, and unlike prior episodes. He denies trauma or recent falls today, though he had a mechanical fall 11/03/24 when he tripped on his walker (no LOC, CT head negative, spine imaging negative for acute fracture). He endorses progressively worsening dyspnea and cough over several days, dry but more frequent. No fevers, chills, chest pain, or GI bleeding. Edema is chronic but fluctuates, improved compared to two weeks ago when he was hospitalized. He denies syncope, palpitations, incontinence, or GI bleeding. Recent cardiology consult 11/04/24 confirmed pacemaker check (Medtronic, MRI- safe, >7 years battery life). Echo from May 2024 showed EF 65%, severe RV dysfunction, severe biatrial dilatation, moderate MR, mild TR, and moderate LVH. BNP at that time was 658, similar to current 452. He was advised to continue Bumex, with option for additional dosing for edema. ED Course Vitals stable on home O2. Labs: Cr 2.0, INR 2.4, BNP 452, lactate 4.5, Mg 1.2, troponin stable. CXR/CTA showed pulmonary edema, bilateral effusions, LLL pneumonia vs edema, cirrhosis with ascites, and ascending aortic aneurysm. CT spine: DDD, no fracture. EKG: paced, unchanged. Received IV morphine, zofran, magnesium, and empiric antibiotics. ROS * Constitutional: No fevers, chills, weight loss. * Cardiac: No chest pain, syncope. * Pulm: SOB, dry cough. * GI: Mild abdominal discomfort, no N/V, no GI bleed. * : Normal voiding. * Neuro/MSK: Chronic weakness, acute severe back pain, prior fall. * Skin: No rash or jaundice. PMH * Atrial fibrillation s/p pacemaker (Medtronic, MRI-compatible, >7 years battery life) * Sick sinus syndrome * CAD s/p PCI >10 yrs ago * HFpEF (EF 65%, severe RV dysfunction, severe biatrial dilatation, MR/TR, RVSP 38) * Hypertension, Hyperlipidemia * COPD on home O2 * CKD stage 3b (baseline Cr ~2) * Cirrhosis with mild ascites * Hyperparathyroidism s/p partial parathyroidectomy (on cinacalcet) * Peripheral neuropathy, chronic back pain/DDD * BPH, Depression PSH * Cardiac surgery, PCI, pacemaker * Abdominal surgery, joint replacement, arthroscopy * Kidney surgery (partial removal) * Partial parathyroidectomy Medications (per med list, pending official med recs) * Amitriptyline 10 mg nightly * Gabapentin 400 mg BID * Pravastatin 40 mg daily * Apixaban 2.5 mg BID * Pantoprazole 40 mg daily * Spironolactone 25 mg daily * Cinacalcet 30 mg daily * Colchicine 0.3 mg daily * Magnesium oxide 400 mg BID * Midodrine 10 mg TID * PRN hydrocodone/acetaminophen Stopped: Lisinopril, Metolazone Allergies * NKDA Social History * Never smoker, no alcohol, no drugs * Lives with , limited mobility, walker use * Strong family support Family History * GI problems in family Exam Vital Signs Temp Pulse Resp BP Pulse Ox O2 Del Method O2 Flow Rate 99.1 F 60 28 H 113/64 91 L Nasal Cannula 5 12/21/24 19:49 12/21/24 21:00 12/21/24 21:00 12/21/24 21:00 12/21/24 21:00 12/21/24 20:49 12/21/24 20:49 Narrative Exam Gen: Frail, alert, oriented, NAD after analgesia CV: Irregularly irregular, no murmurs, pacemaker in place Pulm: Decreased air movement, bibasilar rales, no wheezing, on home O2 Abd: Soft, mildly distended, no tenderness, no rebound/guarding, known ascites on imaging Ext: 2?3+ BLE edema, chronic Neuro: CN II?XII intact, no focal deficits, chronic LE weakness Skin: Warm, dry, no jaundice Results: Labs 12/21/24 19:04 12/21/24 19:04 Labs: Short CBC 12/21/24 Range/Units 19:04 WBC 10.5 (3.8-10.6) Thou/mm3 Hgb 12.0 L (13.5-16.0) g/dL Hct 40.2 L (41.0-53.0) % Plt Count 297 D (140-440) Thou/mm3 BMP 12/21/24 19:04 Sodium 141 Potassium 4.1 Chloride 102 Carbon Dioxide 26.0 BUN 38 H Creatinine 2.0 H Glucose 139 H Calcium 10.3 Cardiac Enzymes 12/21/24 Range/Units 19:04 Troponin I 0.199 H* (0.0-0.045) ng/mL Liver Function 12/21/24 Range/Units 19:04 Total Bilirubin 1.3 H (0.3-1.2) mg/dL Direct Bilirubin 0.8 H (0.0-0.3) mg/dL AST 29 (0-34) U/L ALT 15 (10-49) U/L Alkaline Phosphatase 127 H (46-116) U/L Albumin 4.0 (3.4-4.8) gm/dL Urine 12/21/24 Range/Units 19:46 Urine Color Yellow (Lt Yel-Yel) Urine Clarity Clear (Clear/Hazy) Urine pH 6.0 (5.0-7.0) Ur Specific [place] 1.026 (1.001-1.035) Urine Protein 2+ A (Neg - Trace) Urine Glucose (UA) Negative (Negative) ABG Interpretation ABG results: 12/21/24 20:10 ABG pH 7.43 ABG pCO2 40 ABG pO2 83 ABG HCO3 26 ABG O2 Saturation 98 ABG Base Excess 2 Quality Measures Quality Measures VTE prophylaxis Advance care planning discussed with:: patient, spouse and child Medications Home Medications and Allergies Home Medications ?Medication ?Instructions ?Recorded ?Confirmed ?Type pravastatin 40 mg tablet 40 mg PO QAM #0 tabs 4 09/11/24 History (Pravachol) amitriptyline 10 mg tablet 10 mg PO HS 10/04/18 History apixaban 5 mg tablet (Eliquis) 2.5 mg BID 05/29/24 History cinacalcet 30 mg tablet 30 mg PO 1XD 05/29/24 History omeprazole 20 mg capsule,delayed 20 mg PO 1XD 05/29/24 09/11/24 History release benazepril 20 mg tablet 10 mg PO HS 09/11/24 5 History bumetanide 0.5 mg tablet 0.5 mg PO HS 09/11/24 History spironolactone 25 mg tablet 25 mg PO QDAY 09/11/2411/29 History Allergies Allergy/AdvReac Type Severity Reaction Status Date / Time No Known Allergies Allergy Verified 12/10/24 11:04 Visit Medications Acetaminophen (Acetaminophen 325 Mg Tablet) 650 mg PO Q6H PRN PRN Reason: Fever >100.4 Stop: 01/20/25 22:57 Acetaminophen (Acetaminophen 325 Mg Tablet) 650 mg PO Q6H PRN PRN Reason: Pain Scale 1-6 Stop: 01/20/25 22:57 Heparin Sodium (Porcine) (Heparin Sod Inj 5000 Unit/Ml Vial) 5,000 unit SC Q12HR OLI Stop: 01/05/25 08:59 Magnesium Sulfate (Magnesium Sulfate Ivpb) 4 gm in 50 mls @ 12.5 mls/hr IV X1 ONE Stop: 12/22/24 03:04 Ceftriaxone Sodium/Dextrose (Rocephin/D5w 1gm Iv Premix) 1 gm in 50 mls @ 100 mls/hr IV QDAY OLI Stop: 12/29/24 08:59 Morphine Sulfate (Morphine Sulf Inj 10 Mg/Ml Vial) 2 mg IVP Q2H PRN PRN Reason: PAIN SCALE 7-10 (Severe Stop: 12/26/24 22:57 Ondansetron HCl (Ondansetron Inj 2 Mg/Ml Inj 2 Ml) 4 mg IVP Q6H PRN; Protocol PRN Reason: NAUSEA OR VOMITING Stop: 01/20/25 22:57 Pantoprazole Sodium (Pantoprazole Inj 40 Mg Vial) 40 mg IVP QDAY OLI Stop: 01/21/25 08:59 Sennosides (Senna Tablet) 1 tab PO QDAY PRN; Protocol PRN Reason: constipation Stop: 01/20/25 22:57 Discontinued Medications Aspirin (Aspirin 81 Mg Chew) 324 mg PO X1 ONE Stop: 12/21/24 20:00 Last Admin: 12/21/24 20:16 Dose: 324 mg Magnesium Sulfate (Magnesium Sulfate Ivpb) 2 gm in 50 mls @ 25 mls/hr IV X1 ONE Stop: 12/21/24 21:59 Last Admin: 12/21/24 20:17 Dose: 25 mls/hr Ceftriaxone Sodium/Dextrose (Rocephin/D5w 1gm Iv Premix) 1 gm in 50 mls @ 100 mls/hr IV X1 ONE Stop: 12/21/24 21:45 Last Infusion: 12/21/24 22:20 Dose: Infused Azithromycin 500 mg/ Sodium (Chloride) 250 mls @ 250 mls/hr IV X1 ONE Stop: 12/21/24 22:15 Last Admin: 12/21/24 22:22 Dose: 250 mls/hr Morphine Sulfate (Morphine Sulf Inj 10 Mg/Ml Vial) 4 mg IVP X1 ONE Stop: 12/21/24 18:37 Last Admin: 12/21/24 18:54 Dose: 4 mg Ondansetron HCl (Ondansetron Inj 2 Mg/Ml Inj 2 Ml) 4 mg IVP X1 ONE; Protocol Stop: 12/21/24 18:37 Last Admin: 12/21/24 18:54 Dose: 4 mg Assessment & Plan Plan 79M with history of atrial fibrillation s/p pacemaker on Eliquis, CAD s/p PCI, HFpEF, COPD on home O2, CKD3b, cirrhosis, and prior parathyroidectomy, presenting with acute back pain, dyspnea, cough, and edema; found to have CHF exacerbation vs pneumonia, bilateral effusions, and ascending aortic aneurysm. # Pneumonia, unspecified organism LLL consolidation on CTA, worsening cough, baseline SOB. PCT negative but imaging + symptoms concerning. Plan: * Continue empiric ceftriaxone + azithromycin (can switch to levofloxacin if indicated) * F/u blood cultures * Monitor for fever, leukocytosis, O2 needs * Incentive spirometry, pulmonary hygiene # CHFpEF (EF 65%, severe RV dysfunction, severe biatrial dilatation, mod MR) BNP 452 (prior 658), CXR/CTA with pulmonary edema and bilateral pleural effusions. Baseline BLE edema, now improving per spouse. Echo May 2024 EF 65%, severe RV dysfunction, biatrial dilation, MR/TR. Plan: * Continue home Bumex + spironolactone (adjust PRN) * Strict I/Os, daily weights * 2g Na diet, 1.8L FR * Telemetry monitoring * Repeat BMP daily # Atrial fibrillation, s/p pacemaker Rate controlled, paced rhythm on EKG. On apixaban 2.5 mg BID. INR elevated at 2.4, likely liver-related, not warfarin. Plan: * Continue apixaban 2.5 mg BID * Telemetry for rhythm monitoring * Reassess anticoagulation risk given prior fall (discuss with cardiology if bleeding risk ?) * No current rate control agents onboard # Ascending thoracic aortic aneurysm Incidental finding on CTA, no dissection or rupture. Plan: * Optimize BP control, avoid large fluid shifts * Outpatient follow-up might be needed * Monitor for new chest pain, hemodynamic instability # CKD stage 3b Baseline Cr ~2, currently 2.0, GFR ~35. Not on dialysis. Plan: * Avoid nephrotoxins, renally dose meds * Monitor BMP daily * Continue Bumex for volume management with careful renal monitoring # Cirrhosis with mild ascites CTA shows cirrhosis with mild ascites. INR 2.4, T bili 1.3, otherwise stable. No encephalopathy or GI bleeding. Plan: * Monitor LFTs, INR * Maintain sodium restriction (overlaps with CHF plan) * Outpatient hepatology follow-up # Acute back pain, degenerative disc disease Acute severe stabbing upper back pain, radiating variably, one episode into legs. CT spine: degenerative changes, no fracture. Plan: * Pain control: acetaminophen scheduled, PRN opioids cautiously (renal/hepatic impairment) * PT consult if persistent pain or mobility decline * Monitor for neurologic deficits or incontinence # Hypomagnesemia Admission Mg 1.2. Likely multifactorial (diuretics, poor absorption). Plan: * IV magnesium sulfate replacement in ED * Recheck levels in AM, continue oral magnesium oxide 400 mg BID * Monitor for arrhythmias # Hyperlipidemia On pravastatin, last lipid panel not recent. No acute cardiac ischemia (troponin stable at 0.199, chronic). Plan: * Continue pravastatin 40 mg daily * Repeat lipid panel outpatient * Continue CAD secondary prevention measures #Hypertension History of hypertension. Currently on midodrine for low BP episodes. ACEi/ARB discontinued. BP stable in ED. Plan: * Continue current regimen (spironolactone, Bumex, midodrine) * Hold ACEi/ARB * Monitor BP closely inpatient #Partial parathyroidectomy, history of hyperparathyroidism S/p partial parathyroidectomy. Maintained on cinacalcet. Ca mildly elevated at 10.3. Plan: * Continue cinacalcet 30 mg daily * Monitor calcium levels * Follow with PCP/endocrinology outpatient Health Maintenance: Disposition: Admit medicine, telemetry Diet: Cardiac, low Na, 2L FR DVT prophylaxis: On Eliquis (hold if bleeding risk is high) GI prophylaxis: Pantoprazole Code Status: DNR (confirmed, form signed) ----- Plan discussed with attending physician Dr. Davey Sweet MD PGY-1 Internal Medicine
[2024-12-22] VITALS (16 sets, daily range): BP systolic 117–135; BP diastolic 63–77; PULSE 60–92; RESP 17–24; TEMP 36.1–36.7; O2SAT 90–97
[2024-12-22] MEDS: Magnesium Sulfate 4 GM Ivpb 4 GM/50 ML BAG IV (00:17)
[2024-12-22] MEDS: MIDODRINE 5 MG TABLET 10 MG PO ×2 (05:37→13:46)
[2024-12-22 06:38] LABS: Basophils # (Auto) 0.0 Thou/mm3 (0.0-0.2); Basophils % (Auto) 0 % (0-2.5); Eosinophils # (Auto) 0.1 Thou/mm3 (0.0-0.5); Eosinophils % (Auto) 0 % (0-10); Hematocrit 36.0 % (41.0-53.0); Hemoglobin 11.2 g/dL (13.5-16.0); Immature Granulocytes Auto 0.10 Thou/mm3 (0.00-0.00); Lymphocytes # (Auto) 1.2 Thou/mm3 (1.0-4.8); Lymphocytes % (Auto) 8 % (10-50); Mean Corpuscular HGB Conc 31.1 g/dl (31.0-37.0); Mean Corpuscular Hemoglobin 27.6 pg (25.0-35.0); Mean Corpuscular Volume 89 fL (80-100); Monocytes # (Auto) 1.1 Thou/mm3 (0.0-0.8); Monocytes % (Auto) 8 % (0-12); Neutrophils # (Auto) 12.2 Thou/mm3 (1.8-7.7); Neutrophils % (Auto) 83 % (37-80); Nucleated Red Blood Cell # 0.00 Thou/mm3 (0.00-0.00); Nucleated Red Blood Cell % 0 /100 WBC (0); Platelet Count 203 Thou/mm3 (140-440); RDW Standard Deviation 60.3 fL (35.1-43.9); Red Blood Count 4.06 Miln/mm3 (4.50-5.90); White Blood Count 14.7 Thou/mm3 (3.8-10.6)
[2024-12-22 07:17] LABS: Alanine Aminotransferase 18 U/L (10-49); Albumin, Serum 3.8 gm/dL (3.4-4.8); Albumin/Globulin Ratio 1.5 (1.2-2.2); Alkaline Phosphatase 121 U/L (46-116); Anion Gap 13 (7-16); Aspartate Amino Transferase 31 U/L (0-34); BUN/Creatinine Ratio 14 Ratio (12-20); Bilirubin,Total 1.4 mg/dL (0.3-1.2); Blood Urea Nitrogen 31 mg/dL (9-23); Calcium 10.2 mg/dL (8.3-10.6); Calcium (Corrected) 10.4 mg/dL (8.5-10.1); Carbon Dioxide 26.5 mMol/L (20.0-31.0); Chloride 101 mMol/L (98-107); Creatinine (Component) 2.2 mg/dL (0.6-1.3); Estimated Creatinine Clearance 28.9 mL/min (>60); Globulin 2.6 gm/dL (2.3-3.5); Glucose 110 mg/dL (74-106); Magnesium 2.4 mg/dL (1.6-2.6); Osmolality,Calculated 286 (275-295); Phosphorous 4.1 mg/dL (2.4-5.1); Potassium 4.7 mMol/L (3.4-5.1); Sodium 140 mMol/L (136-145); Total Protein 6.4 gm/dL (5.7-8.2); eGFR 29 See Note
[2024-12-22] MEDS: COLCHICINE 0.6 MG TABLET 0.3 MG PO (08:10)
[2024-12-22] MEDS: SPIRONOLACTONE 25 MG TABLET PO ×2 (08:11→12:36)
[2024-12-22] MEDS: BUMETANIDE INJ 0.25 MG/ML VIAL 4 ML 1 MG IVP ×2 (08:14→20:10)
[2024-12-22] MEDS: cefTRIAXone/D5w 1gm IV premix 1 GM/50 ML BAG IV (08:14)
[2024-12-22] MEDS: HEPARIN SOD INJ 5000 UNIT/ML VIAL SC (08:29)
[2024-12-22] MEDS: GABAPENTIN 100 MG CAPSULE 400 MG PO ×2 (08:42→20:01)
[2024-12-22 09:42] LABS: Lactate (Lactic Acid) 3.3 mMol/L (0.4-2.0)
[2024-12-22] MEDS: AZITHROMYCIN INJ 500 MG in SODIUM CHLORIDE 0.9% 250 ML 250 ML 250 MG IV (09:43)
[2024-12-22] MEDS: SODIUM CHLORIDE RT 10% 15 ML NEBU 5 ML INH (10:18)
[2024-12-22 10:46] LABS: Troponin I 0.459 ng/mL (0.0-0.045)
--- NOTE | 2024-12-22 10:53 | EKG_ITS ---
[facility] Test Date: 2024-12-22 Pat Name: CHANCE YO Department: Room: S261A Gender: Male Program Paraprofessional: NILE : [id number] Requested By: Demian Sanchez Order Number: [id number] Reading MD: Demian Sanchez Measurements Intervals [place] Rate: 60 P: AK: QRS: -84 QRSD: 224 T: 106 QT: 544 QTc: 544 Interpretive Statements ELECTRONIC VENTRICULAR PACEMAKER ABNORMAL RHYTHM ECG Compared to ECG 12/21/2024 20:07:51 No significant changes /store/S0/[id number]
--- NOTE | 2024-12-22 11:15 | ESPR_ITS ---
<Statement entered by Abdullahi Smith MD - 12/22/24 17:43> I have reviewed the note and agree with the resident's assessment & plan with exceptions as below. I have personally reviewed labs, imaging, home meds/prior records, examined the patient, formulated and discussed management plan with the IM team. Pt examined at bedside today. Cardiology on consult, appreciate recommendations. Patient will need strict blood pressure control for 4.6 cm ascending aortic aneurysm finding on CTA. Will continued IV diuresis with spironolactone Bumex. Will hold on metolazone as this was a home medicine for him. Continue strict I's and O's, daily weights, keeping magnesium potassium above 2 and 4 respectively. Continue broad-spectrum IV antibiotics for possible pneumonia. Patient has baseline CKD, renally dose medicines and avoid nephrotoxic agents. Resume patient's Eliquis as renally dosed for chronic A-fib and patient also has history of sick sinus syndrome status post pacemaker. Repeat hematology and chemistry in a.m. Abdullahi Smith, PGY-2 Internal Medicine Documentation for date of: 12/22/24 Subjective Subjective Interval history: No acute events overnight. Patient seen and examined at bedside. Vitals and labs reviewed. Patient states he is doing well, denies any complaints/concerns. Patient denies fever, chest pain, shortness of breath, Exam Vital Signs Temp Pulse Resp BP Pulse Ox O2 Del Method O2 Flow Rate 97.0 F 60 17 128/74 97 Nasal Cannula 2 12/22/24 08:00 12/22/24 10:20 12/22/24 10:20 12/22/24 08:14 12/22/24 10:20 12/22/24 08:00 12/22/24 10:20 Narrative Exam General: No acute distress; A&Ox3 Skin: Warm, dry, intact, no obvious rash. HENT: NCAT, EOMI, not icteric. External ears normal. No rhinorrhea. Moist mucous membranes Cardiovascular: Regular rate and rhythm, no murmur, +S1/S2. Pacemaker present Respiratory: Lungs CTAB GI: Soft, nontender, mild-distension, No guarding or rebound tenderness. Extremities: 3+ Bilateral pitting LE edema, no cyanosis, no clubbing. Extremity pulses present Neuro: No focal deficits observed. Conversant, moving all extremities. No overt cerebellar signs/incoordination. Psychiatric: Cooperative, appropriate affect. Objective Labs 12/24/24 04:55 12/24/24 04:55 Labs: Laboratory Results - last 24 hr 12/21/24 12/21/24 12/21/24 19:04 19:46 20:10 WBC 10.5 RBC 4.71 Hgb 12.0 L Hct 40.2 L MCV 85 MCH 25.5 MCHC 29.9 L RDW Std Deviation 60.6 H Plt Count 297 D Neut % (Auto) 89 H Lymph % (Auto) 5 L [place] % (Auto) 5 Eos % (Auto) 0 Baso % (Auto) 1 Neut # (Auto) 9.4 H Lymph # (Auto) 0.5 L [place] # (Auto) 0.5 Eos # (Auto) 0.0 Baso # (Auto) 0.1 Immature Gran # (Auto) 0.04 H Absolute Nucleated RBC 0.00 Immature Gran % 0 Nucleated RBC % 0 ESR 39 H PT 24.5 H INR 2.4 H APTT 25.1 D-Dimer 2640 H Puncture Site Right Radial ABG pH 7.43 ABG pCO2 40 ABG pO2 83 ABG HCO3 26 ABG O2 Saturation 98 ABG Base Excess 2 FiO2 21 Sodium 141 Potassium 4.1 Chloride 102 Carbon Dioxide 26.0 Anion Gap 13 BUN 38 H Creatinine 2.0 H Estim Creat Clear Calc 35.4 L eGFR 33 L BUN/Creatinine Ratio 19 Glucose 139 H Calculated Osmolality 292 Lactic Acid 4.5 H* Calcium 10.3 Corrected Calcium 10.3 H Phosphorus Magnesium 1.2 L Total Bilirubin 1.3 H Direct Bilirubin 0.8 H AST 29 ALT 15 Alkaline Phosphatase 127 H Troponin I 0.199 H* C-Reactive Prot, Quant 0.9 B-Natriuretic Peptide 452 H Total Protein 6.6 Albumin 4.0 Globulin 2.6 Albumin/Globulin Ratio 1.5 Procalcitonin 0.21 TSH 3.54 Free T4 0.80 L Ur Collection Type Clean Catch Urine Color Yellow Urine Clarity Clear Urine pH 6.0 Ur Specific [place] 1.026 Urine Protein 2+ A Urine Glucose (UA) Negative Urine Ketones Negative Urine Blood Negative Urine Nitrite Negative Urine Bilirubin Negative Urine Urobilinogen (Auto) 3.0 Ur Leukocyte Esterase Negative Urine RBC 1 Urine WBC 1 Ur Squamous Epith Cells 0 Urine Bacteria None Ur Culture Indicated? Not Indicated 12/21/24 12/22/24 12/22/24 22:32 06:20 09:05 WBC 14.7 H RBC 4.06 L Hgb 11.2 L Hct 36.0 L MCV 89 MCH 27.6 MCHC 31.1 RDW Std Deviation 60.3 H Plt Count 203 D Neut % (Auto) 83 H Lymph % (Auto) 8 L [place] % (Auto) 8 Eos % (Auto) 0 Baso % (Auto) 0 Neut # (Auto) 12.2 H Lymph # (Auto) 1.2 Castro # (Auto) 1.1 H Eos # (Auto) 0.1 Baso # (Auto) 0.0 Immature Gran # (Auto) 0.10 H Absolute Nucleated RBC 0.00 Immature Gran % 1 H Nucleated RBC % 0 ESR PT INR APTT D-Dimer Puncture Site ABG pH ABG pCO2 ABG pO2 ABG HCO3 ABG O2 Saturation ABG Base Excess FiO2 Sodium 140 Potassium 4.7 D Chloride 101 Carbon Dioxide 26.5 Anion Gap 13 BUN 31 H Creatinine 2.2 H Estim Creat Clear Calc 28.9 L eGFR 29 L BUN/Creatinine Ratio 14 Glucose 110 H Calculated Osmolality 286 Lactic Acid 2.3 H 3.3 H Calcium 10.2 Corrected Calcium 10.4 H Phosphorus 4.1 Magnesium 2.4 Total Bilirubin 1.4 H Direct Bilirubin AST 31 ALT 18 Alkaline Phosphatase 121 H Troponin I 0.459 H* D C-Reactive Prot, Quant B-Natriuretic Peptide Total Protein 6.4 Albumin 3.8 Globulin 2.6 Albumin/Globulin Ratio 1.5 Procalcitonin TSH Free T4 Ur Collection Type Urine Color Urine Clarity Urine pH Ur Specific [place] Urine Protein Urine Glucose (UA) Urine Ketones Urine Blood Urine Nitrite Urine Bilirubin Urine Urobilinogen (Auto) Ur Leukocyte Esterase Urine RBC Urine WBC Ur Squamous Epith Cells Urine Bacteria Ur Culture Indicated? ABG Interpretation ABG results: 12/21/24 20:10 ABG pH 7.43 ABG pCO2 40 ABG pO2 83 ABG HCO3 26 ABG O2 Saturation 98 ABG Base Excess 2 Quality Measures Quality Measures VTE prophylaxis Advance care planning discussed with:: patient Assessment & Plan Assessment Current Active Medications: Generic Name Dose Route Start Last Admin Trade Name Freq PRN Reason Stop Dose Admin Acetaminophen 650 mg 12/21/24 22:58 Acetaminophen 325 Mg Tablet PO 01/20/25 22:57 Q6H PRN Fever >100.4 Acetaminophen 650 mg 12/21/24 22:58 Acetaminophen 325 Mg Tablet PO 01/20/25 22:57 Q6H PRN Pain Scale 1-6 Amitriptyline HCl 10 mg 12/22/24 21:00 Amitriptyline Hcl 25 Mg Tablet PO 01/21/25 20:59 HS OLI Apixaban 2.5 mg 12/22/24 21:00 Apixaban 2.5 Mg Tablet PO 01/21/25 20:59 BID OLI Bumetanide 1 mg 12/22/24 21:00 Bumetanide Inj 0.25 Mg/Ml Vial 4 Ml IVP 01/21/25 20:59 BID OLI Colchicine 0.3 mg 12/22/24 09:00 12/22/24 08:10 Colchicine 0.6 Mg Tablet PO 01/21/25 08:59 0.3 mg QDAY OLI Administration Gabapentin 400 mg 12/22/24 09:00 12/22/24 08:42 Gabapentin 100 Mg Capsule PO 01/21/25 08:59 400 mg BID OLI Administration Ceftriaxone Sodium/Dextrose 1 gm in 50 mls @ 100 mls/hr 12/22/24 09:00 12/22/24 08:14 Rocephin/D5w 1gm Iv Premix IV 12/29/24 08:59 100 mls/hr QDAY OLI Administration Azithromycin 500 mg/ Sodium 250 mls @ 250 mls/hr 12/22/24 09:00 12/22/24 09:43 Chloride IV 12/29/24 08:59 250 mls/hr QDAY OLI Administration Midodrine 10 mg 12/22/24 10:02 Midodrine 5 Mg Tablet PO 01/21/25 05:59 TID OLI Morphine Sulfate 2 mg 12/21/24 22:58 Morphine Sulf Inj 10 Mg/Ml Vial IVP 12/26/24 22:57 Q2H PRN PAIN SCALE 7-10 (Severe Ondansetron HCl 4 mg 12/21/24 22:58 Ondansetron Inj 2 Mg/Ml Inj 2 Ml IVP 01/20/25 22:57 Q6H PRN NAUSEA OR VOMITING Protocol Pantoprazole Sodium 40 mg 12/22/24 09:00 12/22/24 08:13 Pantoprazole Inj 40 Mg Vial IVP 01/21/25 08:59 40 mg QDAY OLI Administration Pravastatin Sodium 40 mg 12/22/24 21:00 Pravastatin Sodium 10 Mg Tablet PO 01/21/25 20:59 HS [facility] Sennosides 1 tab 12/21/24 22:58 Senna Tablet PO 01/20/25 22:57 QDAY PRN constipation Protocol Spironolactone 50 mg 12/23/24 09:00 Spironolactone 25 Mg Tablet PO 01/22/25 08:59 QDAY OLI Plan Assessment 79M with history of atrial fibrillation s/p pacemaker on Eliquis, CAD s/p PCI, HFpEF, COPD on home O2, CKD3b, cirrhosis, and prior parathyroidectomy, presenting with acute back pain, dyspnea, cough, and edema; found to have CHF exacerbation vs pneumonia, bilateral effusions, and ascending aortic aneurysm. #Acute on chronic hypoxic respiratory failure #Acute on chronic exacerbation HFpEF (EF 65%, severe RV dysfunction, severe biatrial dilatation, mod MR) Respiratory failure multifactorial likely related to infection and CHF exacerbation BNP 452 (prior 658), CXR/CTA with pulmonary edema and bilateral pleural effusions. Echo May 2024: EF 65%, severe RV dysfunction, biatrial dilation, MR/TR. 12/22: 3+ pitting edema of bilateral LE's. Plan: -Increased Bumex IV to 1 mg BID & Increased Spironolactone 50 mg qd. -Consider adding metolazone if LE edema not responsive to increased diuresis above. -Strict I/Os, daily weights -2g Na diet, 1.8L FR -Telemetry monitoring -Keep mag and potassium above 2 and 4 respectively # Pneumonia, unspecified organism LLL consolidation on CTA, worsening cough, baseline SOB. PCT negative but imaging + symptoms concerning. Plan: -Continue empiric ceftriaxone + azithromycin (can switch to levofloxacin if indicated) -F/u blood cultures -Monitor for fever, leukocytosis, O2 needs -Incentive spirometry, pulmonary hygiene #Chronic Atrial fibrillation #Hx of Sick sinus syndrome s/p Pacemaker [id number]: 4 HAS-BLED: 3 Rate: Controlled Rhythm: Regular and Electronically paced AC: Eliquis Plan: -Continue apixaban 2.5 mg BID -Telemetry for rhythm monitoring -Reassess anticoagulation risk given prior fall (discuss with cardiology if bleeding risk ?) -No current rate control agents onboard -Keep mag and potassium above 2 and 4 respectively #Elevated Troponins #CAD, s/p PCI #Hypertension #Hyperlipidemia Troponin 0.518 at this time Chronic Plan: -Continue current regimen (ADJUST spironolactone, Bumex, midodrine ABOVE in CHF problem) -Hold ACEi/ARB -Monitor BP closely inpatient -Trend troponins until they peak ?Resumed home Pravastatin 40 mgmg at bedtime #Ascending thoracic aortic aneurysm, 4.6 cm Incidental finding on CTA, no dissection or rupture 4.6 cm seen on CTA Plan: -Optimize tight BP control, avoid large fluid shifts -Outpatient follow up repeat CT within 6 months -Monitor for new chest pain, hemodynamic instability # CKD stage 3b Baseline Cr ~2, currently 2.0, GFR ~35. Not on dialysis. Plan: -Avoid nephrotoxins, renally dose meds -Monitor BMP daily -Continue Bumex for volume management with careful renal monitoring # Cirrhosis with mild ascites CTA shows cirrhosis with mild ascites. INR 2.4, T bili 1.3, otherwise stable. No encephalopathy or GI bleeding. Plan: -Monitor LFTs, INR -Maintain sodium restriction (overlaps with CHF plan) -Outpatient hepatology follow-up #Acute back pain, degenerative disc disease, improving Acute severe stabbing upper back pain, radiating variably, one episode into legs. CT spine: degenerative changes, no fracture. 12/22: Patient states back is feeling better, no pain at rest in bed. Plan: -Pain control: acetaminophen scheduled, PRN opioids cautiously (renal/hepatic impairment) -PT consult if persistent pain or mobility decline -Monitor for neurologic deficits or incontinence #Hypomagnesemia, improving Admission Mg 1.2; 12/22: 2.4 Likely multifactorial (diuretics, poor absorption). Plan: -IV magnesium sulfate replacement in ED -Recheck levels in AM, consider oral magnesium oxide 400 mg if still low -Monitor for arrhythmias #Partial parathyroidectomy, history of hyperparathyroidism S/p partial parathyroidectomy. Maintained on cinacalcet. Ca mildly elevated at 10.3. Plan: -Continue cinacalcet 30 mg daily -Monitor calcium levels -Follow with PCP/endocrinology outpatient Health Maintenance: Disposition: Admit medicine, telemetry Diet: Cardiac, low Na, 2L FR DVT prophylaxis: On Eliquis GI prophylaxis: Pantoprazole Code Status: DNR Patient plan of care was discussed with the attending physician, Dr. Argueta & senior resident Dr. Luis Sanchez MD PGY-1 Attending Provider Attestation/Addendum Patient seen and examined at beside with resident. Agree with assessment and plan as documented below. Plan for diruesis and anticipate discharge in next 1-2 days. Blane Argueta MD
[2024-12-22 12:35] LABS: Reflex Lactate? Y
[2024-12-22 12:51] LABS: Lactic Acid, 3 HR 2.8 mMol/L (0.4-2.0)
[2024-12-22 13:23] LABS: Troponin I 0.518 ng/mL (0.0-0.045)
--- NOTE | 2024-12-22 14:05 | ESCONSULT_ITS ---
<Statement entered by Shavonne Moran MD - 12/22/24 19:22> I personally evaluated examined this patient was very well-known to be admitted to hospital with possible infection pneumonia back pain musculoskeletal pain CT scan of the chest and was performed no evidence of pulmonary emboli or dissection which is not surprising patient also CKD. I doubt very much there is any acute coronary syndrome troponin level slightly elevated possibly type II troponin level elevated the patient resident physician Dr. Andrea Velasquez PGY1 agree with the treatment plan recommendation will continue to monitor the patient closely HPI Data of Consult Requesting Physician: Abner Mariscal MD Admitting Provider: Abner Mariscal MD Attending Provider: Abner Mariscal MD Primary Care Provider: Physician No Primary/Family Consult Narrative History of present illness: 79-year-old male with PMH of cardiac, pulmonary, renal, and hepatic comorbidities who presented from home via EMS with acute left-sided back pain inferior to the left scapula. He also had associated shortness of breath and edema, he developed sudden severe stabbing back pain across the upper back around 3 PM. His pain was 9 out of 10 it was made worse with movement. He denied trauma or any recent falls though he did have a mechanical fall on 11/03/2024 when he tripped over his walker but had no loss of consciousness and his CT of the head was negative at that time. He also endorsed progressively worsening dyspnea and cough over the past several days. He denied fever chills chest pain or GI bleeding. He also denied syncope palpitations incontinence or GI bleeding. Recent cardiology consult 11/04/24 confirmed pacemaker check (Medtronic, MRI- safe, >7 years battery life). Echo from May 2024 showed EF 65%, severe RV dysfunction, severe biatrial dilatation, moderate MR, mild TR, and moderate LVH. BNP at that time was 658, similar to current 452. He was advised to continue Bumex, with option for additional dosing for edema. Cardiology was consulted due to the patient's back pain suspicious for aortic dissection. ED Course: Vitals stable on home O2. Labs: Cr 2.0, INR 2.4, BNP 452, lactate 4.5, Mg 1.2, troponin stable. CXR/CTA showed pulmonary edema, bilateral effusions, LLL pneumonia vs edema, cirrhosis with ascites, and ascending aortic aneurysm. CT spine: DDD, no fracture. EKG: paced, unchanged. Received IV morphine, zofran, magnesium, and empiric antibiotics. PMH * Atrial fibrillation s/p pacemaker (Medtronic, MRI-compatible, >7 years battery life) * Sick sinus syndrome * CAD s/p PCI >10 yrs ago * HFpEF (EF 65%, severe RV dysfunction, severe biatrial dilatation, MR/TR, RVSP 38) * Hypertension, Hyperlipidemia * COPD on home O2 * CKD stage 3b (baseline Cr ~2) * Cirrhosis with mild ascites * Hyperparathyroidism s/p partial parathyroidectomy (on cinacalcet) * Peripheral neuropathy, chronic back pain/DDD * BPH, Depression PSH * Cardiac surgery, PCI, pacemaker * Abdominal surgery, joint replacement, arthroscopy * Kidney surgery (partial removal) * Partial parathyroidectomy Medications (per med list, pending official med recs) * Amitriptyline * BenzePrO * Bumetanide * Cinacalcet * Colchicine * Eliquis * Gabapentin * Hydrocodone acetaminophen * Metolazone * Omeprazole * Pravastatin * Spironolactone Allergies * NKDA Social History * Never smoker, no alcohol, no drugs * Lives with , limited mobility, walker use * Strong family support Family History * GI problems in family cc:: cc: Abner Mariscal MD Review of Systems Review of Systems Narrative Review of Systems: Review of Systems: * General: Denies fevers, chills. * HEENT: Denies headache, congestion, or sore throat. * Cardiac: Denies chest pain or palpitations. * Pulmonary: Dry cough. Shortness of breath. * GI: Denies nausea, vomiting, diarrhea, constipation, melena, or hematochezia. * : Denies dysuria, hematuria, frequency, or urgency. * MSK: Admits to pain in the left back inferior to the scapula, the area is not tender to palpation. Also admits to pain in the right back over the scapular area. None of his back pain is associated with moving his upper extremities and the patient has full range of motion of the bilateral upper extremities. Edema in the bilateral lower extremities. * Neuro: Denies weakness, numbness, vision changes, or speech difficulty. Exam Vital Signs Temp Pulse Resp BP Pulse Ox O2 Del Method O2 Flow Rate 96.9 F 92 18 117/73 92 L Nasal Cannula 2 12/22/24 12:00 12/22/24 13:46 12/22/24 12:00 12/22/24 13:46 12/22/24 12:00 12/22/24 12:00 12/22/24 12:00 Narrative Exam General: Frail, pale, elderly man. Awake and in no acute distress. Conversational and non-toxic appearing. Neurologic: GCS 15. Alert and oriented x3, no gross neurological deficit, and patient able to move all 4 extremities. HEENT: Normocephalic, atraumatic, mucous membranes moist. Pupils reactive to light. Heart: Paced rhythm, rate 60, normal S1 and S2, no murmurs. Lungs: Clear to auscultation bilaterally with no wheezing or crackles. Abdomen: Soft, nondistended, nontender, positive bowel sounds. No guarding or rebound tenderness. Extremities: 3+ bilateral pitting edema in the lower extremities. Skin: Warm. Dry. No rash or ecchymoses. Results Labs 12/22/24 06:20 12/22/24 06:20 Labs: Short CBC 12/21/24 12/22/24 Range/Units 19:04 06:20 WBC 10.5 14.7 H (3.8-10.6) Thou/mm3 Hgb 12.0 L 11.2 L (13.5-16.0) g/dL Hct 40.2 L 36.0 L (41.0-53.0) % Plt Count 297 D 203 D (140-440) Thou/mm3 BMP 12/21/24 12/22/24 19:04 06:20 Sodium 141 140 Potassium 4.1 4.7 D Chloride 102 101 Carbon Dioxide 26.0 26.5 BUN 38 H 31 H Creatinine 2.0 H 2.2 H Glucose 139 H 110 H Calcium 10.3 10.2 Cardiac Enzymes 12/21/24 12/22/24 12/22/24 Range/Units 19:04 09:05 12:45 Troponin I 0.199 H* 0.459 H* D 0.518 H* (0.0-0.045) ng/mL Liver Function 12/21/24 12/22/24 Range/Units 19:04 06:20 Total Bilirubin 1.3 H 1.4 H (0.3-1.2) mg/dL Direct Bilirubin 0.8 H (0.0-0.3) mg/dL AST 29 31 (0-34) U/L ALT 15 18 (10-49) U/L Alkaline Phosphatase 127 H 121 H (46-116) U/L Albumin 4.0 3.8 (3.4-4.8) gm/dL Urine 12/21/24 Range/Units 19:46 Urine Color Yellow (Lt Yel-Yel) Urine Clarity Clear (Clear/Hazy) Urine pH 6.0 (5.0-7.0) Ur Specific [place] 1.026 (1.001-1.035) Urine Protein 2+ A (Neg - Trace) Urine Glucose (UA) Negative (Negative) ABG Interpretation ABG results: 12/21/24 20:10 ABG pH 7.43 ABG pCO2 40 ABG pO2 83 ABG HCO3 26 ABG O2 Saturation 98 ABG Base Excess 2 Quality Measures Quality Measures VTE prophylaxis Advance care planning discussed with:: patient Medications Home Medications and Allergies Home Medications ?Medication ?Instructions ?Recorded ?Confirmed ?Type pravastatin 40 mg tablet 40 mg PO QAM #0 tabs 4 09/11/24 History (Pravachol) amitriptyline 10 mg tablet 10 mg PO HS 10/04/18 History apixaban 5 mg tablet (Eliquis) 2.5 mg BID 05/29/24 History cinacalcet 30 mg tablet 30 mg PO 1XD 05/29/24 History omeprazole 20 mg capsule,delayed 20 mg PO 1XD 05/29/24 09/11/24 History release benazepril 20 mg tablet 10 mg PO HS 09/11/24 5 History bumetanide 0.5 mg tablet 0.5 mg PO HS 09/11/24 History spironolactone 25 mg tablet 25 mg PO QDAY 09/11/2411/29 History Allergies Allergy/AdvReac Type Severity Reaction Status Date / Time No Known Allergies Allergy Verified 12/10/24 11:04 Visit Medications Acetaminophen (Acetaminophen 325 Mg Tablet) 650 mg PO Q6H PRN PRN Reason: Fever >100.4 Stop: 01/20/25 22:57 Acetaminophen (Acetaminophen 325 Mg Tablet) 650 mg PO Q6H PRN PRN Reason: Pain Scale 1-6 Stop: 01/20/25 22:57 Amitriptyline HCl (Amitriptyline Hcl 25 Mg Tablet) 10 mg PO HS [facility] Stop: 01/21/25 20:59 Apixaban (Apixaban 2.5 Mg Tablet) 2.5 mg PO BID [facility] Stop: 01/21/25 20:59 Bumetanide (Bumetanide Inj 0.25 Mg/Ml Vial 4 Ml) 1 mg IVP BID [facility] Stop: 01/21/25 20:59 Colchicine (Colchicine 0.6 Mg Tablet) 0.3 mg PO QDAY [facility] Stop: 01/21/25 08:59 Last Admin: 12/22/24 08:10 Dose: 0.3 mg Gabapentin (Gabapentin 100 Mg Capsule) 400 mg PO BID [facility] Stop: 01/21/25 08:59 Last Admin: 12/22/24 08:42 Dose: 400 mg Ceftriaxone Sodium/Dextrose (Rocephin/D5w 1gm Iv Premix) 1 gm in 50 mls @ 100 mls/hr IV QDAY [facility] Stop: 12/29/24 08:59 Last Admin: 12/22/24 08:14 Dose: 100 mls/hr Azithromycin 500 mg/ Sodium (Chloride) 250 mls @ 250 mls/hr IV QDAY [facility] Stop: 12/29/24 08:59 Last Admin: 12/22/24 09:43 Dose: 250 mls/hr Midodrine (Midodrine 5 Mg Tablet) 10 mg PO TID [facility] Stop: 01/21/25 05:59 Last Admin: 12/22/24 13:46 Dose: 10 mg Morphine Sulfate (Morphine Sulf Inj 10 Mg/Ml Vial) 2 mg IVP Q2H PRN PRN Reason: PAIN SCALE 7-10 (Severe Stop: 12/26/24 22:57 Ondansetron HCl (Ondansetron Inj 2 Mg/Ml Inj 2 Ml) 4 mg IVP Q6H PRN; Protocol PRN Reason: NAUSEA OR VOMITING Stop: 01/20/25 22:57 Pantoprazole Sodium (Pantoprazole Inj 40 Mg Vial) 40 mg IVP QDAY [facility] Stop: 01/21/25 08:59 Last Admin: 12/22/24 08:13 Dose: 40 mg Pravastatin Sodium (Pravastatin Sodium 10 Mg Tablet) 40 mg PO HS [facility] Stop: 01/21/25 20:59 Sennosides (Senna Tablet) 1 tab PO QDAY PRN; Protocol PRN Reason: constipation Stop: 01/20/25 22:57 Spironolactone (Spironolactone 25 Mg Tablet) 50 mg PO QDAY [facility] Stop: 01/22/25 08:59 Discontinued Medications Acetaminophen (Acetaminophen 325 Mg Tablet) 650 mg PO Q6H PRN PRN Reason: Pain Scale 1-6 Stop: 01/20/25 22:57 Aspirin (Aspirin 81 Mg Chew) 324 mg PO X1 ONE Stop: 12/21/24 20:00 Last Admin: 12/21/24 20:16 Dose: 324 mg Bumetanide (Bumetanide Inj 0.25 Mg/Ml Vial 4 Ml) 1 mg IVP QDAY [facility] Stop: 01/21/25 08:59 Last Admin: 12/22/24 08:14 Dose: 1 mg Gabapentin (Gabapentin 300 Mg Capsule) 400 mg PO BID [facility] Stop: 01/21/25 08:59 Heparin Sodium (Porcine) (Heparin Sod Inj 5000 Unit/Ml Vial) 5,000 unit SC Q12HR [facility] Stop: 01/05/25 08:59 Last Admin: 12/22/24 08:29 Dose: 5,000 unit Magnesium Sulfate (Magnesium Sulfate Ivpb) 2 gm in 50 mls @ 25 mls/hr IV X1 ONE Stop: 12/21/24 21:59 Last Infusion: 12/21/24 23:29 Dose: Infused Ceftriaxone Sodium/Dextrose (Rocephin/D5w 1gm Iv Premix) 1 gm in 50 mls @ 100 mls/hr IV X1 ONE Stop: 12/21/24 21:45 Last Infusion: 12/21/24 22:20 Dose: Infused Azithromycin 500 mg/ Sodium (Chloride) 250 mls @ 250 mls/hr IV X1 ONE Stop: 12/21/24 22:15 Last Infusion: 12/21/24 23:47 Dose: Infused Magnesium Sulfate (Magnesium Sulfate Ivpb) 4 gm in 50 mls @ 12.5 mls/hr IV X1 ONE Stop: 12/22/24 03:04 Last Admin: 12/22/24 00:17 Dose: 12.5 mls/hr Midodrine (Midodrine 5 Mg Tablet) 10 mg PO TID [facility] Stop: 01/21/25 05:59 Last Admin: 12/22/24 05:37 Dose: 10 mg Morphine Sulfate (Morphine Sulf Inj 10 Mg/Ml Vial) 4 mg IVP X1 ONE Stop: 12/21/24 18:37 Last Admin: 12/21/24 18:54 Dose: 4 mg Ondansetron HCl (Ondansetron Inj 2 Mg/Ml Inj 2 Ml) 4 mg IVP X1 ONE; Protocol Stop: 12/21/24 18:37 Last Admin: 12/21/24 18:54 Dose: 4 mg Sodium Chloride (Sodium Chloride Rt 10% 15 Ml Nebu) 5 ml INH X1 ONE Stop: 12/22/24 09:55 Last Admin: 12/22/24 10:18 Dose: 5 ml Spironolactone (Spironolactone 25 Mg Tablet) 25 mg PO QDAY [facility] Stop: 01/21/25 08:59 Last Admin: 12/22/24 08:11 Dose: 25 mg Spironolactone (Spironolactone 25 Mg Tablet) 25 mg PO X1 ONE Stop: 12/22/24 10:14 Last Admin: 12/22/24 12:36 Dose: 25 mg Assessment & Plan Plan 79-year-old male with PMH of cardiac, pulmonary, renal, and hepatic comorbidities who presented from home via EMS with acute left-sided back pain inferior to the left scapula. He also had associated shortness of breath and edema, he developed sudden severe stabbing back pain across the upper back around 3 PM. His pain was 9 out of 10 it was made worse with movement. He denied trauma or any recent falls though he did have a mechanical fall on 11/03/2024 when he tripped over his walker but had no loss of consciousness and his CT of the head was negative at that time. Upon cardiology consultation, the patient still admits to stabbing left-sided and right sided back pain not associated with moving his upper extremities. He also denies chest pain. Cardiology was consulted for evaluation of the patient's back pain due to suspicion of aortic dissection. #HFpEF EF 65% #Atrial fibrillation status post pacemaker #Ascending thoracic aortic aneurysm #CAD status post stent placement #Acute back pain * The patient has chronic lower extremity edema there is 3+ pitting * EKG was positive for electronic ventricular pacemaker * CTA of the chest was positive for an aneurysmal dilation of the ascending thoracic aorta, mild heart failure, and there was no evidence of acute aortic dissection * The patient denies chest pain associated with exercise * The patient's EKG is negative for any acute ST segment changes * There is low suspicion of ischemic etiology * The patient's back pain is likely not cardiogenic in nature * The patient denies typical signs associated with acute aortic dissection, including tearing chest pain radiating to the back, the patient was able to localize his back pain and denied any chest pain * Consider pneumonia, degenerative disc disease, and musculoskeletal causes of localized back pain Plan: * Continue home medications for cardiac management: Pravastatin, spironolactone, bumetanide, midodrine, Eliquis #Pneumonia #CKD stage IIIb #Cirrhosis with mild ascites #Hypomagnesemia #Hyperlipidemia #Hypertension #Partial parathyroidectomy Remainder the patient's hospital problems will be managed per the primary team. Patient was seen and discussed with my attending physician Dr. Moran. Andrea Velasquez DO PGY-1.
[2024-12-22 19:19] LABS: Lactate (Lactic Acid) 2.5 mMol/L (0.4-2.0)
[2024-12-22] MEDS: AMITRIPTYLINE HCL 25 MG TABLET 10 MG PO (20:00)
[2024-12-22] MEDS: PRAVASTATIN SODIUM 10 MG TABLET 40 MG PO (20:01)
[2024-12-22] MEDS: APIXABAN 2.5 MG TABLET PO (20:03)
[2024-12-22 20:20] LABS: Troponin I 0.524 ng/mL (0.0-0.045)
--- NOTE | 2024-12-22 20:31 | PC.NURSE ---
called Dr. Sweet regarding patient's troponin increased to 0.524. Patient also c/o stomach acid, new orders received for famotidine 20mg PO.
[2024-12-22] MEDS: FAMOTIDINE 20 MG TABLET PO (20:35)
[2024-12-22 22:17] LABS: Reflex Lactate? Y
--- NOTE | 2024-12-22 22:59 | PC.RT ---
small, thick, dark red sputum sample sent to lab at this time.
[2024-12-22 23:13] LABS: Lactic Acid, 3 HR 1.9 mMol/L (0.4-2.0)
[2024-12-23] VITALS (16 sets, daily range): BP systolic 113–146; BP diastolic 57–87; PULSE 60–72; RESP 12–27; TEMP 36.1–36.4; O2SAT 77–98
[2024-12-23 06:15] LABS: Basophils # (Auto) 0.1 Thou/mm3 (0.0-0.2); Basophils % (Auto) 1 % (0-2.5); Eosinophils # (Auto) 0.5 Thou/mm3 (0.0-0.5); Eosinophils % (Auto) 5 % (0-10); Hematocrit 36.6 % (41.0-53.0); Hemoglobin 11.1 g/dL (13.5-16.0); Immature Granulocytes Auto 0.09 Thou/mm3 (0.00-0.00); Lymphocytes # (Auto) 1.4 Thou/mm3 (1.0-4.8); Lymphocytes % (Auto) 12 % (10-50); Mean Corpuscular HGB Conc 30.3 g/dl (31.0-37.0); Mean Corpuscular Hemoglobin 26.1 pg (25.0-35.0); Mean Corpuscular Volume 86 fL (80-100); Monocytes # (Auto) 1.2 Thou/mm3 (0.0-0.8); Monocytes % (Auto) 10 % (0-12); Neutrophils # (Auto) 8.2 Thou/mm3 (1.8-7.7); Neutrophils % (Auto) 72 % (37-80); Nucleated Red Blood Cell # 0.00 Thou/mm3 (0.00-0.00); Nucleated Red Blood Cell % 0 /100 WBC (0); Platelet Count 206 Thou/mm3 (140-440); RDW Standard Deviation 60.3 fL (35.1-43.9); Red Blood Count 4.26 Miln/mm3 (4.50-5.90); White Blood Count 11.5 Thou/mm3 (3.8-10.6)
[2024-12-23 07:06] LABS: Alanine Aminotransferase 14 U/L (10-49); Albumin, Serum 3.8 gm/dL (3.4-4.8); Albumin/Globulin Ratio 1.5 (1.2-2.2); Alkaline Phosphatase 116 U/L (46-116); Anion Gap 14 (7-16); Aspartate Amino Transferase 23 U/L (0-34); BUN/Creatinine Ratio 19 Ratio (12-20); Bilirubin,Total 1.0 mg/dL (0.3-1.2); Blood Urea Nitrogen 42 mg/dL (9-23); Calcium 10.6 mg/dL (8.3-10.6); Calcium (Corrected) 10.8 mg/dL (8.5-10.1); Carbon Dioxide 24.0 mMol/L (20.0-31.0); Chloride 99 mMol/L (98-107); Creatinine (Component) 2.2 mg/dL (0.6-1.3); Estimated Creatinine Clearance 31.8 mL/min (>60); Globulin 2.6 gm/dL (2.3-3.5); Glucose 103 mg/dL (74-106); Magnesium 2.0 mg/dL (1.6-2.6); Osmolality,Calculated 284 (275-295); Phosphorous 3.6 mg/dL (2.4-5.1); Potassium 5.0 mMol/L (3.4-5.1); Sodium 137 mMol/L (136-145); Total Protein 6.4 gm/dL (5.7-8.2); eGFR 29 See Note
--- NOTE | 2024-12-23 08:25 | PC.SS ---
PRIZER HAND conducted bedside contact with the patient conduct initial assessment and to discuss discharge planning.? Patient admitted due to acute worsening back pain, shortness of breath, and edema. Patient confirmed demographic information.? 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 Patient resides at home with spouse, Genevieve Christensen .? Patient utilizes a walker to assist with ambulation.? Patient utilizes home oxygen.? Patient describes ability to complete ADL?s independently if assistance needed patient?s spouse provides assistance.? Patient identified spouse, Genevieve Christensen as surrogate medical decision maker.? Patients PCP is Dr. Blackwood, [facility].? Patient?s physician coding specialist is Dr. Coronel.? Patient is in possession of a pacemaker.? Patient utilizes [facility] for pharmacy services.? Patient confirms access to basic utilities and provisions at home.? Patient?s spouse provides transportation on behalf of the patient.? Plan is for the patient to return home at the time of discharge.? If home health recommended no preferred agency identified.? Family will provide transportation on behalf of the patient. ?No further discharge needs identified by the patient.? No further intervention required at this time, social science instructor will be available to address any further concerns.? Next of Kin: Genevieve Christensen D/C Plan: Home
[2024-12-23] MEDS: BUMETANIDE INJ 0.25 MG/ML VIAL 4 ML 1 MG IVP (08:43)
[2024-12-23] MEDS: cefTRIAXone/D5w 1gm IV premix 1 GM/50 ML BAG IV (08:43)
[2024-12-23] MEDS: APIXABAN 2.5 MG TABLET PO ×2 (08:43→20:20)
[2024-12-23] MEDS: COLCHICINE 0.6 MG TABLET 0.3 MG PO (08:44)
[2024-12-23] MEDS: SPIRONOLACTONE 25 MG TABLET 50 MG PO (08:44)
[2024-12-23] MEDS: GABAPENTIN 100 MG CAPSULE 400 MG PO ×2 (08:47→20:20)
[2024-12-23] MEDS: MORPHINE SULF INJ 10 MG/ML VIAL 2 MG IVP ×2 (09:01→15:47)
[2024-12-23] MEDS: AZITHROMYCIN INJ 500 MG in SODIUM CHLORIDE 0.9% 250 ML 250 ML 250 MG IV (10:19)
--- NOTE | 2024-12-23 10:22 | XR_ITS ---
Examination: Retroperitoneal ultrasound, complete Technique: Multiple high resolution grayscale images of the retroperitoneum obtained, including kidneys and bladder. Exam date and time:December 23, 2024 1122 hours INDICATIONS: Flank pain 3 weeks, history renal cystic disease FINDINGS: Right kidney 11.4 cm cortex 3.0 cm Midpole cyst 40 mm There appears to be mild hydronephrosis Left kidney 10.9 cm cortex 2.0 cm 4.7 cm cyst No bladder mass or bladder calculi Bladder prevoid volume 154 cc IMPRESSION: Bilateral benign renal cysts Suspicious for mild right hydronephrosis
[2024-12-23 11:35] LABS: Troponin I 0.469 ng/mL (0.0-0.045)
--- NOTE | 2024-12-23 15:30 | ESPR_ITS ---
<Statement entered by Abdullahi Smith MD - 12/24/24 19:53> I have reviewed the note and agree with the resident's assessment & plan with exceptions as below. I have personally reviewed labs, imaging, home meds/prior records, examined the patient, formulated and discussed management plan with the IM team. Pt examined at bedside today. No acute overnight events. Continuing IV diuresis (bumex increased to 2 mg BID) at this time for CHF exacerbation, RF improving as pt is currently on home baseline of 2L. Cardiology on consult, appreciate recommendations. Cr 2.2 at this time. Repeat hematology and chemistry in AM. Abdullahi Smith, PGY-2 Internal Medicine Documentation for date of: 12/23/24 Subjective Subjective Interval history: No acute events overnight. Patient seen and examined at bedside. Vitals and labs reviewed. at bedside this morning. Patient informed us that he had renal cysts drained around 12 years ago and that he has been following with Dr. Davidson for his kidneys. Patient endorses some left scapular pain this morning. Patient states cough improving. Patient denies any other complaints/concerns. Patient denies fever, chest pain, shortness of breath. Exam Vital Signs Temp Pulse Resp BP Pulse Ox O2 Del Method O2 Flow Rate 97.0 F 60 20 130/73 96 Nasal Cannula 2 12/23/24 11:49 12/23/24 14:24 12/23/24 11:49 12/23/24 14:24 12/23/24 11:49 12/23/24 11:49 12/23/24 11:49 Narrative Exam General: No acute distress; A&Ox3 Skin: Warm, dry, intact, no obvious rash. HENT: NCAT, EOMI, not icteric. External ears normal. No rhinorrhea. Moist mucous membranes Cardiovascular: Regular rate and rhythm, no murmur, +S1/S2. Pacemaker present Respiratory: Lungs CTAB GI: Soft, nontender, mild-distension, No guarding or rebound tenderness. Extremities: 3+ Bilateral pitting LE edema, no cyanosis, no clubbing. Extremity pulses present Neuro: No focal deficits observed. Conversant, moving all extremities. No overt cerebellar signs/incoordination. Psychiatric: Cooperative, appropriate affect. Objective Labs 12/24/24 04:55 12/24/24 04:55 Labs: Laboratory Results - last 24 hr 12/22/24 12/22/24 12/23/24 19:12 22:50 05:25 WBC 11.5 H RBC 4.26 L Hgb 11.1 L Hct 36.6 L MCV 86 MCH 26.1 MCHC 30.3 L RDW Std Deviation 60.3 H Plt Count 206 Neut % (Auto) 72 Lymph % (Auto) 12 [place] % (Auto) 10 Eos % (Auto) 5 Baso % (Auto) 1 Neut # (Auto) 8.2 H Lymph # (Auto) 1.4 [place] # (Auto) 1.2 H Eos # (Auto) 0.5 Baso # (Auto) 0.1 Immature Gran # (Auto) 0.09 H Absolute Nucleated RBC 0.00 Immature Gran % 1 H Nucleated RBC % 0 Sodium 137 Potassium 5.0 Chloride 99 Carbon Dioxide 24.0 Anion Gap 14 BUN 42 H Creatinine 2.2 H Estim Creat Clear Calc 31.8 L eGFR 29 L BUN/Creatinine Ratio 19 Glucose 103 Calculated Osmolality 284 Lactic Acid 2.5 H 1.9 Calcium 10.6 Corrected Calcium 10.8 H Phosphorus 3.6 Magnesium 2.0 Total Bilirubin 1.0 AST 23 ALT 14 Alkaline Phosphatase 116 Troponin I 0.524 H* 0.469 H* Total Protein 6.4 Albumin 3.8 Globulin 2.6 Albumin/Globulin Ratio 1.5 ABG Interpretation ABG results: 12/21/24 20:10 ABG pH 7.43 ABG pCO2 40 ABG pO2 83 ABG HCO3 26 ABG O2 Saturation 98 ABG Base Excess 2 Quality Measures Quality Measures VTE prophylaxis Advance care planning discussed with:: patient Assessment & Plan Assessment Current Active Medications: Generic Name Dose Route Start Last Admin Trade Name Freq PRN Reason Stop Dose Admin Acetaminophen 650 mg 12/21/24 22:58 Acetaminophen 325 Mg Tablet PO 01/20/25 22:57 Q6H PRN Fever >100.4 Acetaminophen 650 mg 12/22/24 12:17 Acetaminophen 325 Mg Tablet PO 01/20/25 22:57 Q6H PRN Pain Scale 1-6 Amitriptyline HCl 10 mg 12/22/24 21:00 12/22/24 20:00 Amitriptyline Hcl 25 Mg Tablet PO 01/21/25 20:59 10 mg HS OLI Administration Apixaban 2.5 mg 12/22/24 21:00 12/23/24 08:43 Apixaban 2.5 Mg Tablet PO 01/21/25 20:59 2.5 mg BID OLI Administration Bumetanide 2 mg 12/23/24 21:00 Bumetanide Inj 0.25 Mg/Ml Vial 4 Ml IVP 01/22/25 20:59 BID OLI Colchicine 0.3 mg 12/22/24 09:00 12/23/24 08:44 Colchicine 0.6 Mg Tablet PO 01/21/25 08:59 0.3 mg QDAY OLI Administration Gabapentin 400 mg 12/22/24 09:00 12/23/24 08:47 Gabapentin 100 Mg Capsule PO 01/21/25 08:59 400 mg BID OLI Administration Ceftriaxone Sodium/Dextrose 1 gm in 50 mls @ 100 mls/hr 12/22/24 09:00 12/23/24 08:43 Rocephin/D5w 1gm Iv Premix IV 12/29/24 08:59 100 mls/hr QDAY OLI Administration Azithromycin 500 mg/ Sodium 250 mls @ 250 mls/hr 12/22/24 09:00 12/23/24 10:19 Chloride IV 12/29/24 08:59 250 mls/hr QDAY OLI Administration Midodrine 10 mg 12/22/24 10:02 12/23/24 14:24 Midodrine 5 Mg Tablet PO 01/21/25 05:59 Not Given TID OLI Morphine Sulfate 2 mg 12/21/24 22:58 12/23/24 09:01 Morphine Sulf Inj 10 Mg/Ml Vial IVP 12/26/24 22:57 2 mg Q2H PRN Administration PAIN SCALE 7-10 (Severe Ondansetron HCl 4 mg 12/21/24 22:58 Ondansetron Inj 2 Mg/Ml Inj 2 Ml IVP 01/20/25 22:57 Q6H PRN NAUSEA OR VOMITING Protocol Pantoprazole Sodium 40 mg 12/22/24 09:00 12/23/24 08:42 Pantoprazole Inj 40 Mg Vial IVP 01/21/25 08:59 40 mg QDAY OLI Administration Pravastatin Sodium 40 mg 12/22/24 21:00 12/22/24 20:01 Pravastatin Sodium 10 Mg Tablet PO 01/21/25 20:59 40 mg HS OLI Administration Sennosides 1 tab 12/21/24 22:58 Senna Tablet PO 01/20/25 22:57 QDAY PRN constipation Protocol Spironolactone 50 mg 12/23/24 09:00 12/23/24 08:44 Spironolactone 25 Mg Tablet PO 01/22/25 08:59 50 mg QDAY OLI Administration Plan 79M with history of atrial fibrillation s/p pacemaker on Eliquis, CAD s/p PCI, HFpEF, COPD on home O2, CKD3b, cirrhosis, and prior parathyroidectomy, presenting with acute back pain, dyspnea, cough, and edema; found to have CHF exacerbation vs pneumonia, bilateral effusions, and ascending aortic aneurysm. #Acute on chronic hypoxic respiratory failure, improving #Acute on chronic exacerbation HFpEF (EF 65%, severe RV dysfunction, severe biatrial dilatation, mod MR) Respiratory failure multifactorial likely related to infection and CHF exacerbation BNP 452 (prior 658), CXR/CTA with pulmonary edema and bilateral pleural effusions. Echo May 2024: EF 65%, severe RV dysfunction, biatrial dilation, MR/TR. 12/23: 3+ pitting edema of bilateral LE's. -Increased Bumex IV to 2 mg BID; -Spironolactone 50 mg qd. -Consider adding metolazone if LE edema not responsive to increased diuresis above. -Strict I/Os, daily weights -2g Na diet, 1.8L FR -Telemetry monitoring -Keep mag and potassium above 2 and 4 respectively # Pneumonia, unspecified organism Possible pneumonia at the lung bases with moderate right and mild left pleural fluidon CTA, worsening cough, baseline SOB on admission. PCT negative but imaging + symptoms concerning. 12/23 Patient states cough improving Blood cultures negative 24hrs -Continue empiric ceftriaxone + azithromycin (can switch to levofloxacin if indicated) -F/u blood cultures -Monitor for fever, leukocytosis, O2 needs -Incentive spirometry, pulmonary hygiene #Chronic Atrial fibrillation #Hx of Sick sinus syndrome s/p Pacemaker [id number]: 4 HAS-BLED: 5 Rate: Controlled Rhythm: Regular and Electronically paced AC: Eliquis -Continue apixaban 2.5 mg BID -Telemetry for rhythm monitoring -Reassess anticoagulation risk given prior fall (discuss with cardiology if bleeding risk) -No current rate control agents onboard -Keep mag and potassium above 2 and 4 respectively #Elevated Troponins #CAD, s/p PCI #Hypertension #Hyperlipidemia Troponin 0.518 -> 0.524 -> 0.469 Likely demand ischemia with fluid overload -Continue regimen above (ADJUSTED spironolactone, Bumex, midodrine) -Hold ACEi/ARB -Monitor BP closely inpatient -Trend troponins until they peak ?Resumed home Pravastatin 40 mgmg at bedtime #Ascending thoracic aortic aneurysm, 4.6 cm Incidental finding on CTA, no dissection or rupture 4.6 cm seen on CTA -Optimize tight BP control, avoid large fluid shifts -Outpatient follow up repeat CT within 6 months -Monitor for new chest pain, hemodynamic instability #CKD stage 3b Baseline Cr ~2, admitted at 2.0; GFR ~35. Not on dialysis. Patient reported hx of renal cysts drained around 12 years ago and that he has been following with Dr. Davidson. 12/23: Renal US showed Bilateral benign renal cysts; Suspicious for mild right hydronephrosis -Holding ACEi/ARB -Avoid nephrotoxins, renally dose meds -Monitor BMP daily -Continue Bumex for volume management with careful renal monitoring #Cirrhosis with mild ascites CTA shows cirrhosis with mild ascites. INR 2.4, T bili 1.3, otherwise stable. No encephalopathy or GI bleeding. -Monitor LFTs, INR -Maintain sodium restriction (overlaps with CHF plan) -Outpatient hepatology follow-up #Acute back pain, hx degenerative disc disease, improving Admission Acute severe stabbing upper back pain, radiating variably, one episode into legs. CT spine: degenerative changes, no fracture. -Pain control: acetaminophen scheduled, PRN opioids cautiously (renal/hepatic impairment) -PT consult if persistent pain or mobility decline -Monitor for neurologic deficits or incontinence #Hypomagnesemia, improving Admission Mg 1.2; 12/22: 2.4 Likely multifactorial (diuretics, poor absorption). -IV magnesium sulfate replacement in ED -Continue to monitor levels, consider oral magnesium oxide 400 mg if still low -Monitor for arrhythmias #Partial parathyroidectomy, history of hyperparathyroidism S/p partial parathyroidectomy. Maintained on home cinacalcet. Ca mildly elevated at 10.3. -Monitor calcium levels -Follow with PCP/endocrinology outpatient Health Maintenance: Disposition: Admit medicine, telemetry Diet: Cardiac, low Na, 2L FR DVT prophylaxis: On Eliquis GI prophylaxis: Pantoprazole Code Status: DNR Patient plan of care was discussed with the attending physician, Dr. Loja & senior resident Dr. Luis Sanchez MD PGY-1 Attending Provider Attestation/Addendum I have examined the patient, reviewed labs and imaging findings, discussed the case with the resident(s), and reviewed entered orders. I agree with the plan of care as outlined in this note, with these additional summaries/recommendations: Patient and patient's seen at bedside. No acute overnight events. Continue IV diuresis for CHF exacerbation. In-house cardiology following. Patient has approximately net neutral fluid balance thus far and we will discuss increasing diuresis with cardiology at patient's request. Troponinemia present on admission and most likely secondary to demand ischemia. No further interventions needed at this time. Continue Eliquis for chronic atrial fibrillation. Continue IV Rocephin and azithromycin for superimposed community- acquired bacterial pneumonia. On admission CTA of chest revealed end-stage right hydronephrosis. We will obtain renal ultrasound. Patient reports he has a history of cystic kidneys requiring drainage in the past and possible CT finding is related to a large cyst. Although if hydronephrosis is truly present it does not appear that patient would like to proceed with nephrostomy tube although we will discuss further once ultrasound complete. Outpatient follow-up for aneurysmal dilatation of the aorta secondary order and should follow-up outpatient. Continue to monitor renal function closely as patient has severe underlying CKD. If worsens we will consult nephrology. We will attempt to avoid hepatotoxic agents and renally dose medications. Patient and updated on the plan and in agreement. All questions answered to satisfaction. Please see residents note for additional details and management. Dr. Freedom MD
--- NOTE | 2024-12-23 15:54 | PC.SS ---
Addendum entered and electronically signed by KATY Oquendo 12/24/24 07:47: Referral for Acute Rehab submitted on [facility]. PT evaluation remains pending. Original Note: RAW MATERIAL HANDLER met with patient and patient's spouse to confirm discharge plan. Patient has agreed to discharge to Acute Rehab. Preferred facility is [facility]. RAW MATERIAL HANDLER relayed to patient PT evaluation would need to be completed to determine if patient meets criteria for Acute Rehab placement. Requirement is that patient is able to complete 15 hrs a week of physical therapy.
--- NOTE | 2024-12-23 18:21 | PC.PT ---
social service requesting a physical therapy eval needed for snf placement.called dr. acuña and made aware.
[2024-12-23] MEDS: PRAVASTATIN SODIUM 10 MG TABLET 40 MG PO (20:20)
[2024-12-23] MEDS: AMITRIPTYLINE HCL 25 MG TABLET 10 MG PO (20:20)
[2024-12-23] MEDS: BUMETANIDE INJ 0.25 MG/ML VIAL 4 ML 2 MG IVP (20:21)
--- NOTE | 2024-12-23 21:59 | ESPR_ITS ---
<Statement entered by Shavonne Moran MD - 12/26/24 23:03> The patient is examined by me personally along with resident physician PGY 2 on telemetry floor feeling better still has some swelling of the feet continues on bumetanide continues to feel well no shortness or chest pain reported awaiting possibly transfer to shelter facility. Does not complain of orthopnea no other issues no arrhythmias. Agree with the treatment plan and agrees as documented by PGY 1 Documentation for date of: 12/23/24 Subjective Subjective Interval history: Patient mentions that he feels unwell today. The patient's distal lower extremity edema is improving though his edema has seemingly become more widespread, now involving his thighs, and hips. The primary team increased the patient's Bumex dose. Troponins are downtrending. No changes to current management from the cardiology team. Exam Vital Signs Temp Pulse Resp BP Pulse Ox O2 Del Method O2 Flow Rate 97.0 F 61 12 146/84 H 77 L Nasal Cannula 2 12/23/24 20:00 12/23/24 20:47 12/23/24 20:47 12/23/24 20:45 12/23/24 20:47 12/23/24 20:00 12/23/24 20:47 Narrative Exam General: Frail, pale, elderly man. Awake and in no acute distress. Conversational and non-toxic appearing. Neurologic: GCS 15. Alert and oriented x3, no gross neurological deficit, and patient able to move all 4 extremities. HEENT: Normocephalic, atraumatic, mucous membranes moist. Pupils reactive to light. Heart: Paced rhythm, rate 60, normal S1 and S2, no murmurs. Lungs: Clear to auscultation bilaterally with no wheezing or crackles. Abdomen: Obese, ascites. No guarding or rebound tenderness. Extremities: 2+ pitting edema involving the entirety of the bilateral lower extremities. Skin: Warm. Dry. No rash or ecchymoses. Objective Labs 12/23/24 05:25 12/23/24 05:25 Labs: Laboratory Results - last 24 hr 12/22/24 12/23/24 22:50 05:25 WBC 11.5 H RBC 4.26 L Hgb 11.1 L Hct 36.6 L MCV 86 MCH 26.1 MCHC 30.3 L RDW Std Deviation 60.3 H Plt Count 206 Neut % (Auto) 72 Lymph % (Auto) 12 [place] % (Auto) 10 Eos % (Auto) 5 Baso % (Auto) 1 Neut # (Auto) 8.2 H Lymph # (Auto) 1.4 [place] # (Auto) 1.2 H Eos # (Auto) 0.5 Baso # (Auto) 0.1 Immature Gran # (Auto) 0.09 H Absolute Nucleated RBC 0.00 Immature Gran % 1 H Nucleated RBC % 0 Sodium 137 Potassium 5.0 Chloride 99 Carbon Dioxide 24.0 Anion Gap 14 BUN 42 H Creatinine 2.2 H Estim Creat Clear Calc 31.8 L eGFR 29 L BUN/Creatinine Ratio 19 Glucose 103 Calculated Osmolality 284 Lactic Acid 1.9 Calcium 10.6 Corrected Calcium 10.8 H Phosphorus 3.6 Magnesium 2.0 Total Bilirubin 1.0 AST 23 ALT 14 Alkaline Phosphatase 116 Troponin I 0.469 H* Total Protein 6.4 Albumin 3.8 Globulin 2.6 Albumin/Globulin Ratio 1.5 ABG Interpretation ABG results: 12/21/24 20:10 ABG pH 7.43 ABG pCO2 40 ABG pO2 83 ABG HCO3 26 ABG O2 Saturation 98 ABG Base Excess 2 Quality Measures Quality Measures VTE prophylaxis Advance care planning discussed with:: patient Assessment & Plan Assessment Current Active Medications: Generic Name Dose Route Start Last Admin Trade Name Freq PRN Reason Stop Dose Admin Acetaminophen 650 mg 12/21/24 22:58 Acetaminophen 325 Mg Tablet PO 01/20/25 22:57 Q6H PRN Fever >100.4 Acetaminophen 650 mg 12/22/24 12:17 Acetaminophen 325 Mg Tablet PO 01/20/25 22:57 Q6H PRN Pain Scale 1-6 Amitriptyline HCl 10 mg 12/22/24 21:00 12/23/24 20:20 Amitriptyline Hcl 25 Mg Tablet PO 01/21/25 20:59 10 mg HS OLI Administration Apixaban 2.5 mg 12/22/24 21:00 12/23/24 20:20 Apixaban 2.5 Mg Tablet PO 01/21/25 20:59 2.5 mg BID OLI Administration Bumetanide 2 mg 12/23/24 21:00 12/23/24 20:21 Bumetanide Inj 0.25 Mg/Ml Vial 4 Ml IVP 01/22/25 20:59 2 mg BID OLI Administration Colchicine 0.3 mg 12/22/24 09:00 12/23/24 08:44 Colchicine 0.6 Mg Tablet PO 01/21/25 08:59 0.3 mg QDAY OLI Administration Gabapentin 400 mg 12/22/24 09:00 12/23/24 20:20 Gabapentin 100 Mg Capsule PO 01/21/25 08:59 400 mg BID OLI Administration Ceftriaxone Sodium/Dextrose 1 gm in 50 mls @ 100 mls/hr 12/22/24 09:00 12/23/24 08:43 Rocephin/D5w 1gm Iv Premix IV 12/29/24 08:59 100 mls/hr QDAY OLI Administration Azithromycin 500 mg/ Sodium 250 mls @ 250 mls/hr 12/22/24 09:00 12/23/24 10:19 Chloride IV 12/29/24 08:59 250 mls/hr QDAY OLI Administration Midodrine 10 mg 12/22/24 10:02 12/23/24 20:45 Midodrine 5 Mg Tablet PO 01/21/25 05:59 Not Given TID OLI Morphine Sulfate 2 mg 12/21/24 22:58 12/23/24 15:47 Morphine Sulf Inj 10 Mg/Ml Vial IVP 12/26/24 22:57 2 mg Q2H PRN Administration PAIN SCALE 7-10 (Severe Ondansetron HCl 4 mg 12/21/24 22:58 Ondansetron Inj 2 Mg/Ml Inj 2 Ml IVP 01/20/25 22:57 Q6H PRN NAUSEA OR VOMITING Protocol Pantoprazole Sodium 40 mg 12/24/24 09:00 Pantoprazole 40 Mg Tablet PO 01/21/25 08:59 QDAY OLI Pravastatin Sodium 40 mg 12/22/24 21:00 12/23/24 20:20 Pravastatin Sodium 10 Mg Tablet PO 01/21/25 20:59 40 mg HS OLI Administration Sennosides 1 tab 12/21/24 22:58 Senna Tablet PO 01/20/25 22:57 QDAY PRN constipation Protocol Spironolactone 25 mg 12/24/24 09:00 Spironolactone 25 Mg Tablet PO 01/23/25 08:59 QDAY OLI Plan 79-year-old male with PMH of cardiac, pulmonary, renal, and hepatic comorbidities who presented from home via EMS with acute left-sided back pain inferior to the left scapula. He also had associated shortness of breath and edema, he developed sudden severe stabbing back pain across the upper back around 3 PM. His pain was 9 out of 10 it was made worse with movement. He denied trauma or any recent falls though he did have a mechanical fall on 11/03/2024 when he tripped over his walker but had no loss of consciousness and his CT of the head was negative at that time. Upon cardiology consultation, the patient still admits to stabbing left-sided and right sided back pain not associated with moving his upper extremities. He also denies chest pain. Cardiology was consulted for evaluation of the patient's back pain due to suspicion of aortic dissection. #HFpEF EF 65% #Atrial fibrillation status post pacemaker #Ascending thoracic aortic aneurysm #CAD status post stent placement #Acute back pain * The patient has chronic lower extremity edema there is diffuse lower extremity pitting edema from the hips downward, there is also edema present in the patient's abdomen * EKG was positive for electronic ventricular pacemaker * CTA of the chest was positive for an aneurysmal dilation of the ascending thoracic aorta, mild heart failure, and there was no evidence of acute aortic dissection * The patient denies chest pain associated with exercise * The patient's EKG is negative for any acute ST segment changes * There is low suspicion of ischemic etiology * The patient's back pain is likely not cardiogenic in nature * The patient denies typical signs associated with acute aortic dissection, including tearing chest pain radiating to the back, the patient was able to localize his back pain and denied any chest pain * Consider pneumonia, degenerative disc disease, and musculoskeletal causes of localized back pain Plan: * Continue home medications for cardiac management: Pravastatin, spironolactone, bumetanide, midodrine, Eliquis * Trend urine output per the primary team #Pneumonia #CKD stage IIIb #Cirrhosis with mild ascites #Hypomagnesemia #Hyperlipidemia #Hypertension #Partial parathyroidectomy Remainder the patient's hospital problems will be managed per the primary team. Patient was seen and discussed with my attending physician Dr. Moran. Andrea Velasquez DO PGY-1.
[2024-12-24] VITALS (15 sets, daily range): BP systolic 119–140; BP diastolic 60–89; PULSE 60–75; RESP 15–20; TEMP 36.1–36.7; O2SAT 73–100; BMI 29.1
[2024-12-24 06:32] LABS: Basophils # (Auto) 0.1 Thou/mm3 (0.0-0.2); Basophils % (Auto) 1 % (0-2.5); Eosinophils # (Auto) 0.5 Thou/mm3 (0.0-0.5); Eosinophils % (Auto) 5 % (0-10); Hematocrit 36.0 % (41.0-53.0); Hemoglobin 11.1 g/dL (13.5-16.0); Immature Granulocytes Auto 0.06 Thou/mm3 (0.00-0.00); Lymphocytes # (Auto) 1.2 Thou/mm3 (1.0-4.8); Lymphocytes % (Auto) 12 % (10-50); Mean Corpuscular HGB Conc 30.8 g/dl (31.0-37.0); Mean Corpuscular Hemoglobin 27.0 pg (25.0-35.0); Mean Corpuscular Volume 88 fL (80-100); Monocytes # (Auto) 1.0 Thou/mm3 (0.0-0.8); Monocytes % (Auto) 10 % (0-12); Neutrophils # (Auto) 7.3 Thou/mm3 (1.8-7.7); Neutrophils % (Auto) 72 % (37-80); Nucleated Red Blood Cell # 0.00 Thou/mm3 (0.00-0.00); Nucleated Red Blood Cell % 0 /100 WBC (0); Platelet Count 226 Thou/mm3 (140-440); RDW Standard Deviation 61.4 fL (35.1-43.9); Red Blood Count 4.11 Miln/mm3 (4.50-5.90); White Blood Count 10.0 Thou/mm3 (3.8-10.6)
[2024-12-24 06:55] LABS: Alanine Aminotransferase 12 U/L (10-49); Albumin, Serum 3.9 gm/dL (3.4-4.8); Albumin/Globulin Ratio 1.5 (1.2-2.2); Alkaline Phosphatase 125 U/L (46-116); Anion Gap 11 (7-16); Aspartate Amino Transferase 18 U/L (0-34); BUN/Creatinine Ratio 20 Ratio (12-20); Bilirubin,Total 1.0 mg/dL (0.3-1.2); Blood Urea Nitrogen 47 mg/dL (9-23); Calcium 11.0 mg/dL (8.3-10.6); Calcium (Corrected) 11.1 mg/dL (8.5-10.1); Carbon Dioxide 28.5 mMol/L (20.0-31.0); Chloride 97 mMol/L (98-107); Creatinine (Component) 2.3 mg/dL (0.6-1.3); Estimated Creatinine Clearance 30.5 mL/min (>60); Globulin 2.6 gm/dL (2.3-3.5); Glucose 118 mg/dL (74-106); Magnesium 1.7 mg/dL (1.6-2.6); Osmolality,Calculated 285 (275-295); Phosphorous 4.0 mg/dL (2.4-5.1); Potassium 5.2 mMol/L (3.4-5.1); Sodium 136 mMol/L (136-145); Total Protein 6.5 gm/dL (5.7-8.2); eGFR 28 See Note
[2024-12-24] MEDS: cefTRIAXone/D5w 1gm IV premix 1 GM/50 ML BAG IV (09:11)
[2024-12-24] MEDS: BUMETANIDE INJ 0.25 MG/ML VIAL 4 ML 2 MG IVP ×2 (09:11→20:49)
[2024-12-24] MEDS: COLCHICINE 0.6 MG TABLET 0.3 MG PO (09:12)
[2024-12-24] MEDS: SPIRONOLACTONE 25 MG TABLET PO (09:13)
[2024-12-24] MEDS: GABAPENTIN 100 MG CAPSULE 400 MG PO ×2 (09:13→20:47)
[2024-12-24] MEDS: APIXABAN 2.5 MG TABLET PO ×2 (09:14→20:47)
[2024-12-24] MEDS: PANTOPRAZOLE 40 MG TABLET PO (09:14)
--- NOTE | 2024-12-24 10:59 | PC.SS ---
SS update: HOSPITAL CHIEF FINANCIAL OFFICER waiting on PT note to submit to [facility].
--- NOTE | 2024-12-24 11:05 | PC.SS ---
DUMPER BAILER OPERATOR spoke to Alejandro at [facility] who requested PT note, DUMPER BAILER OPERATOR notified Alejandro that PT note is pending, DUMPER BAILER OPERATOR will submit once note is in. Alejandro call back #[phone]
--- NOTE | 2024-12-24 11:08 | PC.PT ---
Patient is safe to transfer to a bedside commode with a FWW and 1 staff assist. RN made aware.
--- NOTE | 2024-12-24 11:19 | PC.SS ---
FRANCHISE CONSULTANT submitted PT note to [facility] via [employer].
[2024-12-24] MEDS: AZITHROMYCIN INJ 500 MG in SODIUM CHLORIDE 0.9% 250 ML 250 ML 250 MG IV (11:20)
--- NOTE | 2024-12-24 12:46 | PC.SS ---
SENIOR ORACLE DATABASE ADMINISTRATOR spoke to Alejandro at [facility] who stated that she pending doctor eval and will return phone call in an hour. KATY informed Alejandro that patient is ready for d/c.
--- NOTE | 2024-12-24 15:01 | PC.SS ---
CURTAIN STRETCHER ASSEMBLER informed bedside nurse of ETA 17:30.
--- NOTE | 2024-12-24 15:05 | PC.SS ---
CYBER SECURITY MANAGER spoke to doctors who stated they are going to keep patient another day due to potassium going up. CYBER SECURITY MANAGER informed Alejnadro at [facility]. CYBER SECURITY MANAGER [facility].
--- NOTE | 2024-12-24 16:32 | ESPR_ITS ---
<Statement entered by Jacob Graham MD - 12/24/24 19:20> Patient was seen and examined at bedside. He reported no orthopnea, no paroxysmal nocturnal dyspnea, and improvement of his cough. His lower extremity edema decreased to +2. However, patient serum potassium continue to increase from 4.7-5.2 over the past 3 days. For that reason we stopped the spironolactone. Cardiology team was updated anticipating discharge tomorrow if serum creatinine and potassium level back to baseline. Patient disposition will be to acute rehab as per physical therapy recommendations, he got accepted at [facility] upon discharge. - Patient's plan and care discussed with my attending, Dr. Wilber Graham MD Internal Medicine PGY-3 Documentation for date of: 12/24/24 Subjective Subjective Interval history: No acute events overnight. Patient seen and examined at bedside. Vitals and labs reviewed. Patient states that he is doing okay, wants to go home. Patient denies fever, chest pain, shortness of breath Exam Vital Signs Temp Pulse Resp BP Pulse Ox O2 Del Method O2 Flow Rate 97.4 F 60 20 122/72 98 Nasal Cannula 2 12/24/24 12:00 12/24/24 16:03 12/24/24 12:00 12/24/24 12:00 12/24/24 12:00 12/24/24 12:00 12/24/24 12:00 Narrative Exam General: No acute distress; A&Ox3 Skin: Warm, dry, intact, no obvious rash. HENT: NCAT, EOMI, not icteric. External ears normal. No rhinorrhea. Moist mucous membranes Cardiovascular: Regular rate and rhythm, no murmur, +S1/S2. Pacemaker present Respiratory: Lungs CTAB GI: Soft, nontender, distended abdomen, No guarding or rebound tenderness. Extremities: 1/2+ Bilateral pitting LE edema, no cyanosis, no clubbing. Extremity pulses present Neuro: No focal deficits observed. Conversant, moving all extremities. No overt cerebellar signs/incoordination. Psychiatric: Cooperative, appropriate affect. Objective Labs 12/25/24 08:50 12/25/24 08:50 Labs: Laboratory Results - last 24 hr 12/24/24 04:55 WBC 10.0 RBC 4.11 L Hgb 11.1 L Hct 36.0 L MCV 88 MCH 27.0 MCHC 30.8 L RDW Std Deviation 61.4 H Plt Count 226 Neut % (Auto) 72 Lymph % (Auto) 12 [place] % (Auto) 10 Eos % (Auto) 5 Baso % (Auto) 1 Neut # (Auto) 7.3 Lymph # (Auto) 1.2 [place] # (Auto) 1.0 H Eos # (Auto) 0.5 Baso # (Auto) 0.1 Immature Gran # (Auto) 0.06 H Absolute Nucleated RBC 0.00 Immature Gran % 1 H Nucleated RBC % 0 Sodium 136 Potassium 5.2 H Chloride 97 L Carbon Dioxide 28.5 Anion Gap 11 BUN 47 H Creatinine 2.3 H Estim Creat Clear Calc 30.5 L eGFR 28 L BUN/Creatinine Ratio 20 Glucose 118 H Calculated Osmolality 285 Calcium 11.0 H Corrected Calcium 11.1 H Phosphorus 4.0 Magnesium 1.7 Total Bilirubin 1.0 AST 18 ALT 12 Alkaline Phosphatase 125 H Total Protein 6.5 Albumin 3.9 Globulin 2.6 Albumin/Globulin Ratio 1.5 ABG Interpretation ABG results: 12/21/24 20:10 ABG pH 7.43 ABG pCO2 40 ABG pO2 83 ABG HCO3 26 ABG O2 Saturation 98 ABG Base Excess 2 Quality Measures Quality Measures VTE prophylaxis Advance care planning discussed with:: patient Assessment & Plan Assessment Current Active Medications: Generic Name Dose Route Start Last Admin Trade Name Freq PRN Reason Stop Dose Admin Acetaminophen 650 mg 12/21/24 22:58 Acetaminophen 325 Mg Tablet PO 01/20/25 22:57 Q6H PRN Fever >100.4 Acetaminophen 650 mg 12/22/24 12:17 Acetaminophen 325 Mg Tablet PO 01/20/25 22:57 Q6H PRN Pain Scale 1-6 Amitriptyline HCl 10 mg 12/22/24 21:00 12/23/24 20:20 Amitriptyline Hcl 25 Mg Tablet PO 01/21/25 20:59 10 mg HS OLI Administration Apixaban 2.5 mg 12/22/24 21:00 12/24/24 09:14 Apixaban 2.5 Mg Tablet PO 01/21/25 20:59 2.5 mg BID OLI Administration Bumetanide 2 mg 12/23/24 21:00 12/24/24 09:11 Bumetanide Inj 0.25 Mg/Ml Vial 4 Ml IVP 01/22/25 20:59 2 mg BID OLI Administration Colchicine 0.3 mg 12/22/24 09:00 12/24/24 09:12 Colchicine 0.6 Mg Tablet PO 01/21/25 08:59 0.3 mg QDAY OLI Administration Gabapentin 400 mg 12/22/24 09:00 12/24/24 09:13 Gabapentin 100 Mg Capsule PO 01/21/25 08:59 400 mg BID OLI Administration Ceftriaxone Sodium/Dextrose 1 gm in 50 mls @ 100 mls/hr 12/22/24 09:00 12/24/24 09:11 Rocephin/D5w 1gm Iv Premix IV 12/29/24 08:59 100 mls/hr QDAY OLI Administration Azithromycin 500 mg/ Sodium 250 mls @ 250 mls/hr 12/22/24 09:00 12/24/24 11:20 Chloride IV 12/29/24 08:59 250 mls/hr QDAY OLI Administration Midodrine 10 mg 12/22/24 10:02 12/24/24 14:15 Midodrine 5 Mg Tablet PO 01/21/25 05:59 Not Given TID OLI Morphine Sulfate 2 mg 12/21/24 22:58 12/23/24 15:47 Morphine Sulf Inj 10 Mg/Ml Vial IVP 12/26/24 22:57 2 mg Q2H PRN Administration PAIN SCALE 7-10 (Severe Ondansetron HCl 4 mg 12/21/24 22:58 Ondansetron Inj 2 Mg/Ml Inj 2 Ml IVP 01/20/25 22:57 Q6H PRN NAUSEA OR VOMITING Protocol Pantoprazole Sodium 40 mg 12/24/24 09:00 12/24/24 09:14 Pantoprazole 40 Mg Tablet PO 01/21/25 08:59 40 mg QDAY OLI Administration Pravastatin Sodium 40 mg 12/22/24 21:00 12/23/24 20:20 Pravastatin Sodium 10 Mg Tablet PO 01/21/25 20:59 40 mg HS OLI Administration Sennosides 1 tab 12/21/24 22:58 Senna Tablet PO 01/20/25 22:57 QDAY PRN constipation Protocol Plan 79M with history of atrial fibrillation on Eliquis, sick sinus syndrome s/p pacemaker, CAD s/p PCI, HFpEF (EF 65% 05/2024), COPD on home O2 3L, CKD3b, cirrhosis, and prior parathyroidectomy, presenting with acute back pain, dyspnea, cough, and edema; found to have CHF exacerbation vs pneumonia, bilateral effusions, and ascending aortic aneurysm. #Acute on chronic hypoxic respiratory failure, improving (3L home O2) #Acute on chronic exacerbation HFpEF (EF 65%, severe RV dysfunction, severe biatrial dilatation, mod MR) Respiratory failure multifactorial likely related to infection and CHF exacerbation BNP 452 (prior 658), CXR/CTA with pulmonary edema and bilateral pleural effusions. Echo May 2024: EF 65%, severe RV dysfunction, biatrial dilation, MR/TR. -Increased Bumex IV to 2 mg BID; -Discontinued Spironolactone (mild K elevation) -Strict I/Os, daily weights -2g Na diet, 1.8L FR -Telemetry monitoring -Keep mag and potassium above 2 and 4 respectively #Pneumonia, unspecified organism Possible pneumonia at the lung bases with moderate right and mild left pleural fluid on CTA, worsening cough, baseline SOB on admission. PCT negative but imaging + symptoms concerning. 12/23 Patient states cough improving Blood cultures negative 24hrs -Continue empiric ceftriaxone + azithromycin (can switch to levofloxacin if indicated) -F/u blood cultures -Monitor for fever, leukocytosis, O2 needs -Incentive spirometry, pulmonary hygiene #CKD stage 3b Baseline Cr ~2, admitted at 2.0; GFR ~35. Not on dialysis. Patient reported hx of renal cysts drained around 12 years ago and that he has been following with Dr. Davidson. 12/23: Renal US showed Bilateral benign renal cysts; Suspicious for mild right hydronephrosis 12/24: Cr 2.3 -Holding ACEi/ARB -Avoid nephrotoxins, renally dose meds -Monitor CMP daily -Continue Bumex for volume management with careful renal monitoring #Hyperkalemia Patient's potassium increased to 5.2 after increasing spironolactone to 50 mg. -Discontinued spironolactone. -Will follow up Potassium in AM. #Chronic Atrial fibrillation #Hx of Sick sinus syndrome s/p Pacemaker [id number]: 4 HAS-BLED: 5 Rate: Controlled Rhythm: Regular and Electronically paced AC: Eliquis -Continue apixaban 2.5 mg BID -Telemetry for rhythm monitoring -Reassess anticoagulation risk given prior fall (discuss with cardiology if bleeding risk) -No current rate control agents onboard -Keep mag and potassium above 2 and 4 respectively #Elevated Troponins, improving #CAD, s/p PCI #Hypertension #Hyperlipidemia Troponin 0.518 -> 0.524 -> 0.469 Likely demand ischemia with fluid overload -Continue regimen above (ADJUSTED spironolactone, Bumex, midodrine) -Hold ACEi/ARB -Monitor BP closely inpatient -Trend troponins until they peak ?Resumed home Pravastatin 40 mg at bedtime #Ascending thoracic aortic aneurysm, 4.6 cm Incidental finding on CTA, no dissection or rupture 4.6 cm seen on CTA -Optimize tight BP control, avoid large fluid shifts -Outpatient follow up repeat CT within 6 months -Monitor for new chest pain, hemodynamic instability #Cirrhosis with mild ascites CTA shows cirrhosis with mild ascites. INR 2.4, T bili 1.3, otherwise stable. No encephalopathy or GI bleeding. -Monitor LFTs, INR -Maintain sodium restriction (overlaps with CHF plan) -Outpatient hepatology follow-up #Acute back pain, hx degenerative disc disease, improving Admission Acute severe stabbing upper back pain, radiating variably, one episode into legs. CT spine: degenerative changes, no fracture. -Pain control: acetaminophen scheduled, PRN opioids cautiously (renal/hepatic impairment) -PT consult if persistent pain or mobility decline -Monitor for neurologic deficits or incontinence #Hypomagnesemia, improving Admission Mg 1.2; 12/22: 2.4 Likely multifactorial (diuretics, poor absorption). -IV magnesium sulfate replacement in ED -Continue to monitor levels, consider oral magnesium oxide 400 mg if still low -Monitor for arrhythmias #Partial parathyroidectomy, history of hyperparathyroidism #hypercalcemia S/p partial parathyroidectomy. Maintained on home cinacalcet. Ca mildly elevated at 11.1 -Monitor calcium levels -Follow with PCP/endocrinology outpatient Health Maintenance: Disposition: Admit medicine, telemetry Diet: Cardiac, low Na, 2L FR DVT prophylaxis: On Eliquis GI prophylaxis: Pantoprazole Code Status: DNR Patient plan of care was discussed with the attending physician, Dr. Merino & senior resident Dr. Santos Sanchez MD PGY-1 Attending Provider Attestation/Addendum I have discussed and was present for the essential components of the history, physical examination, diagnosis, and treatment plan with the resident. I agree with the patient's care as documented by the resident and amended herein by me. Db Merino DO. Although this document has been carefully reviewed, there may still be some phonetic and other typographical errors. These errors are purely grammatical due to imperfections in the software program and should not be construed in any way to compromise the substance of the patient's medical care during this visit. Pending ARU placement
--- NOTE | 2024-12-24 20:44 | ESPR_ITS ---
<Statement entered by Shavonne Moran MD - 12/26/24 23:03> The patient is examined by me personally along with resident physician PGY 2 on telemetry floor feeling better still has some swelling of the feet continues on bumetanide continues to feel well no shortness or chest pain reported awaiting possibly transfer to group home facility. Does not complain of orthopnea no other issues no arrhythmias. Agree with the treatment plan and agrees as documented by PGY 2 DR toussaint Documentation for date of: 12/24/24 Subjective Subjective Interval history: No acute overnight events. Doing fairly well today. Denies any worsening symptoms. Denies fever, chills, headaches, chest pain, sob, cough, GI or urinary symptoms. Exam Vital Signs Temp Pulse Resp BP Pulse Ox O2 Del Method O2 Flow Rate 97.2 F 60 18 124/60 98 Nasal Cannula 2 12/24/24 16:00 12/24/24 16:03 12/24/24 16:00 12/24/24 16:00 12/24/24 16:00 12/24/24 16:00 12/24/24 16:00 Narrative Exam General: Frail, pale, elderly man. Awake and in no acute distress. Conversational and non-toxic appearing. Neurologic: GCS 15. Alert and oriented x3, no gross neurological deficit, and patient able to move all 4 extremities. HEENT: Normocephalic, atraumatic, mucous membranes moist. Pupils reactive to light. Heart: Paced rhythm, rate 60, normal S1 and S2, no murmurs. Lungs: Clear to auscultation bilaterally with no wheezing or crackles. Abdomen: Obese, ascites. No guarding or rebound tenderness. Extremities: 2+ pitting edema involving the entirety of the bilateral lower extremities. Skin: Warm. Dry. No rash or ecchymoses. Objective Labs 12/24/24 04:55 12/24/24 04:55 Labs: Laboratory Results - last 24 hr 12/24/24 04:55 WBC 10.0 RBC 4.11 L Hgb 11.1 L Hct 36.0 L MCV 88 MCH 27.0 MCHC 30.8 L RDW Std Deviation 61.4 H Plt Count 226 Neut % (Auto) 72 Lymph % (Auto) 12 [place] % (Auto) 10 Eos % (Auto) 5 Baso % (Auto) 1 Neut # (Auto) 7.3 Lymph # (Auto) 1.2 [place] # (Auto) 1.0 H Eos # (Auto) 0.5 Baso # (Auto) 0.1 Immature Gran # (Auto) 0.06 H Absolute Nucleated RBC 0.00 Immature Gran % 1 H Nucleated RBC % 0 Sodium 136 Potassium 5.2 H Chloride 97 L Carbon Dioxide 28.5 Anion Gap 11 BUN 47 H Creatinine 2.3 H Estim Creat Clear Calc 30.5 L eGFR 28 L BUN/Creatinine Ratio 20 Glucose 118 H Calculated Osmolality 285 Calcium 11.0 H Corrected Calcium 11.1 H Phosphorus 4.0 Magnesium 1.7 Total Bilirubin 1.0 AST 18 ALT 12 Alkaline Phosphatase 125 H Total Protein 6.5 Albumin 3.9 Globulin 2.6 Albumin/Globulin Ratio 1.5 ABG Interpretation ABG results: 12/21/24 20:10 ABG pH 7.43 ABG pCO2 40 ABG pO2 83 ABG HCO3 26 ABG O2 Saturation 98 ABG Base Excess 2 Quality Measures Quality Measures VTE prophylaxis Advance care planning discussed with:: patient and spouse Assessment & Plan Assessment Current Active Medications: Generic Name Dose Route Start Last Admin Trade Name Freq PRN Reason Stop Dose Admin Acetaminophen 650 mg 12/21/24 22:58 Acetaminophen 325 Mg Tablet PO 01/20/25 22:57 Q6H PRN Fever >100.4 Acetaminophen 650 mg 12/22/24 12:17 Acetaminophen 325 Mg Tablet PO 01/20/25 22:57 Q6H PRN Pain Scale 1-6 Amitriptyline HCl 10 mg 12/22/24 21:00 12/23/24 20:20 Amitriptyline Hcl 25 Mg Tablet PO 01/21/25 20:59 10 mg HS OLI Administration Apixaban 2.5 mg 12/22/24 21:00 12/24/24 09:14 Apixaban 2.5 Mg Tablet PO 01/21/25 20:59 2.5 mg BID OLI Administration Bumetanide 2 mg 12/23/24 21:00 12/24/24 09:11 Bumetanide Inj 0.25 Mg/Ml Vial 4 Ml IVP 01/22/25 20:59 2 mg BID OLI Administration Colchicine 0.3 mg 12/22/24 09:00 12/24/24 09:12 Colchicine 0.6 Mg Tablet PO 01/21/25 08:59 0.3 mg QDAY OLI Administration Gabapentin 400 mg 12/22/24 09:00 12/24/24 09:13 Gabapentin 100 Mg Capsule PO 01/21/25 08:59 400 mg BID OLI Administration Ceftriaxone Sodium/Dextrose 1 gm in 50 mls @ 100 mls/hr 12/22/24 09:00 12/24/24 09:11 Rocephin/D5w 1gm Iv Premix IV 12/29/24 08:59 100 mls/hr QDAY OLI Administration Azithromycin 500 mg/ Sodium 250 mls @ 250 mls/hr 12/22/24 09:00 12/24/24 11:20 Chloride IV 12/29/24 08:59 250 mls/hr QDAY OLI Administration Midodrine 10 mg 12/22/24 10:02 12/24/24 14:15 Midodrine 5 Mg Tablet PO 01/21/25 05:59 Not Given TID OLI Morphine Sulfate 2 mg 12/21/24 22:58 12/23/24 15:47 Morphine Sulf Inj 10 Mg/Ml Vial IVP 12/26/24 22:57 2 mg Q2H PRN Administration PAIN SCALE 7-10 (Severe Ondansetron HCl 4 mg 12/21/24 22:58 Ondansetron Inj 2 Mg/Ml Inj 2 Ml IVP 01/20/25 22:57 Q6H PRN NAUSEA OR VOMITING Protocol Pantoprazole Sodium 40 mg 12/24/24 09:00 12/24/24 09:14 Pantoprazole 40 Mg Tablet PO 01/21/25 08:59 40 mg QDAY OLI Administration Pravastatin Sodium 40 mg 12/22/24 21:00 12/23/24 20:20 Pravastatin Sodium 10 Mg Tablet PO 01/21/25 20:59 40 mg HS OLI Administration Sennosides 1 tab 12/21/24 22:58 Senna Tablet PO 01/20/25 22:57 QDAY PRN constipation Protocol Plan 79-year-old male with PMH of cardiac, pulmonary, renal, and hepatic comorbidities who presented from home via EMS with acute left-sided back pain inferior to the left scapula. He also had associated shortness of breath and edema, he developed sudden severe stabbing back pain across the upper back around 3 PM. His pain was 9 out of 10 it was made worse with movement. He denied trauma or any recent falls though he did have a mechanical fall on 11/03/2024 when he tripped over his walker but had no loss of consciousness and his CT of the head was negative at that time. Upon cardiology consultation, the patient still admits to stabbing left-sided and right sided back pain not associated with moving his upper extremities. He also denies chest pain. Cardiology was consulted for evaluation of the patient's back pain due to suspicion of aortic dissection. #HFpEF EF 65% #Atrial fibrillation status post pacemaker #Ascending thoracic aortic aneurysm #CAD status post stent placement #Acute back pain * The patient has chronic lower extremity edema there is diffuse lower extremity pitting edema from the hips downward, there is also edema present in the patient's abdomen * EKG was positive for electronic ventricular pacemaker * CTA of the chest was positive for an aneurysmal dilation of the ascending thoracic aorta, mild heart failure, and there was no evidence of acute aortic dissection * The patient denies chest pain associated with exercise * The patient's EKG is negative for any acute ST segment changes * There is low suspicion of ischemic etiology * The patient's back pain is likely not cardiogenic in nature * The patient denies typical signs associated with acute aortic dissection, including tearing chest pain radiating to the back, the patient was able to localize his back pain and denied any chest pain * Consider pneumonia, degenerative disc disease, and musculoskeletal causes of localized back pain Plan: * Continue home medications for cardiac management: Pravastatin, spironolactone, bumetanide, midodrine, Eliquis * Renal function, avoid overdiuresis. * Maintain K>4.0 and Mag>2.0. * Discharge on BUMEX 1 mg daily. #Pneumonia #CKD stage IIIb #Cirrhosis with mild ascites #Hypomagnesemia #Hyperlipidemia #Hypertension #Partial parathyroidectomy Remainder the patient's hospital problems will be managed per the primary team. Case was discussed with attending physician, Dr. Moran. Kash Toussaint, PGY II This document was transcribed using voice recognition technology. Minor inaccuracies may be present.
[2024-12-24] MEDS: PRAVASTATIN SODIUM 10 MG TABLET 40 MG PO (20:47)
[2024-12-24] MEDS: AMITRIPTYLINE HCL 25 MG TABLET 10 MG PO (20:48)
[2024-12-24] MEDS: MORPHINE SULF INJ 10 MG/ML VIAL 2 MG IVP (21:25)
[2024-12-25] VITALS (11 sets, daily range): BP systolic 108–133; BP diastolic 72–83; PULSE 60–65; RESP 16–22; TEMP 36.1–36.6; O2SAT 94–98; BMI 29.0
[2024-12-25] MEDS: MORPHINE SULF INJ 10 MG/ML VIAL 2 MG IVP (05:43)
--- NOTE | 2024-12-25 07:48 | PC.NURSE ---
No lab orders in place for today. Dr. Sanchez aware.
[2024-12-25 09:14] LABS: Basophils # (Auto) 0.1 Thou/mm3 (0.0-0.2); Basophils % (Auto) 1 % (0-2.5); Eosinophils # (Auto) 0.5 Thou/mm3 (0.0-0.5); Eosinophils % (Auto) 7 % (0-10); Hematocrit 35.5 % (41.0-53.0); Hemoglobin 10.8 g/dL (13.5-16.0); Immature Granulocytes Auto 0.06 Thou/mm3 (0.00-0.00); Lymphocytes # (Auto) 1.2 Thou/mm3 (1.0-4.8); Lymphocytes % (Auto) 16 % (10-50); Mean Corpuscular HGB Conc 30.4 g/dl (31.0-37.0); Mean Corpuscular Hemoglobin 26.2 pg (25.0-35.0); Mean Corpuscular Volume 86 fL (80-100); Monocytes # (Auto) 0.9 Thou/mm3 (0.0-0.8); Monocytes % (Auto) 12 % (0-12); Neutrophils # (Auto) 4.9 Thou/mm3 (1.8-7.7); Neutrophils % (Auto) 64 % (37-80); Nucleated Red Blood Cell # 0.02 Thou/mm3 (0.00-0.00); Nucleated Red Blood Cell % 0 /100 WBC (0); Platelet Count 242 Thou/mm3 (140-440); RDW Standard Deviation 59.3 fL (35.1-43.9); Red Blood Count 4.12 Miln/mm3 (4.50-5.90); White Blood Count 7.7 Thou/mm3 (3.8-10.6)
[2024-12-25] MEDS: PANTOPRAZOLE 40 MG TABLET PO (09:17)
[2024-12-25] MEDS: GABAPENTIN 100 MG CAPSULE 400 MG PO (09:17)
[2024-12-25] MEDS: COLCHICINE 0.6 MG TABLET 0.3 MG PO (09:18)
[2024-12-25] MEDS: APIXABAN 2.5 MG TABLET PO (09:18)
[2024-12-25] MEDS: BUMETANIDE INJ 0.25 MG/ML VIAL 4 ML 2 MG IVP (09:18)
--- NOTE | 2024-12-25 09:18 | PC.SS ---
Rounding: Pending labs, poss DC to [facility] after if clear. SS spoke to Alejandro #[phone] who stated she will need Dc orders and med list once ready. They will set up transport.
[2024-12-25] MEDS: AZITHROMYCIN INJ 500 MG in SODIUM CHLORIDE 0.9% 250 ML 250 ML 250 MG IV (09:19)
[2024-12-25] MEDS: cefTRIAXone/D5w 1gm IV premix 1 GM/50 ML BAG IV (09:19)
[2024-12-25 09:34] LABS: Alanine Aminotransferase 12 U/L (10-49); Albumin, Serum 3.8 gm/dL (3.4-4.8); Albumin/Globulin Ratio 1.5 (1.2-2.2); Alkaline Phosphatase 137 U/L (46-116); Anion Gap 9 (7-16); Aspartate Amino Transferase 19 U/L (0-34); BUN/Creatinine Ratio 21 Ratio (12-20); Bilirubin,Total 1.1 mg/dL (0.3-1.2); Blood Urea Nitrogen 45 mg/dL (9-23); Calcium 11.1 mg/dL (8.3-10.6); Calcium (Corrected) 11.3 mg/dL (8.5-10.1); Carbon Dioxide 31.0 mMol/L (20.0-31.0); Chloride 96 mMol/L (98-107); Creatinine (Component) 2.1 mg/dL (0.6-1.3); Estimated Creatinine Clearance 33.3 mL/min (>60); Globulin 2.6 gm/dL (2.3-3.5); Glucose 98 mg/dL (74-106); Magnesium 2.0 mg/dL (1.6-2.6); Osmolality,Calculated 283 (275-295); Phosphorous 3.0 mg/dL (2.4-5.1); Potassium 5.2 mMol/L (3.4-5.1); Sodium 136 mMol/L (136-145); Total Protein 6.4 gm/dL (5.7-8.2); eGFR 31 See Note
--- NOTE | 2024-12-25 11:46 | PC.SS ---
SS spoke to Alejandro with [facility], they can have team to hop picker pt abput [phone]. SS updated RN, Mere. SS also sent DC order and med list to Alejandro via [facility]
--- NOTE | 2024-12-25 13:57 | PC.NURSE ---
Report given to Branden at [facility] at . Patient will be discharging at [phone].
--- NOTE | 2024-12-25 14:07 | ESDS_ITS ---
<Statement entered by Abdullahi Smith MD - 12/25/24 14:28> I have reviewed the note and agree with the resident's assessment & plan with exceptions as below. I have personally reviewed labs, imaging, home meds/prior records, examined the patient, formulated and discussed management plan with the IM team. Pt examined at bedside today. No acute overnight events. Pt medically cleared for discharge for Acute Rehab. Pt will continue with home oxygen baseline of 2L. Pt was discharged with Bumex 1 mg, and will hold spirnolactone and it will be resumed at discretion of supervisor plasma/PCP as pt's potassium levels 5.2 inpatient. Pt will need repeat CT scan to monitor for worsening dilatation of aortic aneurysm seen on CT scan here, will need to be performed within 6 months. Pt was then discharged with the following instructions listed below. Abdullahi Smith, PGY-2 Internal Medicine Planned Discharge Date 12/25/24 DS: Providers Provider Date of admission: 12/21/24 22:58 Primary care physician: Physician No Primary/Family Admitting Provider: Abner Mariscal MD Attending Provider on Admission: Karl Loja MD Consults: 12/21/24 20:50 Consult to Cardiology Stat Comment: Consulting Provider: Shavonne Moran Instructions: CHF 12/23/24 18:21 Referral Physical Therapy Stat Comment: Physician Instructions: Attending Provider on DC: Ted Merino DO Discharging Provider: Ted Merino DO DS: Diagnosis Problem List Completed Was Problem List Reviewed/Reconciled?: Yes Hospital Course Hospital Course Hospital course: 79-year-old male with significant cardiac, pulmonary, renal, and hepatic comorbidities who presented to ED at [facility] from home via EMS with acute worsening back pain, shortness of breath, and edema. Patient was admitted for acute on chronic hypoxic respiratory failure. Patient was also found to have acute on chronic heart failure exacerbation which, along with the suspected possible cough, elevated lactate and imaging showing potential pneumonia, contributed to his acute hypoxic respiratory failure. Patient on admission was given antibiotics and pain medication for his back pain. Patient's CTA showed pulmonary edema, bilateral effusions, LLL pneumonia vs edema, cirrhosis with ascites, and ascending aortic aneurysm 4.6 cm. Patient had strict blood pressure control for 4.6 cm ascending aortic aneurysm finding on CTA. He was diuresed with IV spironolactone and Bumex. Patient's home metolazone was held as Bumex and spironolactone were sufficient. Patient's troponins became elevated early in the hospital course likely due to demand ischemia from being fluid overloaded. Patient denied having chest pain and the troponin levels ended up downtrending during the hospitalization. With the diuretics, the patient's fluid status improved along with his respiratory status. Patient at discharge was saturating at 98% oxygen on 3 L nasal cannula, which is his baseline at home. Discharge Instructions ? Follow-up with your supervisor plasma Dr. Moran within 1 week from discharge ? We increased your water pills bumetanide to 1 mg per mouth every morning ? Continue to take daily body weight, discussed the increase of your body weight with your supervisor plasma to adjust your water pills if needed ? Follow-up with your kidney doctor within 1 to 2 weeks from discharge ? We discontinued cyclobenzaprine due to the potential heart side effect and we started you on gabapentin 100 mg p.o. twice daily. ? In case of worsening of your symptoms please return to the ED as soon as possible ? Use medications as prescribed - Peform a repeat renal panel within one week as your potassium was slightly elevated while you were in the hospital - You will need a repeat CT scan of your aorta to evaluate if it is becoming more dilated as it was 4.6 cm inpatient. Perform within 6 months. Admission Diagnosis #Acute on chronic hypoxic respiratory failure #Acute on chronic exacerbation HFpEF (EF 65%, severe RV dysfunction, severe biatrial dilatation, mod MR) #Pneumonia, unspecified organism #CKD stage 3b #Hyperkalemia #Chronic Atrial fibrillation #Hx of Sick sinus syndrome s/p Pacemaker #Elevated Troponins, improving #CAD, s/p PCI #Hypertension #Hyperlipidemia #Ascending thoracic aortic aneurysm, 4.6 cm #Cirrhosis with mild ascites #Acute back pain, hx degenerative disc disease #Hypomagnesemia, improving #Partial parathyroidectomy, history of hyperparathyroidism #hypercalcemia Patient plan of care was discussed with the attending physician, Dr. Merino & resident Dr. Luis Sanchez MD PGY-1 Time Spent with Patient Time attestation: Total time spent providing and/or coordinating discharge services: Time spent: Greater than 30 minutes Exam Vital Signs Temp Pulse Resp BP Pulse Ox O2 Del Method O2 Flow Rate 97.9 F 60 20 108/72 98 Nasal Cannula 3 12/25/24 11:45 12/25/24 11:52 12/25/24 11:45 12/25/24 11:45 12/25/24 11:45 12/25/24 11:45 12/25/24 11:45 Narrative Exam General: No acute distress; A&Ox3 Skin: Warm, dry, intact, no obvious rash. HENT: NCAT, EOMI, not icteric. External ears normal. No rhinorrhea. Moist mucous membranes Cardiovascular: Regular rate and rhythm, no murmur, +S1/S2. Pacemaker present Respiratory: Lungs CTAB GI: Soft, nontender, distended abdomen, No guarding or rebound tenderness. Extremities: 1+ Bilateral pitting LE edema, no cyanosis, no clubbing. Extremity pulses present Neuro: No focal deficits observed. Conversant, moving all extremities. No overt cerebellar signs/incoordination. Psychiatric: Cooperative, appropriate affect. Discharge Plan Plan Patient Disposition: Xfer Skilled Nsg Fac (SNF) Disposition Comment: Acute Rehab, [facility] Patient condition on transfer: Stable Care Plan Goals: Discharge instructions: ? Follow-up with your supervisor plasma Dr. Moran within 1 week from discharge ? We increased your water pills bumetanide to 1 mg per mouth every morning ? Continue to take daily body weight, discussed the increase of your body weight with your supervisor plasma to adjust your water pills if needed ? Follow-up with your kidney doctor within 1 to 2 weeks from discharge ? We discontinued cyclobenzaprine due to the potential heart side effect and we started you on gabapentin 100 mg p.o. twice daily. ? In case of worsening of your symptoms please return to the ED as soon as possible ? Use medications as prescribed - Peform a repeat renal panel within one week as your potassium was slightly elevated while you were in the hospital -You will need a repeat CT scan of your aorta to evaluate if it is becoming more dilated as it was 4.6 cm inpatient. Perform within 6 months. Prescriptions/Referrals Prescriptions/Med Rec: New bumetanide 1 mg tablet 1 mg PO QDAY Qty: 14 0RF gabapentin 100 mg capsule 100 mg PO BID 7 Days Qty: 14 0RF Continued pravastatin [Pravachol] 40 MG tablet 40 mg PO QAM Qty: 0 amitriptyline 10 mg Tablet 10 mg PO HS cinacalcet 30 mg tablet 30 mg PO 1XD Patient Comments: TAKE 1 TABLET BY MOUTH EVERY DAY WITH FOOD OR AFTER MEAL DAILY FOR 90 DAYS Eliquis 5 mg tablet 2.5 mg PO BID Patient Comments: TAKE 1 TABLET BY MOUTH TWICE A DAY FOR 90 DAYS colchicine 0.6 mg tablet 0.3 mg PO QDAY Qty: 30 3RF magnesium oxide 500 mg capsule 400 mg PO BID pantoprazole [Protonix] 40 mg tablet,delayed release (DR/EC) 40 mg PO QAM acetaminophen 325 mg capsule 650 mg PO Q4H PRN (Reason: mild pain (scale score 1-4)) hydrocodone-acetaminophen 7.5-325 mg tablet 1 tab PO Q4H midodrine 5 mg tablet 5 mg PO TID 7 Days Qty: 21 0RF Patient Comments: TAKE 1 TABLET BY MOUTH THREE TIMES A DAY Rx Instructions: SKIP A DOSE if systolic blood pressure above 120mmHg metolazone 2.5 mg tablet 2.5 mg PO QDAY Qty: 30 0RF Held spironolactone 25 mg tablet 25 mg PO QDAY Hold Instructions: Resume on 12/31/24. The [employer]PER[employer] TO RSUME IF SERUM POTASSIUM level within normal levels Patient Comments: TAKE 1 TABLET BY MOUTH EVERY DAY FOR 90 DAYS Discontinued acetaminophen [Acetaminophen Extra Strength] 500 mg tablet 1,000 mg PO Q8HR PRN (Reason: pain (scale score 4-6)) cyclobenzaprine 10 mg tablet 10 mg PO HS Patient Comments: TAKE 1 TABLET BY MOUTH EVERY DAY AT BEDTIME NEEDED benazepril 20 mg tablet 20 mg PO HS Patient Comments: TAKE 1 TABLET BY MOUTH EVERY DAY FOR 90 DAYS bumetanide 0.5 mg tablet 0.5 mg PO HS Patient Comments: TAKE 1 TABLET BY MOUTH EVERY DAY FOR 30 DAYS Referrals: No Primary/Family,Physician [Primary Care Provider] - Patient/Caregiver Discharge Instructions Discharge Activity: as per physical therapy Education Materials: Coping with Heart Failure, CHF Ch, ED Aneurysm Abd Aortic Stable Print Language: Vietnamese Stand Alone Forms: [employer] Award Info., Patient Portal Info Letter Discharge Order Discharge Orders: Discharge (Routine); Ordered 12/25/24 Ordered By: Abdullahi Smith Quality Discharge Quality Measures VTE prophylaxis Attestestation Attestation I have discussed and was present for the essential components of the discharge history, physical examination, diagnosis, and discharge treatment plan with the resident. I agree with the patient's discharge care as documented by the resident and amended herein by me. Db Merino DO. The patient understood all discharge instructions, all questions were answered satisfactorily. The patient was instructed to return to the Emergency Department is symptoms worsened or persisted. Patient will be discharged to ARU in [place], the patient was stable, afebrile and tolerating p.o. intake at time of discharge to ARU. Although this document has been carefully reviewed, there may still be some phonetic and other typographical errors. These errors are purely grammatical due to imperfections in the software program and should not be construed in any way to compromise the substance of the patient's medical care during this visit.
--- NOTE | 2024-12-25 14:33 | PC.NURSE ---
Discharge pickup changed to 1540 per [facility].
== END 2024-12-25 16:25 | disposition skilled nursing facility (03) | DRG 291 ==
LOC: SERX 21:29 → SERHOLD 23:29 → S2NX 12-22 00:53 → S3NX 12-23 23:05
PROVIDERS: Student in an Organized Health Care Education/Training Program; Admitting Provider Internal Medicine; Emergency Provider Emergency Medicine; Visit Provider Student in an Organized Health Care Education/Training Program
DX: I13.2 Hypertensive heart and chronic kidney disease with heart failure and with stage 5 chronic kidney disease, or end stage renal disease (principal); I50.33 Acute on chronic diastolic (congestive) heart failure; J96.21 Acute and chronic respiratory failure with hypoxia; J15.9 Unspecified bacterial pneumonia; N18.6 End stage renal disease; R18.8 Other ascites; J44.0 Chronic obstructive pulmonary disease with (acute) lower respiratory infection; I48.20 Chronic atrial fibrillation, unspecified; I24.89 Other forms of acute ischemic heart disease; N13.30 Unspecified hydronephrosis; Z99.81 Dependence on supplemental oxygen; Z95.0 Presence of cardiac pacemaker; I25.10 Atherosclerotic heart disease of native coronary artery without angina pectoris; E78.00 Pure hypercholesterolemia, unspecified; K74.60 Unspecified cirrhosis of liver; E21.3 Hyperparathyroidism, unspecified; G89.29 Other chronic pain; G62.9 Polyneuropathy, unspecified; N40.0 Benign prostatic hyperplasia without lower urinary tract symptoms; F32.A Depression, unspecified; R79.1 Abnormal coagulation profile; I71.21 Aneurysm of the ascending aorta, without rupture; N18.32 Chronic kidney disease, stage 3b; M54.6 Pain in thoracic spine; E87.5 Hyperkalemia; N28.1 Cyst of kidney, acquired; Z79.01 Long term (current) use of anticoagulants; Z79.899 Other long term (current) drug therapy; Z66 Do not resuscitate; Z95.5 Presence of coronary angioplasty implant and graft
CPT/HCPCS: 36415; 36600; 71045; 71275; 72125; 72128; 76770; 80053; 81001; 82248; 82803; 83605; 83735; 83880; 84100; 84145; 84439; 84443; 84484; 85025; 85379; 85610; 85652; 85730; 86140; 87040; 87106; 87205; 87400; 87811; 89220; 93005; 93225; 93970; 96365; 96366; 96375; 96376; 97163; 99284; A4649; J0456; J0696; J1644; J2270; J2405; J2470; J3475; J3490; J7050; Q9967; 94640; A9270

== ENCOUNTER → 2025-01-29 | Outpatient (CLI) | payer MEDICARE, MEDICAID, SELFPAY ==
--- NOTE | 2025-01-29 15:18 | XR_ITS ---
Examination: Cervical spine 7 views Technique: AP, lateral, standing lateral flexion, standing lateral extension, coned AP odontoid, KLEIN, TURKISH cervical spine 7 views Date and time: January 29, 2025 1535 hrs., Comparison December 03, 2018 Indications: Neck pain one year, history cervical spine surgery Findings: Severe osteopenia Again noted cervical fusion C3-C5 Advanced degenerative disc disease C5-C6, C6-C7 No range of motion between flexion and extension Oblique films are not optimal, moderate neural foraminal stenosis C3-C4, C4-C5, C5-C6 The odontoid is intact No acute cervical fracture Impression: Stable alignment cervical fusion C3-C5 Advanced degenerative disc disease C5-C6, C6-C7
--- NOTE | 2025-01-29 15:18 | XR_ITS ---
Examination: Lumbar spine 7 views Technique: AP, lateral, coned lateral lower lumbar spine, standing lateral flexion, standing lateral extension, KLEIN, SOMALI 7 views Date and time: January 29, 2025 1535 hrs., Comparison 01/12/2024 Indications: More severe low back pain the last year difficulty walking Findings: Calcified mass partly visualized in the right abdomen, at least 11 cm Severe osteopenia Advanced diffuse facet arthropathy Diffuse moderate to advanced lumbar degenerative disc disease, most severe at L3-L4 Prominent lumbar spondylosis No spondylolisthesis Advanced diffuse facet arthropathy No significant range of motion between flexion and extension Impression: Diffuse moderate to advanced lumbar degenerative disc disease with significant spinal stenosis Recommend ultrasound abdomen to assess 11 cm partially calcified mass in the right abdomen
--- NOTE | 2025-01-29 15:18 | XR_ITS ---
Examination: Thoracic spine 3 views Technique one AP lateral coned lateral upper dorsal spine 3 views Date and time: January 29, 2025 1612 hrs., Comparison March 14, 2024 Indications: Upper back pain one year with difficulty walking. Findings: Severe osteopenia Upper thoracic dextroscoliosis 12 degrees Moderate diffuse thoracic disc narrowing Mild to moderate thoracic spondylosis Chronic osteoporotic compression T11 No acute thoracic fracture Impression: Moderate diffuse thoracic degenerative disc disease
== END | disposition home or self-care (01) ==
LOC: CDIM 14:46
PROVIDERS: PCP Family Medicine; Referring Provider Physical Medicine & Rehabilitation Pain Medicine; Visit Provider Physical Medicine & Rehabilitation Pain Medicine
DX: M51.34 Other intervertebral disc degeneration, thoracic region (principal); M50.322 Other cervical disc degeneration at C5-C6 level; M43.22 Fusion of spine, cervical region
CPT/HCPCS: 72052; 72072; 72114

== ENCOUNTER 2025-02-28 12:52 | Inpatient (IN) | payer MEDICARE, MEDICAID, SELFPAY ==
[2025-02-28 12:54] VITALS: BMI 26.2
[2025-02-28 12:55] VITALS: BP 111/72; PULSE 87; PULSE 92; RESP 18; TEMP 36.4; O2SAT 97; O2SAT 98; BMI 26.2
--- NOTE | 2025-02-28 13:42 | PC.NURSE ---
patient BIBA for dizziness patient states dizziness baround 10 am and still feels like the room is spinning MD made aware
--- NOTE | 2025-02-28 13:44 | EKG_ITS ---
[facility] Test Date: 2025-02-28 Pat Name: CHANCE YO Department: Room: - Gender: Male [employer] Supervisor: : 1945 Requested By: Josemanuel Liu Order Number: [id number] Reading MD: Josemanuel Liu Measurements Intervals [place] Rate: 62 P: NV: QRS: -80 QRSD: 249 T: 103 QT: 596 QTc: 607 Interpretive Statements ELECTRONIC VENTRICULAR PACEMAKER PROLONGED QT INTERVAL CRITICAL TEST RESULT Compared to ECG 12/22/2024 10:59:50 Prolonged QT interval now present /store/S0/[id number]/ecg/[id number].pdf
--- NOTE | 2025-02-28 14:17 | XR_ITS ---
Examination: CT brain head without contrast. 2-D sagittal coronal reconstructions Date and time of exam: February 28, 2025, 1605 hours INDICATIONS: Dizziness episodes months COMPARISON: November 03, 2024 CTDI: vol (mGy): 49.2 DLP: (mGycm): 997 Technique: Multiple CT axial sections of the brain have been obtained, 5 mm slice thickness. Contrast has not been administered. 2-D sagittal, coronal reconstructions have been obtained Low dose protocols were performed. One or more of the following dose reduction techniques were used; automated exposure control, adjustment of the mA and/or KV according to patient size, use of iterative reconstruction technique. Findings: No significant ventricular enlargement. Intra-axial or extra-axial hemorrhage density is not seen. No mass effect or midline shift Basal cisterns are not remarkable. Fourth ventricle is midline. Cranial vault intact. Impression: Negative for acute hemorrhage, mass effect or midline shift Mild left otitis media Advise clinical correlation and follow-up accordingly
[2025-02-28 14:37] VITALS: PULSE 60
[2025-02-28] MEDS: MECLIZINE HCL 25 MG TABLET PO (14:49)
[2025-02-28] MEDS: SODIUM CHLORIDE 0.9% 500 ML 500 ML 999 ML IV (14:50)
[2025-02-28 15:02] LABS: Basophils # (Auto) 0.1 Thou/mm3 (0.0-0.2); Basophils % (Auto) 1 % (0-2.5); Eosinophils # (Auto) 0.2 Thou/mm3 (0.0-0.5); Eosinophils % (Auto) 4 % (0-10); Hematocrit 34.4 % (41.0-53.0); Hemoglobin 11.6 g/dL (13.5-16.0); Immature Granulocytes Auto 0.04 Thou/mm3 (0.00-0.00); Lymphocytes # (Auto) 1.5 Thou/mm3 (1.0-4.8); Lymphocytes % (Auto) 22 % (10-50); Mean Corpuscular HGB Conc 33.7 g/dl (31.0-37.0); Mean Corpuscular Hemoglobin 29.7 pg (25.0-35.0); Mean Corpuscular Volume 88 fL (80-100); Monocytes # (Auto) 0.7 Thou/mm3 (0.0-0.8); Monocytes % (Auto) 10 % (0-12); Neutrophils # (Auto) 4.1 Thou/mm3 (1.8-7.7); Neutrophils % (Auto) 62 % (37-80); Nucleated Red Blood Cell # 0.00 Thou/mm3 (0.00-0.00); Nucleated Red Blood Cell % 0 /100 WBC (0); Platelet Count 275 Thou/mm3 (140-440); RDW Standard Deviation 59.0 fL (35.1-43.9); Red Blood Count 3.90 Miln/mm3 (4.50-5.90); White Blood Count 6.5 Thou/mm3 (3.8-10.6)
[2025-02-28 15:19] VITALS: BP 106/73; PULSE 60; RESP 18; TEMP 36.5; O2SAT 99
[2025-02-28 15:22] LABS: D-Dimer 465 ng/mL (<600)
[2025-02-28 15:34] LABS: Alanine Aminotransferase 12 U/L (10-49); Albumin, Serum 4.3 gm/dL (3.4-4.8); Albumin/Globulin Ratio 1.5 (1.2-2.2); Alkaline Phosphatase 103 U/L (46-116); Anion Gap 13 (7-16); Aspartate Amino Transferase 24 U/L (0-34); BUN/Creatinine Ratio 22 Ratio (12-20); Bilirubin,Total 1.0 mg/dL (0.3-1.2); Blood Urea Nitrogen 54 mg/dL (9-23); Calcium 10.1 mg/dL (8.3-10.6); Calcium (Corrected) 10.1 mg/dL (8.5-10.1); Carbon Dioxide 36.8 mMol/L (20.0-31.0); Chloride 85 mMol/L (98-107); Creatinine (Component) 2.5 mg/dL (0.6-1.3); Estimated Creatinine Clearance 24.7 mL/min (>60); Globulin 2.9 gm/dL (2.3-3.5); Glucose 132 mg/dL (74-106); Osmolality,Calculated 286 (275-295); Potassium 3.1 mMol/L (3.4-5.1); Sodium 135 mMol/L (136-145); Total Protein 7.2 gm/dL (5.7-8.2); eGFR 25 See Note
[2025-02-28 15:36] LABS: Troponin I 0.258 ng/mL (0.0-0.045)
--- NOTE | 2025-02-28 15:47 | PD.EDDIZZY ---
ED Dizzyness RME/HPI General Chief Complaint: Dizziness Stated Complaint: DIZZINESS Time Seen by Provider: 02/28/25 13:45 Arrival date/time: 02/28/25 12:52 Limitations: no limitations RME / HPI RME / HPI Narrative: 79 year old male with history of CVA presents to the ED for evaluation of dizziness today. Patient reports he has had intermittent room spinning dizziness over the last 6 months. States at 10AM today he began to feel similar room spinning dizziness. Reportedly 1 week ago had the same dizziness and fell towards his waker and hurt his left lower chest. mentioned the patient has been admitted at a rehab facility and has noticed he is progressively becoming weaker. No other complaints reported. Related Data Home Medications ?Medication ?Instructions ?Recorded ?Confirmed pravastatin 40 mg tablet 40 mg PO QAM #0 tabs 10/16/13 12/22/24 (Pravachol) amitriptyline 10 mg tablet 10 mg PO HS 10/04/18 12/22/24 apixaban 5 mg tablet (Eliquis) 2.5 mg PO BID 05/29/24 12/22/24 cinacalcet 30 mg tablet 30 mg PO 1XD 05/29/24 12/22/24 spironolactone 25 mg tablet 25 mg PO QDAY 09/11/24 12/22/24 Held on 12/24/24. Instructions: Resume on 12/31/24. The FLAME DEGREASER TO RSUME IF SERUM POTASSIUM level within normal levels acetaminophen 325 mg capsule 650 mg PO Q4H PRN mild pain (scale 12/22/24 12/22/24 score 1-4) hydrocodone 7.5 mg-acetaminophen 1 tab PO Q4H 12/22/24 12/22/24 325 mg tablet magnesium oxide 500 mg capsule 400 mg PO BID 12/22/24 12/22/24 pantoprazole 40 mg tablet,delayed 40 mg PO QAM 12/22/24 12/22/24 release (Protonix) Previous Rx's ?Medication ?Instructions ?Recorded colchicine 0.6 mg tablet 0.3 mg (1/2 x 0.6 mg) PO QDAY #30 06/01/24 tabs metolazone 2.5 mg tablet 2.5 mg PO QDAY #30 tabs 09/14/24 bumetanide 1 mg tablet 1 mg PO QDAY #14 tabs 12/24/24 midodrine 5 mg tablet 5 mg PO TID 7 days #21 tabs 12/24/24 Allergies Allergy/AdvReac Type Severity Reaction Status Date / Time No Known Allergies Allergy Verified 02/28/25 12:55 Review of Systems Review of Systems Systems Reviewed: All systems reviewed, normal except as documented Past Medical History Past Medical History NEUROLOGIC: Positive Neurological Disorders, Peripheral Neuropathy and Head Trauma CARDIAC: Positive Cardiac Disorders, Myocardial Infarction, Cardiac Arrhythmia, Atrial Fibrillation, Angina, Hypercholesterolemia, Congestive Heart Failure, Edema and Hypertension RESPIRATORY: Positive Chronic Obstructive Pulmonary Disease (COPD), Asthma and Sleep Apnea GASTROINTESTINAL: Positive Gastrointestinal Disorders, Gall Bladder Disease and Gastroesophageal Reflux Disease GENITOURINARY: Positive Renal Disease and Benign Prostatic Hyperplasia MUSCULOSKELETAL: Positive Musculoskeletal Disorders and Degenerative Joint Disease ENT: Positive Cataracts and Head Trauma ENDOCRINE: Positive Endocrine Disorders (hyperparathyroidism) and Parathyroid Disease HEMATOLOGIC: Positive Blood Disorders PSYCHO/SOCIAL: Positive Depression OTHER HISTORY: Positive Autoimmune Disease, Falls, Anesthesia Reactions, Chicken Pox and Measles Family History FAMILY HISTORY: Positive Family Gastrointestinal Problems Surgical History SURGICAL: Positive Cardiac Surgery, Coronary Stent, Pacemaker, Angiogram, Abdominal Surgery, Joint Replacement and Arthroscopy Social History SMOKING STATUS: Never smoker SUBSTANCE USE: does not use ED Exam Narrative Physical exam: mdm: his creatinine elvated at 2.5 up more from baseline, i was not able to do any imaging with contrast. i considered doing an MRI of brain however has a pacemaker, potassium low and given potassum. elevated troponn though is stable, i suggested to the he needs to see his dr for referral for formal audiogram consult with ent and neurologist. General Limitations: Present no limitations General appearance: Present alert and in no apparent distress Head Head exam: Present atraumatic Eye Eye exam: Present normal appearance, PERRL and EOMI ENT ENT exam: Present normal exam, normal oropharynx and mucous membranes moist Neck Neck exam: Present normal inspection, full ROM and trachea midline Chest Chest inspection: Present normal inspection and symmetric chest wall rise Respiratory Respiratory exam: Present normal lung sounds bilaterally Cardiovascular Cardiovascular exam: Present regular rate, normal rhythm and normal heart sounds Abdominal Exam Abdominal exam: Present soft and normal bowel sounds Extremities Exam Extremities exam: Present full ROM and other (4/5 strength in bilateral lower extremities ) Back Exam Back exam: Present normal inspection and full ROM Neurological Exam Neurological exam: Present alert, oriented X3, CN II-XII intact and other (No nystagmus, no focal findings, no speech abnormalities, 4/5 strength bilateral lower extremities ) Psychiatric Psychiatric exam: Present normal affect and normal mood Skin Skin exam: Present warm, dry, intact and normal color Course Quality Measures none Orders Category Date Time Status Bedside Blood Glucose NOW Care 02/28/25 14:[address] Screening NOW Care 02/28/25 14:19 Active Armored Car Guard NOW Care 02/28/25 14:13 Active Continuous Pulse Oximetry NOW Care 02/28/25 14:12 Completed EKG (ED ONLY) *Do not use* NOW Care 02/28/25 13:44 Completed Insert IV NOW Care 02/28/25 14:[address] angio carotid w head w Stat Exams 02/28/25 14:[address] angio chest Stat Exams 02/28/25 14:[address] head/brain wo con Stat Exams 02/28/25 14:17 Completed EKG (ED Only) Stat Exams 02/28/25 13:44 Draft CBC Stat Lab 02/28/25 13:45 Completed Comprehensive Metabolic Panel Stat Lab 02/28/25 13:45 Completed D-Dimer Stat Lab 02/28/25 13:45 Completed Troponin I Stat Lab 02/28/25 13:45 Completed Troponin I Stat Lab 02/28/25 16:29 Completed Urinalysis, C/S if Indicated Stat Lab 02/28/25 14:14 Ordered Meclizine HCl [Antivert] Med 02/28/25 14:16 Discontinued 25 mg PO X1 ONE Potassium Chloride [K-Dur] Med 02/28/25 16:17 Discontinued 40 meq PO X1 ONE Sodium Chloride 0.9% 500 ml [Ns] 500 ml Med 02/28/25 14:12 Discontinued IV 999 mls/hr Vital Signs Vital signs: Vital Signs Temperature 97.6 F 02/28/25 12:55 Pulse Rate 87 02/28/25 12:55 Respiratory Rate 18 02/28/25 12:55 Blood Pressure 111/72 02/28/25 12:55 Pulse Oximetry (%) 98 02/28/25 12:55 Oxygen Delivery Method Nasal Cannula 02/28/25 12:55 Oxygen Flow Rate 2 02/28/25 12:55 Dizziness MDM Narrative MDM Narrative:: Maribell Pollack am scribing for and in the presence of Dr. Sexton. The patients creatinine elevated at 2.5 which is higher than his baseline. I was not able to do any imaging with contrast. I considered doing an MRI of brain. However he has a pacemaker. The potassium was low and given potassium po. Patient troponin is elevated though is stable. At this time the states they do not want SNF placement and patient has been admitted to rehab facilities in the past. I suggested to the he needs to see his doctor for referral for formal audiogram, consult with ENT, and referral to neurologist. 1820: I spoke with patients and at this time they are requesting the patient to be placed into a rehab facility. The patient will be signed out to Dr. Allen pending social sciences lecturer consultation for possible rehab placement. Patient data External records reviewed:: [facility] previous records Clinical information provided by:: patient and spouse Social determinants that could affect healthcare access:: none Patient has the following chronic illnesses:: CVA How is presenting disease/condition affected by chronic disease/condition?: exacerbated by Evaluation data The following diagnostics were reviewed and interpreted by me:: lab results, radiology exam(s) and EKG tracing(s) (EKG @ 13:54. Ventricular pacemaker, rate 62, no STEMI.) Lab and/or radiology exams considered but not ordered:: None Interpretation Summary: Ordering Physician: Josemanuel Sexton MD Date of Service: 02/28/25 Procedure(s): CT head/brain wo con Accession Number(s): [id number] cc: Josemanuel Sexton MD; Govind Vick MD; Vic Mcallister MD~ Examination: CT brain head without contrast. 2-D sagittal coronal reconstructions Date and time of exam: February 28, 2025, 1605 hours INDICATIONS: Dizziness episodes months COMPARISON: November 03, 2024 CTDI: vol (mGy): 49.2 DLP: (mGycm): 997 Technique: Multiple CT axial sections of the brain have been obtained, 5 mm slice thickness. Contrast has not been administered. 2-D sagittal, coronal reconstructions have been obtained Low dose protocols were performed. One or more of the following dose reduction techniques were used; automated exposure control, adjustment of the mA and/or KV according to patient size, use of iterative reconstruction technique. Findings: No significant ventricular enlargement. Intra-axial or extra-axial hemorrhage density is not seen. No mass effect or midline shift Basal cisterns are not remarkable. Fourth ventricle is midline. Cranial vault intact. Impression: Negative for acute hemorrhage, mass effect or midline shift Mild left otitis media Advise clinical correlation and follow-up accordingly Dictated By: Govind Vick MD Signed By: <Electronically signed by Govind Vick MD in OV> 02/28/25 1706 Medications / Prescriptions Medications or Prescriptions considered but not ordered:: None Medication administrations:: Medication Administration History Discontinued Medications Sodium Chloride (Ns) 500 mls @ 999 mls/hr IV .Q31M ONE Stop: 02/28/25 14:42 Last Admin: 02/28/25 14:50 Dose: 999 mls/hr Documented By: EF Meclizine HCl (Meclizine Hcl 25 Mg Tablet) 25 mg PO X1 ONE Stop: 02/28/25 14:17 Last Admin: 02/28/25 14:49 Dose: 25 mg Documented By: EF Potassium Chloride (Potassium Chloride 20 Meq Tabcr) 40 meq PO X1 ONE Stop: 02/28/25 16:18 Last Admin: 02/28/25 16:33 Dose: 40 meq Documented By: EF See above Consultations Consultation(s) initiated? (list below): No Diagnosis Most likely diagnosis given after review of the tests above:: Vertigo , dizziness, weakness lower extremities Admission Indicated Admission indicated?: not indicated Admission Request Was there a request for admission?: No Disposition Plan Disposition Plan: other (specify) (Signed out pending final dispo) Discharge Plan Prescriptions/Referrals Prescriptions/Med Rec: No Action pravastatin [Pravachol] 40 MG tablet 40 mg PO QAM Qty: 0 amitriptyline 10 mg Tablet 10 mg PO HS cinacalcet 30 mg tablet 30 mg PO 1XD Patient Comments: TAKE 1 TABLET BY MOUTH EVERY DAY WITH FOOD OR AFTER MEAL DAILY FOR 90 DAYS Eliquis 5 mg tablet 2.5 mg PO BID Patient Comments: TAKE 1 TABLET BY MOUTH TWICE A DAY FOR 90 DAYS colchicine 0.6 mg tablet 0.3 mg PO QDAY Qty: 30 3RF magnesium oxide 500 mg capsule 400 mg PO BID pantoprazole [Protonix] 40 mg tablet,delayed release (DR/EC) 40 mg PO QAM acetaminophen 325 mg capsule 650 mg PO Q4H PRN (Reason: mild pain (scale score 1-4)) hydrocodone-acetaminophen 7.5-325 mg tablet 1 tab PO Q4H bumetanide 1 mg tablet 1 mg PO QDAY Qty: 14 0RF midodrine 5 mg tablet 5 mg PO TID 7 Days Qty: 21 0RF Patient Comments: TAKE 1 TABLET BY MOUTH THREE TIMES A DAY Rx Instructions: SKIP A DOSE if systolic blood pressure above 120mmHg spironolactone 25 mg tablet 25 mg PO QDAY Patient Comments: TAKE 1 TABLET BY MOUTH EVERY DAY FOR 90 DAYS metolazone 2.5 mg tablet 2.5 mg PO QDAY Qty: 30 0RF Referrals: Vic Mcallister MD [Primary Care Provider, Family Practice] - In 1 week Problem List Clinical Impression: Vertigo, Dizziness, Weakness, Bilateral leg weakness Patient/Caregiver Discharge Instructions Additional Instructions: Follow up with your doctor for referral for formal audiogram, consult with ENT, and referral to neurologist. Print Language: Korean
[2025-02-28 17:09] LABS: Troponin I 0.256 ng/mL (0.0-0.045)
--- NOTE | 2025-02-28 18:19 | PD.EDADDENDU ---
Emergency Room Addendum Addendum Narrative: 1800: Care assumed from Dr. Sexton (emergency physician). Past medical, surgical, social and family history reviewed. Vitals and home medications reviewed. Results and treatment plan discussed. I will assume the care of the patient at this time and will follow the patient, pending consult with social welfare research worker. The following addendum documentation note is intended to reflect any pending information, findings, or radiology results not included in the patient?s initial chart by the previous shift scribe. 05:45 - Patient with chronic vertigo presents s/p recent fall requesting readmission to rehab. Neurologically patient without nystagmus, normal finger to nose. Hemodynamically stable awaiting social welfare research worker consult this AM. 06:00 - Care assumed by Dr. Sorensen (emergency physician). Past medical, surgical, social and family history reviewed. Vitals and home medications reviewed. Results and treatment plan discussed. They will assume the care of the patient at this time and will follow the patient, pending consult with social welfare research worker.
[2025-02-28 18:23] VITALS: BP 122/76; PULSE 60; RESP 17; TEMP 36.2; O2SAT 99
[2025-02-28 19:42] LABS: Collection Type, Urine Clean Catch; Squamous Epithelial Cell,Urine 0 /hpf (0-5)
[2025-02-28 19:48] LABS: Bilirubin,Urine Negative (Negative); Blood,Urine Negative (Negative); Clarity,Urine Clear (Clear/Hazy); Color,Urine Lt-Yellow (Lt Yel-Yel); Culture Indicated,Urine Not Indicated; Glucose, Urine Negative (Negative); Hyaline Casts,Urine < 1 /hpf (0-1); Ketones,Urine Negative (Negative); Leukocyte Esterase,Urine Negative (Negative); Nitrite,Urine Negative (Negative); PH,Urine 7.0 (5.0-7.0); Protein,Urine Trace (Neg - Trace); RBC,Urine < 1 /hpf (0-3); Specific Gravity,Urine 1.009 (1.001-1.035); Urobilinogen,Urine Negative mg/dL (0.0-1.0); WBC,Urine < 1 /hpf (0-5)
--- NOTE | 2025-02-28 20:24 | PC.NURSE ---
PATIENT OKAY TO EAT PER DR. EDMOND, PATIENT GIVEN SANDWISH AND JUICE AT THIS TIME. PATIENT ALSO ASSISTED WITH URINAL, 200ML OUTPUT.
[2025-02-28 22:12] VITALS: BP 95/63; PULSE 66; RESP 18; TEMP 36.5; O2SAT 96
[2025-03-01] VITALS (17 sets, daily range): BP systolic 81–121; BP diastolic 43–74; PULSE 59–69; RESP 15–98; TEMP 36.5–37.1; O2SAT 95–99
--- NOTE | 2025-03-01 07:45 | PC.CC ---
Director Print, Betty notified by healthcare interpreter-Lanise who reported that patient was waiting for to complete a referral to SNF. CC reviewed EMR. Patient's last hospital admission was in December of 2024 in which he was discharge to [facility]. CC notified Geetha that patient needs a 3-midnight inpatient admission in order to use SNF Medicare days. At this time, [facility] can only offer Home Health services. Armida reported that case will be discussed with Dr. Sorensen.
--- NOTE | 2025-03-01 07:45 | PD.EDADDENDU ---
Emergency Room Addendum Addendum Narrative: 0600: Care assumed from Dr. Allen, the previous shift emergency physician. Past medical, surgical, social and family history reviewed. Vitals and home medications reviewed. I will assume the care of the patient at this time, pending socially responsible investment adviser consult and final disposition. Please refer to the emergency department record for history and examination from initial visit.? Physical exam by me shows patient under no acute distress at this time. Per at 0830 hours, the blood pressure and oxygen saturation at home go down when he gets up. The original complaint is dizziness. 1135: Discussed test HPI, PMHx, lab, radiology results and/or management with hospitalist. Will admit for further evaluation and management. Accepts patient for admission.
--- NOTE | 2025-03-01 08:33 | XR_ITS ---
EXAMINATION: AP chest single view TECHNIQUE: AP portable upright chest single view Date and time: March 01, 2025, 0839 hours, comparison December 21, 2024 INDICATIONS: Shortness of breath today. FINDINGS: Moderate enlargement cardiac contour. Cardiac leads satisfactory position. Mild prominence pulmonary vasculature. No lobar pneumonia or pulmonary edema IMPRESSION: Moderate enlargement cardiac contour. Mild prominence pulmonary vasculature
[2025-03-01 09:29] LABS: Basophils # (Auto) 0.0 Thou/mm3 (0.0-0.2); Basophils % (Auto) 1 % (0-2.5); Eosinophils # (Auto) 0.5 Thou/mm3 (0.0-0.5); Eosinophils % (Auto) 7 % (0-10); Hematocrit 38.1 % (41.0-53.0); Hemoglobin 12.2 g/dL (13.5-16.0); Immature Granulocytes Auto 0.04 Thou/mm3 (0.00-0.00); Lymphocytes # (Auto) 1.6 Thou/mm3 (1.0-4.8); Lymphocytes % (Auto) 25 % (10-50); Mean Corpuscular HGB Conc 32.0 g/dl (31.0-37.0); Mean Corpuscular Hemoglobin 28.4 pg (25.0-35.0); Mean Corpuscular Volume 89 fL (80-100); Monocytes # (Auto) 0.6 Thou/mm3 (0.0-0.8); Monocytes % (Auto) 9 % (0-12); Neutrophils # (Auto) 3.7 Thou/mm3 (1.8-7.7); Neutrophils % (Auto) 58 % (37-80); Nucleated Red Blood Cell # 0.00 Thou/mm3 (0.00-0.00); Nucleated Red Blood Cell % 0 /100 WBC (0); Platelet Count 242 Thou/mm3 (140-440); RDW Standard Deviation 61.3 fL (35.1-43.9); Red Blood Count 4.29 Miln/mm3 (4.50-5.90); White Blood Count 6.4 Thou/mm3 (3.8-10.6)
[2025-03-01 09:40] LABS: Anion Gap 10 (7-16); BUN/Creatinine Ratio 22 Ratio (12-20); Blood Urea Nitrogen 53 mg/dL (9-23); Calcium 10.3 mg/dL (8.3-10.6); Carbon Dioxide 38.9 mMol/L (20.0-31.0); Chloride 89 mMol/L (98-107); Creatinine (Component) 2.4 mg/dL (0.6-1.3); Estimated Creatinine Clearance 25.7 mL/min (>60); Glucose 124 mg/dL (74-106); Osmolality,Calculated 291 (275-295); Potassium 4.5 mMol/L (3.4-5.1); Sodium 138 mMol/L (136-145); eGFR 26 See Note
[2025-03-01 09:43] LABS: Troponin I 0.237 ng/mL (0.0-0.045)
[2025-03-01 10:36] LABS: Base Excess 13 (-3-3); HCO3 37 mEq/L (20-26); O2 Saturation 97 % (91-98); PCO2 44 mmHg (32.0-48.0); PO2 78 mmHg (83-108); pH, Arterial 7.54 (7.35-7.45)
[2025-03-01 10:37] LABS: Allen Test Not Performed; Puncture Site Right Radial
[2025-03-01] MEDS: SODIUM CHLORIDE 0.9% 1000 ML 1,000 ML 999 ML IV (12:00)
--- NOTE | 2025-03-01 12:31 | ECHO_ITS ---
Transthoracic Echo Report Ht (in): 71 Wt (lb): 188 Exam Location: [id number] Status: Emergency Straight Line Edger: Jyoti Stubbs Indications: Procedure Performed: BP: 110 / 67 HR: 64 MEASUREMENTS (Male / Female) Normal Values 2D ECHO LV Diastolic Diameter PLAX 5.3 cm 4.2 - 5.9 / 3.9 - 5.3 cm LV Systolic Diameter PLAX 4.7 cm IVS Diastolic Thickness 1.5 cm 0.6 - 1.0 / 0.6 - 0.9 cm LVPW Diastolic Thickness 1.6 cm 0.6 - 1.0 / 0.6 - 0.9 cm LV Relative Wall Thickness 0.6 LVOT Diameter 2.0 cm LV Ejection Fraction MOD 4C 60.6 % LV Cardiac Index MOD 4C 2165.0 cm?/min?m? LV Ejection Fraction 4C AL 61.8 % LV Cardiac Index 4C AL 2316.4 cm?/min?m? LA Volume Index 71.0 cm?/m? 16 - 28 cm?/m? DOPPLER AV Peak Velocity 110.0 cm/s AV Peak Gradient 4.8 mmHg AV Mean Gradient 3.0 mmHg AV Velocity Time Integral 16.8 cm LVOT Peak Velocity 61.7 cm/s LVOT Peak Gradient 1.5 mmHg LVOT Velocity Time Integral 12.2 cm LVOT Cardiac Index 1180.3 cm?/min?m? AV Area Cont Eq vti 2.3 cm? AV Area Cont Eq pk 1.8 cm? TR Peak Velocity 238.7 cm/s TR Peak Gradient 22.8 mmHg FINDINGS Left Ventricle Normal left ventricular size, systolic function with no obvious regional wall motion abnormalities. Severe LVH. Normal The ejection fraction is visually estimated at 50% .Global left ventricular systolic function is mildly decreased. . Right Ventricle The right ventricular systolic function is moderately decreased. The estimated right ventricular systolic pressure, 33 mmHg with RAP 8. Pacing wire present Left Atrium The left atrial cavity size is severely increased. Right Atrium The right atrial cavity size is severely increased. Atrial Septum The interatrial septum appears normal with no evidence of a shunt. Aorta The aorta is normal by two-dimensional, color flow and Doppler interrogation. Mitral Valve Moderate mitral annular calcification. [id number] mitral regurgitation. Aortic Valve The aortic valve is trileaflet and normal by two-dimensional, color flow and Doppler interrogation. There is no significant aortic valve regurgitation. Tricuspid Valve The tricuspid valve is normal by two-dimensional, color flow and Doppler interrogation. There is mild tricuspid valve regurgitation. Pulmonic Valve The pulmonic valve is not well visualized. There is no significant pulmonic valve regurgitation. Vessels The pulmonary artery appears normal. The inferior vena cava not well visualized. Pericardium The pericardium is normal by two-dimensional imaging. There is no significant pericardial effusion. CONCLUSIONS Severe LVH. Global left ventricular systolic function is mildly decreased. . Estimated EF 50% The right ventricular systolic function is moderately decreased. RVSP 33 mmHg with RAP 8. Pacing wire present Severe biatrial dilatation Moderate MAC with mild to MR Mild TR. Ophelia Brown (Electronically Signed) Final Date: 03 March 2025 18:00
[2025-03-01 13:16] LABS: Ferritin 94 ng/mL (10.5-307.3)
--- NOTE | 2025-03-01 14:23 | PD.RESHP ---
Documentation for date of: 03/01/25 Patient is an 80-year-old male with a past medical history of hyperlipidemia, CAD s/p stens, history of sick sinus syndrome s/p dual chamber pacemaker (2018), atrial fibrillation on Eliquis, CHF HFpEF with improved ejection fraction of 65% as of (06/01), history of hypertension, history of neuropathy, CKD, incidental cirrhosis as noted on CT 8 images on 12/2024), history of parathyroidectomy who presented to the emergency room via ambulance with a chief complaints of presyncope. Patient stated several episode of grand level falls while going from standing to sitting up position. Dizzines noted. Rining in ear that is chronic, from previous hearing loss requires hearing aids. Denied history of of BPPV. Denied seizure like activity. Denied heart failure symptoms. Denied pyrexia or recent sick contacts. CT head negative. Hold Eliquis, resume tomorrow after cardic recommendtions. Hold amitriptyline given side effects. Bumetidine every other day. B12, Folated, and B1 ordered. JENNIFER on CKD III noted on labs from ER CR of 2.5 from 2.1 which appears to be patients baseline. Paitent recieved 2 liter bolus, oral mucos appears dry. Concern for pre-renal given bumetanide and BUN/Cr ration. Metabolic Alkalosis, likely secondary to diuretic use. Urine lytes order. 2 liter bolus given ER, encourage oral hydration within limits of heart failure restriction. History of CHF HFpEF 65%. Not fluid overloaded. Repeat echo given pre-syncope. Daily weight checks. Strict ins and outs. NSTEMI, type II, likely secondary to demand ischemia form JENNIFER on CKD. History of Atrial Fibrillation, does not appear to be on rate controlled medication. Continue Eliquis at half dose. Cardiology consulted as patient may benefit form discontinuation of Eliquis. Continue to monitor. Normocytic Anemia noted, likely secondary to history of CKD. HLD and CAD s/p stents. LIpid panel. A1c. Continue Atorvastatin 40 mg HS, home medication Pravastatin 40 mg HS. BPH-holding Tamsulosin, given orthostatic positive. Senior Resident Attestation: I have discussed the case with supervising physician and record label intern physician involved in the care of patient. I personally saw and examined patient and discussed the assessment and plan with the entire medical team, including attending. I agree with assessment and plan as documented below. - The patient's plan was discussed with attending Dr. Wilber Partida MD PGY2 Internal Medicine HPI History of Present Illness History of present illness: Patient is a 79-year-old male with a PMH of HFpEF W/ severe RV dysfunction, biatrial dilatation, and EF of 65% from May 2024, atrial fibrillation s/p pacemaker implant on Eliquis, 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 Per who was present at the time of interview, patient has recently been having repeated falls in the setting of orthostatic hypotension that has been ongoing for the last 6 months. She reports that patient takes midodrine at home but that this medication is not always successful in bringing the patient's blood pressure back up after it drops. She also expresses concern that, on Monday (02/28), the patient had an episode of orthostatic hypotension where his systolic blood pressure had dropped to the 50s and that his home nurse had been unsuccessful in bringing it back up to satisfactory levels including with the use of midodrine. In addition, patient's endorses that patient has lost over 40 pounds in the last 3 to 4 months due to reduced appetite. Patient himself endorses paroxysmal episodes of shortness of breath, constipation, and leg edema. He denies symptoms of fever, cough, chest pain, palpitations, abdominal pain, nausea, vomiting, diarrhea, urinary symptoms, and sensory loss. PMH: As above PSH: Femur surgery repair, cholecystectomy, 2 knee replacements, 3 surgeries involving the kidneys, 1 procedure that involved cleaning out the carotid artery, back surgery, and coronary stent for kinked coronary vasculature Medications: Awaiting medication reconciliation but includes apixaban, midodrine, gabapentin, Nuevo, Bumex, famotidine, amitriptyline, cinacalcet, colchicine, metolazone, magnesium oxide, pravastatin, spironolactone Allergies: NKDA FH: Unknown SH: Lives in a house in [place] with , no significant history of alcohol use, smoking, and recreational drug use In the ED, vitals showed: BP 111/72 HR 87 RR 18 Temp 97.6 SpO2 98% on 2 L nasal cannula CBC showed slight anemia with elevated RDW but was otherwise within normal limits. Coagulation panel showed a normal D-dimer level of 465. CMP showed sodium 135, potassium 3.1, chloride 85, bicarbonate 36.8, anion gap 13, BUN 54, creatinine 2.5, eGFR 25, corrected calcium 10.1, troponin I 0.256. UA was bland. Imagin/24 EKG showed electronic ventricular pacemaker of HR 62 with a prolonged QTc of 607. 02/[address] showed mild left otitis media but was otherwise negative for acute hemorrhage, mass effect or midline shift. 03/01 CXR showed moderate enlargement of the cardiac contour and mild prominence of the pulmonary vasculature but no lobar pneumonia or pulmonary edema. In the ED, patient was given p.o. meclizine, p.o. potassium chloride, and 1.5 L NS bolus. Patient was admitted for the work-up and management of syncope with ground-level fall, JENNIFER on CKD, metabolic alkalosis, and mild troponinemia. Review of Systems Review of Systems Systems Reviewed: All systems reviewed, normal except as documented Exam Vital Signs Temp Pulse Resp BP Pulse Ox O2 Del Method O2 Flow Rate 97.8 F 61 16 112/71 98 Room Air 2 03/01/25 14:00 03/01/25 14:00 03/01/25 14:00 03/01/25 14:00 03/01/25 14:00 03/01/25 14:00 02/28/25 12:55 Narrative Exam General: A/O x3, no acute distress. Skin: Area of denuded skin on right forearm with some bright red blood. Warm, dry, no obvious rash. Head: Normocephalic, atraumatic. Eyes: PERRL, EOMI. Anicteric, vision grossly intact. Ears: Hard of hearing. No ear pain, no ear discharge. Nose: No nasal discharge. Mouth/Throat: Blue-tinged lips. Oral mucosa moist. No obvious lesions in oropharynx. Neck: Neck supple, non-tender, no cervical lymphadenopathy. Cardiovascular: Slightly bradycardic rate and rhythm, no murmur, no JVD or carotid bruits. +S1/S2. Respiratory: Bilateral lungs are clear to auscultation, respirations unlabored, no crackles, no wheezing. No accessory muscle use. Gastrointestinal: Hyperactive bowel sounds. Soft, nontender, non-distended, no palpable masses. No guarding or rebound tenderness. Extremities: Symmetrical, no significant deformities. No edema, no cyanosis, no clubbing. 2+ radial pulse bilaterally, 2+ posterior tibial pulse bilaterally. Neuro: Slightly tremulous. No focal deficits observed. Conversant, moving all extremities. Psychiatric: Cooperative, appropriate affect. Results: Labs 03/02/25 05:36 03/02/25 05:36 Labs: Short CBC 02/28/25 03/01/25 Range/Units 13:45 08:58 WBC 6.5 6.4 (3.8-10.6) Thou/mm3 Hgb 11.6 L 12.2 L (13.5-16.0) g/dL Hct 34.4 L 38.1 L (41.0-53.0) % Plt Count 275 242 D (140-440) Thou/mm3 BMP 02/28/25 03/01/25 13:45 08:58 Sodium 135 L 138 Potassium 3.1 L 4.5 D Chloride 85 L 89 L Carbon Dioxide 36.8 H 38.9 H BUN 54 H 53 H Creatinine 2.5 H 2.4 H Glucose 132 H 124 H Calcium 10.1 10.3 Cardiac Enzymes 02/28/25 02/28/25 03/01/25 Range/Units 13:45 16:29 08:58 Troponin I 0.258 H* 0.256 H* 0.237 H* (0.0-0.045) ng/mL Liver Function 02/28/25 Range/Units 13:45 Total Bilirubin 1.0 (0.3-1.2) mg/dL AST 24 (0-34) U/L ALT 12 (10-49) U/L Alkaline Phosphatase 103 (46-116) U/L Albumin 4.3 (3.4-4.8) gm/dL Urine 02/28/25 Range/Units 19:31 Urine Color Lt-Yellow (Lt Yel-Yel) Urine Clarity Clear (Clear/Hazy) Urine pH 7.0 (5.0-7.0) Ur Specific [place] 1.009 (1.001-1.035) Urine Protein Trace (Neg - Trace) Urine Glucose (UA) Negative (Negative) ABG Interpretation ABG results: 03/01/25 10:30 ABG pH 7.54 H ABG pCO2 44 ABG pO2 78 L ABG HCO3 37 H ABG O2 Saturation 97 ABG Base Excess 13 H Quality Measures Quality Measures none Advance care planning discussed with:: patient Medications Home Medications and Allergies Home Medications ?Medication ?Instructions ?Recorded ?Confirmed ?Type pravastatin 40 mg tablet 40 mg PO QAM #0 tabs 10/16/13 03/01/25 History (Pravachol) apixaban 5 mg tablet (Eliquis) 2.5 mg PO BID 05/29/24 03/01/25 History cinacalcet 30 mg tablet 30 mg PO 1XD 05/29/24 03/01/25 History pantoprazole 40 mg tablet,delayed 40 mg PO QAM 12/22/24 03/01/25 History release (Protonix) gabapentin 400 mg capsule 400 mg PO Q12H 03/01/25 03/01/25 History tamsulosin 0.4 mg capsule 0.4 mg PO HS 03/01/25 03/01/25 History Allergies Allergy/AdvReac Type Severity Reaction Status Date / Time No Known Allergies Allergy Verified 02/28/25 12:55 Visit Medications Acetaminophen (Acetaminophen 325 Mg Tablet) 650 mg PO Q6H PRN PRN Reason: Mild Pain 1-3 or Fever >100.3 Stop: 03/31/25 12:24 Hydrocodone Bitart/Acetaminophen (Hydrocodone/Apap 5/325 Tablet) 1 tab PO Q6HR PRN PRN Reason: Moderate to Severe Pain 4-10 Stop: 03/06/25 14:06 Apixaban (Apixaban 2.5 Mg Tablet) 2.5 mg PO BID [facility] Stop: 04/01/25 08:59 Bumetanide (Bumetanide 0.5 Mg Tablet) 1 mg PO Q48HR@2100 [facility] Stop: 03/31/25 20:59 Famotidine (Famotidine 20 Mg Tablet) 20 mg PO BID [facility] Stop: 03/31/25 20:59 Gabapentin (Gabapentin 100 Mg Capsule) 100 mg PO BID [facility] Stop: 03/31/25 14:14 Heparin Sodium (Porcine) (Heparin Sod Inj 5000 Unit/Ml Vial) 5,000 unit SC Q12HR [facility] Stop: 03/02/25 06:00 Midodrine (Midodrine 5 Mg Tablet) 5 mg PO TID [facility] Stop: 03/31/25 14:14 Ondansetron HCl (Ondansetron Inj 2 Mg/Ml Inj 2 Ml) 4 mg IVP Q6H PRN; Protocol PRN Reason: NAUSEA OR VOMITING Stop: 03/31/25 12:24 Sennosides (Senna Tablet) 1 tab PO QDAY [facility]; Protocol Stop: 04/01/25 08:59 Discontinued Medications Sodium Chloride (Ns) 500 mls @ 999 mls/hr IV .Q31M ONE Stop: 02/28/25 14:42 Last Infusion: 02/28/25 15:21 Dose: Infused Sodium Chloride (Ns) 1,000 mls @ 999 mls/hr IV .Q1H1M ONE Stop: 03/01/25 12:31 Last Infusion: 03/01/25 13:11 Dose: Infused Meclizine HCl (Meclizine Hcl 25 Mg Tablet) 25 mg PO X1 ONE Stop: 02/28/25 14:17 Last Admin: 02/28/25 14:49 Dose: 25 mg Potassium Chloride (Potassium Chloride 20 Meq Tabcr) 40 meq PO X1 ONE Stop: 02/28/25 16:18 Last Admin: 02/28/25 16:33 Dose: 40 meq Assessment & Plan Plan Patient is a 79-year-old male with a PMH of HFpEF W/ severe RV dysfunction, biatrial dilatation, and EF of 65% from May 2024, atrial fibrillation s/p pacemaker implant on Eliquis, 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 Patient was admitted for the work-up and management of presyncope with ground-level fall, JENNIFER on CKD, metabolic alkalosis, and mild troponinemia. #Presyncope #Ground-level fall Patient presents with symptoms of weakness, dizziness, and vertigo that occur when he stands up and his blood pressure drops significantly Patient's reports that he has been having repeated falls with his episodes of orthostatic hypotension that have been ongoing for 6 months Patient does not report full LOC and recalls these episodes On midodrine at home Dx: -03/01 orthostatic vitals positive for orthostatic hypotension -03/[address] ordered, was negative for acute hemorrhage, mass effect, or midline shift -03/01 repeat echocardiogram, results pending Rx: -Restarted home PO midodrine 5 mg TID #JENNIFER on CKD IIIb #Metabolic alkalosis Patient with acute kidney injury (JENNIFER), defined by a rise in serum creatinine >=.3 mg/dL within 48 hours or >=.5? baseline within 7 days, and/or urine output <0.5 mL/kg/hr for >6 hours. Current creatinine: [2.5], baseline: [Unclear, but possibly 1.9 based on October 2024 level]. Etiology possibly 2/2 prior surgical removal of renal cysts, dehydration, and/or BPH (patient apparently has tamsulosin) Dx: -03/01 ABG showed basic pH 7.54, pCO2 44, PaO2 78, and HCO3 37, suggestive of metabolic alkalosis Rx: -Conservative fluid resuscitation in the setting of HFpEF -PO Bumex 1 mg q48HR -Hold ACEi/ARB -Avoid nephrotoxins, renally dose meds -Monitor BMP daily -Strict I's and O's and daily weights #Troponinemia 02/28 admission troponin I 0.256, likely 2/2 Type II demand ischemia i/s/o hypotension and dehydration Rx: -Continue to trend troponins #Normocytic anemia 02/28 admission hemoglobin 11.6 (MCV 88, RDW 59.0) Dx: -03/02 iron panel ordered, results pending -03/02 folate, thiamine, and vitamin B12 levels ordered, results pending Rx: -Continue to monitor CBC -Transfuse if Hgb<7 Chronic Problems #Hx of HFpEF, EF of 65% Last echocardiogram on 05/29/24 showed an estimated EF of 65% with severe RV dysfunction, severe biatrial dilatation, moderate mitral regurgitation, and moderate left ventricular hypertrophy 03/01 CXR showed moderate enlargement of the cardiac contour and mild prominence of the pulmonary vasculature Patient does not seem to be in acute exacerbation of HFpEF Dx: -03/01 repeat echocardiogram, results pending Rx: -Conservative fluid resuscitation in the setting of HFpEF -PO Bumex 1 mg q48HR -Strict I's and O's and daily weights #Atrial fibrillation, s/p pacemaker implant Currently seems controlled Rx: -Restarted home PO Eliquis 2.5 mg BID #Acute back pain, degenerative disc disease Per prior documentation Rx: -Restarted home PO gabapentin 100 mg BID -Restarted home Nuevo 5/325 1 tab q6HR prn #Cirrhosis CTA from 12/21/24 showed cirrhosis of the liver, no encephalopathy or GI bleeding at the time Rx: -Outpatient follow-up with hepatology #Ascending thoracic aortic aneurysm Incidental finding on CTA from 12/21/24, no dissection or rupture Rx: -BP control -Outpatient follow-up with vascular surgery #Hyperlipidemia Dx: -03/01 lipid panel ordered, results pending Rx: -Consider restarting home PO pravastatin 40 mg daily #Partial parathyroidectomy, history of hyperparathyroidism s/p partial parathyroidectomy, maintained on cinacalcet Rx: -Consider restarting home cinacalcet 30 mg daily Hospital Management: Disposition: Admitted to Floors for the work-up and management of syncope with ground-level fall, JENNIFER on CKD, metabolic alkalosis, and mild troponinemia Diet: Low-sodium, 2 g GI Prophylaxis: P.o. Pepcid 20 mg twice daily Bowel Prophylaxis: P.o. senna 1 tab daily DVT Prophylaxis: P.o. Eliquis 2.5 mg twice daily CODE STATUS: Full Code I have examined the patient and conferred with my attending, Dr. Merino, and my senior resident, Dr. Partida, regarding them. Logan Negron DO PGY-1 Internal Medicine Attending Provider Attestation/Addendum I have discussed and was present for the essential components of the history, physical examination, diagnosis, and treatment plan with the resident. I agree with the patient's care as documented by the resident and amended herein by me. Db Merino DO. Although this document has been carefully reviewed, there may still be some phonetic and other typographical errors. These errors are purely grammatical due to imperfections in the software program and should not be construed in any way to compromise the substance of the patient's medical care during this visit.
[2025-03-01] MEDS: GABAPENTIN 100 MG CAPSULE PO ×2 (14:38→21:32)
[2025-03-01] MEDS: MIDODRINE 5 MG TABLET PO ×2 (14:38→21:32)
[2025-03-01] MEDS: HEPARIN SOD INJ 5000 UNIT/ML VIAL SC (21:32)
[2025-03-01] MEDS: FAMOTIDINE 20 MG TABLET PO (21:32)
[2025-03-02] VITALS (10 sets, daily range): BP systolic 106–136; BP diastolic 58–85; PULSE 60–69; RESP 12–96; TEMP 36.3–37.1; O2SAT 94–99; BMI 26.2
[2025-03-02 06:28] LABS: Basophils # (Auto) 0.0 Thou/mm3 (0.0-0.2); Basophils % (Auto) 1 % (0-2.5); Eosinophils # (Auto) 0.3 Thou/mm3 (0.0-0.5); Eosinophils % (Auto) 4 % (0-10); Hematocrit 36.4 % (41.0-53.0); Hemoglobin 12.1 g/dL (13.5-16.0); Immature Granulocytes Auto 0.03 Thou/mm3 (0.00-0.00); Lymphocytes # (Auto) 1.3 Thou/mm3 (1.0-4.8); Lymphocytes % (Auto) 19 % (10-50); Mean Corpuscular HGB Conc 33.2 g/dl (31.0-37.0); Mean Corpuscular Hemoglobin 30.0 pg (25.0-35.0); Mean Corpuscular Volume 90 fL (80-100); Monocytes # (Auto) 0.5 Thou/mm3 (0.0-0.8); Monocytes % (Auto) 8 % (0-12); Neutrophils # (Auto) 4.6 Thou/mm3 (1.8-7.7); Neutrophils % (Auto) 69 % (37-80); Nucleated Red Blood Cell # 0.00 Thou/mm3 (0.00-0.00); Nucleated Red Blood Cell % 0 /100 WBC (0); Platelet Count 231 Thou/mm3 (140-440); RDW Standard Deviation 62.6 fL (35.1-43.9); Red Blood Count 4.03 Miln/mm3 (4.50-5.90); White Blood Count 6.7 Thou/mm3 (3.8-10.6)
[2025-03-02 06:46] LABS: Iron 37 mcg/dL (65-175); Percent Iron Saturation 10 % (20-55); Total Iron Binding Capacity 343 mcg/dL (250-425); Unsaturated Iron Binding 306 (225-295)
[2025-03-02 07:11] LABS: Alanine Aminotransferase 9 U/L (10-49); Albumin, Serum 4.2 gm/dL (3.4-4.8); Albumin/Globulin Ratio 1.4 (1.2-2.2); Alkaline Phosphatase 100 U/L (46-116); Anion Gap 14 (7-16); Aspartate Amino Transferase 20 U/L (0-34); BUN/Creatinine Ratio 22 Ratio (12-20); Bilirubin,Total 1.2 mg/dL (0.3-1.2); Blood Urea Nitrogen 44 mg/dL (9-23); Calcium 10.3 mg/dL (8.3-10.6); Calcium (Corrected) 10.3 mg/dL (8.5-10.1); Carbon Dioxide 31.5 mMol/L (20.0-31.0); Chloride 91 mMol/L (98-107); Creatinine (Component) 2.0 mg/dL (0.6-1.3); Estimated Creatinine Clearance 30.9 mL/min (>60); Globulin 2.9 gm/dL (2.3-3.5); Glucose 124 mg/dL (74-106); Magnesium 2.0 mg/dL (1.6-2.6); Osmolality,Calculated 284 (275-295); Phosphorous 2.7 mg/dL (2.4-5.1); Potassium 3.4 mMol/L (3.4-5.1); Sodium 136 mMol/L (136-145); Thyroid Stimulating Hormone 3.21 uIU/mL (0.55-4.78); Total Protein 7.1 gm/dL (5.7-8.2); eGFR 33 See Note
[2025-03-02 07:41] LABS: Glucose Estimated Average 111 mg/dL (80-131); Hemoglobin A1C 5.5 % Hgb (4.8-6.0)
[2025-03-02] MEDS: GABAPENTIN 100 MG CAPSULE PO ×2 (09:16→20:07)
[2025-03-02] MEDS: FAMOTIDINE 20 MG TABLET PO ×2 (09:16→20:07)
--- NOTE | 2025-03-02 09:59 | XR_ITS ---
Examination: CT abdomen and pelvis without contrast. Coronal 3-D reconstructions. Sagittal 2-D reconstructions. Date and time of exam: March 02, 2025, 1212 hours INDICATIONS: Diagnosis hydronephrosis, acute renal insufficiency superimposed on chronic kidney disease this week CTDI: vol (mGy): 11.6 DLP: (mGycm): 659 Technique: Axial images of the abdomen have been obtained, 3 mm slice thickness Intravenous contrast material has not been administered. Low dose protocols were performed. One or more of the following dose reduction techniques were used; automated exposure control, adjustment of the mA and/or KV according to patient size, use of iterative reconstruction technique. Findings: Moderate enlargement cardiac contour Right base pneumonia with minimal right pleural fluid. Mild irregularity liver No splenic pancreatic or adrenal mass Large bilateral renal cysts including 7 cm calcified right renal cyst Severe bilateral renal scarring No hydronephrosis or ureteral calculi Heavy abdominal aortic calcification No bowel obstruction Abundant stool in the rectum with thickening of the rectal wall Urinary bladder intact Right hip hemiarthroplasty Severe osteopenia IMPRESSION: Multiple large bilateral renal cysts Significant bilateral renal scarring No definite hydronephrosis Consider nuclear medicine renogram follow-up to assess renal function Abundant stool in the rectum with thickening of the rectal wall which may relate to proctitis
--- NOTE | 2025-03-02 10:00 | ESPR_ITS ---
<Statement entered by Leoncio Gallardo MD - 03/02/25 12:45> I saw and examined patient personally and supervised PGY 1 resident, Dr. Negron with formulating a management plan. I agree with the documentation with the exceptions as listed below. Patient is an 80-year-old male with a past medical history of hyperlipidemia, CAD s/p stens, history of sick sinus syndrome s/p dual chamber pacemaker (2018), atrial fibrillation on Eliquis, CHF HFpEF with improved ejection fraction of 65% as of (06/01), history of hypertension, history of neuropathy, CKD, incidental cirrhosis as noted on CT 8 images on 12/2024), history of parathyroidectomy who presented to the emergency room via ambulance with a chief complaints of presyncope. Problem list: 1. Presyncope?resolved 2. Ground-level fall 3. JENNIFER on CKD?resolving 4. Metabolic alkalosis?resolved 5. Troponinemia?resolved 6. Chronic systolic congestive heart failure with preserved ejection fraction [65%] 7. History of sick sinus syndrome s/p pacemaker 8. Paroxysmal atrial fibrillation on anticoagulation 9. MASLD 10. Ascending thoracic aortic aneurysm 11. Hyperlipidemia 12. History of partial parathyroidectomy secondary to primary hyperparathyroidism 13. History of 20 pound weight loss over the past month. Patient was admitted for syncope workup. Orthostatic vitals were found to be positive as well as patient had an JENNIFER on CKD secondary to dehydration. Transthoracic echocardiogram currently pending. Will place JAILENE stockings for orthostatic hypotension. Also repeated orthostatic vitals today to see if improvement after fluid resuscitation. Patient also endorsed a 20 pound weight loss over the past 2 months. He never had any history of colonoscopy to rule out any occult sources of weight loss. Once patient is medically cleared to be discharged to SNF versus home with home health as can no longer take care of him by herself. Plan of care discussed with Attending Dr. Wilber Gallardo MD PGY 2 Disclaimer: This note was dictated by speech recognition. Minor errors in temple marker may be present due to voice recognition software. Documentation for date of: 03/02/25 Subjective Subjective Interval history: Overnight, patient's IV Bumex 1 mg q48HRs was held due to soft BPs. Patient was examined at bedside; he appears A&Ox4 and in NAD. However, he complains of weakness that is worsened from yesterday as well as feeling sick to his stomach . He attributes his discomfort to refusing his scheduled laxative (Senna) and voices his regret for doing so (in response, gave PO Miralax 17 gm x 1). Vitals/labs today significant for Hgb 12.1, RDW 51.3->62.6, potassium 3.4, bicarbonate 38.9->31.5, BUN 53->44, creatinine 2.4->2.0, and corrected calcium 19.3. TSH returned WNL at 3.21. Physical exam notable for abdominal tenderness mostly near the umbilicus but was otherwise benign and unremarkable. Plan Updates: -Repeat orthostatic vitals -Start compression stockings -Ordered CTAP due to patient's reported unexplained weight loss of 40 pounds over the last 3-4 months -Held PO Eliquis 2.5 mg BID -Started condom catheter Exam Vital Signs Temp Pulse Resp BP Pulse Ox O2 Del Method O2 Flow Rate 97.7 F 61 20 125/74 95 Room Air 2 03/02/25 04:00 03/02/25 09:26 03/02/25 09:26 03/02/25 05:32 03/02/25 04:00 03/02/25 04:00 02/28/25 12:55 Narrative Exam General: A/O x3, in no acute distress but appears more uncomfortable than yesterday. Skin: Area of denuded skin on right forearm with some bright red blood. Warm, dry, no obvious rash. Head: Normocephalic, atraumatic. Eyes: PERRL, EOMI. Anicteric, vision grossly intact. Ears: Hard of hearing. No ear pain, no ear discharge. Nose: No nasal discharge. Mouth/Throat: Blue-tinged lips no longer present. Oral mucosa moist. No obvious lesions in oropharynx. Neck: Neck supple, non-tender, no cervical lymphadenopathy. Cardiovascular: Slightly bradycardic rate and rhythm, no murmur, no JVD or carotid bruits. +S1/S2. Respiratory: Bilateral lungs are clear to auscultation, respirations unlabored, no crackles, no wheezing. No accessory muscle use. Gastrointestinal: Hyperactive bowel sounds. Abdominal tenderness to palpation particularly localized around umbilicus. Soft, non-distended, no palpable masses. No guarding or rebound tenderness. Extremities: Symmetrical, no significant deformities. No edema, no cyanosis, no clubbing. 2+ radial pulse bilaterally, 2+ posterior tibial pulse bilaterally. Neuro: Slightly tremulous. No focal deficits observed. Conversant, moving all extremities. Psychiatric: Cooperative, appropriate affect. Objective Labs 03/02/25 05:36 03/02/25 05:36 Labs: Laboratory Results - last 24 hr 03/01/25 03/01/25 03/02/25 10:30 12:45 05:36 WBC 6.7 RBC 4.03 L Hgb 12.1 L Hct 36.4 L MCV 90 MCH 30.0 MCHC 33.2 RDW Std Deviation 62.6 H Plt Count 231 Neut % (Auto) 69 Lymph % (Auto) 19 Stoddard % (Auto) 8 Eos % (Auto) 4 Baso % (Auto) 1 Neut # (Auto) 4.6 Lymph # (Auto) 1.3 Stoddard # (Auto) 0.5 Eos # (Auto) 0.3 Baso # (Auto) 0.0 Immature Gran # (Auto) 0.03 H Absolute Nucleated RBC 0.00 Immature Gran % 0 Nucleated RBC % 0 Puncture Site Right Radial ABG pH 7.54 H ABG pCO2 44 ABG pO2 78 L ABG HCO3 37 H ABG O2 Saturation 97 ABG Base Excess 13 H Sodium 136 Potassium 3.4 D Chloride 91 L Carbon Dioxide 31.5 H Anion Gap 14 BUN 44 H Creatinine 2.0 H Estim Creat Clear Calc 30.9 L eGFR 33 L BUN/Creatinine Ratio 22 H Glucose [address] Glu mg/dL 111 Hemoglobin A1c 5.5 Calculated Osmolality 284 Calcium 10.3 Corrected Calcium 10.3 H Phosphorus 2.7 Magnesium 2.0 Iron 37 L TIBC 343 Iron Saturation 10 L Unsat Iron Binding 306 H Ferritin 94 Total Bilirubin 1.2 AST 20 ALT 9 L Alkaline Phosphatase 100 Total Protein 7.1 Albumin 4.2 Globulin 2.9 Albumin/Globulin Ratio 1.4 TSH 3.21 ABG Interpretation ABG results: 03/01/25 10:30 ABG pH 7.54 H ABG pCO2 44 ABG pO2 78 L ABG HCO3 37 H ABG O2 Saturation 97 ABG Base Excess 13 H Quality Measures Quality Measures none Advance care planning discussed with:: patient Assessment & Plan Assessment Current Active Medications: Generic Name Dose Route Start Last Admin Trade Name Freq PRN Reason Stop Dose Admin Acetaminophen 650 mg 03/01/25 12:25 Acetaminophen 325 Mg Tablet PO 03/31/25 12:24 Q6H PRN Mild Pain 1-3 or Fever >100.3 Hydrocodone Bitart/Acetaminophen 1 tab 03/01/25 14:07 Hydrocodone/Apap 5/325 Tablet PO 03/06/25 14:06 Q6HR PRN Moderate to Severe Pain 4-10 Bumetanide 1 mg 03/01/25 21:00 03/01/25 21:29 Bumetanide 0.5 Mg Tablet PO 03/31/25 20:59 Not Given Q48HR@2100 OLI Famotidine 20 mg 03/01/25 21:00 03/02/25 09:16 Famotidine 20 Mg Tablet PO 03/31/25 20:59 20 mg BID OLI Administration Gabapentin 100 mg 03/01/25 14:15 03/02/25 09:16 Gabapentin 100 Mg Capsule PO 03/31/25 14:14 100 mg BID OLI Administration Midodrine 5 mg 03/01/25 22:13 03/02/25 05:32 Midodrine 5 Mg Tablet PO 03/31/25 14:14 Not Given TID OLI Mirtazapine 7.5 mg 03/02/25 10:00 Mirtazapine 15 Mg Tablet PO 04/01/25 09:59 QDAY OLI Ondansetron HCl 4 mg 03/01/25 12:25 Ondansetron Inj 2 Mg/Ml Inj 2 Ml IVP 03/31/25 12:24 Q6H PRN NAUSEA OR VOMITING Protocol Sennosides 1 tab 03/02/25 09:00 03/02/25 09:16 Senna Tablet PO 04/01/25 08:59 1 tab QDAY OLI Administration Protocol Plan Patient is a 79-year-old male with a PMH of HFpEF W/ severe RV dysfunction, biatrial dilatation, and EF of 65% from May 2024, atrial fibrillation s/p pacemaker implant on , 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 Patient was admitted for the work-up and management of presyncope with ground- level fall, JENNIFER on CKD, metabolic alkalosis, and mild troponinemia. #Presyncope - resolved #Ground-level fall Patient presents with symptoms of weakness, dizziness, and vertigo that occur when he stands up and his blood pressure drops significantly Patient's reports that he has been having repeated falls with his episodes of orthostatic hypotension that have been ongoing for 6 months Patient does not report full LOC and recalls these episodes On midodrine at home Dx: -03/01 orthostatic vitals positive for orthostatic hypotension -03/[address] ordered, was negative for acute hemorrhage, mass effect, or midline shift -03/01 repeat echocardiogram, results pending -03/02 repeat orthostatic vitals ordered in the setting of patient's new fluid status, showed ___ Rx: -Started compression stockings for improved venous return -Continue home PO midodrine 5 mg TID #JENNIFER on CKD IIIb #Metabolic alkalosis Patient with acute kidney injury (JENNIFER), defined by a rise in serum creatinine >=.3 mg/dL within 48 hours or >=.5? baseline within 7 days, and/or urine output <0.5 mL/kg/hr for >6 hours. Current creatinine: [2.5], baseline: [Unclear, but possibly 1.9 based on October 2024 level]. Etiology possibly 2/2 prior surgical removal of renal cysts, dehydration, and/or BPH (patient apparently has tamsulosin) Dx: -03/01 ABG showed basic pH 7.54, pCO2 44, PaO2 78, and HCO3 37, suggestive of metabolic alkalosis Rx: -Conservative fluid resuscitation in the setting of HFpEF -PO Bumex 1 mg q48HR -Hold ACEi/ARB -Avoid nephrotoxins, renally dose meds -Monitor BMP daily -Strict I's and O's and daily weights #Unexplained weight loss Per , patient has had unexplained weight loss of 40 pounds over the last 3-4 months with associated reduced appetite Dx: -03/02 CTAP w/o contrast ordered, showed ___ #Troponinemia - resolved 02/28 admission troponin I 0.256, likely 2/2 Type II demand ischemia i/s/o hypotension and dehydration Rx: -Troponin peaked, no need to further trend #Normocytic anemia 02/28 admission hemoglobin 11.6 (MCV 88, RDW 59.0) Dx: -03/02 iron panel ordered, results suggestive of iron deficiency anemia -03/02 folate, thiamine, and vitamin B12 levels ordered, results pending Rx: -Continue to monitor CBC -Transfuse if Hgb<7 -Start iron supplements in outpatient setting (will not start now as patient has been complaining of constipation) Chronic Problems #Hx of HFpEF, EF of 65% Last echocardiogram on 05/29/24 showed an estimated EF of 65% with severe RV dysfunction, severe biatrial dilatation, moderate mitral regurgitation, and moderate left ventricular hypertrophy 03/01 CXR showed moderate enlargement of the cardiac contour and mild prominence of the pulmonary vasculature Patient does not seem to be in acute exacerbation of HFpEF Dx: -03/01 repeat echocardiogram, results pending Rx: -Consulted Cardiology (Dr. Moran), appreciate recommendations -Conservative fluid resuscitation in the setting of HFpEF -PO Bumex 1 mg q48HR -Strict I's and O's and daily weights #Sick sinus syndrome s/p dual chamber pacemaker implant in 02/28 EKG findings were not concerning, seems controlled by pacemaker Rx: -Continue to monitor #Atrial fibrillation, on home Eliquis Currently seems controlled Rx: -Held PO Eliquis 2.5 mg BID #Acute back pain, degenerative disc disease Per prior documentation Rx: -Continue home PO gabapentin 100 mg BID -Continue home Mccormick 5/325 1 tab q6HR prn #Cirrhosis CTA from 12/21/24 showed cirrhosis of the liver, no encephalopathy or GI bleeding at the time Rx: -Outpatient follow-up with hepatology #Ascending thoracic aortic aneurysm Incidental finding on CTA from 12/21/24, no dissection or rupture Rx: -BP control -Outpatient follow-up with vascular surgery #Hyperlipidemia Dx: -03/01 lipid panel ordered, results pending Rx: -Consider restarting home PO pravastatin 40 mg daily #Partial parathyroidectomy, history of hyperparathyroidism s/p partial parathyroidectomy, maintained on cinacalcet Rx: -Consider restarting home cinacalcet 30 mg daily Hospital Management: Disposition: Admitted to [facility] for the work-up and management of syncope with ground-level fall, JENNIFER on CKD, metabolic alkalosis, and mild troponinemia Diet: Low-sodium, 2 g GI Prophylaxis: P.o. Pepcid 20 mg twice daily Bowel Prophylaxis: P.o. senna 1 tab daily DVT Prophylaxis: P.o. Eliquis 2.5 mg twice daily CODE STATUS: Full Code I have examined the patient and conferred with my attending, Dr. Merino, and my senior resident, Dr. Gallardo, regarding them. Logan Negron DO PGY-1 Internal Medicine Attending Provider Attestation/Addendum I have discussed and was present for the essential components of the history, physical examination, diagnosis, and treatment plan with the resident. I agree with the patient's care as documented by the resident and amended herein by me. Db Merino DO. Although this document has been carefully reviewed, there may still be some phonetic and other typographical errors. These errors are purely grammatical due to imperfections in the software program and should not be construed in any way to compromise the substance of the patient's medical care during this visit. Patient seen and evaluated this AM. No acute events overnight, vital signs stable, patient afebrile overnight. Patient did endorse more generalized weakness today. Significant labs include hemoglobin stable at 12, bicarb 31, BUN 44 and a downtrending creatinine of 2.0. TSH was WNL. We are going to repeat orthostatic vitals today, try to obtain compression stockings for the patient, physical therapy is pending, likely will be done tomorrow, vitamin levels are pending, echo pending, we were also going to order a CT abdomen and pelvis without contrast considering, per the patient's he has had an extreme weight loss in the last 3 to 4 months, approximately 40 pounds according to her, per our records it is about 20 which is still significant. Will assess the imaging, cardiology was also consulted and we appreciate recommendations. We are going to continue to hold the Eliquis in setting of generalized weakness and falls, we will also hold all other psychiatric medication duloxetine and gabapentin for now. Will continue to monitor closely while he is here.
--- NOTE | 2025-03-02 10:56 | PC.SS ---
This is 79-year-old, , male who presented to the ED due to suffering from falls. Patient appeared alert and oriented to self, place and situation. Patient was pleasant. Patient reported that prior to admission, he lived with his at home. Patient needs assistance with most ADLs. Patient uses FWW and rollator. Patient assigned his , Genevieve as his medical decision maker. Patient's PCP is Dr. Blackwood. Patient is pending PT evaluation. However, when medically clear, patient wants to go to [facility] for acute rehab. Discharge Plan: Acute Rehab at [facility]. Next of kin: Genevieve Christensen, .
[2025-03-02] MEDS: MIDODRINE 5 MG TABLET PO (14:55)
--- NOTE | 2025-03-02 17:18 | ESCONSULT_ITS ---
RE: CHANCE YO : 1945 DATE OF CONSULTATION: 03/02/2025 CONSULTING PHYSICIAN: Hospitalist and resident team. REASON FOR CONSULTATION: Evaluation of patient with history of presyncope and falls, possible anticoagulation risk. HISTORY OF PRESENT ILLNESS: The patient is an 79-year-old male, very well known to me for more than 15 years, who has longstanding history of CAD, status post multivessel stent placement, sick sinus syndrome, status post pacemaker implantation in 2019, paroxysmal AFib, on Eliquis, mostly maintained in sinus rhythm, heart failure with preserved ejection fraction, peripheral neuropathy, chronic kidney disease stage III, history of incidental cirrhosis, and previous parathyroidectomy for hypercalcemia. There has been a general decline in health, frequent hospitalization, and general weakness. He was in rehab for a few weeks in [place] in the past. He continues to have general weakness and failure to thrive. He has been falling more frequently because of general weakness and home health nurse visiting as well. The patient has been having episodes of orthostatic hypotension and presyncopal episodes, but he did not fall or hurt himself. The patient says he never lost consciousness. He came to the hospital with slight dehydration. Creatinine level was slightly high at 2.5 and baseline is 2.1. He did receive fluids and responded well. The patient has been on diuretic therapy. The patient continues to feel better now after hydration. ALLERGIES: NONE. MEDICATIONS: The patient's medication list includes: 1. Bumetanide 1 mg tablet daily. 2. Eliquis 2.5 mg twice daily. 3. Gabapentin 400 mg twice daily. 4. Metolazone 2.5 mg daily. 5. Midodrine 5 mg three times daily, sometimes 4 tablets daily. 6. Pantoprazole 40 mg daily. PAST MEDICAL HISTORY: Significant for history of known coronary artery disease, status post stent placement, paroxysmal AFib, on Eliquis, status post permanent pacemaker implantation in 2019, status post parathyroidectomy for hyperparathyroidism, chronic kidney disease, and peripheral neuropathy. SOCIAL HISTORY: The patient is to the , who is supportive of him. She does not smoke or currently drink alcoholic beverages. FAMILY HISTORY: Noncontributory. REVIEW OF SYSTEMS: CARDIOVASCULAR SYSTEM: No chest pain, shortness of breath, orthopnea or PND. GASTROINTESTINAL: No nausea or vomiting. GENITOURINARY: No frequency or dysuria. CENTRAL NERVOUS SYSTEM: No neurologic symptoms. PHYSICAL EXAMINATION: GENERAL: Well-nourished, elderly male, alert, awake, and in no acute distress. VITAL SIGNS: Blood pressure 106/58, pulse rate is 61, patient does have orthostatic hypotension, temperature normal, . NECK: Supple. No JVD. Carotid pulse felt with no bruits. CHEST: Symmetrical. LUNGS: Decreased breath sounds. No rales or rhonchi. HEART: S1 and S2 regular. ABDOMEN: Slightly distended, thin, and soft. EXTREMITIES: No edema. GENITOURINARY AND RECTAL: Not performed. NEUROLOGIC: Normal. LABORATORY DATA: Initially showed the hemoglobin 12.1, stable. The chemistry panel showed elevated creatinine of 2.5 and BUN is 54. Baseline creatinine around 2.1. Creatinine clearance 32, now it is 24. After hydration, BUN and creatinine improved to 44 and 2.0. Feeling a lot better. The patient's calcium level is 10.3 now. Initial troponin 0.25, subsequently remained 0.25 and 0.23, chronic elevated troponin. His chest x-ray showed evidence of moderate cardiomegaly and no evidence of heart failure. EKG showed evidence of 100% ventricular pacemaker rhythm. Underlying rhythm appeared to be atrial fibrillation. The patient also underwent abdominal and pelvic CT that showed multiple renal cysts, significant cortical renal scarring and also irregularity of the liver. IMPRESSION: 1. Presyncope secondary to dehydration and prerenal azotemia. 2. Chronic kidney disease stage III. 3. Coronary artery disease, status post stent placement. 4. Heart failure with preserved ejection fraction. 5. History of atrial fibrillation, underlying 100% pacemaker rhythm, on Eliquis. 6. Orthostatic hypotension and near syncope. 7. Elevated troponin level, possibly type 2 troponin not due to myocardial infarction state. RECOMMENDATION AND DISCUSSION: The patient is an 79-year-old male with known history of Afib. CHADS-VASc score of 4, has also CKD, creatinine more than 2 baseline. Admitted to the hospital for frequent falls, presyncope, and dehydration. Responded well to dehydration. The patient should probably not receive metolazone, may only receive bumetanide as needed in future for diuresis depending on the lower extremity edema. The patient's other problem is atrial fibrillation, which is chronic with 100% V-paced, but background rhythm is Afib. The patient's CHADS-VASc score is high. Recommended to be continued on Eliquis 2.5 mg twice daily for now. If he has fallen even more often with head injuries, we might want to consider stopping it at that time. The patient clearly had orthostatic hypotension, dehydration and diuretic doses will be backed off. As the troponin level is concerned, appears to be no acute coronary syndrome at this time. Clinically is not complaining of chest pain or shortness of breath. We will treat this as a type 2 troponin, no need for any anticoagulation. The patient probably would benefit from physical therapy and increasing nutrition status. The patient has lost nearly 40 pounds of weight in the last few months, which is quite concerning. We would like to thank you for referring this patient for cardiovascular evaluation. We will be glad to follow the patient with you. DT: 15:40:42 TT: 17:09:00 Ref: [id number] - TID: [id number]
[2025-03-02 20:58] LABS: Folate > 24.00 ng/mL (>5.38); Vitamin B12 922 pg/mL (211-911)
[2025-03-02] MEDS: HYDROcodone/APAP 5/325 TABLET 1 TAB PO (23:36)
[2025-03-03] VITALS (14 sets, daily range): BP systolic 110–140; BP diastolic 67–83; PULSE 47–98; RESP 13–98; TEMP 36.2–37.2; O2SAT 92–96; BMI 26.2
[2025-03-03] MEDS: ACETAMINOPHEN 325 MG TABLET 650 MG PO (04:44)
[2025-03-03] MEDS: MIDODRINE 5 MG TABLET PO (05:04)
[2025-03-03 06:41] LABS: Basophils # (Auto) 0.0 Thou/mm3 (0.0-0.2); Basophils % (Auto) 1 % (0-2.5); Eosinophils # (Auto) 0.1 Thou/mm3 (0.0-0.5); Eosinophils % (Auto) 1 % (0-10); Hematocrit 38.8 % (41.0-53.0); Hemoglobin 12.6 g/dL (13.5-16.0); Immature Granulocytes Auto 0.05 Thou/mm3 (0.00-0.00); Lymphocytes # (Auto) 1.4 Thou/mm3 (1.0-4.8); Lymphocytes % (Auto) 19 % (10-50); Mean Corpuscular HGB Conc 32.5 g/dl (31.0-37.0); Mean Corpuscular Hemoglobin 29.0 pg (25.0-35.0); Mean Corpuscular Volume 89 fL (80-100); Monocytes # (Auto) 0.6 Thou/mm3 (0.0-0.8); Monocytes % (Auto) 8 % (0-12); Neutrophils # (Auto) 5.5 Thou/mm3 (1.8-7.7); Neutrophils % (Auto) 71 % (37-80); Nucleated Red Blood Cell # 0.00 Thou/mm3 (0.00-0.00); Nucleated Red Blood Cell % 0 /100 WBC (0); Platelet Count 271 Thou/mm3 (140-440); RDW Standard Deviation 62.3 fL (35.1-43.9); Red Blood Count 4.34 Miln/mm3 (4.50-5.90); White Blood Count 7.7 Thou/mm3 (3.8-10.6)
[2025-03-03 07:15] LABS: Alanine Aminotransferase 8 U/L (10-49); Albumin, Serum 4.2 gm/dL (3.4-4.8); Albumin/Globulin Ratio 1.4 (1.2-2.2); Alkaline Phosphatase 103 U/L (46-116); Anion Gap 13 (7-16); Aspartate Amino Transferase 19 U/L (0-34); BUN/Creatinine Ratio 18 Ratio (12-20); Bilirubin,Total 1.5 mg/dL (0.3-1.2); Blood Urea Nitrogen 36 mg/dL (9-23); Calcium 10.9 mg/dL (8.3-10.6); Calcium (Corrected) 10.9 mg/dL (8.5-10.1); Carbon Dioxide 31.7 mMol/L (20.0-31.0); Cardiac Risk Estimate 4.8 RATIO (4.0-6.7); Chloride 92 mMol/L (98-107); Cholesterol 143 mg/dL (132-200); Creatinine (Component) 2.0 mg/dL (0.6-1.3); Estimated Creatinine Clearance 30.9 mL/min (>60); Globulin 3.1 gm/dL (2.3-3.5); Glucose 114 mg/dL (74-106); HDL Cholesterol 30 mg/dL (40-60); LDL Cholesterol,Calculated 90 mg/dL (0-130); Magnesium 1.8 mg/dL (1.6-2.6); Osmolality,Calculated 283 (275-295); Phosphorous 2.9 mg/dL (2.4-5.1); Potassium 3.3 mMol/L (3.4-5.1); Sodium 137 mMol/L (136-145); Total Protein 7.3 gm/dL (5.7-8.2); Triglycerides 116 mg/dL (30-150); eGFR 33 See Note
[2025-03-03] MEDS: FAMOTIDINE 20 MG TABLET PO ×2 (08:58→20:21)
[2025-03-03] MEDS: GABAPENTIN 100 MG CAPSULE PO ×2 (08:58→20:22)
--- NOTE | 2025-03-03 09:33 | PC.SS ---
SS follow up note; SS submitted referral for Acute Rehab through [facility]. WM contacted [facility] and she informed SS they are able to accept patient tomorrow. WM informed [facility] that WM would sent PT notes once available. SS will stand by for further needs.
[2025-03-03] MEDS: POTASSIUM CHLORIDE 10% 20 MEQ/15 ML UDC 40 MEQ PO (09:42)
[2025-03-03] MEDS: CINACALCET HCL 30 MG TABLET (NON-FORM) PO (09:45)
[2025-03-03] MEDS: LACTULOSE SYRUP 20 GM/30 ML UDC 10 GM PO ×2 (10:19→20:22)
[2025-03-03] MEDS: APIXABAN 2.5 MG TABLET PO ×2 (10:20→20:21)
[2025-03-03] MEDS: POLYETHYLENE GLYCOL 17 GM PACKET PO (10:20)
[2025-03-03] MEDS: Magnesium Sulfate 2 GM Ivpb 2 GM/50 ML BAG IV (10:23)
[2025-03-03] MEDS: POTASSIUM CHL 10 mEq IVPB 10 MEQ/100 ML BAG 100 MEQ IV ×2 (11:54→12:02)
--- NOTE | 2025-03-03 12:21 | ESPR_ITS ---
<Statement entered by Shavonne Moran MD - 03/08/25 12:32> I personally examined the patient evaluate the patient with resident physician PGY 2 Dr. Rubén HICKEY patient is doing well better still requires physical therapy rehabilitation does not complain of chest pain or shortness of breath clinically stable to be transferred to rehabilitation. Agree with the treatment plan recommendation as documented by resident physician will continue to monitor the patient closely Documentation for date of: 03/03/25 Subjective Subjective Interval history: No acute overnight events. Seen and examined at bedside with present and patient was resting comfortably. Per , she believes that patient has been deteriorating as of late and is relieved that he will be going to SNF as it has been difficult for her to take care of him. Updated her regarding plans of continuing blood thinner given high risk of stroke but may consider stopping at a later time. Will keep his diuretics on as needed basis depending on lower extremity edema. Exam Vital Signs Temp Pulse Resp BP Pulse Ox O2 Del Method O2 Flow Rate 97.2 F 60 18 122/72 96 Room Air 2 03/03/25 08:00 03/03/25 08:00 03/03/25 08:00 03/03/25 08:00 03/03/25 08:00 03/03/25 08:00 02/28/25 12:55 Narrative Exam General: alert, no acute distress, able to speak full sentences HEENT: NC/AT, mucous membranes moist, bilateral sclera anicteric Cardiovascular: regular rate and rhythm, S1/S2 present, no murmurs appreciated Pulmonary: clear to auscultation bilaterally, no rales/rhonchi/wheezes Abdominal: distended, soft, non-tender, no rebound/guarding, normal bowel sounds present Musculoskeletal: normal ROM, no peripheral edema Skin: warm and dry, intact, no rashes Neuro: CN II-XII intact, no focal deficits Objective Labs 03/03/25 05:56 03/03/25 05:56 Labs: Laboratory Results - last 24 hr 03/02/25 03/03/25 05:36 05:56 WBC 7.7 RBC 4.34 L Hgb 12.6 L Hct 38.8 L MCV 89 MCH 29.0 MCHC 32.5 RDW Std Deviation 62.3 H Plt Count 271 D Neut % (Auto) 71 Lymph % (Auto) 19 [place] % (Auto) 8 Eos % (Auto) 1 Baso % (Auto) 1 Neut # (Auto) 5.5 Lymph # (Auto) 1.4 [place] # (Auto) 0.6 Eos # (Auto) 0.1 Baso # (Auto) 0.0 Immature Gran # (Auto) 0.05 H Absolute Nucleated RBC 0.00 Immature Gran % 1 H Nucleated RBC % 0 Sodium 137 Potassium 3.3 L Chloride 92 L Carbon Dioxide 31.7 H Anion Gap 13 BUN 36 H Creatinine 2.0 H Estim Creat Clear Calc 30.9 L eGFR 33 L BUN/Creatinine Ratio 18 Glucose 114 H Calculated Osmolality 283 Calcium 10.9 H Corrected Calcium 10.9 H Phosphorus 2.9 Magnesium 1.8 Total Bilirubin 1.5 H AST 19 ALT 8 L Alkaline Phosphatase 103 Total Protein 7.3 Albumin 4.2 Globulin 3.1 Albumin/Globulin Ratio 1.4 Triglycerides 116 Cholesterol 143 LDL Cholesterol, Calc 90 HDL Cholesterol 30 L Cholesterol/HDL Ratio 4.8 Vitamin B12 922 H Folate > 24.00 ABG Interpretation ABG results: 03/01/25 10:30 ABG pH 7.54 H ABG pCO2 44 ABG pO2 78 L ABG HCO3 37 H ABG O2 Saturation 97 ABG Base Excess 13 H Quality Measures Quality Measures none Advance care planning discussed with:: patient Assessment & Plan Assessment Current Active Medications: Generic Name Dose Route Start Last Admin Trade Name Freq PRN Reason Stop Dose Admin Acetaminophen 650 mg 03/01/25 12:25 03/03/25 04:44 Acetaminophen 325 Mg Tablet PO 03/31/25 12:24 650 mg Q6H PRN Administration Mild Pain 1-3 or Fever >100.3 Hydrocodone Bitart/Acetaminophen 1 tab 03/01/25 14:07 03/02/25 23:36 Hydrocodone/Apap 5/325 Tablet PO 03/06/25 14:06 1 tab Q6HR PRN Administration Moderate to Severe Pain 4-10 Apixaban 2.5 mg 03/03/25 10:15 03/03/25 10:20 Apixaban 2.5 Mg Tablet PO 04/02/25 10:14 2.5 mg BID OLI Administration Bumetanide 1 mg 03/03/25 08:53 Bumetanide 0.5 Mg Tablet PO 04/02/25 08:59 QDAY PRN Edema Cinacalcet 30 mg 03/03/25 08:30 03/03/25 09:45 Cinacalcet Hcl 30 Mg Tablet (Non-Form) PO 04/02/25 08:29 30 mg QDAY OLI Administration Famotidine 20 mg 03/01/25 21:00 03/03/25 08:58 Famotidine 20 Mg Tablet PO 03/31/25 20:59 20 mg BID OLI Administration Gabapentin 100 mg 03/01/25 14:15 03/03/25 08:58 Gabapentin 100 Mg Capsule PO 03/31/25 14:14 100 mg BID OLI Administration Lactulose 10 gm 03/03/25 10:15 03/03/25 10:19 Lactulose Syrup 20 Gm/30 Ml Udc PO 04/02/25 10:14 10 gm BID OLI Administration Protocol Midodrine 5 mg 03/01/25 22:13 03/03/25 05:04 Midodrine 5 Mg Tablet PO 03/31/25 14:14 5 mg TID OLI Administration Ondansetron HCl 4 mg 03/01/25 12:25 Ondansetron Inj 2 Mg/Ml Inj 2 Ml IVP 03/31/25 12:24 Q6H PRN NAUSEA OR VOMITING Protocol Polyethylene Glycol 17 gm 03/03/25 10:15 03/03/25 10:20 Polyethylene Glycol 17 Gm Packet PO 04/02/25 10:14 17 gm QDAY OLI Administration Sennosides 1 tab 03/02/25 09:00 03/03/25 08:57 Senna Tablet PO 04/01/25 08:59 1 tab QDAY OLI Administration Protocol Plan Yves Christensen is an 79-year-old male with a history of CAD status post multivessel stent placement, sick sinus syndrome status post pacemaker in 2019, paroxysmal A-fib on Eliquis, HFpEF, peripheral neuropathy, CKD, incidental cirrhosis, parathyroidectomy for hypercalcemia who is admitted for presyncope and cardiology consulted as she follows up outpatient. #Presyncope #Ground-level fall #Atrial fibrillation on eliquis Presents with presyncope and ground-level falls in setting of being on blood thinners due to atrial fibrillation. He is also on diuretics for his HFpEF. [id number] score of 4. ? Bumex PRN depending on lower extremity edema ? Continue Eliquis 2.5 mg twice daily given [id number] 4 and high risk of stroke ? If continues to fall may consider stopping AC at that time ? Pending SNF placement #CAD status post stenting ? Home pravastatin 40 mg daily #HFpEF (EF 60%, 05/2024) ? Bumex as above #Metabolic alkalosis #JENNIFER on CKD #Hyperlipidemia #Partial parathyroidectomy #Normocytic anemia #Cirrhosis ? Continue management per primary team ----- Plan discussed with attending physician Dr. Dean Hickey MD PGY-2 Internal Medicine
--- NOTE | 2025-03-03 14:16 | ESPR_ITS ---
<Statement entered by Leoncio Gallardo MD - 03/03/25 17:13> I saw and examined patient personally and supervised PGY 1 resident, Dr. Negron with formulating a management plan. I agree with the documentation with the exceptions as listed below. Patient is an 80-year-old male with a past medical history of hyperlipidemia, CAD s/p stens, history of sick sinus syndrome s/p dual chamber pacemaker (2018), atrial fibrillation on Eliquis, CHF HFpEF with improved ejection fraction of 65% as of (06/01), history of hypertension, history of neuropathy, CKD, incidental cirrhosis as noted on CT 8 images on 12/2024), history of parathyroidectomy who presented to the emergency room via ambulance with a chief complaints of presyncope. Problem list: 1. Presyncope?resolved 2. Ground-level fall 3. JENNIFER on CKD?resolving 4. Metabolic alkalosis?resolved 5. Troponinemia?resolved 6. Chronic systolic congestive heart failure with preserved ejection fraction [65%] 7. History of sick sinus syndrome s/p pacemaker 8. Paroxysmal atrial fibrillation on anticoagulation 9. MASLD 10. Ascending thoracic aortic aneurysm 11. Hyperlipidemia 12. History of partial parathyroidectomy secondary to primary hyperparathyroidism 13. History of 20 pound weight loss over the past month. Patient was admitted for syncope workup. Orthostatic vitals were found to be positive as well as patient had an JENNIFER on CKD secondary to dehydration. Transthoracic echocardiogram currently pending. JAILENE stockings in place for orthostatic hypotension. Also repeated orthostatic vitals today to see if improvement after fluid resuscitation. Patient also endorsed a 20 pound weight loss over the past 2 months. He never had any history of colonoscopy to rule out any occult sources of weight loss. Once patient is medically cleared to be discharged to SNF versus home with home health as can no longer take care of him by herself. With regards to patient's heart failure and chronic atrial fibrillation. 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 Andry Moran was consulted. He recommended to completely discontinue metolazone and only use Bumex 1 mg p.o. as needed for lower extremity edema. He also recommended to resume Eliquis 2.5 mg p.o. twice daily and to hold only if patient has recurrent falls with head trauma due to concern for intracranial bleeding. Plan of care discussed with Attending Dr. Wilber Gallardo MD PGY 2 Disclaimer: This note was dictated by speech recognition. Minor errors in orthoptist may be present due to voice recognition software. Documentation for date of: 03/03/25 Subjective Subjective Interval history: No overnight events. Patient was examined at bedside; they appear A&Ox4 and in NAD. Today, patient complains of ongoing constipation despite scheduled Senna. Vitals/labs today significant for Hgb 12.1->12.6, potassium 3.4->3.3, chloride 91->92, bicarbonate 31.5->31.7, BUN 44->36, creatinine 2.0, corrected calcium 10.3->10.9, and TBili 1.2->1.5. In terms of patient's orthostatic hypotension, he has been started on JAILENE stockings and repeat orthostatic vitals (after fluid resuscitation) and TTE have been ordered but results are pending. 03/02 CTAP ordered due to concern for malignancy from report that patient has lost around 20 pounds over the past 2 months has resulted and was negative for remarkable findings. Interventional cardiology (Dr. Moran) examined the patient today and has recommended that metolazone be discontinued, that PO Eliquis 2.5 mg BID be resumed for patient's chronic atrial fibrillation, and that IV Bumex be only used on a prn basis for lower extremity edema. Once patient is ready for discharge he will be sent either to a SNF or home with home health as endorses no longer being able to take care of him by herself. Plan Updates: -Restarted PO Eliquis 2.5 mg BID -Changed PO Bumex 1 mg qD q48HR -> 1mg qD prn -Restarted PO cinacalcet 30 mg qD -Started PO lactulose syrup 10 gm BID -Started Miralax 17 gm 1 pkt qD -Referral to nutritional services Exam Vital Signs Temp Pulse Resp BP Pulse Ox O2 Del Method O2 Flow Rate 97.4 F 61 18 127/75 93 L Room Air 2 03/03/25 12:00 03/03/25 13:42 03/03/25 12:00 03/03/25 13:42 03/03/25 12:00 03/03/25 12:00 02/28/25 12:55 Narrative Exam General: A/O x3, in no acute distress. Skin: Area of denuded skin on right forearm with some bright red blood. Warm, dry, no obvious rash. Head: Normocephalic, atraumatic. Eyes: PERRL, EOMI. Anicteric, vision grossly intact. Ears: Hard of hearing. No ear pain, no ear discharge. Nose: No nasal discharge. Mouth/Throat: Blue-tinged lips no longer present. Oral mucosa moist. No obvious lesions in oropharynx. Neck: Neck supple, non-tender, no cervical lymphadenopathy. Cardiovascular: Slightly bradycardic rate and rhythm, no murmur, no JVD or carotid bruits. +S1/S2. Respiratory: Bilateral lungs are clear to auscultation, respirations unlabored, no crackles, no wheezing. No accessory muscle use. Gastrointestinal: Hyperactive bowel sounds. Abdominal tenderness to palpation particularly localized around umbilicus. Soft, non-distended, no palpable masses. No guarding or rebound tenderness. Extremities: Symmetrical, no significant deformities. No edema, no cyanosis, no clubbing. 2+ radial pulse bilaterally, 2+ posterior tibial pulse bilaterally. Neuro: Slightly tremulous. No focal deficits observed. Conversant, moving all extremities. Psychiatric: Cooperative, appropriate affect. Objective Labs 03/04/25 04:24 03/04/25 04:24 Labs: Laboratory Results - last 24 hr 03/02/25 03/03/25 05:36 05:56 WBC 7.7 RBC 4.34 L Hgb 12.6 L Hct 38.8 L MCV 89 MCH 29.0 MCHC 32.5 RDW Std Deviation 62.3 H Plt Count 271 D Neut % (Auto) 71 Lymph % (Auto) 19 [place] % (Auto) 8 Eos % (Auto) 1 Baso % (Auto) 1 Neut # (Auto) 5.5 Lymph # (Auto) 1.4 [place] # (Auto) 0.6 Eos # (Auto) 0.1 Baso # (Auto) 0.0 Immature Gran # (Auto) 0.05 H Absolute Nucleated RBC 0.00 Immature Gran % 1 H Nucleated RBC % 0 Sodium 137 Potassium 3.3 L Chloride 92 L Carbon Dioxide 31.7 H Anion Gap 13 BUN 36 H Creatinine 2.0 H Estim Creat Clear Calc 30.9 L eGFR 33 L BUN/Creatinine Ratio 18 Glucose 114 H Calculated Osmolality 283 Calcium 10.9 H Corrected Calcium 10.9 H Phosphorus 2.9 Magnesium 1.8 Total Bilirubin 1.5 H AST 19 ALT 8 L Alkaline Phosphatase 103 Total Protein 7.3 Albumin 4.2 Globulin 3.1 Albumin/Globulin Ratio 1.4 Triglycerides 116 Cholesterol 143 LDL Cholesterol, Calc 90 HDL Cholesterol 30 L Cholesterol/HDL Ratio 4.8 Vitamin B12 922 H Folate > 24.00 ABG Interpretation ABG results: 03/01/25 10:30 ABG pH 7.54 H ABG pCO2 44 ABG pO2 78 L ABG HCO3 37 H ABG O2 Saturation 97 ABG Base Excess 13 H Quality Measures Quality Measures none Advance care planning discussed with:: patient Assessment & Plan Assessment Current Active Medications: Generic Name Dose Route Start Last Admin Trade Name Freq PRN Reason Stop Dose Admin Acetaminophen 650 mg 03/01/25 12:25 03/03/25 04:44 Acetaminophen 325 Mg Tablet PO 03/31/25 12:24 650 mg Q6H PRN Administration Mild Pain 1-3 or Fever >100.3 Hydrocodone Bitart/Acetaminophen 1 tab 03/01/25 14:07 03/02/25 23:36 Hydrocodone/Apap 5/325 Tablet PO 03/06/25 14:06 1 tab Q6HR PRN Administration Moderate to Severe Pain 4-10 Apixaban 2.5 mg 03/03/25 10:15 03/03/25 10:20 Apixaban 2.5 Mg Tablet PO 04/02/25 10:14 2.5 mg BID OLI Administration Bumetanide 1 mg 03/03/25 08:53 Bumetanide 0.5 Mg Tablet PO 04/02/25 08:59 QDAY PRN Edema Cinacalcet 30 mg 03/03/25 08:30 03/03/25 09:45 Cinacalcet Hcl 30 Mg Tablet (Non-Form) PO 04/02/25 08:29 30 mg QDAY OLI Administration Famotidine 20 mg 03/01/25 21:00 03/03/25 08:58 Famotidine 20 Mg Tablet PO 03/31/25 20:59 20 mg BID OLI Administration Gabapentin 100 mg 03/01/25 14:15 03/03/25 08:58 Gabapentin 100 Mg Capsule PO 03/31/25 14:14 100 mg BID OLI Administration Lactulose 10 gm 03/03/25 10:15 03/03/25 10:19 Lactulose Syrup 20 Gm/30 Ml Udc PO 04/02/25 10:14 10 gm BID OLI Administration Protocol Midodrine 5 mg 03/01/25 22:13 03/03/25 13:42 Midodrine 5 Mg Tablet PO 03/31/25 14:14 Not Given TID OLI Ondansetron HCl 4 mg 03/01/25 12:25 Ondansetron Inj 2 Mg/Ml Inj 2 Ml IVP 03/31/25 12:24 Q6H PRN NAUSEA OR VOMITING Protocol Polyethylene Glycol 17 gm 03/03/25 10:15 03/03/25 10:20 Polyethylene Glycol 17 Gm Packet PO 04/02/25 10:14 17 gm QDAY OLI Administration Sennosides 1 tab 03/02/25 09:00 03/03/25 08:57 Senna Tablet PO 04/01/25 08:59 1 tab QDAY OLI Administration Protocol Plan Patient is a 79-year-old male with a PMH of HFpEF W/ severe RV dysfunction, biatrial dilatation, and EF of 65% from May 2024, atrial fibrillation s/p pacemaker implant on Eliquis, 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 Patient was admitted for the work-up and management of presyncope with ground- level fall, JENNIFER on CKD, metabolic alkalosis, and mild troponinemia. #Presyncope - resolved #Ground-level fall Patient presents with symptoms of weakness, dizziness, and vertigo that occur when he stands up and his blood pressure drops significantly Patient's reports that he has been having repeated falls with his episodes of orthostatic hypotension that have been ongoing for 6 months Patient does not report full LOC and recalls these episodes On midodrine at home Dx: -03/01 orthostatic vitals positive for orthostatic hypotension -03/[address] ordered, was negative for acute hemorrhage, mass effect, or midline shift -03/01 repeat echocardiogram, results pending -03/02 repeat orthostatic vitals ordered in the setting of patient's new fluid status, showed ___ Rx: -Compression stockings for improved venous return -Continue home PO midodrine 5 mg TID #JENNIFER on CKD IIIb, resolving #Metabolic alkalosis, resolved Patient with acute kidney injury (JENNIFER), defined by a rise in serum creatinine >=.3 mg/dL within 48 hours or >=.5? baseline within 7 days, and/or urine output <0.5 mL/kg/hr for >6 hours. Admission creatinine: [2.5], baseline: [Unclear, but possibly 1.9 based on October 2024 level]. Etiology possibly 2/2 prior surgical removal of renal cysts, dehydration, and/or BPH (patient apparently has tamsulosin) 03/03 creatinine 2.0 Dx: -03/01 ABG showed basic pH 7.54, pCO2 44, PaO2 78, and HCO3 37, suggestive of metabolic alkalosis Rx: -Conservative fluid resuscitation in the setting of HFpEF -PO Bumex 1 mg q48HR -> 1 mg qD prn -Hold ACEi/ARB -Avoid nephrotoxins, renally dose meds -Monitor BMP daily -Strict I's and O's and daily weights #Unexplained weight loss Per , patient has had unexplained weight loss of 40 pounds over the last 3-4 months with associated reduced appetite Dx: -03/02 CTAP w/o contrast ordered, showed multiple large bilateral renal cysts, significant bilateral renal scarring, abundant stool in the rectum with thickening of the rectal wall (possibly proctitis) but no signs of malignancy #Constipation Patient reports having difficulty passing BM despite PO Senna bowel regimen Rx: -Started PO lactulose syrup 10 gm BID -Started Miralax 17 gm 1 pkt qD -PO Senna 1 tab qD #Troponinemia - resolved 02/28 admission troponin I 0.256, likely 2/2 Type II demand ischemia i/s/o hypotension and dehydration Rx: -Troponin peaked, no need to further trend #Normocytic anemia 02/28 admission hemoglobin 11.6 (MCV 88, RDW 59.0) Dx: -03/02 iron panel ordered, results suggestive of iron deficiency anemia -03/02 folate, thiamine, and vitamin B12 levels ordered, vitamin B12 came back elevated at 922, folate was WNL at > 24.00, thiamine pending Rx: -Cryogenics Engineer cessation of vitamin B12 supplementation if taking in the outpatient setting -Continue to monitor CBC -Transfuse if Hgb<7 -Start iron supplements in outpatient setting (will not start now as patient has been complaining of constipation) Chronic Problems #Hx of HFpEF, EF of 65% Last echocardiogram on 05/29/24 showed an estimated EF of 65% with severe RV dysfunction, severe biatrial dilatation, moderate mitral regurgitation, and moderate left ventricular hypertrophy 03/01 CXR showed moderate enlargement of the cardiac contour and mild prominence of the pulmonary vasculature Patient does not seem to be in acute exacerbation of HFpEF Dx: -03/01 repeat echocardiogram, results pending Rx: -Consulted Cardiology (Dr. Moran), appreciate recommendations -Conservative fluid resuscitation in the setting of HFpEF -Changed PO Bumex 1 mg qD q48HR -> 1mg qD prn -Strict I's and O's and daily weights #Sick sinus syndrome s/p dual chamber pacemaker implant in 02/28 EKG findings were not concerning, seems controlled by pacemaker Rx: -Continue to monitor #Paroxysmal trial fibrillation, on home Eliquis Currently seems controlled Rx: -Restarted PO Eliquis 2.5 mg BID #Acute back pain, degenerative disc disease Per prior documentation Rx: -Continue home PO gabapentin 100 mg BID -Continue home [place] 5/325 1 tab q6HR prn #Cirrhosis CTA from 12/21/24 showed cirrhosis of the liver, no encephalopathy or GI bleeding at the time Rx: -Outpatient follow-up with hepatology #Ascending thoracic aortic aneurysm Incidental finding on CTA from 12/21/24, no dissection or rupture Rx: -BP control -Outpatient follow-up with vascular surgery #Hyperlipidemia Dx: -03/01 lipid panel ordered, results WNL Rx: -Consider restarting home PO pravastatin 40 mg daily #Partial parathyroidectomy, history of hyperparathyroidism s/p partial parathyroidectomy, maintained on cinacalcet Rx: -Restarted home cinacalcet 30 mg daily Hospital Management: Disposition: Admitted to [facility] for the work-up and management of syncope with ground-level fall, JENNIFER on CKD, metabolic alkalosis, and mild troponinemia Diet: Low-sodium, 2 g GI Prophylaxis: P.o. Pepcid 20 mg twice daily Bowel Prophylaxis: P.o. senna 1 tab daily, PO lactulose syrup 10 gm BID, PO Miralax 17 gm 1 pkt qD DVT Prophylaxis: P.o. Eliquis 2.5 mg twice daily CODE STATUS: Full Code I have examined the patient and conferred with my attending, Dr. Merino, and my senior resident, Dr. Gallardo, regarding them. Logan Negron DO PGY-1 Internal Medicine Attending Provider Attestation/Addendum I have discussed and was present for the essential components of the history, physical examination, diagnosis, and treatment plan with the resident. I agree with the patient's care as documented by the resident and amended herein by me. Db Merino DO. Although this document has been carefully reviewed, there may still be some phonetic and other typographical errors. These errors are purely grammatical due to imperfections in the software program and should not be construed in any way to compromise the substance of the patient's medical care during this visit.
--- NOTE | 2025-03-03 15:03 | PC.SS ---
SS follow up note; SS followed up with patient's , Genevieve, to discuss discharge planning. Patient's expressed interest in discussing potential SNF placement options with her children prior to making a Decision. At this time, the family is considering [facility] or [facility] for patient to discharge destination. SS will remain available for ongoing support and coordination as needed. Patient's will follow up with SS.
[2025-03-04] VITALS (9 sets, daily range): BP systolic 115–123; BP diastolic 58–73; PULSE 59–70; RESP 17–98; TEMP 36.1–36.3; O2SAT 94–98; BMI 25.3
[2025-03-04] MEDS: HYDROcodone/APAP 5/325 TABLET 1 TAB PO ×2 (00:50→10:17)
[2025-03-04 05:20] LABS: Basophils # (Auto) 0.0 Thou/mm3 (0.0-0.2); Basophils % (Auto) 0 % (0-2.5); Eosinophils # (Auto) 0.1 Thou/mm3 (0.0-0.5); Eosinophils % (Auto) 1 % (0-10); Hematocrit 34.9 % (41.0-53.0); Hemoglobin 11.6 g/dL (13.5-16.0); Immature Granulocytes Auto 0.04 Thou/mm3 (0.00-0.00); Lymphocytes # (Auto) 1.5 Thou/mm3 (1.0-4.8); Lymphocytes % (Auto) 19 % (10-50); Mean Corpuscular HGB Conc 33.2 g/dl (31.0-37.0); Mean Corpuscular Hemoglobin 30.1 pg (25.0-35.0); Mean Corpuscular Volume 90 fL (80-100); Monocytes # (Auto) 0.7 Thou/mm3 (0.0-0.8); Monocytes % (Auto) 9 % (0-12); Neutrophils # (Auto) 5.3 Thou/mm3 (1.8-7.7); Neutrophils % (Auto) 69 % (37-80); Nucleated Red Blood Cell # 0.00 Thou/mm3 (0.00-0.00); Nucleated Red Blood Cell % 0 /100 WBC (0); Platelet Count 244 Thou/mm3 (140-440); RDW Standard Deviation 61.8 fL (35.1-43.9); Red Blood Count 3.86 Miln/mm3 (4.50-5.90); White Blood Count 7.6 Thou/mm3 (3.8-10.6)
[2025-03-04 05:54] LABS: Alanine Aminotransferase 8 U/L (10-49); Albumin, Serum 4.1 gm/dL (3.4-4.8); Albumin/Globulin Ratio 1.5 (1.2-2.2); Alkaline Phosphatase 102 U/L (46-116); Anion Gap 14 (7-16); Aspartate Amino Transferase 19 U/L (0-34); BUN/Creatinine Ratio 17 Ratio (12-20); Bilirubin,Total 1.8 mg/dL (0.3-1.2); Blood Urea Nitrogen 32 mg/dL (9-23); Calcium 11.0 mg/dL (8.3-10.6); Calcium (Corrected) 11.0 mg/dL (8.5-10.1); Carbon Dioxide 30.3 mMol/L (20.0-31.0); Chloride 94 mMol/L (98-107); Creatinine (Component) 1.9 mg/dL (0.6-1.3); Estimated Creatinine Clearance 31.5 mL/min (>60); Globulin 2.8 gm/dL (2.3-3.5); Glucose 104 mg/dL (74-106); Magnesium 2.0 mg/dL (1.6-2.6); Osmolality,Calculated 282 (275-295); Phosphorous 2.8 mg/dL (2.4-5.1); Potassium 3.8 mMol/L (3.4-5.1); Sodium 138 mMol/L (136-145); Total Protein 6.9 gm/dL (5.7-8.2); eGFR 35 See Note
[2025-03-04] MEDS: LACTULOSE SYRUP 20 GM/30 ML UDC 10 GM PO (09:20)
[2025-03-04] MEDS: CINACALCET HCL 30 MG TABLET (NON-FORM) PO (09:21)
[2025-03-04] MEDS: GABAPENTIN 100 MG CAPSULE PO (09:21)
[2025-03-04] MEDS: POLYETHYLENE GLYCOL 17 GM PACKET PO (09:21)
[2025-03-04] MEDS: APIXABAN 2.5 MG TABLET PO (09:22)
[2025-03-04] MEDS: FAMOTIDINE 20 MG TABLET PO (09:22)
--- NOTE | 2025-03-04 10:40 | XR_ITS ---
Examination: Abdomen sonogram, Limited Date and time of exam: March 04, 2025, 1314 hours INDICATIONS: Elevated bilirubin on laboratory examination today. Technique: Real-time brown scale transabdominal sonographic images of the upper abdomen obtained. Findings: Absent gallbladder Common bile duct 0.9 cm no stones Pancreatic head 2.7 cm Liver 16.2 cm fatty infiltration Normal hepatopetal portal venous Patent IVC IMPRESSION: Absent gallbladder No common bile duct stones Mild hepatomegaly
--- NOTE | 2025-03-04 12:07 | PC.SS ---
Addendum entered by Margaret Hinds 03/04/25 15:49: SS follow up note; SS was informed by Dr. Amador that patient was not discharging today, due to SOB. SS notified Shelia from [facility] and cancelled transportation with [facility]. SS will stand by for further needs. Addendum entered by Margaret Hinds 03/04/25 13:43: SS follow up note; SS was contacted by [facility] which provided ETA for 5PM. SS updated patient's nurse, Mónica as well as patient's , Genevieve and Shelia from [facility]. Original Note: SS set up transportation for patient through [facility] transportation, Reference # [id number]. SS will update patient's nurse, , and Shelia from [facility].
--- NOTE | 2025-03-04 12:15 | ESPR_ITS ---
<Statement entered by Shavonne Moran MD - 03/08/25 12:33> I personally examined evaluated the patient with resident physician PGY 2 Dr. Rubén Hickey patient is appears to be clinically not in heart failure continue to hold the diuretics for now use as necessary since clinically he is not in heart failure but has general deconditioning will require rehabilitation senior care facility for rehabilitation.. Evaluate the patient resident physician agree with treatment plan recommendation as documented by PGY 2 Dr. Rubén HICKEY MD Documentation for date of: 03/04/25 Subjective Subjective Interval history: No acute overnight events. Plan is to eventually discharge to SNF given recent history of falls. As previously mentioned, will continue bumex as needed, hold metolazone, and continue eliquis 2.5 mg twice daily. Otherwise, vital signs stable. Labs consistent with CKD but otherwise unremarkable. Exam Vital Signs Temp Pulse Resp BP Pulse Ox O2 Del Method O2 Flow Rate 97.1 F 62 18 121/61 98 Room Air 2 03/04/25 07:55 03/04/25 07:55 03/04/25 07:55 03/04/25 07:55 03/04/25 07:55 03/04/25 07:55 02/28/25 12:55 Narrative Exam General: alert, no acute distress, able to speak full sentences HEENT: NC/AT, mucous membranes moist, bilateral sclera anicteric Cardiovascular: regular rate and rhythm, S1/S2 present, no murmurs appreciated Pulmonary: clear to auscultation bilaterally, no rales/rhonchi/wheezes Abdominal: distended, soft, non-tender, no rebound/guarding, normal bowel sounds present Musculoskeletal: normal ROM, no peripheral edema Skin: warm and dry, intact, no rashes Neuro: CN II-XII intact, no focal deficits Objective Labs 03/04/25 04:24 03/04/25 04:24 Labs: Laboratory Results - last 24 hr 03/04/25 04:24 WBC 7.6 RBC 3.86 L Hgb 11.6 L Hct 34.9 L MCV 90 MCH 30.1 MCHC 33.2 RDW Std Deviation 61.8 H Plt Count 244 Neut % (Auto) 69 Lymph % (Auto) 19 [place] % (Auto) 9 Eos % (Auto) 1 Baso % (Auto) 0 Neut # (Auto) 5.3 Lymph # (Auto) 1.5 [place] # (Auto) 0.7 Eos # (Auto) 0.1 Baso # (Auto) 0.0 Immature Gran # (Auto) 0.04 H Absolute Nucleated RBC 0.00 Immature Gran % 1 H Nucleated RBC % 0 Sodium 138 Potassium 3.8 D Chloride 94 L Carbon Dioxide 30.3 Anion Gap 14 BUN 32 H Creatinine 1.9 H Estim Creat Clear Calc 31.5 L eGFR 35 L BUN/Creatinine Ratio 17 Glucose 104 Calculated Osmolality 282 Calcium 11.0 H Corrected Calcium 11.0 H Phosphorus 2.8 Magnesium 2.0 Total Bilirubin 1.8 H AST 19 ALT 8 L Alkaline Phosphatase 102 Total Protein 6.9 Albumin 4.1 Globulin 2.8 Albumin/Globulin Ratio 1.5 ABG Interpretation ABG results: 03/01/25 10:30 ABG pH 7.54 H ABG pCO2 44 ABG pO2 78 L ABG HCO3 37 H ABG O2 Saturation 97 ABG Base Excess 13 H Quality Measures Quality Measures none Advance care planning discussed with:: patient Assessment & Plan Assessment Current Active Medications: Generic Name Dose Route Start Last Admin Trade Name Freq PRN Reason Stop Dose Admin Acetaminophen 650 mg 03/01/25 12:25 03/03/25 04:44 Acetaminophen 325 Mg Tablet PO 03/31/25 12:24 650 mg Q6H PRN Administration Mild Pain 1-3 or Fever >100.3 Hydrocodone Bitart/Acetaminophen 1 tab 03/01/25 14:07 03/04/25 10:17 Hydrocodone/Apap 5/325 Tablet PO 03/06/25 14:06 1 tab Q6HR PRN Administration Moderate to Severe Pain 4-10 Apixaban 2.5 mg 03/03/25 10:15 03/04/25 09:22 Apixaban 2.5 Mg Tablet PO 04/02/25 10:14 2.5 mg BID OLI Administration Bumetanide 1 mg 03/03/25 08:53 Bumetanide 0.5 Mg Tablet PO 04/02/25 08:59 QDAY PRN Edema Cinacalcet 30 mg 03/03/25 08:30 03/04/25 09:21 Cinacalcet Hcl 30 Mg Tablet (Non-Form) PO 04/02/25 08:29 30 mg QDAY OLI Administration Famotidine 20 mg 03/01/25 21:00 03/04/25 09:22 Famotidine 20 Mg Tablet PO 03/31/25 20:59 20 mg BID OLI Administration Gabapentin 100 mg 03/01/25 14:15 03/04/25 09:21 Gabapentin 100 Mg Capsule PO 03/31/25 14:14 100 mg BID OLI Administration Lactulose 10 gm 03/03/25 10:15 03/04/25 09:20 Lactulose Syrup 20 Gm/30 Ml Udc PO 04/02/25 10:14 10 gm BID OLI Administration Protocol Midodrine 5 mg 03/01/25 22:13 03/04/25 05:47 Midodrine 5 Mg Tablet PO 03/31/25 14:14 Not Given TID OLI Ondansetron HCl 4 mg 03/01/25 12:25 Ondansetron Inj 2 Mg/Ml Inj 2 Ml IVP 03/31/25 12:24 Q6H PRN NAUSEA OR VOMITING Protocol Polyethylene Glycol 17 gm 03/03/25 10:15 03/04/25 09:21 Polyethylene Glycol 17 Gm Packet PO 04/02/25 10:14 17 gm QDAY OLI Administration Sennosides 1 tab 03/02/25 09:00 03/04/25 09:21 Senna Tablet PO 04/01/25 08:59 1 tab QDAY OLI Administration Protocol Plan Yves Christensen is an 79-year-old male with a history of CAD status post multivessel stent placement, sick sinus syndrome status post pacemaker in 2019, paroxysmal A-fib on Eliquis, HFpEF, peripheral neuropathy, CKD, incidental cirrhosis, parathyroidectomy for hypercalcemia who is admitted for presyncope and cardiology consulted as she follows up outpatient. #Presyncope #Ground-level fall #Atrial fibrillation on eliquis Presents with presyncope and ground-level falls in setting of being on blood thinners due to atrial fibrillation. He is also on diuretics for his HFpEF. [id number] score of 4. ? Bumex PRN depending on lower extremity edema ? Discontinue metolazone ? Continue Eliquis 2.5 mg twice daily given [id number] 4 and high risk of stroke ? If continues to fall may consider stopping AC at that time ? Pending SNF placement ? Will continue to follow-up outpatient #CAD status post stenting ? Home pravastatin 40 mg daily #HFpEF (EF 60%, 05/2024) ? Bumex as above #Metabolic alkalosis #JENNIFER on CKD #Hyperlipidemia #Partial parathyroidectomy #Normocytic anemia #Cirrhosis ? Continue management per primary team ----- Plan discussed with attending physician Dr. Dean Hickey MD PGY-2 Internal Medicine
[2025-03-04 13:12] LABS: Ammonia < 10 uMol/L (11-32)
--- NOTE | 2025-03-04 14:04 | PD.RESPRO ---
Documentation for date of: 03/04/25 Exam Vital Signs Temp Pulse Resp BP Pulse Ox O2 Del Method O2 Flow Rate 97.1 F 62 18 121/61 98 Room Air 2 03/04/25 07:55 03/04/25 07:55 03/04/25 07:55 03/04/25 07:55 03/04/25 07:55 03/04/25 07:55 02/28/25 12:55 Narrative Exam General: A/O x3, in no acute distress. Skin: Area of denuded skin on right forearm with some bright red blood. Warm, dry, no obvious rash. Head: Normocephalic, atraumatic. Eyes: PERRL, EOMI. Anicteric, vision grossly intact. Ears: Hard of hearing. No ear pain, no ear discharge. Nose: No nasal discharge. Mouth/Throat: Blue-tinged lips no longer present. Oral mucosa moist. No obvious lesions in oropharynx. Neck: Neck supple, non-tender, no cervical lymphadenopathy. Cardiovascular: Slightly bradycardic rate and rhythm, no murmur, no JVD or carotid bruits. +S1/S2. Respiratory: Bilateral lungs are clear to auscultation, respirations unlabored, no crackles, no wheezing. No accessory muscle use. Gastrointestinal: Hyperactive bowel sounds. Abdominal tenderness to palpation particularly localized around umbilicus. Soft, non-distended, no palpable masses. No guarding or rebound tenderness. Extremities: Symmetrical, no significant deformities. No edema, no cyanosis, no clubbing. 2+ radial pulse bilaterally, 2+ posterior tibial pulse bilaterally. Neuro: Slightly tremulous. No focal deficits observed. Conversant, moving all extremities. Psychiatric: Cooperative, appropriate affect. Objective Labs 03/04/25 04:24 03/04/25 04:24 Labs: Laboratory Results - last 24 hr 03/04/25 03/04/25 04:24 12:33 WBC 7.6 RBC 3.86 L Hgb 11.6 L Hct 34.9 L MCV 90 MCH 30.1 MCHC 33.2 RDW Std Deviation 61.8 H Plt Count 244 Neut % (Auto) 69 Lymph % (Auto) 19 [place] % (Auto) 9 Eos % (Auto) 1 Baso % (Auto) 0 Neut # (Auto) 5.3 Lymph # (Auto) 1.5 [place] # (Auto) 0.7 Eos # (Auto) 0.1 Baso # (Auto) 0.0 Immature Gran # (Auto) 0.04 H Absolute Nucleated RBC 0.00 Immature Gran % 1 H Nucleated RBC % 0 Sodium 138 Potassium 3.8 D Chloride 94 L Carbon Dioxide 30.3 Anion Gap 14 BUN 32 H Creatinine 1.9 H Estim Creat Clear Calc 31.5 L eGFR 35 L BUN/Creatinine Ratio 17 Glucose 104 Calculated Osmolality 282 Calcium 11.0 H Corrected Calcium 11.0 H Phosphorus 2.8 Magnesium 2.0 Total Bilirubin 1.8 H AST 19 ALT 8 L Alkaline Phosphatase 102 Ammonia < 10 L Total Protein 6.9 Albumin 4.1 Globulin 2.8 Albumin/Globulin Ratio 1.5 ABG Interpretation ABG results: 03/01/25 10:30 ABG pH 7.54 H ABG pCO2 44 ABG pO2 78 L ABG HCO3 37 H ABG O2 Saturation 97 ABG Base Excess 13 H Quality Measures Quality Measures none Assessment & Plan Assessment Current Active Medications: Generic Name Dose Route Start Last Admin Trade Name Freq PRN Reason Stop Dose Admin Acetaminophen 650 mg 03/01/25 12:25 03/03/25 04:44 Acetaminophen 325 Mg Tablet PO 03/31/25 12:24 650 mg Q6H PRN Administration Mild Pain 1-3 or Fever >100.3 Hydrocodone Bitart/Acetaminophen 1 tab 03/01/25 14:07 03/04/25 10:17 Hydrocodone/Apap 5/325 Tablet PO 03/06/25 14:06 1 tab Q6HR PRN Administration Moderate to Severe Pain 4-10 Apixaban 2.5 mg 03/03/25 10:15 03/04/25 09:22 Apixaban 2.5 Mg Tablet PO 04/02/25 10:14 2.5 mg BID OLI Administration Bumetanide 1 mg 03/03/25 08:53 Bumetanide 0.5 Mg Tablet PO 04/02/25 08:59 QDAY PRN Edema Cinacalcet 30 mg 03/03/25 08:30 03/04/25 09:21 Cinacalcet Hcl 30 Mg Tablet (Non-Form) PO 04/02/25 08:29 30 mg QDAY OLI Administration Famotidine 20 mg 03/01/25 21:00 03/04/25 09:22 Famotidine 20 Mg Tablet PO 03/31/25 20:59 20 mg BID OLI Administration Gabapentin 100 mg 03/01/25 14:15 03/04/25 09:21 Gabapentin 100 Mg Capsule PO 03/31/25 14:14 100 mg BID OLI Administration Lactulose 10 gm 03/03/25 10:15 03/04/25 09:20 Lactulose Syrup 20 Gm/30 Ml Udc PO 04/02/25 10:14 10 gm BID OLI Administration Protocol Midodrine 5 mg 03/01/25 22:13 03/04/25 05:47 Midodrine 5 Mg Tablet PO 03/31/25 14:14 Not Given TID OLI Ondansetron HCl 4 mg 03/01/25 12:25 Ondansetron Inj 2 Mg/Ml Inj 2 Ml IVP 03/31/25 12:24 Q6H PRN NAUSEA OR VOMITING Protocol Polyethylene Glycol 17 gm 03/03/25 10:15 03/04/25 09:21 Polyethylene Glycol 17 Gm Packet PO 04/02/25 10:14 17 gm QDAY OLI Administration Sennosides 1 tab 03/02/25 09:00 03/04/25 09:21 Senna Tablet PO 04/01/25 08:59 1 tab QDAY OLI Administration Protocol Plan Patient is a 79-year-old male with a PMH of HFpEF W/ severe RV dysfunction, biatrial dilatation, and EF of 65% from May 2024, atrial fibrillation s/p pacemaker implant on , 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 Patient was admitted for the work-up and management of presyncope with ground-level fall, JENNIFER on CKD, metabolic alkalosis, and mild troponinemia. #Presyncope - resolved #Ground-level fall Patient presents with symptoms of weakness, dizziness, and vertigo that occur when he stands up and his blood pressure drops significantly Patient's reports that he has been having repeated falls with his episodes of orthostatic hypotension that have been ongoing for 6 months Patient does not report full LOC and recalls these episodes On midodrine at home Dx: -03/01 orthostatic vitals positive for orthostatic hypotension -03/[address] ordered, was negative for acute hemorrhage, mass effect, or midline shift -03/01 repeat echocardiogram, results pending -03/02 repeat orthostatic vitals ordered in the setting of patient's new fluid status, showed ___ Rx: -Compression stockings for improved venous return -Continue home PO midodrine 5 mg TID #JENNIFER on CKD IIIb, resolving #Metabolic alkalosis, resolved Patient with acute kidney injury (JENNIFER), defined by a rise in serum creatinine >=.3 mg/dL within 48 hours or >=.5? baseline within 7 days, and/or urine output <0.5 mL/kg/hr for >6 hours. Admission creatinine: [2.5], baseline: [Unclear, but possibly 1.9 based on October 2024 level]. Etiology possibly 2/2 prior surgical removal of renal cysts, dehydration, and/or BPH (patient apparently has tamsulosin) 03/03 creatinine 2.0 Dx: -03/01 ABG showed basic pH 7.54, pCO2 44, PaO2 78, and HCO3 37, suggestive of metabolic alkalosis Rx: -Conservative fluid resuscitation in the setting of HFpEF -PO Bumex 1 mg q48HR -> 1 mg qD prn -Hold ACEi/ARB -Avoid nephrotoxins, renally dose meds -Monitor BMP daily -Strict I's and O's and daily weights #Unexplained weight loss Per , patient has had unexplained weight loss of 40 pounds over the last 3-4 months with associated reduced appetite Dx: -03/02 CTAP w/o contrast ordered, showed multiple large bilateral renal cysts, significant bilateral renal scarring, abundant stool in the rectum with thickening of the rectal wall (possibly proctitis) but no signs of malignancy #Constipation Patient reports having difficulty passing BM despite PO Senna bowel regimen Rx: -Started PO lactulose syrup 10 gm BID -Started Miralax 17 gm 1 pkt qD -PO Senna 1 tab qD #Troponinemia - resolved 02/28 admission troponin I 0.256, likely 2/2 Type II demand ischemia i/s/o hypotension and dehydration Rx: -Troponin peaked, no need to further trend #Normocytic anemia 02/28 admission hemoglobin 11.6 (MCV 88, RDW 59.0) Dx: -03/02 iron panel ordered, results suggestive of iron deficiency anemia -03/02 folate, thiamine, and vitamin B12 levels ordered, vitamin B12 came back elevated at 922, folate was WNL at > 24.00, thiamine pending Rx: -Arborer cessation of vitamin B12 supplementation if taking in the outpatient setting -Continue to monitor CBC -Transfuse if Hgb<7 -Start iron supplements in outpatient setting (will not start now as patient has been complaining of constipation) Chronic Problems #Hx of HFpEF, EF of 65% Last echocardiogram on 05/29/24 showed an estimated EF of 65% with severe RV dysfunction, severe biatrial dilatation, moderate mitral regurgitation, and moderate left ventricular hypertrophy 03/01 CXR showed moderate enlargement of the cardiac contour and mild prominence of the pulmonary vasculature Patient does not seem to be in acute exacerbation of HFpEF Dx: -03/01 repeat echocardiogram, results pending Rx: -Consulted Cardiology (Dr. Moran), appreciate recommendations -Conservative fluid resuscitation in the setting of HFpEF -PO Bumex 1mg qD prn -Strict I's and O's and daily weights #Sick sinus syndrome s/p dual chamber pacemaker implant in 02/28 EKG findings were not concerning, seems controlled by pacemaker Rx: -Continue to monitor #Paroxysmal trial fibrillation, on home Eliquis Currently seems controlled Rx: -Continue PO Eliquis 2.5 mg BID #Acute back pain, degenerative disc disease Per prior documentation Rx: -Continue home PO gabapentin 100 mg BID -Continue home [place] 5/325 1 tab q6HR prn #Cirrhosis CTA from 12/21/24 showed cirrhosis of the liver, no encephalopathy or GI bleeding at the time Rx: -Outpatient follow-up with hepatology #Ascending thoracic aortic aneurysm Incidental finding on CTA from 12/21/24, no dissection or rupture Rx: -BP control -Outpatient follow-up with vascular surgery #Hyperlipidemia Dx: -03/01 lipid panel ordered, results WNL Rx: -Consider restarting home PO pravastatin 40 mg daily #Partial parathyroidectomy, history of hyperparathyroidism s/p partial parathyroidectomy, maintained on cinacalcet Rx: -Continue home cinacalcet 30 mg daily Hospital Management: Disposition: Admitted to Floors for the work-up and management of syncope with ground-level fall, JENNIFER on CKD, metabolic alkalosis, and mild troponinemia Diet: Low-sodium, 2 g GI Prophylaxis: P.o. Pepcid 20 mg twice daily Bowel Prophylaxis: P.o. senna 1 tab daily, PO lactulose syrup 10 gm BID, PO Miralax 17 gm 1 pkt qD DVT Prophylaxis: P.o. Eliquis 2.5 mg twice daily CODE STATUS: Full Code I have examined the patient and conferred with my attending, Dr. Merino, and my senior resident, Dr. Gallardo, regarding them. Logan Negron, DO PGY-1 Internal Medicine
--- NOTE | 2025-03-04 16:50 | ESDS_ITS ---
<Statement entered by Leoncio Gallardo MD - 03/05/25 07:38> I saw and examined patient personally and supervised PGY 1 resident, Dr. Negron with formulating a management plan. I agree with the documentation with the exceptions as listed below. Patient was admitted for syncope workup. Orthostatic vitals were found to be positive and JAILENE hose placed. Transthoracic echocardiogram showed EF 50-55%. All patient's labs are now returning to baseline. Patient now clinically stable and fit for discharge to SNF. Plan of care discussed with Attending Dr. Man Gallardo MD PGY 2 Disclaimer: This note was dictated by speech recognition. Minor errors in steerer may be present due to voice recognition software. Planned Discharge Date 03/04/25 DS: Providers Provider Date of admission: 03/01/25 12:25 Primary care physician: Vic Mcallister MD Admitting Provider: Ted Merino DO Attending Provider on Admission: Yane Conway MD Consults: 03/01/25 06:15 Referral Wound Care Stat Comment: WOUND RIGHT BUTTOCK 03/01/25 12:33 Referral Physical Therapy Routine Comment: Physician Instructions: Instructions: Patient is considering [facility]. 03/01/25 15:49 Consult to Cardiology Routine Comment: Consulting Provider: Shavonne Moran 03/03/25 10:09 Referral Nutritional Services Stat Comment: Referral Wound Care Stat Comment: Attending Provider on DC: Yane Conway MD Discharging Provider: Logan Negron DO DS: Diagnosis Problem List Completed Was Problem List Reviewed/Reconciled?: Yes Hospital Course Hospital Course Hospital course: Summary: Patient is a 79-year-old male with a PMH of HFpEF W/ severe RV dysfunction, biatrial dilatation, and EF of 65% from May 2024, atrial fibrillation s/p pacemaker implant on Eliquis, 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 ER: In the ED, vitals showed: BP 111/72 HR 87 RR 18 Temp 97.6 SpO2 98% on 2 L nasal cannula CBC showed slight anemia with elevated RDW but was otherwise within normal limits. Coagulation panel showed a normal D-dimer level of 465. CMP showed sodium 135, potassium 3.1, chloride 85, bicarbonate 36.8, anion gap 13, BUN 54, creatinine 2.5, eGFR 25, corrected calcium 10.1, troponin I 0.256. UA was bland. 02/28 EKG showed electronic ventricular pacemaker of HR 62 with a prolonged QTc of 607. 02/[address] showed mild left otitis media but was otherwise negative for acute hemorrhage, mass effect or midline shift. 03/01 CXR showed moderate enlargement of the cardiac contour and mild prominence of the pulmonary vasculature but no lobar pneumonia or pulmonary edema. In the ED, patient was given p.o. meclizine, p.o. potassium chloride, and 1.5 L NS bolus. Hospital: During patient's hospital course, he was continued on his home midodrine and underwent orthostatic vitals testing which came back positive and was started on compression stockings for his suspected orthostatic presyncope. 03/01 repeat echocardiogram showed a reduced EF of 50% and initial head CT was negative. Vitamin B12 levels were found to be elevated. A CTAP was ordered on 03/02 due to concern for patient's unexplained weight loss over the past 2 months but did not show any remarkable findings. Patient was evaluated by Cardiology and it was recommended that his metolazone be discontinued, his Eliquis be continued, and his Bumex be changed to a prn basis for lower extremity swelling. On 03/04, patient was deemed clinically stabilized and discharged to SNF after liver US ordered to evaluate elevation in total bilirubin came back negative for cholelithiasis. Patient is safe to discharge to home. Further discharge instructions below. - We have changed your Bumex to as needed for lower extremity swelling - We have stopped your metolazone. - Continue Eliquis unless you have recurrent falls with head trauma ? Continue taking the rest of your home medications as before ? You will have to restrict your daily liquid intake to 1.5 Litres / 50 ounces per day. This includes water, teas, coffees and soups. ? You will have to follow a low salt diet for the rest of your life. This means no Cuban food or fast food. ? You will have to take your weight daily. If your weight increases by more th an 2-5 pounds in 1-2 days, take an extra water pill that day. ? You will have to measure your blood pressure daily. If the top number is less than 100, do not take your blood pressure medications that day. ? Keep a log of your blood pressures to take to your primary doctor and car park attendant. - Follow up with Cardiology Dr. Moran within 2 weeks - Follow up with your primary care physician within 1 week of discharge. If you do not have a primary care physician, please follow up with the [facility] Residents clinic ([phone]) ? If you experience any new, worsening or persistent symptoms either call your primary doctor, or dial 911 or present to the emergency department. #Presyncope, resolved #Ground-level fall #JENNIFER on CKD IIIb, improved #Metabolic alkalosis, resolved #Troponinemia, resolved #Normocytic anemia #Hx of HFpEF, EF of 50% #Sick sinus syndrome s/p dual chamber pacemaker implant in 2019 #Atrial fibrillation, on home Eliquis #Unexplained weight loss #Acute back pain, degenerative disc disease #Constipation, resolved #Cirrhosis #Ascending thoracic aortic aneurysm #Hyperlipidemia #Partial parathyroidectomy, history of hyperparathyroidism Status at Discharge Cognitive/Behavioral Status at Discharge: stable Functional Status at Discharge: continued functional decline in bed mobility, transfers, and ambulation (high fall risk) Overall Status at Discharge: patient is stable at new baseline Patient's care plan was discussed with my attending, Dr. Conway, and senior resident, Dr. Gallardo. Logan Negron, DO Internal Medicine, PGY-1 Time Spent with Patient Time attestation: Total time spent providing and/or coordinating discharge services: 33 min Time spent: Greater than 30 minutes Exam Vital Signs Temp Pulse Resp BP Pulse Ox O2 Del Method O2 Flow Rate 97.3 F 70 17 122/72 96 Room Air 2 03/04/25 16:00 03/04/25 16:00 03/04/25 16:00 03/04/25 16:00 03/04/25 16:00 03/04/25 16:00 03/04/25 12:00 Narrative Exam General: A/O x3, in no acute distress. Skin: Area of denuded skin on right forearm with some bright red blood. Warm, dry, no obvious rash. Head: Normocephalic, atraumatic. Eyes: PERRL, EOMI. Anicteric, vision grossly intact. Ears: Hard of hearing. No ear pain, no ear discharge. Nose: No nasal discharge. Mouth/Throat: Blue-tinged lips no longer present. Oral mucosa moist. No obvious lesions in oropharynx. Neck: Neck supple, non-tender, no cervical lymphadenopathy. Cardiovascular: Slightly bradycardic rate and rhythm, no murmur, no JVD or carotid bruits. +S1/S2. Respiratory: Bilateral lungs are clear to auscultation, respirations unlabored, no crackles, no wheezing. No accessory muscle use. Gastrointestinal: Hyperactive bowel sounds. Abdominal tenderness to palpation particularly localized around umbilicus. Soft, non-distended, no palpable masses. No guarding or rebound tenderness. Extremities: Symmetrical, no significant deformities. No edema, no cyanosis, no clubbing. 2+ radial pulse bilaterally, 2+ posterior tibial pulse bilaterally. Neuro: Slightly tremulous. No focal deficits observed. Conversant, moving all extremities. Psychiatric: Cooperative, appropriate affect. Discharge Plan Plan Patient Disposition: [facility] [facility] [place] Patient condition on transfer: Stable Care Plan Goals: - We have changed your Bumex to as needed for lower extremity swelling - We have stopped your metolazone. - Continue Eliquis unless you have recurrent falls with head trauma ? Continue taking the rest of your home medications as before ? You will have to restrict your daily liquid intake to 1.5 Litres / 50 ounces per day. This includes water, teas, coffees and soups. ? You will have to follow a low salt diet for the rest of your life. This means no Cuban food or fast food. ? You will have to take your weight daily. If your weight increases by more than 2-5 pounds in 1-2 days, take an extra water pill that day. ? You will have to measure your blood pressure daily. If the top number is less than 100, do not take your blood pressure medications that day. ? Keep a log of your blood pressures to take to your primary doctor and car park attendant. - Follow up with Cardiology Dr. Moran within 2 weeks - Follow up with your primary care physician within 1 week of discharge. If you do not have a primary care physician, please follow up with the [facility] Residents clinic ([phone]) ? If you experience any new, worsening or persistent symptoms either call your primary doctor, or dial 911 or present to the emergency department. Prescriptions/Referrals Prescriptions/Med Rec: New bumetanide 1 mg tablet 1 mg PO QDAY PRN (Reason: Leg swelling) 30 Days Qty: 30 1RF Continued pravastatin [Pravachol] 40 MG tablet 40 mg PO QAM Qty: 0 cinacalcet 30 mg tablet 30 mg PO 1XD Patient Comments: TAKE 1 TABLET BY MOUTH EVERY DAY WITH FOOD OR AFTER MEAL DAILY FOR 90 DAYS Eliquis 5 mg tablet 2.5 mg PO BID Patient Comments: TAKE 1 TABLET BY MOUTH TWICE A DAY FOR 90 DAYS pantoprazole [Protonix] 40 mg tablet,delayed release (DR/EC) 40 mg PO QAM midodrine 5 mg tablet 5 mg PO TID 7 Days Qty: 21 0RF Patient Comments: TAKE 1 TABLET BY MOUTH THREE TIMES A DAY Rx Instructions: SKIP A DOSE if systolic blood pressure above 120mmHg gabapentin 400 mg capsule 400 mg PO Q12H Patient Comments: TAKE 1-2 CAPSULES BY MOUTH 3 TIMES PER DAY TOLERATED tamsulosin 0.4 mg capsule 0.4 mg PO HS Patient Comments: TAKE 1 CAPSULE BY MOUTH AT BEDTIME Held colchicine 0.6 mg tablet 0.3 mg PO QDAY Qty: 30 3RF Hold Instructions: Resume on 03/11/25. HOld until you see PCP Discontinued amitriptyline 10 mg Tablet 10 mg PO HS bumetanide 1 mg tablet 1 mg PO QDAY Qty: 14 0RF metolazone 2.5 mg tablet 2.5 mg PO QDAY Qty: 30 0RF Referrals: Vic Mcallister MD [Primary Care Provider, Family Practice] Patient/Caregiver Discharge Instructions Education Materials: Causes of Syncope, Orthostatic Hypotension Print Language: Macedonian Stand Alone Forms: [employer] Award Info., Patient Portal Info Letter Discharge Order Discharge Orders: Discharge (Routine); Ordered 03/04/25 Ordered By: Leoncio Gallardo Quality Discharge Quality Measures VTE prophylaxis Attestestation MD Attestation I have seen and examined the patient. I was physically present for the cabrales portions of the services provided including history, physical exam, diagnosis, treatment plans and orders. I agree with assessment and plan of care as documented by residents. Even though this this note was carefully revised there may still be minor errors in steerer due to voice recognition software. Yane Conway MD
[2025-03-10 06:59] LABS: Vitamin B1 (Thiamine)* <6 nmol/L (8-30)
== END 2025-03-04 18:27 | disposition skilled nursing facility (03) | DRG 312 ==
LOC: SERX 03-01 08:33 → SERHOLD 03-01 12:51 → S2NX 03-01 15:35 → S3NX 03-03 05:54
PROVIDERS: Family Medicine; Admitting Provider Student in an Organized Health Care Education/Training Program; Emergency Provider Emergency Medicine; PCP Family Medicine; Visit Provider Student in an Organized Health Care Education/Training Program
DX: I95.1 Orthostatic hypotension (principal); N17.9 Acute kidney failure, unspecified; E87.3 Alkalosis; I13.0 Hypertensive heart and chronic kidney disease with heart failure and stage 1 through stage 4 chronic kidney disease, or unspecified chronic kidney disease; I50.42 Chronic combined systolic (congestive) and diastolic (congestive) heart failure; I48.20 Chronic atrial fibrillation, unspecified; I24.89 Other forms of acute ischemic heart disease; N18.32 Chronic kidney disease, stage 3b; I48.0 Paroxysmal atrial fibrillation; I49.5 Sick sinus syndrome; D63.1 Anemia in chronic kidney disease; I25.10 Atherosclerotic heart disease of native coronary artery without angina pectoris; K74.60 Unspecified cirrhosis of liver; Z95.0 Presence of cardiac pacemaker; Z95.5 Presence of coronary angioplasty implant and graft; W18.30XA Fall on same level, unspecified, initial encounter; E21.0 Primary hyperparathyroidism; E78.5 Hyperlipidemia, unspecified; H66.92 Otitis media, unspecified, left ear; R63.4 Abnormal weight loss; I71.21 Aneurysm of the ascending aorta, without rupture; K59.00 Constipation, unspecified; E21.3 Hyperparathyroidism, unspecified; M79.89 Other specified soft tissue disorders; R29.6 Repeated falls; R62.7 Adult failure to thrive; Z79.01 Long term (current) use of anticoagulants; Z79.899 Other long term (current) drug therapy
CPT/HCPCS: 36415; 36600; 70450; 71045; 74176; 76705; 80048; 80053; 80061; 81001; 82140; 82607; 82728; 82746; 82803; 83036; 83540; 83550; 83735; 84100; 84425; 84443; 84484; 85025; 85379; 93005; 93225; 93306; 96360; 96361; 96372; 97162; 99285; J0604; J1644; J3475; J3480; J7030; J7999; A9270